=== PATIENT | female | born 1935 | race Caucasian/White ===

== ENCOUNTER 2016-02-29 08:08 | Emergency (ER) | payer OTHER ==
[~2016-02-29] VITALS: Ht 152.4 cm; Wt 77.5 kg
[~2016-02-29 08:08] MED LIST: OXYC1TAB3 PO
[2016-02-29 08:16] VITALS: TEMP 36.8; Ht 152.4 cm; Wt 77.5 kg
[2016-02-29] MEDS ORDERED: OXYCODONE/ACETAMINOPHEN 5-325 TAB PO STA (08:44)
--- NOTE | 2016-02-29 08:48 | EMERGENCY ROOM VISIT NOTE ---
History Report prepared by Nila: Sayda Nye Under the Supervision of: Dr. Manny Roe M.D. First contact with patient: 08:38 Chief Complaint: ARM PAIN Stated Complaint: FALL History of Present Illness The patient is a 80 year old female who presents to the Emergency Room with complaints of severe and persistent right wrist pain starting this morning. She fell out of bed today. She has worsening pain with movement and palpation. The patient denies any new shoulder pain, or any other complaints. Source of History: patient Onset: this morning Position: wrist (right) Symptom Intensity: severe Timing: other (persistent) Modifying Factors (Worsening): movement, other (palpation) Review of Systems See HPI for pertinent positives & negatives. A total of 6 systems reviewed and were otherwise negative. Past Medical & Surgical Medical Problems: (1) Chronic pain of right hip (2) Compression fracture (3) COPD (chronic obstructive pulmonary disease) (4) DM type 2 (diabetes mellitus, type 2) (5) Dyslipidemia (6) Esophageal dysmotility (7) Essential hypertension (8) Hyponatremia (9) Hypothyroidism (10) Knee pain (11) Mass of lung (12) Osteoarthritis (13) Renal cancer (14) Renal mass Surgical Problems: (1) History of total bilateral knee replacement (2) Status post lumbar spinal fusion (3) Status post shoulder replacement Family History Diabetes mellitus Hypertension Social History Smoking Status: Former Smoker Alcohol Use: none Housing Status: lives alone Occupation Status: retired Current/Historical Medications Scheduled Alendronate Sodium (Alendronate Sodium), 70 MG PO WK Carvedilol (Coreg), 6.25 MG PO BIDM Celecoxib (Celebrex), 100 MG PO BID Duloxetine HCl (Cymbalta), 90 MG PO DAILY Gabapentin (Neurontin), 100 MG PO BID Gabapentin (Neurontin), 300 MG PO HS Levothyroxine Sodium (Levothyroxine Sodium), 75 MCG PO QAM Omeprazole (Prilosec), 20 MG PO BIDM Oxycodone Hcl (Roxicodone), 15 MG PO HS Simvastatin (Zocor), 10 MG PO HS Solifenacin (Vesicare), 10 MG PO HS Scheduled PRN Ipratropium-Albuterol (Combivent Respimat), 1 PUFFS INH QID PRN for SOB/Wheezing Oxycodone Ir (Roxicodone Ir), 1 TAB PO Q4H PRN for Pain Oxycodone/Acetaminophen 5MG/325MG (Percocet 5MG/325MG), 1-2 TABLETS PO Q4H PRN for Pain Allergies Coded Allergies: Levofloxacin (Verified Allergy, Mild, rash, 02/29/16) Pt reported that arm became severly itchy after start of IV levaquin Atorvastatin (Verified Adverse Reaction, Intermediate, MYALGIA, 02/29/16) Codeine (Verified Adverse Reaction, Intermediate, SEVERE N/V, 02/29/16) Fentanyl (Verified Adverse Reaction, Intermediate, FREQUENT FALLS, 02/29/16 ) PT STATES SHE WILL NOT WEAR THIS ANYMORE Morphine (Verified Adverse Reaction, Intermediate, SEVERE N/V, 02/29/16) Physical Exam Vital Signs Date Time Temp Pulse Resp B/P Pulse Ox O2 Delivery O2 Flow Rate FiO2 02/29/16 09:58 105 20 119/60 93 Room Air 02/29/16 08:16 36.8 104 19 125/82 98 Room Air Physical Exam CONSTITUTIONAL: Moderate painful distress HEENT: No icterus, moist mucous membranes NECK: No meningismus, trachea is midline. CARDIOVASCULAR: Regular rate, normal perfusion RESPIRATORY: Unlabored breathing. Clear to auscultation. GASTROINTESTINAL: Non-tender GENITOURINARY: No flank tenderness MUSCULOSKELETAL: Tenderness distal forearm on the right, neurovascularly intact. NEUROLOGIC: No acute gross focal deficits. PSYCHIATRIC: Normal affect SKIN: Normal for ethnicity. Medical Decision & Procedures ER Provider Diagnostic Interpretation: X-ray results as stated below per interpretation by me and the radiologist. RIGHT WRIST MIN 3 VIEWS ROUTINE CLINICAL HISTORY: Right wrist pain following fall. COMPARISON: None FINDINGS: There is a mildly displaced impacted distal right radial fracture which extends through the metaphysis with suspected intra-articular extension. There is no acute fracture of the distal right ulna. The trapezium has likely been resected. There are degenerative changes within the right wrist. Scaphoid appears intact. IMPRESSION: Acute impacted, mildly displaced distal right radial fracture. Electronically signed by: Cliff Varghese M.D. 02/29/2016 9:18 AM Dictated Date/Time: 02/29/2016 9:16 AM Medications Administered Medications (Trade) Dose Ordered Sig/Charlee Route Start Time Stop Time Status Last Admin Dose Admin Oxycodone/ Acetaminophen (Percocet 5-325mg Tab) 1 tab NOW STAT PO 02/29/16 08:44 02/29/16 08:45 DC 02/29/16 08:52 1 TAB ED Course 0838: Past medical records reviewed. The patient was evaluated in room B06. A complete history and physical examination was performed. 0844: Oxycodone/Acetaminophen 1 tab PO 1030: Upon reexamination the patient is resting comfortably. I discussed results and treatment plan with the patient. She verbalizes agreement and understanding. The patient is ready for discharge. Medical Decision Differential diagnosis includes but is not limited to fracture. 80 y/o in her o/w normal state of health accidentally fell out of bed injuring her R wrist. No other injuries or concerned. (+) fx. splinted. Rx: percocet. States she will f/u Dr. Reis (ortho). Impression Primary Impression: Wrist fracture Scribe Attestation The scribe's documentation has been prepared under my direction and personally reviewed by me in its entirety. I confirm that the note above accurately reflects all work, treatment, procedures, and medical decision making performed by me. Departure Information Dispostion Home / Self-Care Prescriptions Oxycodone/Acetaminophen 5MG/325MG (PERCOCET 5MG/325MG) Tab 1-2 TABLETS PO Q4H Y for Pain, #20 TAB Prov: Manny Roe MD 02/29/16 Referrals Harjeet Zaman M.D. (PCP) Forms HOME CARE DOCUMENTATION FORM, IMPORTANT VISIT INFORMATION Patient Instructions Fractures - [facility], [facility] Additional Instructions FOLLOW-UP WITH ORTHOPEDIC SURGERY.
--- NOTE | 2016-02-29 09:20 | DIAGNOSTIC IMAGING REPORT ---
RIGHT WRIST MIN 3 VIEWS ROUTINE CLINICAL HISTORY: Right wrist pain following fall. COMPARISON: None FINDINGS: There is a mildly displaced impacted distal right radial fracture which extends through the metaphysis with suspected intra-articular extension. There is no acute fracture of the distal right ulna. The trapezium has likely been resected. There are degenerative changes within the right wrist. Scaphoid appears intact. IMPRESSION: Acute impacted, mildly displaced distal right radial fracture. Electronically signed by: Cliff Varghese M.D. 02/29/2016 9:18 AM Dictated Date/Time: 02/29/2016 9:16 AM
[2016-02-29] MEDS ORDERED: OXYC-57 PO (10:28)
[2016-02-29 11:40] VITALS: BP 148/97; PULSE 105; O2SAT 94
[2016-02-29] MEDS ORDERED: OXYC15TA49 PO (13:09)
[2016-02-29] MEDS ORDERED: GABA-113 PO (13:50)
[2016-02-29] MEDS ORDERED: GABA-112 PO (13:50)
[2016-02-29] MEDS ORDERED: CYM/30 PO (15:10)
[2016-02-29] MEDS ORDERED: SIMV10TA2 PO (18:27)
[2016-02-29] MEDS ORDERED: CARV6.252 PO (23:58)
[2016-05-13] MEDS ORDERED: NRV5 PO (12:00)
[2016-05-13] MEDS ORDERED: OXYC1TAB3 PO (12:00)
[2016-05-13] MEDS ORDERED: CLC100 PO (12:00)
[2016-05-13] MEDS ORDERED: RGL10 PO (12:00)
[2016-06-15] MEDS ORDERED: CLB100 PO (11:19)
[2016-06-15] MEDS ORDERED: OMEP20CA9 PO (15:40)
[2016-06-15] MEDS ORDERED: IPRA1AER2 INH (16:33)
[2016-06-15] MEDS ORDERED: DOCU-94 PO (17:39)
[2016-06-15] MEDS ORDERED: ADVIN25/60 INH (17:44)
[2016-06-15] MEDS ORDERED: CHOL400C PO (17:45)
[2016-06-15] MEDS ORDERED: MULT-513 PO (17:47)
[2016-06-15] MEDS ORDERED: CALC-354 PO (17:47)
[2016-06-15] MEDS ORDERED: SOLI10TA2 PO (18:27)
[2016-06-15] MEDS ORDERED: FSM70 PO (23:54)
[2016-09-23] MEDS ORDERED: ATV5 PO (10:31)
[2016-09-23] MEDS ORDERED: RXNS2.5 PO (10:31)
[2016-09-23] MEDS ORDERED: DXY100 PO (10:31)
[2016-09-23] MEDS ORDERED: OXGN (10:31)
[2016-09-23] MEDS ORDERED: CRDCD120 PO (10:31)
[2016-09-23] MEDS ORDERED: PRED10TA PO (10:31)
== END 2016-02-29 13:08 | disposition home or self-care (01) ==
LOC: EDBD 08:08 → C.EDB 08:10
DX: S52.591A Other fractures of lower end of right radius, initial encounter for closed fracture (principal); W06.XXXA Fall from bed, initial encounter; Y92.013 Bedroom of single-family (private) house as the place of occurrence of the external cause; J44.9 Chronic obstructive pulmonary disease, unspecified; E11.9 Type 2 diabetes mellitus without complications; E78.5 Hyperlipidemia, unspecified; I10 Essential (primary) hypertension; E03.9 Hypothyroidism, unspecified; E87.1 Hypo-osmolality and hyponatremia; M19.90 Unspecified osteoarthritis, unspecified site; Z85.528 Personal history of other malignant neoplasm of kidney; Z83.3 Family history of diabetes mellitus; Z82.49 Family history of ischemic heart disease and other diseases of the circulatory system; Z87.891 Personal history of nicotine dependence; Z79.899 Other long term (current) drug therapy

== ENCOUNTER 2016-05-09 16:15 | Inpatient (IN) | payer OTHER ==
[~2016-05-09] VITALS: Ht 152.4 cm; Wt 77.6 kg
[~2016-05-09 16:15] MED LIST changes: +CARV6.252 PO; +CYM/30 PO; +GABA-112 PO; +GABA-113 PO; +OXYC-57 PO; +OXYC15TA49 PO; +SIMV10TA2 PO
[2016-05-09] MEDS ORDERED: ONDANSETRON INJ 2 MG/ML 2 ML VIAL IV STA (16:43)
[2016-05-09] MEDS: HYDROmorphone INJ 0.5 MG/0.5 ML SYR IV PRN ×2 (16:49→18:07)
--- NOTE | 2016-05-09 16:54 | DIAGNOSTIC IMAGING REPORT ---
CHEST ONE VIEW PORTABLE CLINICAL HISTORY: Atypical chest pain COMPARISON STUDY: 11-21 FINDINGS: There are postsurgical changes of thoracoabdominal spinal fusion. There are postsurgical changes of bilateral shoulder arthroplasties. The cardiac and mediastinal contours remain stable. There is a lobular density at the left lung base obscuring the left heart border. This likely reflects scarring as it remains unchanged the prior study. There is no failure. There is no acute parenchymal consolidation.[ IMPRESSION: No stomach unchanged the preceding study. No acute findings. Electronically signed by: Kostas Coughlin M.D. 05/09/2016 4:53 PM Dictated Date/Time: 05/09/2016 4:51 PM
[2016-05-09 17:18] LABS: BASO % 0.4 %; BASO ABS # 0.04 K/uL (0-0.2); COMPLETE YES; EOS % 1.2 %; HEMATOCRIT 34.2 % (37-47); IG% 0.5 %; LYMPH % 14.2 %; LYMPH ABS # 1.31 K/uL (1.2-3.4); MEAN CELL VOLUME 74.8 fL (80-100); MEAN CORPUSCULAR HEMOGLOBIN 23.6 pg (25-34); MEAN CORPUSCULAR HGB CONC 31.6 g/dl (32-36); MEAN PLATELET VOLUME 8.7 fL (7.4-10.4); MONO % 8.5 %; NEUT % 75.2 %; PLATELET COUNT 349 K/uL (130-400); RED BLOOD COUNT 4.57 M/uL (4.2-5.4)
[2016-05-09 17:36] LABS: BUN/CREATININE RATIO 24.2 (10-20); CALCIUM 8.9 mg/dl (8.5-10.1); CREATININE 0.86 mg/dl (0.60-1.20); POTASSIUM 4.6 mmol/L (3.5-5.1)
--- NOTE | 2016-05-09 18:09 | DIAGNOSTIC IMAGING REPORT ---
CT OF THE ABDOMEN AND PELVIS WITHOUT CONTRAST CLINICAL HISTORY: Right upper quadrant abdominal pain. COMPARISON STUDY: CT of the abdomen and pelvis August 03, 2015. TECHNIQUE: Axial images of the abdomen and pelvis were obtained without IV contrast. Images were reviewed in the axial, sagittal, and coronal planes. FINDINGS: A 5 mm right lower lobe nodule is unchanged since earlier exams. This is benign given stability. There are multiple subacute to chronic bilateral rib fractures. No pneumatosis, free air or portal venous gas is present. Evaluation of the abdomen and pelvis is suboptimal on this unenhanced exam. Unenhanced images of the liver, spleen, adrenal glands and pancreas are unremarkable. There is a fat-containing ventral hernia. There are multiple water attenuation bilateral renal lesions. These are suboptimally assessed on this unenhanced exam but measure water attenuation may reflect cysts. There are postsurgical findings involving the lower pole the right kidney. There is no evidence for a bowel obstruction. The appendix is not. No enlarged abdominal or pelvic lymph nodes are present. Multiple old thoracic and lumbar spine compression fractures are similar to exam of August 03, 2015. The postsurgical findings within the spine. IMPRESSION: 1. No acute process within the abdomen or pelvis. 2. Multiple bilateral renal lesions. These are suboptimally assessed on this unenhanced exam but measure water attenuation and may reflect cysts. 3. Stable postoperative changes and multiple old compression fractures within the thoracic and lumbar spine. Healing bilateral rib fractures. Electronically signed by: Cliff Varghese M.D. 05/09/2016 6:07 PM Dictated Date/Time: 05/09/2016 5:59 PM
--- NOTE | 2016-05-09 21:13 | DIAGNOSTIC IMAGING REPORT ---
ABDOMINAL ULTRASOUND, RIGHT UPPER QUADRANT HISTORY: Right upper quadrant pain.. COMPARISON: CT of the abdomen and pelvis May 09, 2016. FINDINGS: The pancreas is obscured by overlying bowel gas. This study is compromised by suboptimal penetration. Increased hepatic echogenicity suggests fatty infiltration. There is sludge within the gallbladder. There are no gallstones. There is no gallbladder wall thickening. A few suspected right renal cysts are noted. IMPRESSION: 1. No gallstones or biliary ductal dilatation. Gallbladder sludge. No gallbladder wall thickening. 2. Largely obscured pancreas. 3. Fatty liver. Electronically signed by: Cliff Varghese M.D. 05/09/2016 9:11 PM Dictated Date/Time: 05/09/2016 9:10 PM
[2016-05-09] MEDS ORDERED: OPTIRAY 320 IV PRN (22:00)
--- NOTE | 2016-05-09 22:13 | DIAGNOSTIC IMAGING REPORT ---
CT ANGIOGRAPHY OF THE CHEST, PULMONARY EMBOLUS PROTOCOL CLINICAL HISTORY: Right anterior chest pain. COMPARISON STUDY: Chest CT September 26, 2014. TECHNIQUE: Following IV administration of 119 mL of Optiray-320, helical axial images of the chest were obtained utilizing the pulmonary embolus protocol. Maximal intensity projections and sagittal and coronal reformats were viewed on an independent 3D workstation. IV contrast was administered without complication. CT DOSE: 621.06 mGy.cm FINDINGS: No central pulmonary emboli are identified. The remainder of the pulmonary arteries are inadequately assessed due to respiratory motion. There is no evidence of thoracic aortic dissection. There are bilateral shoulder arthroplasties. The heart is mildly enlarged. There is no pericardial effusion. The lungs are suboptimally assessed due to respiratory motion. Lower lobe and lingular opacities favor atelectasis. There is no consolidation to suggest pneumonia. There are multiple subacute healing right-sided rib fractures. There are also old bilateral rib fractures. There are multiple thoracic and lumbar spine fractures. A multilevel fusion is noted. A few borderline enlarged bilateral axillary lymph nodes have increased in size since a CT of September 26, 2014. IMPRESSION: 1. No central pulmonary emboli. The remainder of the pulmonary arteries are inadequately assessed due to respiratory motion. 2. Lung suboptimally assessed due to respiratory motion. Scattered opacities favor atelectasis. 3. Multiple subacute right-sided rib fractures. 4. Prominent bilateral axillary lymph nodes which have mildly increased in size since prior CT. A follow-up chest CT in 6 months is recommended. Electronically signed by: Cliff Varghese M.D. 05/09/2016 10:12 PM Dictated Date/Time: 05/09/2016 10:04 PM
[2016-05-10] VITALS (7 sets, daily range): BP systolic 95–145; BP diastolic 57–88; PULSE 78–94; TEMP 36.5–36.7; O2SAT 93–97; Ht 152.4 cm; Wt 77.6 kg
--- NOTE | 2016-05-10 00:17 | EMERGENCY ROOM VISIT NOTE ---
History Report prepared by Nila: Leatha Goddard Under the Supervision of: Dr. Tre Tobias M.D. First contact with patient: 16:24 Chief Complaint: CHEST PAIN Stated Complaint: CHEST PAIN Nursing Triage Summary: Right sided chest/abdominal pain. Patient points to below the right breast when asked where her pain is. Patient states she has been experiencing this pain for months but today it just became unbearable. Eating and drinking make no difference as far at the pain is concerned. Patient states she does still have her gallbladder. She states she has no cardiac history that she knows of. History of Present Illness The patient is a 80 year old female who presents to the Emergency Room with complaints of intermittent right upper quadrant abdominal pain that worsened this morning. She rates her discomfort as a 9/10 in severity and the pain is worse with deep breathing. The patient states that she has been experiencing this pain for the past couple months, but it has been significantly worse today. She states that the pain started today after she ate breakfast and got progressively worse as the day went on and became constant. The patient states that she was unable to get up out of the chair to go on a walk secondary to the pain. Pt denies LOC, headache, fevers, chills, diaphoresis, visual changes, neck pain, chest pain, breathing difficulties, nausea, vomiting, back pain, melena, hematochezia, urinary symptoms, numbness, weakness, lymphadenopathy, lower extremity pain or edema, rash, or other complaints.The patient still has her gallbladder. She denies using any blood thinners as well as any history of blood clots. Source of History: patient Onset: this morning Position: abdomen (RUQ) Symptom Intensity: 9/10 Timing: intermittent, worsening Modifying Factors (Worsening): breathing (deep) Note: denies LOC, headache, fevers, chills, diaphoresis, visual changes, neck pain, chest pain, breathing difficulties, nausea, vomiting, back pain, melena, hematochezia, urinary symptoms, numbness, weakness, lymphadenopathy, lower extremity pain or edema, rash, or other complaints Review of Systems See HPI for pertinent positives and negatives. A total of ten systems were reviewed and were otherwise negative. Past Medical & Surgical Medical Problems: (1) Chronic pain of right hip (2) Compression fracture (3) COPD (chronic obstructive pulmonary disease) (4) DM type 2 (diabetes mellitus, type 2) (5) Dyslipidemia (6) Esophageal dysmotility (7) Essential hypertension (8) Hyponatremia (9) Hypothyroidism (10) Knee pain (11) Mass of lung (12) Osteoarthritis (13) Renal cancer (14) Renal mass Surgical Problems: (1) History of total bilateral knee replacement (2) Status post lumbar spinal fusion (3) Status post shoulder replacement Family History Diabetes mellitus Hypertension Social History Smoking Status: Former Smoker Alcohol Use: none Housing Status: lives alone Occupation Status: retired Current/Historical Medications Scheduled Alendronate Sodium (Alendronate Sodium), 70 MG PO WK Carvedilol (Coreg), 6.25 MG PO BIDM Celecoxib (Celebrex), 100 MG PO BID Duloxetine HCl (Cymbalta), 90 MG PO DAILY Gabapentin (Neurontin), 100 MG PO BID Gabapentin (Neurontin), 300 MG PO HS Levothyroxine Sodium (Levothyroxine Sodium), 75 MCG PO QAM Omeprazole (Prilosec), 20 MG PO BIDM Oxycodone Hcl (Roxicodone), 15 MG PO HS Simvastatin (Zocor), 10 MG PO HS Solifenacin (Vesicare), 10 MG PO HS Scheduled PRN Ipratropium-Albuterol (Combivent Respimat), 1 PUFFS INH QID PRN for SOB/Wheezing Oxycodone Ir (Roxicodone Ir), 1 TAB PO Q4H PRN for Pain Oxycodone/Acetaminophen 5MG/325MG (Percocet 5MG/325MG), 1-2 TABLETS PO Q4H PRN for Pain Allergies Coded Allergies: Levofloxacin (Verified Allergy, Mild, rash, 05/09/16) Pt reported that arm became severly itchy after start of IV levaquin Atorvastatin (Verified Adverse Reaction, Intermediate, MYALGIA, 05/09/16) Codeine (Verified Adverse Reaction, Intermediate, SEVERE N/V, 05/09/16) Fentanyl (Verified Adverse Reaction, Intermediate, FREQUENT FALLS, 05/09/16) PT STATES SHE WILL NOT WEAR THIS ANYMORE Morphine (Verified Adverse Reaction, Intermediate, SEVERE N/V, 05/09/16) Physical Exam Vital Signs Date Time Temp Pulse Resp B/P Pulse Ox O2 Delivery O2 Flow Rate FiO2 05/09/16 23:22 94 18 146/99 Nasal Cannula 2.0 05/09/16 21:29 94 16 120/90 93 Nasal Cannula 2.0 05/09/16 20:25 98 05/09/16 20:00 92 14 160/118 94 Nasal Cannula 2.0 05/09/16 18:09 108 15 169/110 94 Room Air 05/09/16 16:32 94 Room Air 05/09/16 16:32 94 Room Air 05/09/16 16:27 99 05/09/16 16:26 94 Room Air 05/09/16 16:26 36.8 101 20 163/92 94 Room Air Physical Exam GENERAL: Awake, alert, uncomfortable-appearing, in no distress HENT: Normocephalic, atraumatic. Oropharynx unremarkable. EYES: Normal conjunctiva. Sclera non-icteric. NECK: Supple. No nuchal rigidity. FROM. No JVD. RESPIRATORY: Clear to auscultation. CARDIAC: Borderline tachycardic rate, normal rhythm. Extremities warm and well perfused. Pulses equal. ABDOMEN: Soft, non-distended. Right upper quadrant tenderness to palpation. No rebound. Mild guarding. No masses. RECTAL: Deferred. MUSCULOSKELETAL: Chest examination reveals no tenderness. The back is symmetrical on inspection without obvious abnormality. There is no CVA tenderness to palpation. No joint edema. LOWER EXTREMITIES: Calves are equal size bilaterally and non-tender. No edema. No discoloration. NEURO: Normal sensorium. No sensory or motor deficits noted. SKIN: No rash or jaundice noted. Medical Decision & Procedures ER Provider Diagnostic Interpretation: X ray results as stated below per my interpretation and radiologist interpretation. Other radiology results as stated below per my review and radiologist interpretation CHEST ONE VIEW PORTABLE IMPRESSION: No stomach unchanged the preceding study. No acute findings. Electronically signed by: Kostas Coughlin M.D. 05/09/2016 4:53 PM Dictated Date/Time: 05/09/2016 4:[address] OF THE ABDOMEN AND PELVIS WITHOUT CONTRAST IMPRESSION: 1. No acute process within the abdomen or pelvis. 2. Multiple bilateral renal lesions. These are suboptimally assessed on this unenhanced exam but measure water attenuation and may reflect cysts. 3. Stable postoperative changes and multiple old compression fractures within the thoracic and lumbar spine. Healing bilateral rib fractures. Electronically signed by: Cliff Varghese M.D. 05/09/2016 6:07 PM Dictated Date/Time: 05/09/2016 5:59 PM ABDOMINAL ULTRASOUND, RIGHT UPPER QUADRANT IMPRESSION: 1. No gallstones or biliary ductal dilatation. Gallbladder sludge. No gallbladder wall thickening. 2. Largely obscured pancreas. 3. Fatty liver. Electronically signed by: Cliff Varghese M.D. 05/09/2016 9:11 PM Dictated Date/Time: 05/09/2016 9:[address] ANGIOGRAPHY OF THE CHEST, PULMONARY EMBOLUS PROTOCOL IMPRESSION: 1. No central pulmonary emboli. The remainder of the pulmonary arteries are inadequately assessed due to respiratory motion. 2. Lung suboptimally assessed due to respiratory motion. Scattered opacities favor atelectasis. 3. Multiple subacute right-sided rib fractures. 4. Prominent bilateral axillary lymph nodes which have mildly increased in size since prior CT. A follow-up chest CT in 6 months is recommended. Electronically signed by: Cliff Varghese M.D. 05/09/2016 10:12 PM Dictated Date/Time: 05/09/2016 10:04 PM Laboratory Results 05/09/16 17:04 Red Blood Count 4.57, Mean Corpuscular Volume 74.8, Mean Corpuscular Hemoglobin 23.6, Mean Corpuscular Hemoglobin Concent 31.6, Mean Platelet Volume 8.7, Neutrophils (%) (Auto) 75.2, Lymphocytes (%) (Auto) 14.2, Monocytes (%) (Auto) 8.5, Eosinophils (%) (Auto) 1.2, Basophils (%) (Auto) 0.4, Neutrophils # (Auto) 6.91, Lymphocytes # (Auto) 1.31, Monocytes # (Auto) 0.78, Eosinophils # (Auto) 0.11, Basophils # (Auto) 0.04 05/09/16 17:04 Test 05/09/16 17:04 05/09/16 17:15 White Blood Count 9.20 K/uL (4.8-10.8) Red Blood Count 4.57 M/uL (4.2-5.4) Hemoglobin 10.8 g/dL (12.0-16.0) Hematocrit 34.2 % (37-47) Mean Corpuscular Volume 74.8 fL (80-100) Mean Corpuscular Hemoglobin 23.6 pg (25-34) Mean Corpuscular Hemoglobin Concent 31.6 g/dl (32-36) Platelet Count 349 K/uL (130-400) Mean Platelet Volume 8.7 fL (7.4-10.4) Neutrophils (%) (Auto) 75.2 % Lymphocytes (%) (Auto) 14.2 % Monocytes (%) (Auto) 8.5 % Eosinophils (%) (Auto) 1.2 % Basophils (%) (Auto) 0.4 % Neutrophils # (Auto) 6.91 K/uL (1.4-6.5) Lymphocytes # (Auto) 1.31 K/uL (1.2-3.4) Monocytes # (Auto) 0.78 K/uL (0.11-0.59) Eosinophils # (Auto) 0.11 K/uL (0-0.5) Basophils # (Auto) 0.04 K/uL (0-0.2) RDW Standard Deviation 44.3 fL (36.4-46.3) RDW Coefficient of Variation 16.1 % (11.5-14.5) Immature Granulocyte % (Auto) 0.5 % Immature Granulocyte # (Auto) 0.05 K/uL (0.00-0.02) Anion Gap 10.0 mmol/L (3-11) Est Creatinine Clear Calc Drug Dose 48.1 ml/min Estimated GFR () 73.9 Estimated GFR (Non- 63.8 BUN/Creatinine Ratio 24.2 (10-20) Calcium Level 8.9 mg/dl (8.5-10.1) Magnesium Level 2.0 mg/dl (1.8-2.4) Total Bilirubin 0.4 mg/dl (0.2-1) Direct Bilirubin 0.1 mg/dl (0-0.2) Aspartate Amino Transf (AST/SGOT) 17 U/L (15-37) Alanine Aminotransferase (ALT/SGPT) 21 U/L (12-78) Alkaline Phosphatase 130 U/L (45-117) Total Protein 6.8 gm/dl (6.4-8.2) Albumin 3.6 gm/dl (3.4-5.0) Lipase 120 U/L (73-393) Bedside Troponin I 0.010 ng/ml (0-0.045) Laboratory results reviewed by me Medications Administered Medications (Trade) Dose Ordered Sig/Charlee Route Start Time Stop Time Status Last Admin Dose Admin Hydromorphone HCl (Dilaudid Inj) 0.5 mg Q15M PRN IV 05/09/16 16:45 05/10/16 00:08 DC 05/09/16 18:07 0.5 MG Ondansetron HCl (Zofran Inj) 4 mg NOW STAT IV 05/09/16 16:43 05/09/16 16:45 DC 05/09/16 16:43 4 MG ECG Indication: abdominal pain Rate (beats per minute): 99 Rhythm: normal sinus Findings: no acute ischemic change, no ectopy ED Course 1639: The patient was evaluated in room B12. A complete history and physical exam was performed. 1643: Ordered Zofran Inj 4 mg IV 1644: Ordered Dilaudid Inj 0.5 mg IV 3: I reassessed the patient. She was resting comfortably. 4: Upon reexamination, the patient was resting comfortably. I discussed the test results and treatment plan with her. The patient will be evaluated for further management. 2230: Discussed the patient's case with Dr. Jesse Sparks. The patient will be evaluated for further treatment and disposition. Medical Decision Triage Nursing notes reviewed. The patient's presentation and history were concerning for right-sided abdominal pain. Etiologies such as biliary pathology, pancreatitis, Appendicitis, diverticulitis , obstruction, inflammatory bowel disease, renal colic, PUD, mesenteric ischemia, aortic pathology, infections, genitourinary, UTI, perforated viscus, as well as others were entertained. The patient was evaluated. She was given Dilaudid and Zofran for symptom control. She tenderness that was very reproducible in the right upper quadrant. Laboratory testing was unremarkable. The patient had an unremarkable ECG and chest x-ray. CT imaging did not reveal any problems. She was sent for ultrasound imaging of the right upper quadrant. Did not reveal any abnormalities except for some sludge. The patient still had pain. Given the right-sided chest symptoms she went for CT PE study. This was unremarkable although peripheral vessels were somewhat obscured. The patient did require 2 doses of pain medicine for symptom control. Her CBC, chemistry panel, LFTs and lipase were unremarkable. Cardiac troponin was unremarkable. ECG did not reveal any obvious findings. Exact etiology of her right-sided symptoms is not known at this time. Given the level of discomfort further evaluation and management was felt to be appropriate. Consultation was made with internal medicine. The patient was evaluated for further treatment. The chart was completed utilizing [employer] Speech voice recognition software. Grammatical errors, random word insertions, pronoun errors, and incomplete sentences are an occasional consequence of this system due to software limitations, ambient noise, and hardware issues. Any formal questions or concerns about the content, text, or information contained within the body of this dictation should be directly addressed to the physician for clarification. Consults Time Called: 2218 Consulting Physician: Dr. Jesse Sparks Returned Call: 2230 Discussed the patient's case with Dr. Jesse Sparks. The patient will be evaluated for further treatment and disposition. Impression Primary Impression: Right-sided chest pain Additional Impression: Right upper quadrant abdominal pain Scribe Attestation The scribe's documentation has been prepared under my direction and personally reviewed by me in its entirety. I confirm that the note above accurately reflects all work, treatment, procedures, and medical decision making performed by me. Departure Information Dispostion Being Evaluated By Hospitalist Harjeet Whitaker M.D. (PCP) Patient Instructions [facility] Problem Qualifiers
[2016-05-10] MEDS ORDERED: LIDODERM (LIDOCAINE) PATCH 5% TD ONE (00:54)
[2016-05-10] MEDS ORDERED: GABAPENTIN 300 MG CAP PO ONE (00:58)
[2016-05-10] MEDS ORDERED: OXYCODONE HCL IR 5 MG TAB (IMMEDIATE RELEASE) PO ONE (00:58)
[2016-05-10] MEDS ORDERED: GLUCOSE 10 TABS/TUBE PO PRN (01:00)
[2016-05-10] MEDS ORDERED: GLUCOSE 40% GEL 15 GM TUBE PO PRN (01:00)
[2016-05-10] MEDS ORDERED: OXYCODONE HCL IR 5 MG TAB (IMMEDIATE RELEASE) PO PRN ×2 (01:00→15:45)
[2016-05-10] MEDS ORDERED: DEXTROSE 50% 50 ML SYR IV PRN (01:00)
[2016-05-10] MEDS ORDERED: ACETAMINOPHEN 325 MG TAB PO PRN (01:00)
[2016-05-10] MEDS ORDERED: GLUCAGON FOR INJ 1 MG VIAL SQ PRN (01:00)
[2016-05-10] MEDS ORDERED: HYDROmorphone INJ 0.5 MG/0.5 ML SYR IV PRN ×2 (01:15→16:00)
[2016-05-10] MEDS ORDERED: OXYCODONE/ACETAMINOPHEN 5-325 TAB PO PRN (01:15)
[2016-05-10] MEDS ORDERED: SODIUM CHLORIDE 0.9% 1000ML 1,000 ML IV ONE (02:00)
[2016-05-10] MEDS: LEVOTHYROXINE 75 MCG TAB PO SCH (05:42)
--- NOTE | 2016-05-10 08:58 | HISTORY & PHYSICAL EXAMINATION ---
DATE OF ADMISSION: 05/10/2016 PRIMARY CARE DOCTOR: Dr. Zaman. Hx obtained from px and records. CHIEF COMPLAINT : Worsening right chest pain. HISTORY OF PRESENT ILLNESS: Medical history significant for chronic respiratory failure secondary to COPD on home O2, hypertension, hyperlipidemia, DM2, diet controlled, past tobacco abuse, recurrent falls, lung nodule as per records. Recent confinement in October 2015 for acute on chronic hyponatremia. As per records, patient has had 3 recurrent falls in 3 days last 02/2016. Conservative mx for R wrist fracture. Since falls, px noticed pleuritic right-sided chest discomfort, intermittent sx. No unusual sob. PX presented to the Emergency Room for worsening R chest pain. MEDICAL HISTORY: As above. SURGERIES: She has had knee replacement, back surgery, shoulder replacement. HOME MEDICATIONS: Include alendronate, Coreg, Celebrex, Cymbalta, Neurontin, Combivent, levothyroxine, Prilosec, Roxicodone, Zocor, VESIcare. ALLERGIES: CODEINE, FENTANYL, MORPHINE, LEVOFLOXACIN. FAMILY HISTORY: Leukemia, emphysema, diabetes, alcohol abuse. PERSONAL AND SOCIAL HISTORY: Past tobacco abuse. No chronic intake of alcoholic beverages. 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 REVIEW OF SYSTEMS: As per HPI. all other ROS negative PHYSICAL EXAMINATION: VITAL SIGNS: Blood pressure was noted to be 146/99, pulse rate 94, RR 18, temperature 36.9, sats 98 on 2 liters. GENERAL: Noted to be slightly uncomfortable, no respiratory distress, obese. SKIN: Pallor. HEAD, EYES, EARS, NOSE, AND THROAT: Pale palpebral conjunctivae. Dry mucosa. NECK: No JVD. supple CHEST: Clear to auscultation. HEART: Anterior chest wall tenderness, right. ABDOMEN: Soft. EXTREMITIES: R wrist splint NEUROLOGIC: No gross focality. LABORATORY DATA: Hemoglobin was noted to be 10.8, hematocrit 34.2, white cell count was 9.2, platelets 349, sodium 140, creatinine 0.8, glucose 113, lipase normal. troponin normal. CT chest initial read showed no PE, multiple subacute right-sided rib fractures. EKG rate 100, normal sinus rhythm. no ischemia ASSESSMENT AND PLAN: 1. Right-sided chest pain secondary to rib fractures secondary to fall 3 months ago. pain the last few months 2. Hypertension stable. 3. chronic resp failure 2 to COPD on home O2, past tobacco abuse pulmo status at baseline 4. Anemia, hemoglobin at baseline. 5. DM2, diet controlled well controlled as of recent HgA1c 6 last February 2016. OBS GMF Lidoderm patch trial. analgesia ISS BG goal 140-180 PT/OT eval. DVT prophylaxis with Lovenox subQ. DNR. MTDD
[2016-05-10] MEDS: ONDANSETRON INJ 2 MG/ML 2 ML VIAL IV PRN ×2 (09:22→15:33)
[2016-05-10] MEDS: INSULIN ASPART 100 UNITS/ML 3 ML PEN SC SCH ×4 (09:28→21:00)
[2016-05-10] MEDS ORDERED: PROMETHAZINE HCL INJ 12.5 MG in SODIUM CHLORIDE 0.9% 50ML 50 ML IV PRN (09:45)
[2016-05-10] MEDS: GABAPENTIN 100 MG CAP PO SCH ×2 (10:39→14:53)
[2016-05-10] MEDS: CARVEDILOL 6.25 MG TAB PO SCH ×2 (10:41→17:52)
[2016-05-10] MEDS: PANTOprazole SOD 40 MG TAB PO SCH ×2 (10:41→17:52)
[2016-05-10] MEDS: DULOXETINE (CYMBALTA) 30 MG CAP PO SCH (10:42)
--- NOTE | 2016-05-10 14:22 | DIAGNOSTIC IMAGING REPORT ---
RIGHT RIBS UNILATERAL MIN 2 VIEWS CLINICAL HISTORY: R/O Rib Fracture Right. Right-sided chest pain. COMPARISON STUDY: Chest CTA 05/09/2016. FINDINGS: There is are acute nondisplaced right posterior lateral seventh and eighth rib fractures. There are few additional subacute/healing right anterior rib fractures. No pneumothorax. No pleural effusions. Low lung volumes. Bilateral total shoulder arthroplasties. Bibasilar linear densities likely represent subsegmental atelectasis. Posterior thoracolumbar spine fusion rods. IMPRESSION: 1. Acute nondisplaced right posterior lateral seventh and eighth rib fractures. No pneumothorax. 2. A few additional subacute/healing right anterior rib fractures. Electronically signed by: Rachid Cardoso M.D. 05/10/2016 2:20 PM Dictated Date/Time: 05/10/2016 2:16 PM
--- NOTE | 2016-05-10 15:42 | Progress Note ---
Internal Med Progress Note Date of Service: May 10, 2016. Provider Documentation: SUBJECTIVE: Patient is lying in her and seems to be distressed due to right sided chest pain which increases on movements as well taking a deep breath. Intermittent cough. Mild nausea. Did not have a BM for the past 2-3 days. OBJECTIVE: Vital Signs-as noted below Examination: GENERAL: Alert/Awake, Noted to be slightly uncomfortable, no respiratory distress, obese. SKIN: Pallor. HEAD, EYES, EARS, NOSE, AND THROAT: [place] palpebral conjunctivae. Dry oral mucosa. NECK:Supple, Midline trachea, No JVD. CHEST: B/L Clear to auscultation.Tender on palpating right sided chest wall. HEART: Anterior chest wall tender right. ABDOMEN: Soft.Pain on deep palpation, BS present. EXTREMITIES: No edema.Moderate pulses present. NEUROLOGIC: No gross focality. Lab data as noted below. ASSESSMENT & PLAN: RIGHT RIBS UNILATERAL MIN 2 VIEWS CLINICAL HISTORY: R/O Rib Fracture Right. Right-sided chest pain. COMPARISON STUDY: Chest CTA 05/09/2016. FINDINGS: There is are acute nondisplaced right posterior lateral seventh and eighth rib fractures. There are few additional subacute/healing right anterior rib fractures. No pneumothorax. No pleural effusions. Low lung volumes. Bilateral total shoulder arthroplasties. Bibasilar linear densities likely represent subsegmental atelectasis. Posterior thoracolumbar spine fusion rods. IMPRESSION: 1. Acute nondisplaced right posterior lateral seventh and eighth rib fractures. No pneumothorax. 2. A few additional subacute/healing right anterior rib fractures. Right-sided Chest Pain: Due to 7th & 8th rib fractures following a fall. -Pain management -Lidoderm patch locally -Advised not to take deep breath Dysphagia: With nausea/vomiting. 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 This doesn't appear to have been done as had prescribed Amlodipine to her but do not show up in her list of home medications. -Mechanical soft diet -Started Amlodipine 2.5 mg daily and will gradually titrate upwards. -Added Reglan 10 mg before meals -Changed to soft diet which patient is reluctant. Hypothyroidism: Continue Synthroid Diabetes Type II: Diet controlled -HbA1c was 6.0 in Feb 2016. -Consistent carbohydrate diet History Hypertension: BP has been stable. -Continue Coreg Anemia Of Chronic Disease: Hgb around 9.0 which is near baseline -Continue to monitor History COPD: Has Chronic Respiratory Failure and is on home oxygen.Stable -Continue home inhalers/nebs Chronic Pain: Continue Gabapentin. Added Dilaudid PRN as per need. Depression: Continue Xanax, Cymbalta H/O Lung Nodule: Serial CTs as outpatient DVT Prophylaxis: SCDs. Code Status: FULL CODE Vital Signs: Date Time Temp Pulse Resp B/P Pulse Ox O2 Delivery O2 Flow Rate FiO2 05/11/16 15:58 101 94 05/11/16 15:44 37.0 87 18 107/65 96 Room Air 05/11/16 08:00 Nasal Cannula 2.0 05/11/16 07:14 36.9 95 16 126/74 94 2.0 05/10/16 23:00 36.5 86 17 95/57 93 Nasal Cannula 2.0 05/10/16 19:30 Nasal Cannula 2.0 Lab Results: Results Past 24 Hours Test 05/10/16 21:31 05/11/16 06:16 05/11/16 07:10 05/11/16 11:57 Range/Units Bedside Glucose 106 101 102 70-90 mg/dl White Blood Count 5.42 4.8-10.8 K/uL Red Blood Count 3.92 4.2-5.4 M/uL Hemoglobin 9.3 12.0-16.0 g/dL Hematocrit 30.4 37-47 % Mean Corpuscular Volume 77.6 80-100 fL Mean Corpuscular Hemoglobin 23.7 25-34 pg Mean Corpuscular Hemoglobin Concent 30.6 32-36 g/dl Platelet Count 281 130-400 K/uL Mean Platelet Volume 9.1 7.4-10.4 fL Neutrophils (%) (Auto) 60.2 % Lymphocytes (%) (Auto) 23.8 % Monocytes (%) (Auto) 11.3 % Eosinophils (%) (Auto) 3.9 % Basophils (%) (Auto) 0.4 % Neutrophils # (Auto) 3.27 1.4-6.5 K/uL Lymphocytes # (Auto) 1.29 1.2-3.4 K/uL Monocytes # (Auto) 0.61 0.11-0.59 K/uL Eosinophils # (Auto) 0.21 0-0.5 K/uL Basophils # (Auto) 0.02 0-0.2 K/uL RDW Standard Deviation 46.5 36.4-46.3 fL RDW Coefficient of Variation 16.4 11.5-14.5 % Immature Granulocyte % (Auto) 0.4 % Immature Granulocyte # (Auto) 0.02 0.00-0.02 K/uL Sodium Level 140 136-145 mmol/L Potassium Level 4.1 3.5-5.1 mmol/L Chloride Level 106 98-107 mmol/L Carbon Dioxide Level 27 21-32 mmol/L Anion Gap 7.0 3-11 mmol/L Blood Urea Nitrogen 19 7-18 mg/dl Creatinine 0.97 0.60-1.20 mg/dl Est Creatinine Clear Calc Drug Dose 42.6 ml/min Estimated GFR () 63.9 Estimated GFR (Non- 55.2 BUN/Creatinine Ratio 19.5 10-20 Random Glucose 97 70-99 mg/dl Calcium Level 8.6 8.5-10.1 mg/dl Test 05/11/16 12:55 05/11/16 17:00 Range/Units Bedside Glucose 107 108 70-90 mg/dl
[2016-05-10] MEDS ORDERED: DOCUSATE SODIUM 100 MG CAP PO ONE (15:45)
[2016-05-10] MEDS ORDERED: OXYCODONE HCL IR 5 MG TAB (IMMEDIATE RELEASE) PO SCH (21:00)
[2016-05-10] MEDS ORDERED: GABAPENTIN 100 MG CAP PO SCH (21:00)
[2016-05-10] MEDS: GABAPENTIN 300 MG CAP PO SCH (21:40)
[2016-05-10] MEDS: DOCUSATE SODIUM 100 MG CAP PO SCH (21:40)
[2016-05-11] MEDS: GABAPENTIN 100 MG CAP PO SCH ×2 (06:36→15:13)
[2016-05-11] MEDS: LEVOTHYROXINE 75 MCG TAB PO SCH (06:36)
[2016-05-11 07:14] VITALS: BP 126/74; PULSE 95; TEMP 36.9; O2SAT 94
[2016-05-11 07:30] LABS: BUN/CREATININE RATIO 19.5 (10-20); CALCIUM 8.6 mg/dl (8.5-10.1); CREATININE 0.97 mg/dl (0.60-1.20); POTASSIUM 4.1 mmol/L (3.5-5.1)
[2016-05-11 08:19] LABS: BASO % 0.4 %; BASO ABS # 0.02 K/uL (0-0.2); COMPLETE YES; EOS % 3.9 %; HEMATOCRIT 30.4 % (37-47); IG% 0.4 %; LYMPH % 23.8 %; LYMPH ABS # 1.29 K/uL (1.2-3.4); MEAN CELL VOLUME 77.6 fL (80-100); MEAN CORPUSCULAR HEMOGLOBIN 23.7 pg (25-34); MEAN CORPUSCULAR HGB CONC 30.6 g/dl (32-36); MEAN PLATELET VOLUME 9.1 fL (7.4-10.4); MONO % 11.3 %; NEUT % 60.2 %; PLATELET COUNT 281 K/uL (130-400); RED BLOOD COUNT 3.92 M/uL (4.2-5.4); WHITE BLOOD COUNT 5.42 K/uL (4.8-10.8)
[2016-05-11] MEDS: INSULIN ASPART 100 UNITS/ML 3 ML PEN SC SCH ×4 (09:02→21:00)
[2016-05-11] MEDS: DOCUSATE SODIUM 100 MG CAP PO SCH ×2 (09:06→21:11)
[2016-05-11] MEDS: ONDANSETRON INJ 2 MG/ML 2 ML VIAL IV PRN ×2 (09:06→17:58)
[2016-05-11] MEDS: DULOXETINE (CYMBALTA) 30 MG CAP PO SCH (09:06)
[2016-05-11] MEDS: PANTOprazole SOD 40 MG TAB PO SCH ×2 (09:07→17:24)
[2016-05-11] MEDS: CARVEDILOL 6.25 MG TAB PO SCH ×2 (09:07→17:25)
[2016-05-11] MEDS: LIDODERM (LIDOCAINE) PATCH 5% TD SCH (09:08)
[2016-05-11 15:44] VITALS: BP 107/65; PULSE 87; TEMP 37; O2SAT 96
[2016-05-11 15:58] VITALS: BP 107/65; PULSE 101; O2SAT 94
[2016-05-11] MEDS: METOCLOPRAMIDE HCL 10 MG TAB PO SCH ×2 (17:25→21:11)
[2016-05-11] MEDS: GABAPENTIN 300 MG CAP PO SCH (21:10)
[2016-05-11] MEDS: OXYCODONE HCL IR 5 MG TAB (IMMEDIATE RELEASE) PO SCH (21:11)
[2016-05-11 23:20] VITALS: BP 106/72; PULSE 16; PULSE 91; TEMP 36.7; O2SAT 93
[2016-05-12] MEDS: LEVOTHYROXINE 75 MCG TAB PO SCH (06:28)
[2016-05-12] MEDS: GABAPENTIN 100 MG CAP PO SCH ×2 (06:29→14:48)
[2016-05-12 07:26] VITALS: BP 136/81; PULSE 90; TEMP 37; O2SAT 95
[2016-05-12] MEDS: DULOXETINE (CYMBALTA) 30 MG CAP PO SCH (09:28)
[2016-05-12] MEDS: CARVEDILOL 6.25 MG TAB PO SCH ×2 (09:28→17:27)
[2016-05-12] MEDS: LIDODERM (LIDOCAINE) PATCH 5% TD SCH (09:28)
[2016-05-12] MEDS: DOCUSATE SODIUM 100 MG CAP PO SCH ×2 (09:28→20:57)
[2016-05-12] MEDS: METOCLOPRAMIDE HCL 10 MG TAB PO SCH ×4 (09:29→20:57)
[2016-05-12] MEDS: PANTOprazole SOD 40 MG TAB PO SCH ×2 (09:29→17:27)
[2016-05-12] MEDS: INSULIN ASPART 100 UNITS/ML 3 ML PEN SC SCH ×4 (09:30→21:00)
[2016-05-12] MEDS: ONDANSETRON INJ 2 MG/ML 2 ML VIAL IV PRN (09:35)
[2016-05-12 09:52] VITALS: O2SAT 93
[2016-05-12] MEDS: AMLODIPINE BESYLATE 5 MG TAB PO SCH (10:59)
[2016-05-12 15:21] VITALS: BP 112/74; PULSE 87; TEMP 37; O2SAT 92
[2016-05-12 15:27] VITALS: BP 107/68; PULSE 88; O2SAT 90
--- NOTE | 2016-05-12 16:26 | Progress Note ---
Internal Med Progress Note Date of Service: May 11, 2016. Provider Documentation: SUBJECTIVE: Patient is lying in her and seems to be distressed due to right sided chest pain which increases on movements as well taking a deep breath. Intermittent cough. Mild nausea. Did not have a BM for the past 2-3 days. OBJECTIVE: Vital Signs-as noted below Examination: GENERAL: Alert/Awake, Noted to be slightly uncomfortable, no respiratory distress, obese. SKIN: Pallor. HEAD, EYES, EARS, NOSE, AND THROAT: [place] palpebral conjunctivae. Dry oral mucosa. NECK:Supple, Midline trachea, No JVD. CHEST: B/L Clear to auscultation.Tender on palpating right sided chest wall. HEART: Anterior chest wall tender right. ABDOMEN: Soft.Pain on deep palpation, BS present. EXTREMITIES: No edema.Moderate pulses present. NEUROLOGIC: No gross focality. Lab data as noted below. ASSESSMENT & PLAN: RIGHT RIBS UNILATERAL MIN 2 VIEWS CLINICAL HISTORY: R/O Rib Fracture Right. Right-sided chest pain. COMPARISON STUDY: Chest CTA 05/09/2016. FINDINGS: There is are acute nondisplaced right posterior lateral seventh and eighth rib fractures. There are few additional subacute/healing right anterior rib fractures. No pneumothorax. No pleural effusions. Low lung volumes. Bilateral total shoulder arthroplasties. Bibasilar linear densities likely represent subsegmental atelectasis. Posterior thoracolumbar spine fusion rods. IMPRESSION: 1. Acute nondisplaced right posterior lateral seventh and eighth rib fractures. No pneumothorax. 2. A few additional subacute/healing right anterior rib fractures. Right-sided Chest Pain: Due to 7th & 8th rib fractures following a fall. -Pain management -Lidoderm patch locally -Advised not to take deep breath Dysphagia: With nausea/vomiting. 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 This doesn't appear to have been done as had prescribed Amlodipine to her but do not show up in her list of home medications. -Mechanical soft diet -Started Amlodipine 2.5 mg daily and will gradually titrate upwards. -Continue Reglan 10 mg before meals -Changed to soft diet which patient is reluctant. Hypothyroidism: Continue Synthroid Diabetes Type II: Diet controlled -HbA1c was 6.0 in Feb 2016. -Consistent carbohydrate diet History Hypertension: BP has been stable. -Continue Coreg Anemia Of Chronic Disease: Hgb around 9.0 which is near baseline -Continue to monitor History COPD: Has Chronic Respiratory Failure and is on home oxygen.Stable -Continue home inhalers/nebs Chronic Pain: Continue Gabapentin. Added Dilaudid PRN as per need. Depression: Continue Xanax, Cymbalta H/O Lung Nodule: Serial CTs as outpatient DVT Prophylaxis: SCDs. Code Status: FULL CODE Vital Signs: Date Time Temp Pulse Resp B/P Pulse Ox O2 Delivery O2 Flow Rate FiO2 05/12/16 15:30 Room Air 05/12/16 15:27 88 90 05/12/16 15:21 37.0 87 18 112/74 92 Room Air 05/12/16 09:52 93 Room Air 05/12/16 09:06 Nasal Cannula 2.0 05/12/16 07:50 Room Air 05/12/16 07:26 37.0 90 16 136/81 95 2.0 05/11/16 23:20 36.7 91 16 106/72 93 Nasal Cannula 2.0 05/11/16 20:00 Room Air Lab Results: Results Past 24 Hours Test 05/11/16 17:00 05/11/16 21:00 05/12/16 08:19 05/12/16 12:00 Range/Units Bedside Glucose 108 112 112 104 70-90 mg/dl
--- NOTE | 2016-05-12 17:09 | Progress Note ---
Internal Med Progress Note Date of Service: May 12, 2016. Provider Documentation: SUBJECTIVE: Patient is lying in her and seems to be distressed due to right sided chest pain which increases on movements as well taking a deep breath. Intermittent cough. Nausea persists and not comfortable with soft diet as well. OBJECTIVE: Vital Signs-as noted below Examination: GENERAL: Alert/Awake, Noted to be slightly uncomfortable, no respiratory distress, obese. SKIN: Pallor. HEAD, EYES, EARS, NOSE, AND THROAT: [place] palpebral conjunctivae. Dry oral mucosa. NECK:Supple, Midline trachea, No JVD. CHEST: B/L Clear to auscultation.Tender on palpating right sided chest wall. HEART: Anterior chest wall tender right. ABDOMEN: Soft.Pain on deep palpation, BS present. EXTREMITIES: No edema.Moderate pulses present. NEUROLOGIC: No gross focality. Lab data as noted below. ASSESSMENT & PLAN: RIGHT RIBS UNILATERAL MIN 2 VIEWS CLINICAL HISTORY: R/O Rib Fracture Right. Right-sided chest pain. COMPARISON STUDY: Chest CTA 05/09/2016. FINDINGS: There is are acute nondisplaced right posterior lateral seventh and eighth rib fractures. There are few additional subacute/healing right anterior rib fractures. No pneumothorax. No pleural effusions. Low lung volumes. Bilateral total shoulder arthroplasties. Bibasilar linear densities likely represent subsegmental atelectasis. Posterior thoracolumbar spine fusion rods. IMPRESSION: 1. Acute nondisplaced right posterior lateral seventh and eighth rib fractures. No pneumothorax. 2. A few additional subacute/healing right anterior rib fractures. Right-sided Chest Pain: Due to 7th & 8th rib fractures following a fall. -Pain management -Lidoderm patch locally -Advised not to take deep breath Dysphagia: With nausea/vomiting. 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 This doesn't appear to have been done as had prescribed Amlodipine to her but do not show up in her list of home medications. -Mechanical soft diet -Continue Amlodipine 2.5 mg daily and will gradually titrate upwards. Explained to her about reason ing of adding this medication. -Continue Reglan 10 mg before meals -Changed to clear liquid diet Hypothyroidism: Continue Synthroid Diabetes Type II: Diet controlled -HbA1c was 6.0 in Feb 2016. -Consistent carbohydrate diet History Hypertension: BP has been stable. -Continue Coreg Anemia Of Chronic Disease: Hgb around 9.0 which is near baseline -Continue to monitor History COPD: Has Chronic Respiratory Failure and is on home oxygen.Stable -Continue home inhalers/nebs Chronic Pain: Continue Gabapentin. Added Dilaudid PRN as per need. Depression: Continue Xanax, Cymbalta H/O Lung Nodule: Serial CTs as outpatient DVT Prophylaxis: SCDs. Code Status: FULL CODE Disposition: Pending. Likely to Acute or Subacute Rehab. Vital Signs: Date Time Temp Pulse Resp B/P Pulse Ox O2 Delivery O2 Flow Rate FiO2 05/12/16 15:30 Room Air 05/12/16 15:27 88 90 05/12/16 15:21 37.0 87 18 112/74 92 Room Air 05/12/16 09:52 93 Room Air 05/12/16 09:06 Nasal Cannula 2.0 05/12/16 07:50 Room Air 05/12/16 07:26 37.0 90 16 136/81 95 2.0 05/11/16 23:20 36.7 91 16 106/72 93 Nasal Cannula 2.0 05/11/16 20:00 Room Air Lab Results: Results Past 24 Hours Test 05/11/16 21:00 05/12/16 08:19 05/12/16 12:00 Range/Units Bedside Glucose 112 112 104 70-90 mg/dl
[2016-05-12] MEDS: GABAPENTIN 300 MG CAP PO SCH (20:57)
[2016-05-12] MEDS: OXYCODONE HCL IR 5 MG TAB (IMMEDIATE RELEASE) PO SCH (20:57)
[2016-05-12 23:02] VITALS: BP 103/67; PULSE 78; TEMP 36.5; O2SAT 93
[2016-05-13] MEDS: GABAPENTIN 100 MG CAP PO SCH (05:53)
[2016-05-13] MEDS: LEVOTHYROXINE 75 MCG TAB PO SCH (05:53)
[2016-05-13 07:39] VITALS: BP 119/76; PULSE 83; TEMP 37.2; O2SAT 84
[2016-05-13 07:53] LABS: BASO % 0.3 %; BASO ABS # 0.02 K/uL (0-0.2); COMPLETE YES; EOS % 3.5 %; HEMATOCRIT 30.5 % (37-47); IG% 0.5 %; LYMPH % 16.2 %; LYMPH ABS # 1.05 K/uL (1.2-3.4); MEAN CELL VOLUME 77.2 fL (80-100); MEAN CORPUSCULAR HEMOGLOBIN 24.3 pg (25-34); MEAN CORPUSCULAR HGB CONC 31.5 g/dl (32-36); MEAN PLATELET VOLUME 8.7 fL (7.4-10.4); MONO % 9.3 %; NEUT % 70.2 %; PLATELET COUNT 254 K/uL (130-400); RED BLOOD COUNT 3.95 M/uL (4.2-5.4); WHITE BLOOD COUNT 6.48 K/uL (4.8-10.8)
[2016-05-13 08:29] LABS: BUN/CREATININE RATIO 16.7 (10-20); CALCIUM 8.6 mg/dl (8.5-10.1); CREATININE 0.73 mg/dl (0.60-1.20); POTASSIUM 3.8 mmol/L (3.5-5.1)
[2016-05-13] MEDS: DULOXETINE (CYMBALTA) 30 MG CAP PO SCH (09:19)
[2016-05-13] MEDS: DOCUSATE SODIUM 100 MG CAP PO SCH (09:19)
[2016-05-13] MEDS: PANTOprazole SOD 40 MG TAB PO SCH (09:19)
[2016-05-13] MEDS: METOCLOPRAMIDE HCL 10 MG TAB PO SCH ×2 (09:20→11:34)
[2016-05-13] MEDS: AMLODIPINE BESYLATE 5 MG TAB PO SCH (09:20)
[2016-05-13] MEDS: CARVEDILOL 6.25 MG TAB PO SCH (09:20)
[2016-05-13] MEDS: INSULIN ASPART 100 UNITS/ML 3 ML PEN SC SCH ×2 (09:21→12:00)
[2016-05-13] MEDS: LIDODERM (LIDOCAINE) PATCH 5% TD SCH (11:33)
--- NOTE | 2016-05-13 11:47 | Progress Note ---
Internal Med Progress Note Date of Service: May 13, 2016. Provider Documentation: SUBJECTIVE: Patient is sitting in the chair and seems comfortable.Pain is tolerable and pain increases on taking a deep breath. Intermittent cough. Nausea is much better with liquid diet. OBJECTIVE: Vital Signs-as noted below Examination: GENERAL: Alert/Awake, Noted to be slightly uncomfortable, no respiratory distress, obese. SKIN: Pallor. HEAD, EYES, EARS, NOSE, AND THROAT: [place] palpebral conjunctivae. Dry oral mucosa. NECK:Supple, Midline trachea, No JVD. CHEST: B/L Clear to auscultation.Tender on palpating right sided chest wall. HEART: Anterior chest wall tender right. ABDOMEN: Soft.Pain on deep palpation, BS present. EXTREMITIES: No edema.Moderate pulses present. NEUROLOGIC: No gross focality. Lab data as noted below. ASSESSMENT & PLAN: RIGHT RIBS UNILATERAL MIN 2 VIEWS CLINICAL HISTORY: R/O Rib Fracture Right. Right-sided chest pain. COMPARISON STUDY: Chest CTA 05/09/2016. FINDINGS: There is are acute nondisplaced right posterior lateral seventh and eighth rib fractures. There are few additional subacute/healing right anterior rib fractures. No pneumothorax. No pleural effusions. Low lung volumes. Bilateral total shoulder arthroplasties. Bibasilar linear densities likely represent subsegmental atelectasis. Posterior thoracolumbar spine fusion rods. IMPRESSION: 1. Acute nondisplaced right posterior lateral seventh and eighth rib fractures. No pneumothorax. 2. A few additional subacute/healing right anterior rib fractures. Right-sided Chest Pain: Due to 7th & 8th rib fractures following a fall. -Pain management -Lidoderm patch locally -Advised not to take deep breath Dysphagia: With nausea/vomiting. 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 This doesn't appear to have been done as had prescribed Amlodipine to her but do not show up in her list of home medications. -Mechanical soft diet -Continue Amlodipine 2.5 mg daily and will gradually titrate upwards. Explained to her about reason ing of adding this medication. -Continue Reglan 10 mg before meals -Changed to clear liquid diet and will try full liquid diet Hypothyroidism: Continue Synthroid Diabetes Type II: Diet controlled -HbA1c was 6.0 in Feb 2016. -Consistent carbohydrate diet History Hypertension: BP has been stable. -Continue Coreg Anemia Of Chronic Disease: Hgb around 9.0 which is near baseline -Continue to monitor History COPD: Has Chronic Respiratory Failure and is on home oxygen.Stable -Continue home inhalers/nebs Chronic Pain: Continue Gabapentin. Added Dilaudid PRN as per need. Depression: Continue Xanax, Cymbalta H/O Lung Nodule: Serial CTs as outpatient DVT Prophylaxis: SCDs. Code Status: FULL CODE Disposition: Discharge home later today. patient does not want to go to Rehab facility. Follow up with PCP on 05/18/2016 @ 11.00 AM. Vital Signs: Date Time Temp Pulse Resp B/P Pulse Ox O2 Delivery O2 Flow Rate FiO2 05/13/16 07:39 37.2 83 16 119/76 84 Room Air 05/13/16 07:30 Room Air 05/12/16 23:40 Nasal Cannula 1.0 05/12/16 23:02 36.5 78 15 103/67 93 Nasal Cannula 1.0 05/12/16 15:30 Room Air 05/12/16 15:27 88 90 05/12/16 15:21 37.0 87 18 112/74 92 Room Air Lab Results: Results Past 24 Hours Test 05/12/16 12:00 05/12/16 17:11 05/12/16 21:06 05/13/16 07:28 Range/Units Bedside Glucose 104 83 100 70-90 mg/dl White Blood Count 6.48 4.8-10.8 K/uL Red Blood Count 3.95 4.2-5.4 M/uL Hemoglobin 9.6 12.0-16.0 g/dL Hematocrit 30.5 37-47 % Mean Corpuscular Volume 77.2 80-100 fL Mean Corpuscular Hemoglobin 24.3 25-34 pg Mean Corpuscular Hemoglobin Concent 31.5 32-36 g/dl Platelet Count 254 130-400 K/uL Mean Platelet Volume 8.7 7.4-10.4 fL Neutrophils (%) (Auto) 70.2 % Lymphocytes (%) (Auto) 16.2 % Monocytes (%) (Auto) 9.3 % Eosinophils (%) (Auto) 3.5 % Basophils (%) (Auto) 0.3 % Neutrophils # (Auto) 4.55 1.4-6.5 K/uL Lymphocytes # (Auto) 1.05 1.2-3.4 K/uL Monocytes # (Auto) 0.60 0.11-0.59 K/uL Eosinophils # (Auto) 0.23 0-0.5 K/uL Basophils # (Auto) 0.02 0-0.2 K/uL RDW Standard Deviation 45.8 36.4-46.3 fL RDW Coefficient of Variation 16.2 11.5-14.5 % Immature Granulocyte % (Auto) 0.5 % Immature Granulocyte # (Auto) 0.03 0.00-0.02 K/uL Sodium Level 139 136-145 mmol/L Potassium Level 3.8 3.5-5.1 mmol/L Chloride Level 103 98-107 mmol/L Carbon Dioxide Level 28 21-32 mmol/L Anion Gap 8.0 3-11 mmol/L Blood Urea Nitrogen 12 7-18 mg/dl Creatinine 0.73 0.60-1.20 mg/dl Est Creatinine Clear Calc Drug Dose 56.6 ml/min Estimated GFR () 90.2 Estimated GFR (Non- 77.8 BUN/Creatinine Ratio 16.7 10-20 Random Glucose 101 70-99 mg/dl Calcium Level 8.6 8.5-10.1 mg/dl Test 05/13/16 07:56 Range/Units Bedside Glucose 99 70-90 mg/dl
[2016-05-13] MEDS ORDERED: OXYC1TAB3 PO (12:00)
[2016-05-13] MEDS ORDERED: RGL10 PO (12:00)
[2016-05-13] MEDS ORDERED: CLC100 PO (12:00)
[2016-05-13] MEDS ORDERED: NRV5 PO (12:00)
--- NOTE | 2016-05-13 12:02 | Discharge Instructions ---
Discharge Instructions Date of Service May 13, 2016. Admission Reason for Admission: Rib Fractures Discharge Discharge Diagnosis / Problem: Right Sided Chest Pain due to Fractured Ribs Discharge Goals Goal(s): Decrease discomfort, Improve function, Increase independence, Improve disease control, Improve nutritional status, Learn about illness, Diagnostic testing, Therapeutic intervention Activity Recommendations Activity Limitations: resume your previous activity (As Tolerated.) Lifting Limitations: gradually increase as tolerated Exercise/Sports Limitations: as tolerated Shower/Bathe: no limitations . Instructions / Follow-Up Instructions / Follow-Up Use Pain medications only as needed. Follow dietary instructions as discussed with you in detail. Follow up with PCP on 05/18/2016 @ 11.00 AM. Current Hospital Diet Patient's current hospital diet: Clear Liquid Diet Discharge Diet Recommended Diet: Full Liquid Diet Pending Studies Studies pending at discharge: no Medical Emergencies . Who to Call and When: Medical Emergencies: If at any time you feel your situation is an emergency, please call 911 immediately. . Non-Emergent Contact Non-Emergency issues call your: Primary Care Provider . . "Provider Documentation" section prepared by Junaid Brown. VTE Core Measure Inpt VTE Proph given/why not?: SCD's (Due to history of falls.)
[2016-05-13 12:03] VITALS: O2SAT 94
[2016-05-13 12:06] VITALS: BP 119/76; PULSE 83; TEMP 37.2; O2SAT 94
--- NOTE | 2016-05-13 13:07 | Discharge Summary ---
Discharge Summary Date of Service May 13, 2016. Discharge Summary Admission Date: May 10, 2016 at 00:56 Discharge Date: May 13, 2016 Discharge Disposition: Home with services Principal Diagnosis: Right Sided Chest Pain due to Fractured Ribs Secondary Diagnoses/Problems: Dysphagia Hypothyroidism Diabetes Anemia of Chronic disease Chronic Pain Depression Procedures: NONE Vaccinations: NONE Consultations: NONE Medication Reconciliation New Medications: Amlodipine Besylate (Amlodipine Besylate) 5 Mg Tab 2.5 MG PO QAM, #30 TAB Docusate Sodium (Docusate Sodium) 100 Mg Cap 100 MG PO BID PRN for Constipation, #60 CAP 2 Refills Metoclopramide HCl (Metoclopramide HCl) 10 Mg Tab 10 MG PO ACHS, #120 TAB 1 Refill Continued Medications: Alendronate Sodium (Alendronate Sodium) 70 Mg Tab 70 MG PO WK SUNDAYS Carvedilol (Coreg) 6.25 Mg Tab 6.25 MG PO BIDM TAKE WITH FOOD Celecoxib (Celebrex) 100 Mg Cap 100 MG PO BID Duloxetine HCl (Cymbalta) 30 Mg Cap 90 MG PO DAILY, CAP Gabapentin (Neurontin) 100 Mg Cap 100 MG PO BID Gabapentin (Neurontin) 300 Mg Cap 300 MG PO HS Ipratropium-Albuterol (Combivent Respimat) 1 Aer Aer 1 PUFFS INH QID PRN for SOB/Wheezing, INH Levothyroxine Sodium (Levothyroxine Sodium) 75 Mcg Tab 75 MCG PO QAM Omeprazole (Prilosec) 20 Mg Cap 20 MG PO BIDM Oxycodone Ir (Roxicodone Ir) 5 Mg Tab 1 TAB PO Q4H PRN for Pain, #14 TAB (This prescription has been renewed) For Initial Treatment Simvastatin (Zocor) 10 Mg Tab 10 MG PO HS, TAB Solifenacin (Vesicare) 10 Mg Tab 10 MG PO HS, TAB Discontinued Medications: Oxycodone Hcl (Roxicodone) 15 Mg Tab 15 MG PO HS, TAB Oxycodone/Acetaminophen 5MG/325MG (Percocet 5MG/325MG) Tab 1-2 TABLETS PO Q4H PRN for Pain, #20 TAB Admission Information HPI (per Admitting provider): Medical history significant for chronic respiratory failure secondary to COPD on home O2, hypertension, hyperlipidemia, DM2, diet controlled, past tobacco abuse, recurrent falls, lung nodule as per records. Recent confinement in October 2015 for acute on chronic hyponatremia. As per records, patient has had 3 recurrent falls in 3 days last 02/2016. Conservative mx for R wrist fracture. Since falls, px noticed pleuritic right-sided chest discomfort, intermittent sx. No unusual sob. PX presented to the Emergency Room for worsening R chest pain. Physical Exam (per Admitting): VITAL SIGNS: Blood pressure was noted to be 146/99, pulse rate 94, RR 18, temperature 36.9, sats 98 on 2 liters. GENERAL: Noted to be slightly uncomfortable, no respiratory distress, obese. SKIN: Pallor. HEAD, EYES, EARS, NOSE, AND THROAT: [place] palpebral conjunctivae. Dry mucosa. NECK: No JVD. supple CHEST: Clear to auscultation. HEART: Anterior chest wall tenderness, right. ABDOMEN: Soft. EXTREMITIES: R wrist splint NEUROLOGIC: No gross focality. Hospital Course RIGHT RIBS UNILATERAL MIN 2 VIEWS CLINICAL HISTORY: R/O Rib Fracture Right. Right-sided chest pain. COMPARISON STUDY: Chest CTA 05/09/2016. FINDINGS: There is are acute nondisplaced right posterior lateral seventh and eighth rib fractures. There are few additional subacute/healing right anterior rib fractures. No pneumothorax. No pleural effusions. Low lung volumes. Bilateral total shoulder arthroplasties. Bibasilar linear densities likely represent subsegmental atelectasis. Posterior thoracolumbar spine fusion rods. IMPRESSION: 1. Acute nondisplaced right posterior lateral seventh and eighth rib fractures. No pneumothorax. 2. A few additional subacute/healing right anterior rib fractures. Right-sided Chest Pain: Due to 7th & 8th rib fractures following a fall. -Pain management -Lidoderm patch locally -Advised not to take deep breath Dysphagia: With nausea/vomiting. 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 This doesn't appear to have been done as had prescribed Amlodipine to her but do not show up in her list of home medications. -Mechanical soft diet -Continue Amlodipine 2.5 mg daily and will gradually titrate upwards. Explained to her about reason ing of adding this medication. -Continue Reglan 10 mg before meals -Changed to clear liquid diet and will try full liquid diet Hypothyroidism: Continue Synthroid Diabetes Type II: Diet controlled -HbA1c was 6.0 in Feb 2016. -Consistent carbohydrate diet History Hypertension: BP has been stable. -Continue Coreg Anemia Of Chronic Disease: Hgb around 9.0 which is near baseline -Continue to monitor History COPD: Has Chronic Respiratory Failure and is on home oxygen.Stable -Continue home inhalers/nebs Chronic Pain: Continue Gabapentin. Added Dilaudid PRN as per need. Depression: Continue Xanax, Cymbalta H/O Lung Nodule: Serial CTs as outpatient DVT Prophylaxis: SCDs. Code Status: FULL CODE Disposition: Discharge home later today. patient does not want to go to Rehab facility. Follow up with PCP on 05/18/2016 @ 11.00 AM. Total time spent on discharge = 40 minutes. This includes examination of the patient, discharge planning, medication reconciliation, and communication with other providers. Discharge Instructions Activity Recommendations Activity Limitations: resume your previous activity (As Tolerated.) Lifting Limitations: gradually increase as tolerated Exercise/Sports Limitations: as tolerated Shower/Bathe: no limitations . Instructions / Follow-Up Instructions / Follow-Up Use Pain medications only as needed. Follow dietary instructions as discussed with you in detail. Follow up with PCP on 05/18/2016 @ 11.00 AM. Current Hospital Diet Patient's current hospital diet: Clear Liquid Diet Discharge Diet Recommended Diet: Full Liquid Diet Additional Copies To Harjeet Zaman M.D.
[2016-06-15] MEDS ORDERED: OMEP20CA9 PO (15:40)
[2016-09-23] MEDS ORDERED: DXY100 PO (10:31)
[2016-09-23] MEDS ORDERED: DILT120C50 PO (10:31)
[2016-09-23] MEDS ORDERED: OXGN (10:31)
[2016-09-23] MEDS ORDERED: RXNS2.5 PO (10:31)
[2016-09-23] MEDS ORDERED: ATV5 PO (10:31)
[2016-09-23] MEDS ORDERED: PRED10TA PO (10:31)
[2016-12-31] MEDS ORDERED: CLB100 PO (11:19)
[2016-12-31] MEDS ORDERED: IPRA1AER2 INH (16:33)
[2017-01-01] MEDS ORDERED: OXYM0.056 (17:22)
[2017-01-01] MEDS ORDERED: SALI0.6510 (17:22)
[2017-01-01] MEDS ORDERED: BCTCR/30 (17:22)
== END 2016-05-13 13:51 | disposition home health service (06) | DRG 184 ==
LOC: ENRESERVTM → ENRESERVDT → EDBD 16:15 → C.EDB 16:16 → C.MSW 05-10 00:56
PROVIDERS: ADMIT Internal Medicine; ATTEND Emergency Medicine
DX: S22.41XA Multiple fractures of ribs, right side, initial encounter for closed fracture (principal); J96.10 Chronic respiratory failure, unspecified whether with hypoxia or hypercapnia; W19.XXXA Unspecified fall, initial encounter; R29.6 Repeated falls; R11.2 Nausea with vomiting, unspecified; R13.10 Dysphagia, unspecified; K22.4 Dyskinesia of esophagus; J44.9 Chronic obstructive pulmonary disease, unspecified; I10 Essential (primary) hypertension; E03.9 Hypothyroidism, unspecified; E78.5 Hyperlipidemia, unspecified; E11.9 Type 2 diabetes mellitus without complications; D63.8 Anemia in other chronic diseases classified elsewhere; G89.29 Other chronic pain; R91.1 Solitary pulmonary nodule; F32.9 Major depressive disorder, single episode, unspecified; Z96.653 Presence of artificial knee joint, bilateral; Z96.619 Presence of unspecified artificial shoulder joint; Z98.1 Arthrodesis status; Z87.891 Personal history of nicotine dependence; Z79.83 Long term (current) use of bisphosphonates; Z79.1 Long term (current) use of non-steroidal anti-inflammatories (NSAID); Z79.891 Long term (current) use of opiate analgesic; Z79.899 Other long term (current) drug therapy

== ENCOUNTER 2016-06-15 17:02 | Emergency (ER) | payer OTHER ==
[~2016-06-15] VITALS: Ht 149.9 cm; Wt 80.0 kg
[~2016-06-15 17:02] MED LIST changes: +CLC100 PO; +NRV5 PO; +OMEP20CA9 PO; -OXYC-57 PO; -OXYC15TA49 PO; +RGL10 PO
[2016-06-15 17:15] VITALS: TEMP 36.7; Ht 149.9 cm; Wt 80.0 kg
[2016-06-15] MEDS ORDERED: METHYLPREDNISOLONE 125 MG VIAL IV STA (17:19)
[2016-06-15] MEDS ORDERED: ALBUT/IPRATROP 3MG/0.5MG NEB 3 ML VIAL INH STA (17:19)
[2016-06-15] MEDS ORDERED: SODIUM CHLORIDE 0.9% 1000ML 1,000 ML IV STA (17:19)
[2016-06-15] MEDS ORDERED: SODIUM CHLORIDE 0.9% 1000ML 250 ML IV STA (17:19)
--- NOTE | 2016-06-15 17:26 | EMERGENCY ROOM VISIT NOTE ---
History Report prepared by Nila: Jase Oakley Under the Supervision of: Dr. Joey Block M.D. First contact with patient: 17:16 Chief Complaint: CHEST PAIN Stated Complaint: CHEST PAIN History of Present Illness The patient is a 80 year old female who presents to the Emergency Room via EMS with complaints of chest pain that occurred recently. She rates her pain mild in severity. He was walking around outside earlier today when she became very short of breath. She began to feel chest pain as well. She went inside, and her nurse told her to come to the ED. She has a past medical history of COPD. She states that this feels like an exacerbation of her COPD. She does not wear oxygen at home. She is not on Prednisone currently. She is complaining of cough , knee pain, and a dry mouth. She did not fall or suffer recent trauma. She denies any fevers or pain/swelling in her legs. Source of History: patient Onset: recently Position: chest Symptom Intensity: mild Quality: pressure Timing: constant Modifying Factors (Worsening): exertion Associated Symptoms: + SOB, + cough, No fevers Note: She has dry mouth and knee pain. Review of Systems See HPI for pertinent positives & negatives. A total of 10 systems reviewed and were otherwise negative. Past Medical & Surgical Medical Problems: (1) Chronic pain of right hip (2) Compression fracture (3) COPD (chronic obstructive pulmonary disease) (4) DM type 2 (diabetes mellitus, type 2) (5) Dyslipidemia (6) Esophageal dysmotility (7) Essential hypertension (8) Hyponatremia (9) Hypothyroidism (10) Knee pain (11) Mass of lung (12) Osteoarthritis (13) Renal cancer (14) Renal mass (15) Rib fractures Surgical Problems: (1) History of total bilateral knee replacement (2) Status post lumbar spinal fusion (3) Status post shoulder replacement Old medical records were reviewed. Nurse's notes were reviewed and I agree with. Family History Diabetes mellitus Hypertension Social History Smoking Status: Former Smoker Alcohol Use: none Housing Status: lives alone Occupation Status: retired Current/Historical Medications Scheduled Alendronate Sodium (Alendronate Sodium), 70 MG PO WK Amlodipine Besylate (Norvasc), 2.5 MG PO DAILY Calcium Carbonate-Cholecalcife (Caltrate 600+D), 1 TAB PO DAILY Celecoxib (Celebrex), 100 MG PO BID Cholecalciferol (Vitamin D3 400), 400 INTER.UNIT PO DAILY Duloxetine Hcl (Cymbalta), 60 MG PO DAILY Fluticasone Prop/Salmeterol (Advair Diskus 250/50 60 Dose), 1 PUFF INH BID Ipratropium-Albuterol (Combivent Respimat), 1 PUFF INH QPM Methylprednisolone (Medrol Dosepak), 0 PO DAILY Multivitamins/Minerals (Mvi With Minerals), 1 TAB PO DAILY Solifenacin (Vesicare), 10 MG PO HS Scheduled PRN Docusate Sodium (Colace), 100 MG PO BID PRN for Constipation Allergies Coded Allergies: Levofloxacin (Verified Allergy, Mild, rash, 05/09/16) Pt reported that arm became severly itchy after start of IV levaquin Atorvastatin (Verified Adverse Reaction, Intermediate, MYALGIA, 05/09/16) Codeine (Verified Adverse Reaction, Intermediate, SEVERE N/V, 05/09/16) Fentanyl (Verified Adverse Reaction, Intermediate, FREQUENT FALLS, 05/09/16) PT STATES SHE WILL NOT WEAR THIS ANYMORE Morphine (Verified Adverse Reaction, Intermediate, SEVERE N/V, 05/09/16) Physical Exam Vital Signs Date Time Temp Pulse Resp B/P Pulse Ox O2 Delivery O2 Flow Rate FiO2 06/15/16 19:09 92 20 148/89 94 Room Air 06/15/16 17:22 92 06/15/16 17:15 92 Room Air 06/15/16 17:15 36.7 96 20 95/75 94 Room Air Physical Exam General: Non-ill appearing older female, Well developed well nourished in no acute distress, breathing comfortably on room air. Normal speech HEENT: Normal cephalic atraumatic. Pupils are equal round and reactive to light. Extraocular movements are intact. Oropharynx is pink with moist mucous membranes. No swelling of the mouth lips or tongue. Neck: Supple with a midline trachea. No meningeal signs or stiffness, no JVD or bruits. No Stridor. Chest: Clear to auscultation bilaterally. No wheezes or rhonchi. No increased work of breathing. Heart: regular rate and rhythm. Abdomen: Soft nontender, nondistended without rebound guarding or rigidity. Extremities: No cyanosis clubbing or edema. No calf tenderness or assymetry Spine/Back. Non tender to palpation. No CVA tenderness Skin: Good turgor without rashes. Neurologic exam: Cranial nerves two through 12 are intact. Motor and sensation are intact and symmetrical throughout. Medical Decision & Procedures ER Provider Diagnostic Interpretation: Radiology results as stated below per my review and radiologist interpretation: CHEST ONE VIEW PORTABLE CLINICAL HISTORY: CHEST PAIN dyspnea COMPARISON STUDY: 05/09/2016 FINDINGS: Postoperative changes to both shoulders including thoracolumbar spine. Considered clear. Subtle prominence of pulmonary vasculature. No focal infiltrate. IMPRESSION: Chronic and postoperative change. No acute process. Slight prominence of the pulmonary vasculature. Electronically signed by: Oren Pate M.D. 06/15/2016 5:49 PM Dictated Date/Time: 06/15/2016 5:48 PM Laboratory Results 06/15/16 10:54 Red Blood Count 4.68, Mean Corpuscular Volume 77.6, Mean Corpuscular Hemoglobin 23.5, Mean Corpuscular Hemoglobin Concent 30.3, Mean Platelet Volume 9.0, Neutrophils (%) (Auto) 58.1, Lymphocytes (%) (Auto) 24.6, Monocytes (%) (Auto) 12.7, Eosinophils (%) (Auto) 3.4, Basophils (%) (Auto) 0.6, Neutrophils # (Auto ) 4.11, Lymphocytes # (Auto) 1.74, Monocytes # (Auto) 0.90, Eosinophils # (Auto ) 0.24, Basophils # (Auto) 0.04 06/15/16 10:54 Test 06/15/16 10:54 06/15/16 17:45 White Blood Count 7.07 K/uL (4.8-10.8) Red Blood Count 4.68 M/uL (4.2-5.4) Hemoglobin 11.0 g/dL (12.0-16.0) Hematocrit 36.3 % (37-47) Mean Corpuscular Volume 77.6 fL (80-100) Mean Corpuscular Hemoglobin 23.5 pg (25-34) Mean Corpuscular Hemoglobin Concent 30.3 g/dl (32-36) Platelet Count 337 K/uL (130-400) Mean Platelet Volume 9.0 fL (7.4-10.4) Neutrophils (%) (Auto) 58.1 % Lymphocytes (%) (Auto) 24.6 % Monocytes (%) (Auto) 12.7 % Eosinophils (%) (Auto) 3.4 % Basophils (%) (Auto) 0.6 % Neutrophils # (Auto) 4.11 K/uL (1.4-6.5) Lymphocytes # (Auto) 1.74 K/uL (1.2-3.4) Monocytes # (Auto) 0.90 K/uL (0.11-0.59) Eosinophils # (Auto) 0.24 K/uL (0-0.5) Basophils # (Auto) 0.04 K/uL (0-0.2) RDW Standard Deviation 45.8 fL (36.4-46.3) RDW Coefficient of Variation 16.2 % (11.5-14.5) Immature Granulocyte % (Auto) 0.6 % Immature Granulocyte # (Auto) 0.04 K/uL (0.00-0.02) Prothrombin Time 10.5 SECONDS (9.0-12.0) Prothromb Time International Ratio 1.0 (0.9-1.1) Activated Partial Thromboplast Time 23.6 SECONDS (21.0-31.0) Partial Thromboplastin Ratio 0.9 Anion Gap 8.0 mmol/L (3-11) Est Creatinine Clear Calc Drug Dose 41.5 ml/min Estimated GFR () 62.4 Estimated GFR (Non- 53.8 BUN/Creatinine Ratio 22.2 (10-20) Calcium Level 9.2 mg/dl (8.5-10.1) Total Bilirubin 0.3 mg/dl (0.2-1) Direct Bilirubin 0.1 mg/dl (0-0.2) Aspartate Amino Transf (AST/SGOT) 30 U/L (15-37) Alanine Aminotransferase (ALT/SGPT) 31 U/L (12-78) Alkaline Phosphatase 119 U/L (45-117) Total Creatine Kinase 50 U/L (26-192) Creatine Kinase MB 1.0 ng/ml (0.5-3.6) Creatine Kinase MB Ratio 2.0 (0-3.0) Total Protein 7.0 gm/dl (6.4-8.2) Albumin 3.5 gm/dl (3.4-5.0) Lipase 120 U/L (73-393) Bedside Troponin I 0.010 ng/ml (0-0.045) AV-[id number]-[id number]-Type Natriuretic Peptide 138 pg/ml (0-1800) Laboratory studies as stated above per my review. Medications Administered Medications (Trade) Dose Ordered Sig/Charlee Route Start Time Stop Time Status Last Admin Dose Admin Sodium Chloride 250 ml @ 999 mls/hr Q16M STAT IV 06/15/16 17:19 06/15/16 17:34 DC 06/15/16 17:40 999 MLS/HR Sodium Chloride (Nss 1000ml) 1,000 ml @ 100 mls/hr Q10H STAT IV 06/15/16 17:19 06/16/16 03:18 06/15/16 17:41 100 MLS/HR Methylprednisolone Sodium Succinate (Solu-Medrol IV) 125 mg NOW STAT IV 06/15/16 17:19 06/15/16 17:24 DC 06/15/16 17:56 125 MG Albuterol/ Ipratropium (Duoneb) 3 ml NOW STAT INH 06/15/16 17:19 06/15/16 17:24 DC 06/15/16 17:56 3 ML ECG Indication: chest pain Rate (beats per minute): 87 Rhythm: normal sinus Findings: no acute ischemic change, no ectopy Comparison ECG Date: 09 May 2016 Change: no significant change ED Course 1716: Past medical records reviewed. The patient was evaluated in room B3B, and a complete history and physical examination were performed. 171: Ordered Duoneb 3 ml INH, Solu-Medrol IV 125 mg IV, Sodium Chloride 1000 ml @ 100 mls/hr IV, Sodium Chloride 250 ml @ 999 mls/hr IV 1910: The patient is able to walk without difficulty. 1920: Upon reevaluation, the patient is resting. I discussed the results and treatment plan with her. She verbalized agreement of the treatment plan. The patient was discharged home. Medical Decision Differentials include COPD exacerbation, acute coronary syndrome, pneumothorax, congestive heart failure, pneumonia, and electrolyte or metabolic abnormality. This patient comes in as described above. She is placed in room before. She comes in after feeling short of breath after walking. She felt like it was her COPD which she does have. She seemed to do much better at present. She is non- hypoxemic. She was given albuterol Atrovent neb as well as IV steroids. She was placed on monitoring manager. EKG was obtained and shows no acute ischemic changes or ectopy. Her troponin is not elevated. Chest x-ray does not show any congestive heart failure, pneumonia, or pneumothorax. She has no acute electrolyte or metabolic abnormalities. She is feeling significantly better and would like to go home. At think this point I think that this is reasonable. I had her get out of bed and walk. She feels better. Again , she feels like this was related to COPD . I will have her use her rescue inhaler and give her Medrol Dosepak that she can use as directed. Return if: Worsening of symptoms, increasing shortness of breath, fever or chills, chest pain, any new problems or concerns. Follow-up with her doctor in 1-2 days for recheck. She was happy with plan and discharged to home. Impression Primary Impression: SOB (shortness of breath) Additional Impression: COPD exacerbation Scribe Attestation The scribe's documentation has been prepared under my direction and personally reviewed by me in its entirety. I confirm that the note above accurately reflects all work, treatment, procedures, and medical decision making performed by me. Departure Information Dispostion Home / Self-Care Prescriptions Methylprednisolone (MEDROL DOSEPAK) 4 Mg Willem 0 PO DAILY, #1 PKT Prov: Joey Block M.D. 06/15/16 Referrals Harjeet Zaman M.D. (PCP) Forms HOME CARE DOCUMENTATION FORM, IMPORTANT VISIT INFORMATION Patient Instructions My [facility] Additional Instructions Rest Contintue to use your rescue inhaler if needed Use Medrol dose willem as directed Return if: worsening of symptoms, chest pain, shortness of breath, any new problems or concerns Follow-up with your doctor in 1-2 days for recheck Problem Qualifiers
[2016-06-15] MEDS ORDERED: DULO60CA44 PO (17:39)
[2016-06-15] MEDS ORDERED: AMLO2.5T PO (17:39)
--- NOTE | 2016-06-15 17:51 | DIAGNOSTIC IMAGING REPORT ---
CHEST ONE VIEW PORTABLE CLINICAL HISTORY: CHEST PAIN dyspnea COMPARISON STUDY: 05/09/2016 FINDINGS: Postoperative changes to both shoulders including thoracolumbar spine. Considered clear. Subtle prominence of pulmonary vasculature. No focal infiltrate. IMPRESSION: Chronic and postoperative change. No acute process. Slight prominence of the pulmonary vasculature. Electronically signed by: Oren Pate M.D. 06/15/2016 5:49 PM Dictated Date/Time: 06/15/2016 5:48 PM
[2016-06-15 18:00] LABS: BASO % 0.6 %; BASO ABS # 0.04 K/uL (0-0.2); COMPLETE YES; EOS % 3.4 %; HEMATOCRIT 36.3 % (37-47); IG% 0.6 %; LYMPH % 24.6 %; LYMPH ABS # 1.74 K/uL (1.2-3.4); MEAN CELL VOLUME 77.6 fL (80-100); MEAN CORPUSCULAR HEMOGLOBIN 23.5 pg (25-34); MEAN CORPUSCULAR HGB CONC 30.3 g/dl (32-36); MONO % 12.7 %; NEUT % 58.1 %; PLATELET COUNT 337 K/uL (130-400); RED BLOOD COUNT 4.68 M/uL (4.2-5.4); WHITE BLOOD COUNT 7.07 K/uL (4.8-10.8)
[2016-06-15 18:04] LABS: POINT OF CARE TROPONIN I 0.01 ng/ml (0-0.045)
[2016-06-15 18:07] LABS: PARTIAL THROMBOPLASTIN RATIO 0.9; PROTHROMBIN TIME (PATIENT) 10.5 SECONDS (9.0-12.0)
[2016-06-15 18:22] LABS: BUN/CREATININE RATIO 22.2 (10-20); CALCIUM 9.2 mg/dl (8.5-10.1); CREATININE 0.99 mg/dl (0.60-1.20); POTASSIUM 4.1 mmol/L (3.5-5.1)
[2016-06-15] MEDS ORDERED: METH4PAK PO (18:54)
[2016-06-15] MEDS ORDERED: LEVO75TA5 PO (18:58)
[2016-06-15 19:09] VITALS: BP 148/89; PULSE 92; O2SAT 94
[2016-09-23] MEDS ORDERED: DXY100 PO (10:31)
[2016-09-23] MEDS ORDERED: DILT120C50 PO (10:31)
[2016-09-23] MEDS ORDERED: OXGN (10:31)
[2016-09-23] MEDS ORDERED: RXNS2.5 PO (10:31)
[2016-09-23] MEDS ORDERED: PRED10TA PO (10:31)
[2016-09-23] MEDS ORDERED: ATV5 PO (10:31)
[2016-12-31] MEDS ORDERED: CLB100 PO (11:19)
[2016-12-31] MEDS ORDERED: IPRA1AER2 INH (16:33)
[2017-01-01] MEDS ORDERED: OXYM0.056 (17:22)
[2017-01-01] MEDS ORDERED: SALI0.6510 (17:22)
[2017-01-01] MEDS ORDERED: BCTCR/30 (17:22)
== END 2016-06-15 19:30 | disposition home or self-care (01) ==
LOC: EDBD 17:02 → C.EDB 17:03
DX: J44.1 Chronic obstructive pulmonary disease with (acute) exacerbation (principal); I10 Essential (primary) hypertension; E03.9 Hypothyroidism, unspecified; E11.9 Type 2 diabetes mellitus without complications; E78.5 Hyperlipidemia, unspecified; M19.90 Unspecified osteoarthritis, unspecified site; G89.29 Other chronic pain; Z87.81 Personal history of (healed) traumatic fracture; Z98.1 Arthrodesis status; Z96.651 Presence of right artificial knee joint; Z96.652 Presence of left artificial knee joint; Z87.891 Personal history of nicotine dependence; Z79.899 Other long term (current) drug therapy; Z88.5 Allergy status to narcotic agent; Z88.8 Allergy status to other drugs, medicaments and biological substances; Z83.3 Family history of diabetes mellitus; Z82.49 Family history of ischemic heart disease and other diseases of the circulatory system

== ENCOUNTER 2016-07-20 21:36 | Emergency (ER) | payer OTHER ==
[~2016-07-20] VITALS: Ht 162.6 cm; Wt 81.2 kg
[~2016-07-20 21:36] MED LIST changes: +AMLO2.5T PO; -CARV6.252 PO; -CLC100 PO; -CYM/30 PO; +DULO60CA44 PO; -GABA-112 PO; -GABA-113 PO; -NRV5 PO; -OMEP20CA9 PO; -OXYC1TAB3 PO; -RGL10 PO; -SIMV10TA2 PO
[2016-07-20 22:03] VITALS: TEMP 37; Ht 162.6 cm; Wt 81.2 kg
[2016-07-20] MEDS ORDERED: HYDROmorphone INJ 1 MG/ML SYR IV STA (22:48)
[2016-07-20 23:26] LABS: BASO % 0.3 %; BASO ABS # 0.03 K/uL (0-0.2); COMPLETE YES; EOS % 1.3 %; HEMATOCRIT 34.4 % (37-47); IG% 0.6 %; LYMPH % 16.6 %; LYMPH ABS # 1.64 K/uL (1.2-3.4); MEAN CORPUSCULAR HEMOGLOBIN 23.5 pg (25-34); MEAN CORPUSCULAR HGB CONC 30.5 g/dl (32-36); MONO % 7.5 %; NEUT % 73.7 %; PLATELET COUNT 341 K/uL (130-400); RED BLOOD COUNT 4.47 M/uL (4.2-5.4); WHITE BLOOD COUNT 9.87 K/uL (4.8-10.8)
[2016-07-20 23:54] LABS: CALCIUM 8.7 mg/dl (8.5-10.1); CREATININE 1.1 mg/dl (0.60-1.20); POTASSIUM 3.9 mmol/L (3.5-5.1)
--- NOTE | 2016-07-21 00:02 | EMERGENCY ROOM VISIT NOTE ---
ED Visit Note First contact with patient: 22:28 I have personally evaluated and examined this patient. I agree with assessment and plan of David Dietrich PA-C. Pt notes mechanical fall with face injury. Nasal fracture with significant right arm skin tear. Pleasant, comfortable without significant distress post IV pain medications.
--- NOTE | 2016-07-21 00:59 | EMERGENCY ROOM VISIT NOTE ---
History First contact with patient: 22:28 Chief Complaint: FALL Stated Complaint: FALL History of Present Illness The patient is a 80 year old female who presents to the Emergency Room via transport with complaints of "falling". She is accompanied by her daughter. She states that earlier this evening she was playing bingo at [employer] [place], when she stood up to use her walker and believes that she caught her foot on the floor causing her to fall forward striking her face off of the floor. She notes pain in the front of her head, her right arm overlying an abrasion, her left hand and her right knee. Her tetanus is up-to-date as of 2 years ago. Patient denies loss of consciousness, nausea, chest pain, shortness of breath, fevers, chills. Review of Systems A complete 10-point Review of Systems was discussed with the patient, with pertinent positives and negatives listed in the History of Present Illness. All remaining Review of Systems questions can be considered negative unless otherwise specified. Past Medical/Surgical History Medical Problems: (1) Chronic pain of right hip (2) Compression fracture (3) COPD (chronic obstructive pulmonary disease) (4) DM type 2 (diabetes mellitus, type 2) (5) Dyslipidemia (6) Esophageal dysmotility (7) Essential hypertension (8) Hyponatremia (9) Hypothyroidism (10) Knee pain (11) Mass of lung (12) Osteoarthritis (13) Renal cancer (14) Renal mass (15) Rib fractures Surgical Problems: (1) History of total bilateral knee replacement (2) Status post lumbar spinal fusion (3) Status post shoulder replacement Family History Diabetes mellitus Hypertension Social History Smoking Status: Former Smoker Alcohol Use: none Housing Status: lives alone Occupation Status: retired Current/Historical Medications Scheduled Alendronate Sodium (Alendronate Sodium), 70 MG PO WK Amlodipine Besylate (Norvasc), 2.5 MG PO DAILY Calcium Carbonate-Cholecalcife (Caltrate 600+D), 1 TAB PO DAILY Celecoxib (Celebrex), 100 MG PO BID Cholecalciferol (Vitamin D3 400), 400 INTER.UNIT PO DAILY Duloxetine Hcl (Cymbalta), 60 MG PO DAILY Fluticasone Prop/Salmeterol (Advair Diskus 250/50 60 Dose), 1 PUFF INH BID Ipratropium-Albuterol (Combivent Respimat), 1 PUFF INH QPM Multivitamins/Minerals (Mvi With Minerals), 1 TAB PO DAILY Solifenacin (Vesicare), 10 MG PO HS Scheduled PRN Docusate Sodium (Colace), 100 MG PO BID PRN for Constipation Allergies Coded Allergies: Levofloxacin (Verified Allergy, Mild, rash, 05/09/16) Pt reported that arm became severly itchy after start of IV levaquin Atorvastatin (Verified Adverse Reaction, Intermediate, MYALGIA, 05/09/16) Codeine (Verified Adverse Reaction, Intermediate, SEVERE N/V, 05/09/16) Fentanyl (Verified Adverse Reaction, Intermediate, FREQUENT FALLS, 05/09/16) PT STATES SHE WILL NOT WEAR THIS ANYMORE Morphine (Verified Adverse Reaction, Intermediate, SEVERE N/V, 05/09/16) Physical Exam Vital Signs Date Time Temp Pulse Resp B/P (MAP) Pulse Ox O2 Delivery O2 Flow Rate FiO2 07/21/16 01:15 104 18 119/90 90 07/21/16 00:15 108 18 133/96 96 Room Air 07/20/16 23:10 106 18 124/92 93 Room Air 07/20/16 22:12 106 07/20/16 22:03 37.0 105 22 128/89 94 Room Air Physical Exam VITAL SIGNS - Vital signs and nursing notes were reviewed. Patient is afebrile , normotensive, tachycardic at a rate of 105 bpm, and is saturating on room air 94%. GENERAL -80-year-old female appearing her stated age. Communicates well with provider and answers questions appropriately. SKIN - Gross examination of the entire body surface demonstrates superficial lacerations to the to the right anterior antecubital region which appears to be a skin tear. There is also edema and bruising noted to the proximal nose. HEAD - Normocephalic, Atraumatic. No Perales's Sign or Raccoon's Eyes. No depressed skull fractures palpable. EYES - PERRL with EOMI bilaterally. Without subconjunctival hemorrhage. Palpebral conjunctiva pink and moist with no injection. There is ecchymosis at the medial canthus of both eyes. EARS - No deformities of external structures noted on gross examination bilaterally. No hemotympanum present. No tympanic perforation noted. Handle of malleus, umbo, cone of light, pars tensa/flaccid all easily visualized. NOSE - Midline and without cyanosis. No epistaxis or clear watery discharge noted. Septum midline without deviation. No septal hematoma noted. No overlying ecchymosis noted. MOUTH/OROPHARYNX - Without perioral cyanosis. Tongue midline with equal elevation of palate bilaterally. No blood noted in the oropharynx. No tonsillar hypertrophy, erythema, or exudates noted. No dental fractures noted. NECK -no tenderness to palpation over the cervical spinous processes. No cervical paraspinal muscle tenderness noted. LUNGS - Chest wall symmetric without accessory muscle use, intercostals retractions, or central cyanosis. No flail chest or depressed fractures noted. No paradoxical chest wall movements noted. No tenderness to palpation across the anterior and posterior chest dumont.Normal vesicular breath sounds CTA B/L. No wheezes, rales, or rhonchi appreciated. CARDIAC - RRR with S1/S2. No murmur, rubs, or gallops appreciated. EXTREMITIES - No gross deformities noted of the extremities. There is tenderness to palpation overlying the skin of the right elbow without bony tenderness of the right arm. There is minimal tenderness of the left hand worse with range of motion. There is also tenderness to palpation overlying the right knee. There is no spinous, hip or other extremity tenderness.. She is neurovascularly intact in her 70s. +5/5 strength noted in UE/LE bilaterally. NEUROLOGIC - Cranial nerves II through XII grossly intact. Sensory intact to light touch throughout. PSYCH - A&O. Pt is very pleasant and interacts well with examiner. Medical Decision & Procedures ER Provider Diagnostic Interpretation: CT scan of the head: Acute bilateral nasal bone fractures are suggested. Anterior frontal scalp hematoma without evidence of skull fracture. Clear paranasal sinuses and mastoid air cells. No ICH, mass effect, or edema. In dilution or and chronic small vessel ischemic changes with intracranial atherosclerosis. This was as read by stat read. CT C-spine: Normal cervical lordosis. Vertebral body height maintained. Degenerative anterolisthesis of C7 on T1 measuring 5 mm all to the Noah arthropathy, slightly progressed from prior exam. Vertebral body alignment otherwise maintaining. Osteopenia without evidence of acute fracture or subluxation. Multilevel spondylosis. No prevertebral soft tissue swelling. Clear lung apices. This was as read by stat read. CT facial: Anterior frontal scalp hematoma. Acute bilateral nasal bone fractures located near the nasal frontal junctions. Acute fracture through the superior and anterior aspect of the bony nasal septum. No evidence of orbital fracture. Pterygoid plates, zygomatic arches, and mandible are intact. Clear paranasal sinuses and mastoid air cells. This was as read by stat read. Hand x-ray: No acute fracture or dislocation. Degenerative changes noted. Knee x-ray: Hardware appears to be intact. Degenerative change. No acute fracture or dislocation. Laboratory Results 07/20/16 23:10 Red Blood Count 4.47, Mean Corpuscular Volume 77.0, Mean Corpuscular Hemoglobin 23.5, Mean Corpuscular Hemoglobin Concent 30.5, Mean Platelet Volume 9.0, Neutrophils (%) (Auto) 73.7, Lymphocytes (%) (Auto) 16.6, Monocytes (%) (Auto) 7.5, Eosinophils (%) (Auto) 1.3, Basophils (%) (Auto) 0.3, Neutrophils # (Auto) 7.27, Lymphocytes # (Auto) 1.64, Monocytes # (Auto) 0.74, Eosinophils # (Auto) 0.13, Basophils # (Auto) 0.03 07/20/16 23:10 Test 07/20/16 23:10 White Blood Count 9.87 K/uL (4.8-10.8) Red Blood Count 4.47 M/uL (4.2-5.4) Hemoglobin 10.5 g/dL (12.0-16.0) Hematocrit 34.4 % (37-47) Mean Corpuscular Volume 77.0 fL (80-100) Mean Corpuscular Hemoglobin 23.5 pg (25-34) Mean Corpuscular Hemoglobin Concent 30.5 g/dl (32-36) Platelet Count 341 K/uL (130-400) Mean Platelet Volume 9.0 fL (7.4-10.4) Neutrophils (%) (Auto) 73.7 % Lymphocytes (%) (Auto) 16.6 % Monocytes (%) (Auto) 7.5 % Eosinophils (%) (Auto) 1.3 % Basophils (%) (Auto) 0.3 % Neutrophils # (Auto) 7.27 K/uL (1.4-6.5) Lymphocytes # (Auto) 1.64 K/uL (1.2-3.4) Monocytes # (Auto) 0.74 K/uL (0.11-0.59) Eosinophils # (Auto) 0.13 K/uL (0-0.5) Basophils # (Auto) 0.03 K/uL (0-0.2) RDW Standard Deviation 46.2 fL (36.4-46.3) RDW Coefficient of Variation 16.3 % (11.5-14.5) Immature Granulocyte % (Auto) 0.6 % Immature Granulocyte # (Auto) 0.06 K/uL (0.00-0.02) Anion Gap 11.0 mmol/L (3-11) Est Creatinine Clear Calc Drug Dose 42.1 ml/min Estimated GFR () 54.9 Estimated GFR (Non- 47.4 BUN/Creatinine Ratio 16.0 (10-20) Calcium Level 8.7 mg/dl (8.5-10.1) Medications Administered Medications (Trade) Dose Ordered Sig/Charlee Route Start Time Stop Time Status Last Admin Dose Admin Hydromorphone HCl (Dilaudid Inj) 1 mg NOW STAT IV 07/20/16 22:48 07/20/16 22:49 DC 07/20/16 23:16 1 MG Medical Decision Patient was seen and evaluated as above. After obtaining a thorough history and physical examination IV access was initiated and the above workup was performed. Patient has what is suspected to be a mechanical fall and is sustained injuries from such. Bedside EKG reveals sinus tachycardia with PACs. Ventricular rate of 103 bpm. When compared with EKG of June 15, PACs are now present. Patient was informed upon this finding. CBC reveals no leukocytosis. Anemia noted. Patient was aware of this. PRP revealed glucose high at 128. Creatinine 1.1. Radiograph results as read by myself reveal no acute fracture dislocation. Chest x-ray unremarkable. CT scan reveals bilateral nasal bone fractures. She was educated upon this finding. She is to follow-up with ENT regarding this. She provided consent, and the wounds were cleansed on the right arm, and the skin tear was secured with Dermabond. She tolerated this well. These are dressed with a dry dressing. She was given Dilaudid for her pain, and was noted to become hypoxic all in this administration. She was placed upon oxygen and was saturating well. Case was discussed with my attending. Patient at this time would like to go home. I do believe it is reasonable. Without the oxygen supplementation her oxygen saturations maintained around 90%. I do believe this is reasonable. She was educated upon follow-up with ear nose and throat, as well as her family doctor. She was educated upon worrisome symptoms which to return, educated upon management today 's findings, educated upon worrisome symptoms which to return, had questions prior to discharge, and was discharged home in good condition. At this time I do not believe that any immobilizer splinting would be beneficial as the patient does utilize a walker and feel that this would be more of a hindrance and fall risk. In the evaluation and treatment of this patient, the following differential diagnoses were considered: Concussion, Contrecoup Injury, Brain Tumor, Depression, Encephalitis, Hypothyroidism, Meningitis, CVA, TIA, Migraine, Cluster Headache, Intracranial Abnormality, Intracranial Hemorrhage, Subdural Hematoma, Subarachnoid Hemorrhage, Hydrocephalus, hand fracture, knee fracture, contusion of multiple sites, nasal bone fractures, skin tear, among others.. Impression Primary Impression: Fall Additional Impressions: Contusion of multiple sites Anemia Skin tear Nasal bones, closed fracture Departure Information Dispostion Home / Self-Care Condition GOOD Referrals Harjeet Zaman M.D. (PCP) Donaldo Drake M.D. Patient Instructions My [facility] Additional Instructions You have been treated in the Emergency Department for injuries sustained during a fall. You have received pain medicine in the emergency department which impairs your ability to operate a vehicle. It is illegal for you to drive after receiving these medicines. For pain control, you can use the following [id number] medicines (if >12 yo): - Regular strength (325mg/tab) Tylenol (acetaminophen) 2 tabs every 4-6 hours as needed. Do not exceed 12 tablets in a 24 hour period. Avoid taking more than 3 grams (3000 mg) of Tylenol per day. This includes any other sources of acetaminophen you may take on a regular basis. - Regular strength (200 mg/tab) Advil (ibuprofen) 1-2 tabs every 4-6 hours as needed. Do not exceed a dose of 3200 mg per day. If this is a recent injury (<24 hrs), ice can be applied to the area of pain for the first 3 days to help decrease pain and inflammation. Ice massages can be performed by freezing water in a paper cup, peeling back the cup to expose the ice and then massaging over the affected area. You have nasal bone fractures, please call the ENT doctor listed above to schedule follow-up. Please also call your family doctor to schedule follow-up regarding today's visit. For the skin tear, please leave a dry dressing on the area for the next few days to prevent your close from catching. Please watch for signs of infection to include redness, swelling, drainage, discharge from the wound. These would develop please return to the emergency Department. Return to the Emergency Department if your current symptoms worsen despite treatment course outlined above. Please return to the emergency department with any new/concerning symptoms. Problem Qualifiers
[2016-07-21 01:15] VITALS: BP 119/90; PULSE 104; O2SAT 90
--- NOTE | 2016-07-21 06:35 | DIAGNOSTIC IMAGING REPORT ---
CT HEAD WITHOUT CONTRAST (CT) CLINICAL HISTORY: Fall, head trauma HEAD PAIN COMPARISON STUDY: 01/14/2016 TECHNIQUE: Axial CT of the brain is performed from the vertex to the skull base. IV contrast was not administered for this examination. CT DOSE: FINDINGS: No intra or extra-axial mass lesions are visualized. There is no CT evidence of acute cortical infarction. There is no evidence of midline shift. There is no acute hemorrhage. No calvarial fractures are visualized. There are mild white matter hypodensities likely on a small vessel basis. There is no evidence of pathologic ventricular dilatation. There is no evidence of acute sinusitis There is a frontal scalp hematoma There are probable nasal bone fractures. IMPRESSION: 1. Nasal bone fractures 2. Frontal scalp hematoma 3. No acute intracranial findings Electronically signed by: Kostas Coughlin M.D. 07/21/2016 6:34 AM Dictated Date/Time: 07/21/2016 6:32 AM
--- NOTE | 2016-07-21 07:02 | DIAGNOSTIC IMAGING REPORT ---
CT FACIAL BONES-MXILLOFAC WITHOUT CT DOSE: CLINICAL HISTORY: Facial pain status post trauma COMPARISON STUDY: 07/18/2014 TECHNIQUE: Helical images were acquired in the transverse plane. The study was reviewed and analyzed on the independent 3-D workstation. The pterygoid plates appear intact. The zygomatic arches appear intact. The globes appear intact. There is no evidence of orbital emphysema. The orbital dumont and floor appear intact. The mandibular condyles appear intact. There are bilateral nasal fractures. There is a nasal septal fracture. There is a frontal scalp hematoma. IMPRESSION: 1. Bilateral nasal bone fractures. There is a nasal septal fracture. 2. Frontal scalp hematoma 3. No additional facial fractures identified Electronically signed by: Kostas Coughlin M.D. 07/21/2016 7:01 AM Dictated Date/Time: 07/21/2016 6:58 AM
--- NOTE | 2016-07-21 07:12 | DIAGNOSTIC IMAGING REPORT ---
CERVICAL SPINE CT CT DOSE: 1050.54 mGy.cm HISTORY: Neck pain. Fall, head trauma TECHNIQUE: Multiaxial CT images of the cervical spine were performed and reformatted in the sagittal and coronal plane without the use of contrast. COMPARISON: Cervical spine CT 07/18/2014. FINDINGS: No acute fractures within the cervical spine. Prevertebral soft tissues and the C1-C2 interval are intact. No change in the severe degenerative disc disease at C5-C6 and C6-C7. No change in the 3 mm of anterolisthesis of C7 on T1. This is likely due to long-standing degenerative change. No pneumothorax. IMPRESSION: No fractures within the cervical spine. Stable degenerative changes as described above Electronically signed by: Rachid Cardoso M.D. 07/21/2016 7:11 AM Dictated Date/Time: 07/21/2016 7:07 AM
--- NOTE | 2016-07-21 08:22 | DIAGNOSTIC IMAGING REPORT ---
RIGHT KNEE 3 VIEWS CLINICAL HISTORY: Right knee pain status post trauma COMPARISON: None. DISCUSSION: There are postsurgical changes of a total right knee arthroplasty and patellar resurfacing. The patellar facet prosthesis remains inferiorly displaced with respect to the patella. 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 Corticated densities are again visualized at the inferior patellar pole. There is a probable small joint effusion. There are no acute fractures. IMPRESSION: 1. No acute fractures. 2. Postsurgical changes of a total right knee arthroplasty 3. Stable patella apolonia 4. Stable inferior displacement of patellar facet prosthesis with respect to the patella. This suggests chronic hardware failure. Electronically signed by: Kostas Coughlin M.D. 07/21/2016 8:21 AM Dictated Date/Time: 07/21/2016 8:18 AM
--- NOTE | 2016-07-21 08:23 | DIAGNOSTIC IMAGING REPORT ---
LEFT HAND 3 VIEWS HISTORY: Fall, hand pain COMPARISON: None. FINDINGS: There is no fracture or dislocation. Soft tissues are unremarkable. No radiopaque foreign bodies. Prior resection of the trapezium bone within the wrist. The bones are osteopenic. Mild to moderate osteoarthritis within the DIP and PIP joints. IMPRESSION: No fractures. Electronically signed by: Rachid Cardoso M.D. 07/21/2016 8:22 AM Dictated Date/Time: 07/21/2016 8:20 AM
--- NOTE | 2016-07-21 08:24 | DIAGNOSTIC IMAGING REPORT ---
CHEST ONE VIEW PORTABLE CLINICAL HISTORY: Trauma. COMPARISON STUDY: 06/15/2016 FINDINGS: The cardiac and mediastinal contours remain stable. There are bilateral shoulder arthroplasties. There are postsurgical changes of a thoracolumbar spinal fusion. No pneumothorax is visualized. There is no focal pulmonary consolidation. There are no pleural effusions. There is minor left basilar atelectasis.[ IMPRESSION: No active disease in the chest. Electronically signed by: Kostas Coughlin M.D. 07/21/2016 8:23 AM Dictated Date/Time: 07/21/2016 8:22 AM
[2016-09-23] MEDS ORDERED: ATV5 PO (10:31)
[2016-09-23] MEDS ORDERED: RXNS2.5 PO (10:31)
[2016-09-23] MEDS ORDERED: OXGN (10:31)
[2016-09-23] MEDS ORDERED: PRED10TA PO (10:31)
[2016-09-23] MEDS ORDERED: DILT120C50 PO (10:31)
[2016-09-23] MEDS ORDERED: DXY100 PO (10:31)
[2016-12-31] MEDS ORDERED: CLB100 PO (11:19)
[2016-12-31] MEDS ORDERED: IPRA1AER2 INH (16:33)
[2017-01-01] MEDS ORDERED: OXYM0.056 (17:22)
[2017-01-01] MEDS ORDERED: SALI0.6510 (17:22)
[2017-01-01] MEDS ORDERED: BCTCR/30 (17:22)
== END 2016-07-21 01:15 | disposition home or self-care (01) ==
LOC: EDBD 21:36 → C.EDC 21:38
DX: S02.2XXA Fracture of nasal bones, initial encounter for closed fracture (principal); T14.8 Other injury of unspecified body region; S41.101A Unspecified open wound of right upper arm, initial encounter; W19.XXXA Unspecified fall, initial encounter; D64.9 Anemia, unspecified; E78.5 Hyperlipidemia, unspecified; I10 Essential (primary) hypertension; E03.9 Hypothyroidism, unspecified; M19.90 Unspecified osteoarthritis, unspecified site; J44.9 Chronic obstructive pulmonary disease, unspecified; G89.29 Other chronic pain; Z87.81 Personal history of (healed) traumatic fracture; Z85.048 Personal history of other malignant neoplasm of rectum, rectosigmoid junction, and anus; Z96.651 Presence of right artificial knee joint; Z96.652 Presence of left artificial knee joint; Z96.619 Presence of unspecified artificial shoulder joint; Z98.1 Arthrodesis status; Z79.899 Other long term (current) drug therapy; Z88.5 Allergy status to narcotic agent; Z88.8 Allergy status to other drugs, medicaments and biological substances; Z83.3 Family history of diabetes mellitus; Z82.49 Family history of ischemic heart disease and other diseases of the circulatory system

== ENCOUNTER 2016-09-19 16:49 | Inpatient (IN) | payer OTHER ==
[~2016-09-19] VITALS: Ht 152.4 cm; Wt 77.7 kg
[2016-09-19] VITALS (11 sets, daily range): BP systolic 106–148; BP diastolic 63–96; PULSE 106–151; TEMP 36.9; O2SAT 90–97; Ht 152.4 cm; Wt 77.7 kg
[~2016-09-19 16:49] MED LIST changes: +ADVIN25/60 INH; +CALC-354 PO; +CHOL400C PO; +CLB100 PO; +DOCU-94 PO; +ETOMIDATE 2 MG/ML 20 ML VIAL IV ONE; +FSM70 PO; +IPRA1AER2 INH; +MULT-513 PO; +SOLI10TA2 PO; +SUCCINYLCHOLINE CHLORIDE 20 MG/ML 10 ML VIAL IV ONE
[2016-09-19] MEDS ORDERED: ALBUT/IPRATROP 3MG/0.5MG NEB 3 ML VIAL ONE (17:01)
[2016-09-19] MEDS ORDERED: SODIUM CHLORIDE 0.9% 1000ML 500 ML IV STA (17:12)
[2016-09-19] MEDS ORDERED: METHYLPREDNISOLONE 125 MG VIAL IV STA (17:12)
--- NOTE | 2016-09-19 17:29 | EMERGENCY ROOM VISIT NOTE ---
History Report prepared by Nila: Yumiko Robles Under the Supervision of: Dr. Adams Mccord M.D. First contact with patient: 17:07 Chief Complaint: SHORTNESS OF BREATH Stated Complaint: BREATHING DIFFICULTY Nursing Triage Summary: brought in by EMS. seen by pcp at [facility] yesterday for cold symptoms x1 day. started on zpack, prednisone and tesslon pearls. cxr done - no pneumonia per patient. Having increased difficulty breathing, nonproductive cough this since this am. reports emesis as well. 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 No nausea or abdominal pain. Room air spo2 96%, HR 110s, RR 20s. No intervention by EMS. hx copd. denies cardiac issues. History of Present Illness The patient is an 80 year old female who presents to the Emergency Room with complaints of persistent SOB starting 3 days ago. The patient presents to the ED by EMS. She called EMS because she felt unable to breathe. She saw her PCP yesterday and was started on a Z Willem, prednisone, and Tessalon Perles. She was not feeling improved today and her sore throat had worsened. She has been using Advair and inhalers to no significant relief. She reports nonproductive cough and sore throat. She has pain in her throat with breathing. She was vomiting yesterday. She does experience vomiting with coughing. She is unsure of fever. She has a history of COPD. She has not had pneumonia before. She has not been hospitalized for problems breathing before. She is not on oxygen at home. She denies any history of blood clots or ME. She is not on blood thinners. Source of History: patient Onset: 3 days ago Position: other (global) Quality: other (SOB) Timing: other (persistent) Associated Symptoms: + sorethroat, + cough, + vomiting Review of Systems See HPI for pertinent positives & negatives. A total of 10 systems reviewed and were otherwise negative. Past Medical & Surgical Medical Problems: (1) Chronic pain of right hip (2) Compression fracture (3) COPD (chronic obstructive pulmonary disease) (4) DM type 2 (diabetes mellitus, type 2) (5) Dyslipidemia (6) Esophageal dysmotility (7) Essential hypertension (8) Hyponatremia (9) Hypothyroidism (10) Knee pain (11) Mass of lung (12) Osteoarthritis (13) Renal cancer (14) Renal mass (15) Rib fractures Surgical Problems: (1) History of total bilateral knee replacement (2) Status post lumbar spinal fusion (3) Status post shoulder replacement Family History Diabetes mellitus Hypertension Social History Smoking Status: Former Smoker Alcohol Use: none Housing Status: lives alone Occupation Status: retired Current/Historical Medications Scheduled Alendronate Sodium (Alendronate Sodium), 70 MG PO WK Amlodipine Besylate (Norvasc), 2.5 MG PO DAILY Calcium Carbonate-Cholecalcife (Caltrate 600+D), 1 TAB PO DAILY Celecoxib (Celebrex), 100 MG PO BID Cholecalciferol (Vitamin D3 400), 400 INTER.UNIT PO DAILY Fluticasone Prop/Salmeterol (Advair Diskus 250/50 60 Dose), 1 PUFF INH BID Ipratropium-Albuterol (Combivent Respimat), 1 PUFF INH QPM Multivitamins/Minerals (Mvi With Minerals), 1 TAB PO DAILY Solifenacin (Vesicare), 10 MG PO HS Scheduled PRN Docusate Sodium (Colace), 100 MG PO BID PRN for Constipation Allergies Coded Allergies: Levofloxacin (Verified Allergy, Mild, rash, 09/19/16) Pt reported that arm became severly itchy after start of IV levaquin Atorvastatin (Verified Adverse Reaction, Intermediate, MYALGIA, 09/19/16) Codeine (Verified Adverse Reaction, Intermediate, SEVERE N/V, 09/19/16) Fentanyl (Verified Adverse Reaction, Intermediate, FREQU[place]ALL[place], 09/19/16 ) PT STATES SHE WILL NOT WEAR THIS ANYMORE Morphine (Verified Adverse Reaction, Intermediate, SEVERE N/V, 09/19/16) Physical Exam Vital Signs Date Time Temp Pulse Resp B/P (MAP) Pulse Ox O2 Delivery O2 Flow Rate FiO2 09/19/16 18:10 108 22 136/106 94 Room Air 09/19/16 17:21 108 09/19/16 17:08 96 Room Air 09/19/16 16:58 36.9 105 22 172/107 95 Room Air 09/19/16 16:58 96 Room Air Physical Exam GENERAL: Patient is in no acute distress. HEENT: No acute trauma, normocephalic atraumatic, mucous membranes moist, no nasal congestion, no scleral icterus, throat is without erythema or exudate. NECK: No stridor, no adenopathy, no meningismus, trachea is midline. LUNGS: Occasional scattered wheezing, breath sounds equal, no rhonchi, increased respiratory rate. HEART: Tachycardic with a regular rhythm, no murmurs. ABDOMEN: Soft, nontender, bowel sounds positive, no hernias, no peritonitis. EXTREMITIES: No cyanosis or edema, full range of motion of all the joints without pain or difficulty, no signs for acute trauma. NEUROLOGIC: Oriented x 3, no acute motor or sensory deficits, no focal weakness. SKIN: No rash, no jaundice, no diaphoresis. Medical Decision & Procedures ER Provider Diagnostic Interpretation: X-ray results as stated below per interpretation by me and the radiologist. Radiology results as stated below per my review and radiologist interpretation: CHEST ONE VIEW PORTABLE CLINICAL HISTORY: Respiratory distress COMPARISON STUDY: 07/20/2016 FINDINGS: The cardiac and mediastinal contours remain stable. There are postsurgical changes of a thoracolumbar spinal fusion. There are postsurgical changes of bilateral shoulder arthroplasties. Old rib deformities are visualized. There is chronic pleural-parenchymal scarring at the left lung base. There is no overt failure. There is no lobar consolidation.[ IMPRESSION: Chronic changes. No acute findings. Electronically signed by: Kostas Coughlin M.D. 09/19/2016 5:46 PM Dictated Date/Time: 09/19/2016 5:[address] ANGIOGRAM OF THE CHEST CLINICAL HISTORY: Atypical chest pain COMPARISON STUDY: 05/09/2016 TECHNIQUE: Following the IV administration of 79 mL of Optiray-320, CT angiogram of the thorax was performed from the thoracic inlet to the lung bases utilizing the pulmonary embolus protocol. Images are reviewed in the axial, sagittal, and coronal planes. IV contrast was administered without complication. MIP imaging was performed. A dose lowering technique was utilized adhering to the principles of ALARA. CT DOSE: 499.42 mGy.cm FINDINGS: There is a borderline enlarged left axillary lymph node measuring 2 cm in long axis. There is no pathologic mediastinal or hilar adenopathy. There was no evidence of thoracic aortic dilatation. There were no pulmonary artery filling defects to indicate acute pulmonary embolism. No pleural effusions are visualized. There are bibasal atelectatic changes. There is no acute parenchymal consolidation. There are postsurgical changes of bilateral shoulder arthroplasties and thoracolumbar spinal fusion. There are multiple thoracic vertebral body fractures including an subacute horizontal cleavage fracture involving the T6 vertebra. This appears more spiculated than on the prior May 09, 2016 study. There are multiple bilateral rib fractures which appears subacute and chronic. There is mild elevation/eventration of the left hemidiaphragm. IMPRESSION: 1. No central pulmonary emboli identified 2. There are no airspace opacities to indicate pneumonia 3. Persistent borderline enlarged left axillary lymph node 4. Osteopenia and multiple thoracic vertebral body fractures including a subacute horizontal cleavage fracture involving the T6 vertebra Electronically signed by: Kostas Coughlin M.D. 09/19/2016 6:41 PM Dictated Date/Time: 09/19/2016 6:34 PM Laboratory Results 09/19/16 17:28 Red Blood Count 4.33, Mean Corpuscular Volume 76.2, Mean Corpuscular Hemoglobin 22.6, Mean Corpuscular Hemoglobin Concent 29.7, Mean Platelet Volume 8.6, Neutrophils (%) (Auto) 87.2, Lymphocytes (%) (Auto) 10.5, Monocytes (%) (Auto) 1.5, Eosinophils (%) (Auto) 0.2, Basophils (%) (Auto) 0.3, Neutrophils # (Auto) 5.79, Lymphocytes # (Auto) 0.70, Monocytes # (Auto) 0.10, Eosinophils # (Auto) 0.01, Basophils # (Auto) 0.02 09/19/16 17:28 Test 09/19/16 17:28 White Blood Count 6.64 K/uL (4.8-10.8) Red Blood Count 4.33 M/uL (4.2-5.4) Hemoglobin 9.8 g/dL (12.0-16.0) Hematocrit 33.0 % (37-47) Mean Corpuscular Volume 76.2 fL (80-100) Mean Corpuscular Hemoglobin 22.6 pg (25-34) Mean Corpuscular Hemoglobin Concent 29.7 g/dl (32-36) Platelet Count 368 K/uL (130-400) Mean Platelet Volume 8.6 fL (7.4-10.4) Neutrophils (%) (Auto) 87.2 % Lymphocytes (%) (Auto) 10.5 % Monocytes (%) (Auto) 1.5 % Eosinophils (%) (Auto) 0.2 % Basophils (%) (Auto) 0.3 % Neutrophils # (Auto) 5.79 K/uL (1.4-6.5) Lymphocytes # (Auto) 0.70 K/uL (1.2-3.4) Monocytes # (Auto) 0.10 K/uL (0.11-0.59) Eosinophils # (Auto) 0.01 K/uL (0-0.5) Basophils # (Auto) 0.02 K/uL (0-0.2) RDW Standard Deviation 43.3 fL (36.4-46.3) RDW Coefficient of Variation 15.4 % (11.5-14.5) Immature Granulocyte % (Auto) 0.3 % Immature Granulocyte # (Auto) 0.02 K/uL (0.00-0.02) Prothrombin Time 10.7 SECONDS (9.0-12.0) Prothromb Time International Ratio 1.0 (0.9-1.1) Activated Partial Thromboplast Time 28.0 SECONDS (21.0-31.0) Partial Thromboplastin Ratio 1.1 Anion Gap 7.0 mmol/L (3-11) Est Creatinine Clear Calc Drug Dose 44.7 ml/min Estimated GFR () 67.3 Estimated GFR (Non- 58.0 BUN/Creatinine Ratio 17.6 (10-20) Calcium Level 8.7 mg/dl (8.5-10.1) Total Bilirubin 0.2 mg/dl (0.2-1) Aspartate Amino Transf (AST/SGOT) 16 U/L (15-37) Alanine Aminotransferase (ALT/SGPT) 19 U/L (12-78) Alkaline Phosphatase 115 U/L (45-117) Troponin I < 0.015 ng/ml (0-0.045) Total Protein 6.6 gm/dl (6.4-8.2) Albumin 3.2 gm/dl (3.4-5.0) Globulin 3.4 gm/dl (2.5-4.0) Albumin/Globulin Ratio 0.9 (0.9-2) Laboratory results reviewed by me. Medications Administered Medications (Trade) Dose Ordered Sig/Charlee Route Start Time Stop Time Status Last Admin Dose Admin Albuterol/ Ipratropium (Duoneb) 3 ml STK-MED ONCE .ROUTE 09/19/16 17:01 09/19/16 17:02 DC 09/19/16 17:09 3 ML Sodium Chloride 500 ml @ 999 mls/hr Q31M STAT IV 09/19/16 17:12 09/19/16 17:42 DC 09/19/16 18:07 999 MLS/HR Methylprednisolone Sodium Succinate (Solu-Medrol IV) 80 mg NOW STAT IV 09/19/16 17:12 09/19/16 17:15 DC 09/19/16 18:06 80 MG ECG Indication: SOB/dyspnea Rate (beats per minute): 107 Rhythm: sinus tachycardia Findings: no acute ischemic change, no ectopy ED Course 1708: The patient was evaluated in room A3. A complete history and physical exam was performed. 1701: Duoneb 3 ml INH. 1712: Solu-Medrol IV 80 mg IV, NSS 500 ml @ 999 mls/hr IV. 1807: I reevaluated the patient. She is doing well. She will go for CT. 1847: Upon reexamination the patient is doing well. I discussed results and treatment plan with the patient. She verbalizes agreement and understanding. The patient will be evaluated for further management. 1848: I [facility] the patient's [facility] The patient will be evaluated for further management. 1850: Dilaudid Inj 0.5 mg IV. Medical Decision Differential diagnoses considered include bronchitis, pneumonia, pneumothorax, heart failure, anemia, exacerbation of COPD, failed outpatient treatment. There is no leukocytosis. The patient does have a mild anemia but this is relatively baseline for her. There is no significant electrolyte abnormality, kidney failure or hepatitis. EKG shows a sinus tachycardia, no acute ischemia. Cardiac enzyme testing times one is not consistent with acute cardiac injury. Chest film does not show pneumonia or CHF. There is no pneumothorax or mediastinal widening. Chest CT does not show PE or pneumonia. Some compression fractures were noted, a subacute T6 fracture was seen. The patient received IV Solu-Medrol, IV saline and a DuoNeb. She eventually received a small dose of IV Dilaudid for pain. She is improved but still feeling short of breath. The patient has failed outpatient treatment for what appears to be an acute bronchitis with an exacerbation of COPD. Admission/observation is warranted. I spoke to the senior case manager, the on-call hospitalist was consulted. Medication Reconcilliation Current Medication List: was personally reviewed by me Blood Pressure Screening Patient's blood pressure: Elevated blood pressure Blood pressure disposition: Referred to PCP Consults Time Called: 1844 Consulting Physician: CORNELIO Mills hospitalist service Returned Call: [phone] Discussed the patient's case. The patient will be evaluated for further management. Impression Primary Impression: SOB (shortness of breath) Additional Impressions: Acute bronchitis COPD exacerbation Failure of outpatient treatment Scribe Attestation The scribe's documentation has been prepared under my direction and personally reviewed by me in its entirety. I confirm that the note above accurately reflects all work, treatment, procedures, and medical decision making performed by me. Departure Information Dispostion Being Evaluated By Hospitalist Referrals Harjeet Zaman M.D. (PCP) Patient Instructions My [facility] Problem Qualifiers
[2016-09-19 17:45] LABS: BASO % 0.3 %; BASO ABS # 0.02 K/uL (0-0.2); COMPLETE YES; EOS % 0.2 %; IG% 0.3 %; LYMPH % 10.5 %; MEAN CELL VOLUME 76.2 fL (80-100); MEAN CORPUSCULAR HEMOGLOBIN 22.6 pg (25-34); MEAN CORPUSCULAR HGB CONC 29.7 g/dl (32-36); MEAN PLATELET VOLUME 8.6 fL (7.4-10.4); MONO % 1.5 %; NEUT % 87.2 %; PLATELET COUNT 368 K/uL (130-400); RED BLOOD COUNT 4.33 M/uL (4.2-5.4); WHITE BLOOD COUNT 6.64 K/uL (4.8-10.8)
--- NOTE | 2016-09-19 17:47 | DIAGNOSTIC IMAGING REPORT ---
CHEST ONE VIEW PORTABLE CLINICAL HISTORY: Respiratory distress COMPARISON STUDY: 07/20/2016 FINDINGS: The cardiac and mediastinal contours remain stable. There are postsurgical changes of a thoracolumbar spinal fusion. There are postsurgical changes of bilateral shoulder arthroplasties. Old rib deformities are visualized. There is chronic pleural-parenchymal scarring at the left lung base. There is no overt failure. There is no lobar consolidation.[ IMPRESSION: Chronic changes. No acute findings. Electronically signed by: Kostas Coughlin M.D. 09/19/2016 5:46 PM Dictated Date/Time: 09/19/2016 5:45 PM
[2016-09-19 17:58] LABS: ALT/SGPT 19 U/L (12-78); BLOOD UREA NITROGEN 16 mg/dl (7-18); BUN/CREATININE RATIO 17.6 (10-20); CALCIUM 8.7 mg/dl (8.5-10.1); CARBON DIOXIDE 25 mmol/L (21-32); CHLORIDE 102 mmol/L (98-107); CREATININE 0.93 mg/dl (0.60-1.20); GLUCOSE 215 mg/dl (70-99); POTASSIUM 4.2 mmol/L (3.5-5.1); SODIUM 134 mmol/L (136-145)
[2016-09-19 17:59] LABS: PARTIAL THROMBOPLASTIN RATIO 1.1; PROTHROMBIN TIME (PATIENT) 10.7 SECONDS (9.0-12.0)
[2016-09-19 18:02] LABS: ALB/GLOB RATIO 0.9 (0.9-2); ALKALINE PHOSPHATASE 115 U/L (45-117); AST/SGOT 16 U/L (15-37)
[2016-09-19] MEDS ORDERED: OPTIRAY 320 IV PRN (18:15)
--- NOTE | 2016-09-19 18:43 | DIAGNOSTIC IMAGING REPORT ---
CT ANGIOGRAM OF THE CHEST CLINICAL HISTORY: Atypical chest pain COMPARISON STUDY: 05/09/2016 TECHNIQUE: Following the IV administration of 79 mL of Optiray-320, CT angiogram of the thorax was performed from the thoracic inlet to the lung bases utilizing the pulmonary embolus protocol. Images are reviewed in the axial, sagittal, and coronal planes. IV contrast was administered without complication. MIP imaging was performed. A dose lowering technique was utilized adhering to the principles of ALARA. CT DOSE: 499.42 mGy.cm FINDINGS: There is a borderline enlarged left axillary lymph node measuring 2 cm in long axis. There is no pathologic mediastinal or hilar adenopathy. There was no evidence of thoracic aortic dilatation. There were no pulmonary artery filling defects to indicate acute pulmonary embolism. No pleural effusions are visualized. There are bibasal atelectatic changes. There is no acute parenchymal consolidation. There are postsurgical changes of bilateral shoulder arthroplasties and thoracolumbar spinal fusion. There are multiple thoracic vertebral body fractures including an subacute horizontal cleavage fracture involving the T6 vertebra. This appears more spiculated than on the prior May 09, 2016 study. There are multiple bilateral rib fractures which appears subacute and chronic. There is mild elevation/eventration of the left hemidiaphragm. IMPRESSION: 1. No central pulmonary emboli identified 2. There are no airspace opacities to indicate pneumonia 3. Persistent borderline enlarged left axillary lymph node 4. Osteopenia and multiple thoracic vertebral body fractures including a subacute horizontal cleavage fracture involving the T6 vertebra Electronically signed by: Kostas Coughlin M.D. 09/19/2016 6:41 PM Dictated Date/Time: 09/19/2016 6:34 PM
[2016-09-19] MEDS ORDERED: HYDROmorphone INJ 2 MG/ML SYR/VIAL IV STA (18:50)
[2016-09-19] MEDS ORDERED: IPRASOL4 INH (19:50)
[2016-09-19] MEDS ORDERED: LEVO75TA5 PO (19:50)
[2016-09-19] MEDS ORDERED: OMEP20TA PO (19:50)
[2016-09-19] MEDS ORDERED: BENZ100C18 PO (19:50)
[2016-09-19] MEDS ORDERED: AZITTAB PO (19:50)
[2016-09-19] MEDS ORDERED: DULO60CA44 PO (19:50)
[2016-09-19] MEDS ORDERED: FERRO SEQUELS PO (19:50)
[2016-09-19] MEDS ORDERED: DOCUSATE SODIUM 100 MG CAP PO PRN (20:00)
[2016-09-19] MEDS ORDERED: IV FLUIDS COMPLETED PRN (20:00)
--- NOTE | 2016-09-19 20:19 | History and Physical ---
History & Physical Date & Time of Service: Sep 19, 2016 ~ 19:00 Chief Complaint: Shortness of Breath Primary Care Physician: Harjeet Zaman M.D. History of Present Illness 80 year old female who presents to the ER with shortness of breath. Patient reports she started getting sick a few days ago. She reports cough, sore throat , and shortness of breath. Cough has been non productive. She reports she has heard herself wheezing. She has shortness of breath with minimal exertion. She was seen by her PCP yesterday who prescribed her Tessalon Perles and Azithromycin. She reports no improvement in her symptoms. She denies fever and chills. No chest pain or palpitations. She denies lightheadedness, dizziness, diaphoresis, or syncopal events. She reports a poor appetite and some mild nausea with one episode of vomiting. No hematemesis or coffee ground emesis. She denies abdominal pain or diarrhea. She denies any urinary symptoms. In the ER, patient is saturating well on room air. CT chest is negative for PE and pneumonia. She was given IVF, IV solumedrol, neb, and IV Dilaudid. 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 Beal Status: Chronic Surgical Problems: (1) History of total bilateral knee replacement Status: Chronic (2) Status post lumbar spinal fusion Status: Chronic (3) Status post shoulder replacement Status: Chronic Family History non contributory due to patient's advanced age Social History Smoking Status: Former Smoker Alcohol Use: none Housing status: lives alone Immunizations History of Influenza Vaccine: Yes Influenza Vaccine Date: Nov 17, 2015 History of Tetanus Vaccine?: Yes Tetanus Immunization Date: Sep 10, 2012 History of Pneumococcal: Yes Pneumococcal Date: May 20, 2015 Multi-Drug Resistant Organisms History of MDRO: Yes Type of MDRO: MRSA Allergies Coded Allergies: Levofloxacin (Verified Allergy, Mild, rash, 09/19/16) Pt reported that arm became severly itchy after start of IV levaquin Atorvastatin (Verified Adverse Reaction, Intermediate, MYALGIA, 09/19/16) Codeine (Verified Adverse Reaction, Intermediate, SEVERE N/V, 09/19/16) Fentanyl (Verified Adverse Reaction, Intermediate, FREQU[place] FALLS, 09/19/16 ) PT STATES SHE WILL NOT WEAR THIS ANYMORE Morphine (Verified Adverse Reaction, Intermediate, SEVERE N/V, 09/19/16) Home Medications Scheduled Alendronate Sodium (Alendronate Sodium), 70 MG PO WK Amlodipine Besylate (Norvasc), 2.5 MG PO DAILY Azithromycin (Zithromax Z-Willem), 1 PKT PO UD Calcium Carbonate-Cholecalcife (Caltrate 600+D), 1 TAB PO DAILY Celecoxib (Celebrex), 100 MG PO BID Cholecalciferol (Vitamin D3 400), 400 INTER.UNIT PO BID Duloxetine Hcl (Cymbalta), 1 CAP PO DAILY Fluticasone Prop/Salmeterol (Advair Diskus 250/50 60 Dose), 1 PUFF INH BID Levothyroxine Sodium (Levothyroxine Sodium), 1 TAB PO DAILY Multivitamins/Minerals (Mvi With Minerals), 1 TAB PO DAILY Omeprazole (Omeprazole), 1 TAB PO BID Solifenacin (Vesicare), 10 MG PO HS [Oni-Sequels], 1 TAB PO BID Scheduled PRN Benzonatate (Tessalon Perles), 1 CAP PO TID PRN for Cough Docusate Sodium (Colace), 100 MG PO BID PRN for Constipation Ipratropium-Albuterol (Combivent Respimat), 1 PUFF INH QID PRN for SOB/Wheezing Ipratropium-Albuterol (Duoneb), 1 TREATMENT INH Q4H PRN for SOB/Wheezing Review of Systems ROS per HPI, all other systems reviewed and negative Physical Exam Vital Signs Date Time Temp Pulse Resp B/P (MAP) Pulse Ox O2 Delivery O2 Flow Rate FiO2 09/19/16 19:28 66 18 103/63 97 Room Air 09/19/16 18:10 108 22 136/106 94 Room Air 09/19/16 17:21 108 09/19/16 17:08 96 Room Air 09/19/16 16:58 36.9 105 22 172/107 95 Room Air 09/19/16 16:58 96 Room Air General Appearance: no apparent distress Head: normocephalic Eyes: normal inspection ENT: hearing grossly normal Neck: supple, no JVD Respiratory/Chest: no respiratory distress, + pertinent finding (coarse breath sounds BL; shortness of breath with minimal exertion) Cardiovascular: regular rate, rhythm, no edema, normal peripheral pulses Abdomen/GI: normal bowel sounds, non tender, soft Extremities/Musculoskelatal: normal inspection, no calf tenderness Neurologic/Psych: no motor/sensory deficits, alert, normal mood/affect, oriented x 3 Skin: normal color, warm/dry Diagnostics Laboratory Results Results Past 24 Hours Test 09/19/16 17:28 Range/Units White Blood Count 6.64 4.8-10.8 K/uL Red Blood Count 4.33 4.2-5.4 M/uL Hemoglobin 9.8 12.0-16.0 g/dL Hematocrit 33.0 37-47 % Mean Corpuscular Volume 76.2 80-100 fL Mean Corpuscular Hemoglobin 22.6 25-34 pg Mean Corpuscular Hemoglobin Concent 29.7 32-36 g/dl Platelet Count 368 130-400 K/uL Mean Platelet Volume 8.6 7.4-10.4 fL Neutrophils (%) (Auto) 87.2 % Lymphocytes (%) (Auto) 10.5 % Monocytes (%) (Auto) 1.5 % Eosinophils (%) (Auto) 0.2 % Basophils (%) (Auto) 0.3 % Neutrophils # (Auto) 5.79 1.4-6.5 K/uL Lymphocytes # (Auto) 0.70 1.2-3.4 K/uL Monocytes # (Auto) 0.10 0.11-0.59 K/uL Eosinophils # (Auto) 0.01 0-0.5 K/uL Basophils # (Auto) 0.02 0-0.2 K/uL RDW Standard Deviation 43.3 36.4-46.3 fL RDW Coefficient of Variation 15.4 11.5-14.5 % Immature Granulocyte % (Auto) 0.3 % Immature Granulocyte # (Auto) 0.02 0.00-0.02 K/uL Prothrombin Time 10.7 9.0-12.0 SECONDS Prothromb Time International Ratio 1.0 0.9-1.1 Activated Partial Thromboplast Time 28.0 21.0-31.0 SECONDS Partial Thromboplastin Ratio 1.1 Sodium Level 134 136-145 mmol/L Potassium Level 4.2 3.5-5.1 mmol/L Chloride Level 102 98-107 mmol/L Carbon Dioxide Level 25 21-32 mmol/L Anion Gap 7.0 3-11 mmol/L Blood Urea Nitrogen 16 7-18 mg/dl Creatinine 0.93 0.60-1.20 mg/dl Est Creatinine Clear Calc Drug Dose 44.7 ml/min Estimated GFR () 67.3 Estimated GFR (Non- 58.0 BUN/Creatinine Ratio 17.6 10-20 Random Glucose 215 70-99 mg/dl Calcium Level 8.7 8.5-10.1 mg/dl Total Bilirubin 0.2 0.2-1 mg/dl Aspartate Amino Transf (AST/SGOT) 16 15-37 U/L Alanine Aminotransferase (ALT/SGPT) 19 12-78 U/L Alkaline Phosphatase 115 45-117 U/L Troponin I < 0.015 0-0.045 ng/ml Total Protein 6.6 6.4-8.2 gm/dl Albumin 3.2 3.4-5.0 gm/dl Globulin 3.4 2.5-4.0 gm/dl Albumin/Globulin Ratio 0.9 0.9-2 Microbiology Results 09/19/16 Blood Culture, Received Pending 09/19/16 Blood Culture, Received Pending Diagnostic Radiology CXR IMPRESSION: Chronic changes. No acute findings. CTA CHEST IMPRESSION: 1. No central pulmonary emboli identified 2. There are no airspace opacities to indicate pneumonia 3. Persistent borderline enlarged left axillary lymph node 4. Osteopenia and multiple thoracic vertebral body fractures including a subacute horizontal cleavage fracture involving the T6 vertebra Impression Assessment and Plan COPD EXACERBATION - admit to med/surg - patient presenting with increasing shortness of breath and cough x 3 days - saturating well on room air - CTA chest negative for PE and pneumonia - around the clock nebs, continue inhaled corticosteroid - s/p solu-medrol 125mg IV in ED; will continue with prednisone 40mg PO tomorrow - empiric doxycycline T6 COMPRESSION FRACTURE - subacute, noted on CT chest - no reports of fall, ? from persistent coughing - pain control - PT/OT HTN - BP controlled, continue amlodipine HYPOTHYROIDISM - continue levothyroxine DVT PROPHYLAXIS - SQ Lovenox CODE STATUS - Patient is a full code as per my discussion with her. DISPO - The patient will be placed as observation status for now until further work up is complete. Attending Addendum: Admitted with failure of OP treatment for COPD exacerbation Presented with increasing SOB and ongoing back pain CTA-negative for any PE and or Pneumonia O/X Moderate SOB at rest in ER Hemodynamically stable Chest-decreased breath sound bilaterally,minimal wheezing Heart-regular Abdomen-distended ,soft,bowel sound present Extremities-negative for any Edema Labs and Imaging studies were reviewed Agree with the Assessment and plan and the patient was sent to medical floor Immediately after having a few bite of sandwich on floor she became very SOB and anxious Hear heart rate went up to 150s and saturation went down to 80s Code purple called .: she received BIPAP and 20 mg IV diltiazem fro SVT and was transferred to ICU Body Joiner consulted Was feeling a lot better in ICU and likely to avoid Intubation. Dr Cholo Hsu VTE Prophylaxis VTE Risk Assessment Done? Y/N: Yes Risk Level: Moderate
[2016-09-19] MEDS ORDERED: LORAZEPAM INJ 0.5 MG in SYRINGE 0.25 ML IV STA (21:12)
[2016-09-19] MEDS ORDERED: DILTIAZEM HCL 5 MG/ML 5 ML VIAL ONE (21:16)
[2016-09-19] MEDS ORDERED: FENTANYL CITRATE INJ 50 MCG/1 ML 2 ML VIAL ONE (21:34)
[2016-09-19] MEDS ORDERED: DexMEDEtomidine HCL INJ 200 MCG in SODIUM CHLORIDE 0.9% 50ML 48 ML IV STA (21:36)
[2016-09-19 21:38] LABS: IPAP 16; ISTAT ARTERIAL BLOOD GAS HCO3 18 meq/L (19-24); ISTAT ARTERIAL BLOOD GAS PCO2 72 mmHg (35-46); ISTAT ARTERIAL BLOOD GAS PO2 102 mmHg (80-95); ISTAT ARTERIAL BLOOD GAS pH 7.02 (7.35-7.45); ISTAT CARBON DIOXIDE 21 mEq/l (24-31); ISTAT DELIVERY SYSTEM BIPAP; ISTAT FIO2 100 %; ISTAT RATE 24; ISTAT SITE R Radial
[2016-09-19 21:39] LABS: HEMATOCRIT 35.5 % (37-47); MEAN CELL VOLUME 76.3 fL (80-100); MEAN CORPUSCULAR HEMOGLOBIN 23.4 pg (25-34); MEAN CORPUSCULAR HGB CONC 30.7 g/dl (32-36); MEAN PLATELET VOLUME 8.9 fL (7.4-10.4); PLATELET COUNT 493 K/uL (130-400); RED BLOOD COUNT 4.65 M/uL (4.2-5.4); WHITE BLOOD COUNT 9.69 K/uL (4.8-10.8)
[2016-09-19] MEDS: IPRATROPIUM BROMIDE NEB SOLN 0.02% 2.5 ML VIAL INH SCH (22:00)
[2016-09-19] MEDS: LEVALBUTEROL 1.25MG/0.5ML NEB INH SCH (22:00)
[2016-09-19 22:04] LABS: ALKALINE PHOSPHATASE 126 U/L (45-117); ALT/SGPT 21 U/L (12-78); AST/SGOT 17 U/L (15-37); BLOOD UREA NITROGEN 15 mg/dl (7-18); BUN/CREATININE RATIO 15.4 (10-20); CALCIUM 8.3 mg/dl (8.5-10.1); CARBON DIOXIDE 20 mmol/L (21-32); CHLORIDE 102 mmol/L (98-107); GLUCOSE 318 mg/dl (70-99); MAGNESIUM 2.1 mg/dl (1.8-2.4); PHOSPHORUS 5.1 mg/dl (2.5-4.9); POTASSIUM 4.1 mmol/L (3.5-5.1); SODIUM 135 mmol/L (136-145)
--- NOTE | 2016-09-19 22:16 | DIAGNOSTIC IMAGING REPORT ---
CHEST ONE VIEW PORTABLE CLINICAL HISTORY: Respiratory distress COMPARISON STUDY: 09/19/2016 FINDINGS: The cardiac and mediastinal contours remain stable. There are postsurgical changes of a thoracolumbar spinal fusion. There are postsurgical changes of bilateral shoulder arthroplasties. Old rib deformities are evident. There are increasing right lung interstitial markings, possibly representing asymmetric edema. There is no lobar consolidation.[ IMPRESSION: Increasing right lung interstitial markings, possibly secondary to asymmetric edema. Clinical and radiographic follow-up is recommended. Electronically signed by: Kostas Coughlin M.D. 09/19/2016 10:14 PM Dictated Date/Time: 09/19/2016 10:12 PM
[2016-09-19 22:21] LABS: BETA-HYDROXYBUTYRATE 1.58 mg/dL (0.2-2.81)
[2016-09-19] MEDS ORDERED: NURSING VERBAL MED ORDER ONE (22:30)
[2016-09-19] MEDS: DILTIAZEM HCL 30 MG TAB PO SCH (22:43)
[2016-09-19] MEDS: PANTOprazole SOD 40 MG TAB PO SCH ×2 (22:43→23:04)
[2016-09-19] MEDS: CHOLECALCIFEROL 400 INTER.UNIT TAB PO SCH ×2 (22:43→23:05)
[2016-09-19] MEDS: CeleBREX 100 MG CAP PO SCH ×2 (22:43→23:04)
[2016-09-19] MEDS: DOXYCYCLINE HYCLATE 100 MG CAP PO SCH ×2 (22:43→23:04)
[2016-09-19] MEDS: FLUTICASONE/SALMETEROL 250/50 (ADVAIR) 14 PUFF/1 INHALER INH SCH (22:43)
[2016-09-19] MEDS: ENOXAPARIN 40 MG/0.4 ML SYR SQ SCH (22:44)
[2016-09-19] MEDS ORDERED: DOXYCYCLINE IV 100 MG in DEXTROSE 5% 100ML 100 ML IV ONE (22:50)
[2016-09-19] MEDS: ONDANSETRON INJ 2 MG/ML 2 ML VIAL IV PRN (22:58)
[2016-09-20] VITALS (33 sets, daily range): BP systolic 97–137; BP diastolic 60–104; PULSE 87–122; TEMP 36.5–37; O2SAT 80–98
--- NOTE | 2016-09-20 00:29 | Critical Care Consultation ---
Critical Care Consultation Date of Consultation: Sep 20, 2016. Attending Physician: Tre Mendoza M.D. Reason for Consultation: Respiratory distress, SVT with heart rate of > 150bpm History of Present Illness Cady Zhong is an 80 year old female who presented to the ED on 09/19 for increasing work of breathing one day after being treated by PCP for 1 day of cold symptoms with Tesslon Perles, Azithromycin, and Prednisone. Her cold symptoms for the past few days have included: sore throat, wheezing, and dyspnea on minimal exertion. She denies nausea or fever. Pt does complain of a dry non-productive cough and of emesis earlier today. Pt states she vomits frequently 2/2 a hx of twisted esophagus. CXR in the ED demonstrated no acute disease process; CT was without pulmonary emboli. In the ED, Pt underwent Duoneb treatment, IV Solu-medrol, and 500mL of NSS. Pt did receive 0.5mg IV Dilaudid with a small improvement in her shortness of breath. She remained hemodynamically stable throughout her time in the ED. 94% on room air, Hypertensive at times, and heart rate in the low 100s. Pt was admitted to the medical floor for continued observation of what is presumed to be COPD exacerbation. Approximately 15 minutes after arriving to the medical floor, while eating her dinner, the patient was noted to be in respiratory distress. She was bagged and ultimately placed on Bi-PAP 01/13 & 60% during code purple. Pts ABG at the time was 7.017/71.7/102/18.4 and she received 2amps of Bicarb and quickly began to improve per medical providers there during the code. Pt was noted to be in SVT with heart rate in the 150s. She received 25mg Cardizem as well. Pt was transferred to the ICU with plans to intubate. However, shortly after arrival the pt was noted to be vastly improved. She was A&O with daughter at bedside. She informed us she was never, under any circumstance to be intubated. Daughter stated this was also her understanding and that mom had legal documentation somewhere that stated the same. Later in the evening, pt was noted to be hypoxic on telemetry monitors. As I went to evaluate the pt, her Bi-PAP mask was off and she was vomiting. Nursing had tried to administer evening medications and pt began having trouble swallowing. When she would stop vomiting her O2 sats quickly aron to normal values. Pt was stable and PO meds were converted to IV. Pt denies fever, chills, malaise, chest pain, palpitations, or awareness of tachyarrhythmia. Past Medical/Surgical History Medical Problems: Chronic pain of right hip Compression fracture COPD (chronic obstructive pulmonary disease) DM type 2 (diabetes mellitus, type 2) Dyslipidemia Esophageal dysmotility Essential hypertension Hyponatremia Hypothyroidism Knee pain Mass of lung Osteoarthritis Renal cancer Renal mass Surgical Problems: History of total bilateral knee replacement Status post lumbar spinal fusion Status post shoulder replacement Family History Diabetes mellitus Hypertension Social History Smoking Status: Former Smoker Alcohol Use: none Housing Status: lives alone Allergies Coded Allergies: Levofloxacin (Verified Allergy, Mild, rash, 09/19/16) Pt reported that arm became severly itchy after start of IV levaquin Atorvastatin (Verified Adverse Reaction, Intermediate, MYALGIA, 09/19/16) Codeine (Verified Adverse Reaction, Intermediate, SEVERE N/V, 09/19/16) Fentanyl (Verified Adverse Reaction, Intermediate, FREQUENT FALLS, 09/19/16 ) PT STATES SHE WILL NOT WEAR THIS ANYMORE Morphine (Verified Adverse Reaction, Intermediate, SEVERE N/V, 09/19/16) Home Medications Scheduled Alendronate Sodium (Alendronate Sodium), 70 MG PO WK Amlodipine Besylate (Norvasc), 2.5 MG PO DAILY Azithromycin (Zithromax Z-Willem), 1 PKT PO UD Calcium Carbonate-Cholecalcife (Caltrate 600+D), 1 TAB PO DAILY Celecoxib (Celebrex), 100 MG PO BID Cholecalciferol (Vitamin D3 400), 400 INTER.UNIT PO BID Duloxetine Hcl (Cymbalta), 1 CAP PO DAILY Fluticasone Prop/Salmeterol (Advair Diskus 250/50 60 Dose), 1 PUFF INH BID Levothyroxine Sodium (Levothyroxine Sodium), 1 TAB PO DAILY Multivitamins/Minerals (Mvi With Minerals), 1 TAB PO DAILY Omeprazole (Omeprazole), 1 TAB PO BID Solifenacin (Vesicare), 10 MG PO HS [Oni-Sequels], 1 TAB PO BID Scheduled PRN Benzonatate (Tessalon Perles), 1 CAP PO TID PRN for Cough Docusate Sodium (Colace), 100 MG PO BID PRN for Constipation Ipratropium-Albuterol (Combivent Respimat), 1 PUFF INH QID PRN for SOB/Wheezing Ipratropium-Albuterol (Duoneb), 1 TREATMENT INH Q4H PRN for SOB/Wheezing Current Inpatient Medications Current Inpatient Medications Medications (Trade) Dose Ordered Sig/Charlee Route Start Time Stop Time Status Last Admin Dose Admin Ioversol (Optiray 320) 111 ml UD PRN IV 09/19/16 18:15 09/23/16 18:14 Enoxaparin Sodium (Lovenox Inj) 40 mg HS SQ 09/19/16 21:00 10/19/16 20:59 09/19/16 22:44 40 MG Acetaminophen (Tylenol Tab) 650 mg Q4H PRN PO 09/19/16 19:30 10/19/16 19:29 Ondansetron HCl (Zofran Inj) 4 mg Q6H PRN IV 09/19/16 19:30 10/19/16 19:29 09/19/16 22:58 4 MG Levalbuterol (Xopenex 1.25MG/ 0.5ML Neb) 1.25 mg Q6R INH 09/19/16 21:00 10/19/16 20:59 09/19/16 22:00 1.25 MG Ipratropium [place] (Atrovent 0.02% 0.5MG/2.5ML Neb) 0.5 mg Q6R INH 09/19/16 21:00 10/19/16 20:59 09/19/16 22:00 0.5 MG Miscellaneous (Iv Fluids Completed) 1 ea PRN PRN N/A 09/19/16 20:00 09/19/17 19:59 Amlodipine Besylate (Norvasc Tab) 2.5 mg DAILY PO 09/20/16 09:00 10/20/16 08:59 Benzonatate (Tessalon Perles Cap) 100 mg TID PRN PO 09/19/16 20:00 10/19/16 19:59 Celecoxib (CeleBREX CAP) 100 mg BID PO 09/19/16 21:00 10/19/16 20:59 Docusate Sodium (coLACE CAP) 100 mg BID PRN PO 09/19/16 20:00 10/19/16 19:59 Duloxetine HCl (Cymbalta Cap) 60 mg DAILY PO 09/20/16 09:00 10/20/16 08:59 Salmeterol Xinafoate/ Fluticasone (Advair Diskus 250/50 Inh) 1 puff BID INH 09/19/16 21:00 10/19/16 20:59 09/19/16 22:43 1 PUFF Multivitamins/ Minerals (Multivitamin W/ Minerals Tab) 1 tab DAILY PO 09/20/16 09:00 10/20/16 08:59 Calcium/Vitamin D (Caltrate Plus Tab) 1 tab DAILY PO 09/20/16 09:00 10/20/16 08:59 Cholecalciferol (Vitamin D Tab) 400 inter.unit BID PO 09/19/16 21:00 10/19/16 20:59 Miscellaneous Information (Order Awaiting Action) 1 ea QS N/A 09/20/16 00:00 10/20/16 00:00 Diltiazem HCl (Cardizem Tab) 30 mg Q6H PO 09/19/16 22:00 10/19/16 21:59 09/19/16 22:43 30 MG Doxycycline Hyclate 100 mg/ Dextrose 110 ml @ 50 mls/hr Q12H IV 09/20/16 00:00 09/27/16 00:00 Ranitidine HCl 50 mg/Dextrose 102 ml @ 200 mls/hr Q8H IV 09/19/16 23:00 10/19/16 22:59 UNV Methylprednisolone Sodium Succinate 20 mg/Syringe 0.32 ml @ 1.5 mls/min BID IV 09/20/16 09:00 10/20/16 08:59 UNV Levothyroxine Sodium 40 mcg/ Syringe 2 ml @ 2 mls/min DAILY@09 IV 09/20/16 09:00 10/20/16 08:59 UNV Review of Systems 12 systems reviewed and negative other than previously mentioned in the HPI. Physical Exam Date Time Temp Pulse Resp B/P (MAP) Pulse Ox O2 Delivery O2 Flow Rate FiO2 09/19/16 22:58 110 94 60 09/19/16 22:00 112 18 94 BiPAP/CPAP 60 09/19/16 21:00 151 97 8/14/17 20:35 36.9 112 24 148/96 (113) 93 Room Air 09/19/16 19:28 66 18 103/63 97 Room Air 09/19/16 18:10 108 22 136/106 94 Room Air 09/19/16 17:21 108 09/19/16 17:08 96 Room Air 09/19/16 16:58 36.9 105 22 172/107 95 Room Air 09/19/16 16:58 96 Room Air Vital Signs - as noted Laboratory Data - as noted Physical Exam: General - NAD, resting in bed with CPAP mask in place Eyes - PERRL, EOMI No icterus, gaze conjugate ENT - Mucosa dry, no lesions or candidiasis Neck - Supple, trachea midline, no masses or lymphadenopathy, no JVD or bruits Lungs - No paradoxical chest wall movement, coarse and diminished to auscultation bilaterally, no wheezes, rales, or rhonchi Heart - Sinus Tachycardia, No murmur, rubs, clicks, or gallops appreciated Abdomen - BS present, no bruits noted, tympanic to percussion, soft, nontender, nondistended, no organomegaly Extremities - No edema, pedal pulses intact Neuro - A&O X 3 Strength extremities equal and appropriate bilaterally Reflexes: Normal and equal CN:PERRL, EOMI, no facial asymmetry, uvula/tongue midline Laboratory Results Last 24 Hours Test 09/19/16 17:28 09/19/16 21:24 09/19/16 21:26 09/19/16 23:29 White Blood Count 6.64 K/uL 9.69 K/uL Red Blood Count 4.33 M/uL 4.65 M/uL Hemoglobin 9.8 g/dL 10.9 g/dL Hematocrit 33.0 % 35.5 % Mean Corpuscular Volume 76.2 fL 76.3 fL Mean Corpuscular Hemoglobin 22.6 pg 23.4 pg Mean Corpuscular Hemoglobin Concent 29.7 g/dl 30.7 g/dl Platelet Count 368 K/uL 493 K/uL Mean Platelet Volume 8.6 fL 8.9 fL Neutrophils (%) (Auto) 87.2 % Lymphocytes (%) (Auto) 10.5 % Monocytes (%) (Auto) 1.5 % Eosinophils (%) (Auto) 0.2 % Basophils (%) (Auto) 0.3 % Neutrophils # (Auto) 5.79 K/uL Lymphocytes # (Auto) 0.70 K/uL Monocytes # (Auto) 0.10 K/uL Eosinophils # (Auto) 0.01 K/uL Basophils # (Auto) 0.02 K/uL RDW Standard Deviation 43.3 fL 43.4 fL RDW Coefficient of Variation 15.4 % 15.6 % Immature Granulocyte % (Auto) 0.3 % Immature Granulocyte # (Auto) 0.02 K/uL Prothrombin Time 10.7 SECONDS Prothromb Time International Ratio 1.0 Activated Partial Thromboplast Time 28.0 SECONDS Partial Thromboplastin Ratio 1.1 Sodium Level 134 mmol/L 135 mmol/L Potassium Level 4.2 mmol/L 4.1 mmol/L Chloride Level 102 mmol/L 102 mmol/L Carbon Dioxide Level 25 mmol/L 20 mmol/L Anion Gap 7.0 mmol/L 13.0 mmol/L Blood Urea Nitrogen 16 mg/dl 15 mg/dl Creatinine 0.93 mg/dl 1.00 mg/dl Est Creatinine Clear Calc Drug Dose 44.7 ml/min 41.6 ml/min Estimated GFR () 67.3 61.6 Estimated GFR (Non- 58.0 53.2 BUN/Creatinine Ratio 17.6 15.4 Random Glucose 215 mg/dl 318 mg/dl Calcium Level 8.7 mg/dl 8.3 mg/dl Total Bilirubin 0.2 mg/dl 0.3 mg/dl Aspartate Amino Transf (AST/SGOT) 16 U/L 17 U/L Alanine Aminotransferase (ALT/SGPT) 19 U/L 21 U/L Alkaline Phosphatase 115 U/L 126 U/L Troponin I < 0.015 ng/ml < 0.015 ng/ml Total Protein 6.6 gm/dl 7.3 gm/dl Albumin 3.2 gm/dl 3.3 gm/dl Globulin 3.4 gm/dl Albumin/Globulin Ratio 0.9 Blood Gas Sample Site R Radial Bedside Blood Gas pH (LAB) 7.02 Bedside Blood Gas pCO2 (LAB) 72 mmHg Bedside Blood Gas pO2 (LAB) 102 mmHg Bedside Blood Gas HCO3 (LAB) 18 meq/L Bedside Blood Gas Total CO2 21 mEq/l Bedside Blood Gas Base Excess (LAB) -13.0 meq/L Bedside Blood Gas O2 Saturation 93.0 % Ayaz Test NA Oxygen Delivery Device BIPAP Bedside Oxygen Rate (breaths/min) 24 Bedside FiO2 100 % Blood Gas IPAP 16 Phosphorus Level 5.1 mg/dl Magnesium Level 2.1 mg/dl Direct Bilirubin < 0.1 mg/dl Beta-Hydroxybutyric Acid 1.58 mg/dL Bedside Glucose 233 mg/dl Diagnostic Results CHEST ONE VIEW PORTABLE CLINICAL HISTORY: Respiratory distress COMPARISON STUDY: 09/19/2016 FINDINGS: The cardiac and mediastinal contours remain stable. There are postsurgical changes of a thoracolumbar spinal fusion. There are postsurgical changes of bilateral shoulder arthroplasties. Old rib deformities are evident. There are increasing right lung interstitial markings, possibly representing asymmetric edema. There is no lobar consolidation.[ IMPRESSION: Increasing right lung interstitial markings, possibly secondary to asymmetric edema. Clinical and radiographic follow-up is recommended. Electronically signed by: Kostas Coughlin M.D. 09/19/2016 10:14 PM Dictated Date/Time: 09/19/2016 10:[address] ANGIOGRAM OF THE CHEST CLINICAL HISTORY: Atypical chest pain COMPARISON STUDY: 05/09/2016 TECHNIQUE: Following the IV administration of 79 mL of Optiray-320, CT angiogram of the thorax was performed from the thoracic inlet to the lung bases utilizing the pulmonary embolus protocol. Images are reviewed in the axial, sagittal, and coronal planes. IV contrast was administered without complication. MIP imaging was performed. A dose lowering technique was utilized adhering to the principles of ALARA. CT DOSE: 499.42 mGy.cm FINDINGS: There is a borderline enlarged left axillary lymph node measuring 2 cm in long axis. There is no pathologic mediastinal or hilar adenopathy. There was no evidence of thoracic aortic dilatation. There were no pulmonary artery filling defects to indicate acute pulmonary embolism. No pleural effusions are visualized. There are bibasal atelectatic changes. There is no acute parenchymal consolidation. There are postsurgical changes of bilateral shoulder arthroplasties and thoracolumbar spinal fusion. There are multiple thoracic vertebral body fractures including an subacute horizontal cleavage fracture involving the T6 vertebra. This appears more spiculated than on the prior May 09, 2016 study. There are multiple bilateral rib fractures which appears subacute and chronic. There is mild elevation/eventration of the left hemidiaphragm. IMPRESSION: 1. No central pulmonary emboli identified 2. There are no airspace opacities to indicate pneumonia 3. Persistent borderline enlarged left axillary lymph node 4. Osteopenia and multiple thoracic vertebral body fractures including a subacute horizontal cleavage fracture involving the T6 vertebra Electronically signed by: Kostas Coughlin M.D. 09/19/2016 6:41 PM Dictated Date/Time: 09/19/2016 6:34 PM CHEST ONE VIEW PORTABLE CLINICAL HISTORY: Respiratory distress COMPARISON STUDY: 07/20/2016 FINDINGS: The cardiac and mediastinal contours remain stable. There are postsurgical changes of a thoracolumbar spinal fusion. There are postsurgical changes of bilateral shoulder arthroplasties. Old rib deformities are visualized. There is chronic pleural-parenchymal scarring at the left lung base. There is no overt failure. There is no lobar consolidation.[ IMPRESSION: Chronic changes. No acute findings. Electronically signed by: Kostas Coughlin M.D. 09/19/2016 5:46 PM Dictated Date/Time: 09/19/2016 5:45 PM Assessment & Plan (1) Respiratory distress (2) SVT (supraventricular tachycardia) (3) Hypothyroidism (4) COPD (chronic obstructive pulmonary disease) (5) DM type 2 (diabetes mellitus, type 2) (6) Esophageal dysmotility Resp: * Suspicion of COPD exacerbation, CXR/CT without acute changes * Continue Bi-PAP overnight. May be off intermittently as tolerated * Repeat ABG if pt decompensates again * Minimize PO administration now; convert meds to IV * GOAL O2 > 94% * CODE status updated to reflect pts wishes DNI/DNR * Continue * Breathing regimen: Xopenex & Atrovent * Doxycycline, converted 1:1 from PO:IV * Steroids: Converted from PO Prednisone to IV Solu-medrol 20mg BID Cardiac: * Continue Cardizem scheduled: 30mg PO q6h * Heart rate great improved * Monitor on telemetry * EKG with changes : * CKD: Limit nephrotoxic agents * Strict I&O's * 500mL Bolus in ED * Placed Christine to gravity * Monitor daily PRP Endo: * Known Hypothyroidism * Levothyroxine converted from 75mcg PO to 40 mcg IV * Diabetes diagnosis without home medication use * A1C 10/2015: 6.7: Repeat with AM labs * Hyperglycemic: SSI Novolog and Lantus Ordered * Pt on steroids I.D: * Afebrile, without leukocytosis * Procalcitonin Pending * Continue Doxycycline Neuro: * Continue home medications including Cymbalta * Pt denies current pain GI: * Bowel regimen in place with Colace * Minimizing PO intake at this time: secondary to difficulty swallowing * Recommend Speech Eval * GI Prophylaxis: Converted home Omeprazole to IV Ranitidine Heme: * Mild Anemia (chronic) * monitor daily CBC * DVT Prophylaxis: Lovenox 40mg SQ qDaily Access: Maintain 2 PIVs, no current indication for central access. CCT: 45 minutes; Not including any billable procedures. Thank you for including us in the care of this patient. Please review Dr. Joey Mirza's addendum for further recommendations. I have personally evaluated and examined this patient. I agree with assessment and plan of Claudia Tillman PA-C. Patient in significant respiratory distress upon initial evaluation, by the time the patient was transferred to the ICU our interventions had led to decrease and hypercarbia and patient became alert and responsive. She does have difficulty with swallowing pills, she was previously recommended to go on a all liquid diet. She does not want comply with this and understands and accepts the risks of possible aspiration. She has remained hemodynamically stable and is ready for downgraded to telemetry.
[2016-09-20] MEDS: DOXYCYCLINE IV 100 MG in DEXTROSE 5% 100ML 100 ML IV SCH ×2 (01:14→11:49)
[2016-09-20] MEDS ORDERED: INSULIN GLARGINE SOLOSTAR 100 UNITS/ML 3 ML PEN SC ONE (01:15)
[2016-09-20] MEDS ORDERED: PHARMACY GLYCEMIC MGMT CONSULT PRN (01:15)
[2016-09-20] MEDS: INSULIN ASPART 100 UNITS/ML 3 ML PEN SC SCH ×5 (01:20→21:00)
[2016-09-20] MEDS: LEVALBUTEROL 1.25MG/0.5ML NEB INH SCH ×3 (02:10→20:25)
[2016-09-20] MEDS: IPRATROPIUM BROMIDE NEB SOLN 0.02% 2.5 ML VIAL INH SCH ×3 (02:10→20:25)
[2016-09-20] MEDS: DILTIAZEM HCL 30 MG TAB PO SCH ×4 (03:15→21:26)
[2016-09-20] MEDS ORDERED: COUGH DROP (SUGAR FREE) LOZ 24 LOZ/1 BOX ONE (03:34)
[2016-09-20] MEDS: ACETAMINOPHEN 325 MG TAB PO PRN ×2 (03:37→14:21)
[2016-09-20] MEDS ORDERED: NURSING VERBAL MED ORDER PRN (03:45)
[2016-09-20] MEDS ORDERED: COUGH DROP (SUGAR FREE) LOZ 24 LOZ/1 BOX PO PRN (03:45)
[2016-09-20 05:21] LABS: HEMATOCRIT 30.6 % (37-47); MEAN CELL VOLUME 76.5 fL (80-100); MEAN CORPUSCULAR HGB CONC 30.1 g/dl (32-36); MEAN PLATELET VOLUME 8.9 fL (7.4-10.4); PLATELET COUNT 353 K/uL (130-400); WHITE BLOOD COUNT 11.32 K/uL (4.8-10.8)
[2016-09-20] MEDS: RANITIDINE IV 50 MG in DEXTROSE 5% 100ML 100 ML IV SCH ×2 (05:47→06:07)
[2016-09-20] MEDS: METHYLPREDNISOLONE IV 20 MG in SYRINGE 0 ML IV SCH ×3 (05:47→17:40)
[2016-09-20 05:48] LABS: BUN/CREATININE RATIO 20.7 (10-20); CALCIUM 8.4 mg/dl (8.5-10.1); CREATININE 0.91 mg/dl (0.60-1.20); MAGNESIUM 2.2 mg/dl (1.8-2.4); POTASSIUM 3.9 mmol/L (3.5-5.1)
[2016-09-20 05:50] LABS: PHOSPHORUS 3.3 mg/dl (2.5-4.9)
[2016-09-20] MEDS ORDERED: LEVOTHYROXINE 75 MCG TAB PO SCH (06:00)
[2016-09-20 06:18] LABS: ESTIMATED AVERAGE GLUCOSE 151 mg/dl; HA1C FLAG Normal (Normal)
[2016-09-20] MEDS: VESICARE~ORDER AWAITING ACTION SCH ×3 (08:00→14:21)
[2016-09-20] MEDS: LEVOTHYROXINE SODIUM IV SCH (08:44)
[2016-09-20] MEDS: FLUTICASONE/SALMETEROL 250/50 (ADVAIR) 14 PUFF/1 INHALER INH SCH ×2 (08:45→21:26)
[2016-09-20] MEDS: CHOLECALCIFEROL 400 INTER.UNIT TAB PO SCH ×2 (08:45→21:27)
[2016-09-20] MEDS: CeleBREX 100 MG CAP PO SCH ×2 (08:46→21:27)
[2016-09-20] MEDS: CALCIUM 600MG + VIT D 400 IU TAB PO SCH (08:48)
[2016-09-20] MEDS: CEROVITE ADV FORMULA TAB PO SCH (08:51)
[2016-09-20] MEDS: DULOXETINE HCL 60 MG CAP PO SCH (08:51)
--- NOTE | 2016-09-20 08:51 | Progress Note ---
Internal Med Progress Note Date of Service: Sep 20, 2016. Provider Documentation: SUBJECTIVE: Seen and examined at bedside. States feeling much better today SOB and cough improving Denies chest pain, palpitations Eager to get discharged OBJECTIVE: Vital Signs-as noted below Physical Exam: General Appearance:Moderately built and nourished, no apparent distress Head: normocephalic, Atraumatic Eyes: normal inspection, EOMI, PERRL Neck: supple, Trachea midline Respiratory/Chest: Decreased breath sounds, CTA Cardiovascular: S1, S2, +Tachycardia, No murmur Abdomen/GI:Soft, Non tender, Bowel sounds present Extremities/Musculoskelatal:normal inspection, no edema Neurologic/Psych:grossly no focal neurological deficits Skin: normal color, warm Lab data as noted below. ASSESSMENT & PLAN: Acute COPD Exacerbation Acute Hypercapnic respiratory failure Failed outpatient therapy patient presenting with increasing shortness of breath and cough CTA chest negative for PE and pneumonia ABG consistent with acute respiratory and metabolic acidosis Continue solumedrol, Bronchodilators, Empiric Doxy Oxygen Support Appreciate Administrative Underwriter help On chronic oxygen at bedtime per patient (Admits to being non compliant) SVT : In setting of acute respiratory failure Continue Cardizem DC amlodipine Heart rate improved T6 COMPRESSION FRACTURE subacute, noted on CT chest no h/o fall pain control PT/OT HTN continue Cardizem DC amlodipine HYPOTHYROIDISM continue levothyroxine DM II: A1C:6.9 ISS, lantus Monitor blood sugar levels DVT PROPHYLAXIS SQ Lovenox CODE STATUS DNR Vital Signs: Date Time Temp Pulse Resp B/P (MAP) Pulse Ox O2 Delivery O2 Flow Rate FiO2 09/20/16 09:00 102 09/20/16 08:41 36.9 101 22 102/63 (76) 93 Nasal Cannula 6.0 09/20/16 08:00 104 93 09/20/16 08:00 93 Nasal Cannula 6.0 09/20/16 07:12 103 20 96 Mask 6.0 09/20/16 07:01 98 99/75 (83) 93 09/20/16 07:00 103 96 09/20/16 06:01 105 20 114/69 (71) 91 09/20/16 05:01 104 19 107/60 (82) 93 09/20/16 04:01 116 20 118/79 (85) 92 09/20/16 04:00 94 Oxymask 11.0 8/15/17 04:00 36.5 09/20/16 03:01 112 19 124/61 (96) 93 09/20/16 02:12 107 20 94 BiPAP/CPAP 40 09/20/16 02:01 103 22 131/83 (105) 94 09/20/16 01:15 109 96 40 09/20/16 01:01 109 19 118/72 (82) 95 09/20/16 00:01 36.5 09/20/16 00:01 102 20 99/67 (79) 96 09/19/16 23:59 94 BiPAP 60 09/19/16 23:46 109 22 107/73 (83) 90 09/19/16 23:31 115 24 120/65 (74) 90 09/19/16 23:16 114 26 108/71 (92) 90 09/19/16 23:01 109 26 109/63 (82) 92 09/19/16 22:58 110 94 60 09/19/16 22:46 106 25 106/71 (84) 93 09/19/16 22:31 106 26 116/74 (87) 93 09/19/16 22:00 112 18 94 BiPAP/CPAP 60 09/19/16 21:00 151 97 09/19/16 20:35 36.9 112 24 148/96 (113) 93 Room Air 09/19/16 19:28 66 18 103/63 97 Room Air 09/19/16 18:10 108 22 136/106 94 Room Air 09/19/16 17:21 108 09/19/16 17:08 96 Room Air 09/19/16 16:58 36.9 105 22 172/107 95 Room Air 09/19/16 16:58 96 Room Air Lab Results: Results Past 24 Hours Test 09/19/16 17:28 09/19/16 21:24 09/19/16 21:26 09/19/16 23:29 Range/Units White Blood Count 6.64 9.69 4.8-10.8 K/uL Red Blood Count 4.33 4.65 4.2-5.4 M/uL Hemoglobin 9.8 10.9 12.0-16.0 g/dL Hematocrit 33.0 35.5 37-47 % Mean Corpuscular Volume 76.2 76.3 80-100 fL Mean Corpuscular Hemoglobin 22.6 23.4 25-34 pg Mean Corpuscular Hemoglobin Concent 29.7 30.7 32-36 g/dl Platelet Count 368 493 130-400 K/uL Mean Platelet Volume 8.6 8.9 7.4-10.4 fL Neutrophils (%) (Auto) 87.2 % Lymphocytes (%) (Auto) 10.5 % Monocytes (%) (Auto) 1.5 % Eosinophils (%) (Auto) 0.2 % Basophils (%) (Auto) 0.3 % Neutrophils # (Auto) 5.79 1.4-6.5 K/uL Lymphocytes # (Auto) 0.70 1.2-3.4 K/uL Monocytes # (Auto) 0.10 0.11-0.59 K/uL Eosinophils # (Auto) 0.01 0-0.5 K/uL Basophils # (Auto) 0.02 0-0.2 K/uL RDW Standard Deviation 43.3 43.4 36.4-46.3 fL RDW Coefficient of Variation 15.4 15.6 11.5-14.5 % Immature Granulocyte % (Auto) 0.3 % Immature Granulocyte # (Auto) 0.02 0.00-0.02 K/uL Prothrombin Time 10.7 9.0-12.0 SECONDS Prothromb Time International Ratio 1.0 0.9-1.1 Activated Partial Thromboplast Time 28.0 21.0-31.0 SECONDS Partial Thromboplastin Ratio 1.1 Sodium Level 134 135 136-145 mmol/L Potassium Level 4.2 4.1 3.5-5.1 mmol/L Chloride Level 102 102 98-107 mmol/L Carbon Dioxide Level 25 20 21-32 mmol/L Anion Gap 7.0 13.0 3-11 mmol/L Blood Urea Nitrogen 16 15 7-18 mg/dl Creatinine 0.93 1.00 0.60-1.20 mg/dl Est Creatinine Clear Calc Drug Dose 44.7 41.6 ml/min Estimated GFR () 67.3 61.6 Estimated GFR (Non- 58.0 53.2 BUN/Creatinine Ratio 17.6 15.4 10-20 Random Glucose 215 318 70-99 mg/dl Calcium Level 8.7 8.3 8.5-10.1 mg/dl Total Bilirubin 0.2 0.3 0.2-1 mg/dl Aspartate Amino Transf (AST/SGOT) 16 17 15-37 U/L Alanine Aminotransferase (ALT/SGPT) 19 21 12-78 U/L Alkaline Phosphatase 115 126 45-117 U/L Troponin I < 0.015 < 0.015 0-0.045 ng/ml Total Protein 6.6 7.3 6.4-8.2 gm/dl Albumin 3.2 3.3 3.4-5.0 gm/dl Globulin 3.4 2.5-4.0 gm/dl Albumin/Globulin Ratio 0.9 0.9-2 Blood Gas Sample Site R Radial Bedside Blood Gas pH (LAB) 7.02 7.35-7.45 Bedside Blood Gas pCO2 (LAB) 72 35-46 mmHg Bedside Blood Gas pO2 (LAB) 102 80-95 mmHg Bedside Blood Gas HCO3 (LAB) 18 19-24 meq/L Bedside Blood Gas Total CO2 21 24-31 mEq/l Bedside Blood Gas Base Excess (LAB) -13.0 -9-1.8 meq/L Bedside Blood Gas O2 Saturation 93.0 90-95 % Ayaz Test NA Oxygen Delivery Device BIPAP Bedside Oxygen Rate (breaths/min) 24 Bedside FiO2 100 % Blood Gas IPAP 16 Phosphorus Level 5.1 2.5-4.9 mg/dl Magnesium Level 2.1 1.8-2.4 mg/dl Direct Bilirubin < 0.1 0-0.2 mg/dl Beta-Hydroxybutyric Acid 1.58 0.2-2.81 mg/dL Bedside Glucose 233 70-90 mg/dl Procalcitonin < 0.05 0-0.5 ng/ml Test 09/20/16 04:32 09/20/16 06:05 Range/Units White Blood Count 11.32 4.8-10.8 K/uL Red Blood Count 4.00 4.2-5.4 M/uL Hemoglobin 9.2 12.0-16.0 g/dL Hematocrit 30.6 37-47 % Mean Corpuscular Volume 76.5 80-100 fL Mean Corpuscular Hemoglobin 23.0 25-34 pg Mean Corpuscular Hemoglobin Concent 30.1 32-36 g/dl RDW Standard Deviation 43.7 36.4-46.3 fL RDW Coefficient of Variation 15.5 11.5-14.5 % Platelet Count 353 130-400 K/uL Mean Platelet Volume 8.9 7.4-10.4 fL Sodium Level 140 136-145 mmol/L Potassium Level 3.9 3.5-5.1 mmol/L Chloride Level 104 98-107 mmol/L Carbon Dioxide Level 28 21-32 mmol/L Anion Gap 8.0 3-11 mmol/L Blood Urea Nitrogen 19 7-18 mg/dl Creatinine 0.91 0.60-1.20 mg/dl Est Creatinine Clear Calc Drug Dose 45.7 ml/min Estimated GFR () 69.1 Estimated GFR (Non- 59.6 BUN/Creatinine Ratio 20.7 10-20 Random Glucose 156 70-99 mg/dl Estimated Average Glucose 151 mg/dl Hemoglobin A1c 6.9 4.5-5.6 % Calcium Level 8.4 8.5-10.1 mg/dl Phosphorus Level 3.3 2.5-4.9 mg/dl Magnesium Level 2.2 1.8-2.4 mg/dl Bedside Glucose 152 70-90 mg/dl Microbiology Results 09/19/16 Blood Culture, Received Pending 09/19/16 Blood Culture, Received Pending 09/19/16 MRSA DNA Surveillance Screen - Final, Complete Specimen Negative for MRSA by DNA Probe
[2016-09-20] MEDS: INSULIN GLARGINE SOLOSTAR 100 UNITS/ML 3 ML PEN SC SCH ×2 (08:59→21:49)
[2016-09-20] MEDS ORDERED: AMLODIPINE BESYLATE 5 MG TAB PO SCH (09:00)
--- NOTE | 2016-09-20 12:02 | Pharmacy Progress Note ---
Glycemic Control Intl Consult Date of Service Sep 20, 2016. Scope Glycemic Pharmacist consulted on 09/20/16 for glycemic control and to write orders per formerly [facility] inpatient glycemic control protocol Objective Weight (Kilograms): 78.400 Accuchecks BSG (last 24hrs): Test 09/19/16 17:28 09/19/16 21:26 09/19/16 23:29 09/20/16 04:32 Random Glucose 215 mg/dl (70-99) 318 mg/dl (70-99) 156 mg/dl (70-99) Bedside Glucose 233 mg/dl (70-90) Test 09/20/16 06:05 09/20/16 11:25 Bedside Glucose 152 mg/dl (70-90) 223 mg/dl (70-90) Laboratory Data (last 24hrs) Test 09/19/16 17:28 09/19/16 21:26 09/20/16 04:32 Anion Gap 7.0 mmol/L 13.0 mmol/L 8.0 mmol/L BUN/Creatinine Ratio 17.6 15.4 20.7 Blood Urea Nitrogen 16 mg/dl 15 mg/dl 19 mg/dl Creatinine 0.93 mg/dl 1.00 mg/dl 0.91 mg/dl Potassium Level 4.2 mmol/L 4.1 mmol/L 3.9 mmol/L Sodium Level 134 mmol/L 135 mmol/L 140 mmol/L White Blood Count 6.64 K/uL 9.69 K/uL 11.32 K/uL Red Blood Count 4.33 M/uL Hemoglobin 9.8 g/dL Hematocrit 33.0 % Mean Corpuscular Volume 76.2 fL Mean Corpuscular Hemoglobin 22.6 pg Mean Corpuscular Hemoglobin Concent 29.7 g/dl Platelet Count 368 K/uL Mean Platelet Volume 8.6 fL Neutrophils (%) (Auto) 87.2 % Lymphocytes (%) (Auto) 10.5 % Monocytes (%) (Auto) 1.5 % Eosinophils (%) (Auto) 0.2 % Basophils (%) (Auto) 0.3 % Neutrophils # (Auto) 5.79 K/uL Lymphocytes # (Auto) 0.70 K/uL Monocytes # (Auto) 0.10 K/uL Eosinophils # (Auto) 0.01 K/uL Basophils # (Auto) 0.02 K/uL Hemoglobin A1c 6.9 % HbA1c Test 09/20/16 04:32 Hemoglobin A1c 6.9 % (4.5-5.6) H Recent Pertinent Medications Outpatient Anti-diabetic Regimen: * N/A The patient is currently receiving: * Basal insulin: Lantus 10 units every 12 hours * Correctional Insulin: Novolog Correction per scale ACHS Goal Range: Low 140 mg/dL - High 180 mg/dL Correction Factor: 30 mg/dL/unit * Prandial insulin: Per carb ratio of 1 unit per 15 grams CHO consumed Risk Factors for Insulin Resistance: * Steroids: Solumedrol 20 mg IV BID * Infection: Doxy IV * Diet: AHA/Carb counting Assessment & Plan ASSESSMENT: * 80 yo F admitted overnight to ICU with COPD exacerbation * She was given Solumedrol 80 mg IV X 1 in the ER and continued on 20 mg IV every 12 hours * A1c from this AM indicative of "diet controlled" diabetes as an outpatient * Given steroids, overnight pharmacist appropriately initiated weight-based/ stress1.5 basal/bolus regimen * BSGs responded nicely to insulin, trending from 318 -->233-->152 this AM * Continue with current plan and reassess tomorrow * ADA & AACE recommend a goal blood sugar range 140-180 mg/dl for the majority of critically ill & non-critically ill patients. However, more stringent targets may be selected in individual cases. PLAN FOR INPATIENT GLYCEMIC CONTROL: * Basal insulin with LANTUS 10 units SQ BID * HOLD IF BSG <120 * Correctional Insulin with NOVOLOG per scale ACHS * Goal Range: Low 140 mg/dL - High 180 mg/dL * Correction Factor: 30 mg/dL/unit * Nutritional / Prandial insulin per carb ratio of 1 unit per 15 grams CHO consumed * Please note that the plan above was derived based on current level of insulin resistance and hospital stress. These recommendations are appropriate for inpatient admission only. Plan of care upon discharge will need to be reassessed to avoid potential outpatient hypo/hyperglycemia. Thank you.
[2016-09-20] MEDS ORDERED: MoRPHine SULFATE 4 MG/ML 1 ML CARP\\VIAL ONE (17:11)
[2016-09-20] MEDS ORDERED: RAPID SEQUENCE INDUCTION BAG ONE (17:11)
[2016-09-20] MEDS ORDERED: RACEPINEPHRINE 2.25% NEBU SOLN 0.5 ML VIAL INH STA (17:13)
[2016-09-20] MEDS ORDERED: RACEPINEPHRINE 2.25% NEBU SOLN 0.5 ML VIAL INH ONE (17:14)
[2016-09-20] MEDS: ONDANSETRON INJ 2 MG/ML 2 ML VIAL IV PRN (17:30)
[2016-09-20] MEDS: DexMEDEtomidine HCL INJ 200 MCG in SODIUM CHLORIDE 0.9% 50ML 48 ML IV PRN (17:35)
[2016-09-20] MEDS ORDERED: METOCLOPRAMIDE HCL INJ 5 MG/ML 2 ML VIAL ONE (17:35)
[2016-09-20] MEDS ORDERED: NURSING VERBAL MED ORDER ONE (17:45)
[2016-09-20] MEDS ORDERED: DexMEDEtomidine 4 mcg/ml Loading Dose IV ONE (17:45)
--- NOTE | 2016-09-20 19:14 | Progress Note ---
Progress Note Date of Service Sep 20, 2016. Progress Note Patient developed at shortness of breath and had drop in Sats, cyanotic which eating. Patient denies chocking. Found to have stridor per ICU staff. Received racemic epinephrine and also found to have significant nausea. Patient is lucid and refused to be intubated. Principal Data Architect at bedside. Not tolerating BiPAP and has high risk for aspiration. Received morphine, Reglan, precedex and currently on Oxygen mask with minimal improvement in sats. Updated DPOA (sister) and Principal Data Architect discussed with her in detail about patient's poor prognosis. May need to be on BiPAP when nausea resolves
[2016-09-20] MEDS: ENOXAPARIN 40 MG/0.4 ML SYR SQ SCH (21:27)
[2016-09-21] VITALS (17 sets, daily range): BP systolic 98–148; BP diastolic 61–78; PULSE 83–108; TEMP 36.6–37.1; O2SAT 88–96
[2016-09-21] MEDS: DOXYCYCLINE IV 100 MG in DEXTROSE 5% 100ML 100 ML IV SCH ×2 (00:10→12:36)
[2016-09-21] MEDS: DexMEDEtomidine HCL INJ 200 MCG in SODIUM CHLORIDE 0.9% 50ML 48 ML IV PRN (00:10)
[2016-09-21] MEDS: IPRATROPIUM BROMIDE NEB SOLN 0.02% 2.5 ML VIAL INH SCH ×4 (02:10→19:24)
[2016-09-21] MEDS: LEVALBUTEROL 1.25MG/0.5ML NEB INH SCH ×4 (02:10→19:24)
[2016-09-21] MEDS: DILTIAZEM HCL 30 MG TAB PO SCH (03:40)
[2016-09-21 05:30] LABS: HEMATOCRIT 28.7 % (37-47); MEAN CELL VOLUME 75.9 fL (80-100); MEAN CORPUSCULAR HEMOGLOBIN 23.3 pg (25-34); MEAN CORPUSCULAR HGB CONC 30.7 g/dl (32-36); PLATELET COUNT 349 K/uL (130-400); RED BLOOD COUNT 3.78 M/uL (4.2-5.4); WHITE BLOOD COUNT 14.24 K/uL (4.8-10.8)
[2016-09-21] MEDS: RANITIDINE IV 50 MG in DEXTROSE 5% 100ML 100 ML IV SCH (05:44)
[2016-09-21] MEDS: METHYLPREDNISOLONE IV 20 MG in SYRINGE 0 ML IV SCH (05:44)
[2016-09-21 06:00] LABS: BUN/CREATININE RATIO 28.7 (10-20); CALCIUM 8.7 mg/dl (8.5-10.1); CREATININE 1.1 mg/dl (0.60-1.20); MAGNESIUM 2.2 mg/dl (1.8-2.4); PHOSPHORUS 3.1 mg/dl (2.5-4.9); POTASSIUM 4.5 mmol/L (3.5-5.1)
[2016-09-21] MEDS: INSULIN ASPART 100 UNITS/ML 3 ML PEN SC SCH ×4 (07:49→20:32)
[2016-09-21] MEDS: INSULIN GLARGINE SOLOSTAR 100 UNITS/ML 3 ML PEN SC SCH ×2 (07:50→20:35)
[2016-09-21] MEDS: VESICARE~ORDER AWAITING ACTION SCH ×3 (07:50→13:05)
[2016-09-21] MEDS: LEVOTHYROXINE SODIUM IV SCH (07:51)
[2016-09-21] MEDS: FLUTICASONE/SALMETEROL 250/50 (ADVAIR) 14 PUFF/1 INHALER INH SCH ×2 (07:51→19:41)
[2016-09-21] MEDS: DULOXETINE HCL 60 MG CAP PO SCH (07:51)
[2016-09-21] MEDS: CEROVITE ADV FORMULA TAB PO SCH (07:51)
[2016-09-21] MEDS: CHOLECALCIFEROL 400 INTER.UNIT TAB PO SCH ×2 (07:51→19:40)
[2016-09-21] MEDS: CALCIUM 600MG + VIT D 400 IU TAB PO SCH (07:52)
[2016-09-21] MEDS: DILTIAZEM HCL 120 MG CAPCR PO SCH (07:53)
[2016-09-21] MEDS: CeleBREX 100 MG CAP PO SCH ×2 (07:53→19:41)
--- NOTE | 2016-09-21 10:04 | Progress Note ---
Internal Med Progress Note Date of Service: Sep 21, 2016. Provider Documentation: SUBJECTIVE: Seen and examined at bedside. States feeling well today and eager to get discharged Less SOB Requiring 4L of oxygen to maintain sats Minimal intermittent cough Denies chest pain, palpitations Discussed with patient and family in detail. Patient prefers to get palliative care involved and no further aggressive measures. OBJECTIVE: Vital Signs-as noted below Physical Exam: General Appearance:Moderately built and nourished, no apparent distress Head: normocephalic, Atraumatic Eyes: normal inspection, EOMI, PERRL Neck: supple, Trachea midline Respiratory/Chest: Decreased breath sounds, CTA Cardiovascular: S1, S2, No murmur Abdomen/GI:Soft, Non tender, Bowel sounds present Extremities/Musculoskelatal:normal inspection, no edema Neurologic/Psych:grossly no focal neurological deficits Skin: normal color, warm Lab data as noted below. ASSESSMENT & PLAN: Acute COPD Exacerbation Acute Hypercapnic respiratory failure Failed outpatient therapy patient presenting with increasing shortness of breath and cough CTA chest negative for PE and pneumonia ABG consistent with acute respiratory and metabolic acidosis Continue solumedrol, Bronchodilators, Empiric Doxy Oxygen Support Appreciate Outside Plant Technician help On chronic oxygen at bedtime per patient (Admits to being non compliant) Prefers to have comfort measures only Involved palliative care May benefit form ENT eval electively SVT : In setting of acute respiratory failure Continue Cardizem DC amlodipine Monitor T6 COMPRESSION FRACTURE subacute, noted on CT chest no h/o fall pain control PT/OT HTN continue Cardizem DC amlodipine HYPOTHYROIDISM continue levothyroxine DM II: A1C:6.9 ISS, lantus Monitor blood sugar levels DVT PROPHYLAXIS SQ Lovenox CODE STATUS DNR/DNI Disposition: Patient prefers to be discharged home Transfer to medical floor behavioral services tech involved for discharge planning Vital Signs: Date Time Temp Pulse Resp B/P (MAP) Pulse Ox O2 Delivery O2 Flow Rate FiO2 09/21/16 09:00 Nasal Cannula 09/21/16 08:00 Nasal Cannula 09/21/16 08:00 90 20 126/64 (84) 94 09/21/16 07:41 92 20 92 Nasal Cannula 5.0 09/21/16 06:00 83 18 98/61 (73) 95 Nasal Cannula 6.0 09/21/16 04:00 36.9 98 20 117/74 (88) 95 High Flow Oxygen 45.0 60 09/21/16 04:00 95 High Flow Oxygen 45.0 60 09/21/16 02:10 96 20 92 Nasal Cannula 45.0 40 09/21/16 02:00 88 16 109/67 (81) 92 High Flow Oxygen 45.0 60 09/21/16 00:01 36.7 84 18 117/63 (81) 92 High Flow Oxygen 45.0 60 09/20/16 23:59 92 High Flow Oxygen 45.0 60 09/20/16 22:00 90 18 127/99 (108) 96 High Flow Oxygen 45.0 60 09/20/16 20:31 102 20 97 Nasal Cannula 45.0 70 09/20/16 20:00 High Flow Oxygen 45.0 60 09/20/16 20:00 37.0 87 20 126/80 (95) 98 High Flow Oxygen 45.0 60 09/20/16 17:20 122 26 91 Mask 6.0 09/20/16 16:00 36.7 105 121/80 (94) 94 Nasal Cannula 4.0 09/20/16 15:58 104 134/77 (96) 94 09/20/16 15:30 95 Nasal Cannula 6.0 09/20/16 15:00 103 95 09/20/16 14:18 93 09/20/16 13:00 101 104/68 (80) 89 09/20/16 12:09 36.7 102 97/71 (80) 96 Nasal Cannula 6.0 09/20/16 12:01 107 97/71 (80) 89 09/20/16 12:00 101 94 09/20/16 12:00 93 Nasal Cannula 6.0 09/20/16 11:01 111 135/70 (91) 80 Lab Results: Results Past 24 Hours Test 09/20/16 11:25 09/20/16 18:16 09/20/16 21:46 09/21/16 04:48 Range/Units Bedside Glucose 223 191 169 70-90 mg/dl White Blood Count 14.24 4.8-10.8 K/uL Red Blood Count 3.78 4.2-5.4 M/uL Hemoglobin 8.8 12.0-16.0 g/dL Hematocrit 28.7 37-47 % Mean Corpuscular Volume 75.9 80-100 fL Mean Corpuscular Hemoglobin 23.3 25-34 pg Mean Corpuscular Hemoglobin Concent 30.7 32-36 g/dl RDW Standard Deviation 43.9 36.4-46.3 fL RDW Coefficient of Variation 15.6 11.5-14.5 % Platelet Count 349 130-400 K/uL Mean Platelet Volume 9.0 7.4-10.4 fL Sodium Level 138 136-145 mmol/L Potassium Level 4.5 3.5-5.1 mmol/L Chloride Level 103 98-107 mmol/L Carbon Dioxide Level 29 21-32 mmol/L Anion Gap 6.0 3-11 mmol/L Blood Urea Nitrogen 32 7-18 mg/dl Creatinine 1.10 0.60-1.20 mg/dl Est Creatinine Clear Calc Drug Dose 37.8 ml/min Estimated GFR () 54.9 Estimated GFR (Non- 47.4 BUN/Creatinine Ratio 28.7 10-20 Random Glucose 132 70-99 mg/dl Calcium Level 8.7 8.5-10.1 mg/dl Phosphorus Level 3.1 2.5-4.9 mg/dl Magnesium Level 2.2 1.8-2.4 mg/dl
--- NOTE | 2016-09-21 12:18 | Pharmacy Progress Note ---
Glycemic Control Progress Note Date of Service Sep 21, 2016. Scope Glycemic Pharmacist consulted for glycemic control to write orders per [facility] inpatient glycemic control protocol. Objective Accuchecks BSG (last 24hrs): Test 09/20/16 18:16 09/20/16 21:46 09/21/16 04:48 09/21/16 11:46 Bedside Glucose 191 mg/dl (70-90) 169 mg/dl (70-90) 149 mg/dl (70-90) Random Glucose 132 mg/dl (70-99) HbA1c: Test 09/20/16 04:32 Hemoglobin A1c 6.9 % (4.5-5.6) H Recent Pertinent Medications Outpatient Anti-diabetic Regimen: * N/A The patient is currently receiving: * Basal insulin: Lantus 10 units every 12 hours * Correctional Insulin: Novolog Correction per scale ACHS Goal Range: Low 140 mg/dL - High 180 mg/dL Correction Factor: 30 mg/dL/unit * Prandial insulin: Per carb ratio of 1 unit per 15 grams CHO consumed Risk Factors for Insulin Resistance: * Steroids: Solumedrol 20 mg IV BID--> CHANGED to Solumedrol 20 mg IV daily X 3 additional days * Infection: Doxy IV * Diet: AHA/Carb counting Assessment & Plan ASSESSMENT: * 80 yo F admitted 09/20/16 to ICU with COPD exacerbation * She was given Solumedrol 80 mg IV X 1 in the ER and continued on 20 mg IV every 12 hours * Steroids have been tapered to Solumedrol 20 mg IV daily X 3 days starting today * A1c from this AM indicative of "diet controlled" diabetes as an outpatient * BSGs have responded well to wt based basal/bolus regimen * Patient received a total of 27 units of insulin in the last 24 hours * Now that steroids have been tapered, insulin needs will continue to decrease * Taper Lantus as BSGs trend down and loosen Novolog tomorrow if necessary * ADA & AACE recommend a goal blood sugar range 140-180 mg/dl for the majority of critically ill & non-critically ill patients. However, more stringent targets may be selected in individual cases. PLAN FOR INPATIENT GLYCEMIC CONTROL: * Basal insulin with Lantus * If BSG < 120: hold * If BSG 120-180: 5 units * If BSG >180: 10 units * Correctional Insulin with NOVOLOG per scale ACHS * Goal Range: Low 140 mg/dL - High 180 mg/dL * Correction Factor: 30 mg/dL/unit * Nutritional / Prandial insulin per carb ratio of 1 unit per 15 grams CHO consumed * Please note that the plan above was derived based on current level of insulin resistance and hospital stress. These recommendations are appropriate for inpatient admission only. Plan of care upon discharge will need to be reassessed to avoid potential outpatient hypo/hyperglycemia. Thank you.
--- NOTE | 2016-09-21 13:16 | Critical Care Progress Note ---
Critical Care Progress Note Date of Service Sep 21, 2016. ICU Day ICU Day Number: [address] Hermes Adams This is a 80 yo female that was brought to the ICU yesterday for acute respiratory distress. Etiology for the acute distress was thought to be aspiration vs vocal chord dyskinesia/akinesia. The patient has a past smoking history from age 18 until 1998. Today, she is doing well and has had no respiratory distress. She is currently oxygenating well via nasal cannula. She is seen at bedside in a chair and has no acute complaints. She denies further aspiration. She has no significant cough and denies sputum production or hemoptysis. She has no nausea or vomiting. She denies fever or chills. Objective GENERAL : No acute distress. Sitting in bedside chair. Pleasant. EYES: No icterus, gaze conjugate NOSE: No evidence of epistaxis. Nasal cannula in place and secure MOUTH: No lesions or candidiasis. Upper and lower dentures in place NECK: Supple. No evidence of stridor LUNGS: No wheezes or rhonchi. Fine crackles at the bases bilaterally. HEART: Regular, rate controlled ABDOMEN: Soft, NT, ND, BS Present EXTREMITIES: No LE edema, pedal pulses intact NEURO: A&OX3 Current SOFA Score SOFA Score Response (Comments) Value Platelets (x10) > 150 0 Bilirubin (mg/dL) < 1.2 0 Chan Coma Score 15 0 Level of Hypotension No Hypotension 0 Creatinine (mg/dL) < 1.2 0 Total 0 Assessment & Plan ACUTE RESPIRATORY DISTRESS Aspiration pneumonia versus laryngeal dyskinesia Doxycycline day #3 - converted from IV to by mouth - will give a course of seven days Oxygenating well with supplemental O2 Respiratory distress is completely resolved - patient able to speak in full sentences CT chest with no evidence of emboli Chest x-ray showed increasing right lung interstitial markings No sputum production or hemoptysis Patient is a DNR/DNI and requests transfer home for palliative care as soon as possible Will transfer to fourth floor at this time for eating trials and further education on esophageal dysmotility and aspiration risk SVT This appear to be in the setting of acute respiratory distress Patient was on diltiazem drip Currently rate and rhythm controlled on telemetry Resolved COPD Unclear if patient had PFTs in the past Due to acute respiratory distress will treat as COPD exacerbation Doxycycline as above for seven days Titrate methylprednisolone No use of steroids at home on a chronic basis - will give five days of prednisone and then stop On discharge home would continue Advair Diskus and Combivent Respimat inhalers Titrate O2 as tolerated to maintain SaO2 between 88 and 92% - titrate off as tolerated HISTORY OF TOBACCO ABUSE Patient quit smoking in 1998 No indication for smoking cessation consult HYPERTENSION Hemodynamically stable Continue amlodipine on discharge Currently receiving Cardizem secondary to tachycardia No further tachycardia on telemetry ENDOCRINE Continue levothyroxine for hypothyroidism - converted back to home by mouth dose of 75 g Diabetes mellitus type 2 - continue Lantus as well as NovoLog sliding scale insulin Hemoglobin A1c 6.9 GI Omeprazole twice a day at home Continue pantoprazole while inpatient OSTEOPENIA Alendronate weekly - continue when discharged VENOUS ACCESS Peripheral IVs in place No indication for central line DVT PROPHYLAXIS Enoxaparin daily secondary to malignancy history Ambulate as tolerated CCT: 0 minutes. Level II inpatient follow-up Thank you for including us in the care of this patient. Please refer to Dr. Mirza's addendum for further recommendations I have personally evaluated and examined this patient. I agree with assessment and plan of Alaina Prado PA-C. I had an extensive discussion with the patient and her sister who is the legal healthcare power of insurance defense attorney regarding goals of care. Patient is very adamant about returning home, we explained our concerns regarding probable aspiration, focal cord dysfunction. Discussed elective ENT consult, the patient declined. In consultation with palliative care we will work to achieve home nursing coverage in the event the patient aspirates and suffers respiratory distress again. Her goal is to remain comfortable during a natural dying process and does not want intubation, cardiopulmonary resuscitation, nor significant respiratory treatments during an aspiration event, i.e. fullface mask noninvasive ventilation. Patient does not have recollection of her prior aspiration, respiratory distress events. Consults & Procedures Consultants: Critical care medicine - Dr. Mirza Procedures: None Data Medications: Current Inpatient Medications Medications (Trade) Dose Ordered Sig/Charlee Route Start Time Stop Time Status Last Admin Dose Admin Ioversol (Optiray 320) 111 ml UD PRN IV 09/19/16 18:15 09/23/16 18:14 Enoxaparin Sodium (Lovenox Inj) 40 mg HS SQ 09/19/16 21:00 10/19/16 20:59 09/20/16 21:27 40 MG Acetaminophen (Tylenol Tab) 650 mg Q4H PRN PO 09/19/16 19:30 10/19/16 19:29 09/20/16 14:21 650 MG Ondansetron HCl (Zofran Inj) 4 mg Q6H PRN IV 09/19/16 19:30 10/19/16 19:29 09/20/16 17:30 4 MG Levalbuterol (Xopenex 1.25MG/ 0.5ML Neb) 1.25 mg Q6R INH 09/19/16 21:00 10/19/16 20:59 09/21/16 07:40 1.25 MG Ipratropium [place] (Atrovent 0.02% 0.5MG/2.5ML Neb) 0.5 mg Q6R INH 09/19/16 21:00 10/19/16 20:59 09/21/16 07:40 0.5 MG Miscellaneous (Iv Fluids Completed) 1 ea PRN PRN N/A 09/19/16 20:00 09/19/17 19:59 Benzonatate (Tessalon Perles Cap) 100 mg TID PRN PO 09/19/16 20:00 10/19/16 19:59 Celecoxib (CeleBREX CAP) 100 mg BID PO 09/19/16 21:00 10/19/16 20:59 09/21/16 07:53 100 MG Docusate Sodium (coLACE CAP) 100 mg BID PRN PO 09/19/16 20:00 10/19/16 19:59 Duloxetine HCl (Cymbalta Cap) 60 mg DAILY PO 09/20/16 09:00 10/20/16 08:59 09/21/16 07:51 60 MG Salmeterol Xinafoate/ Fluticasone (Advair Diskus 250/50 Inh) 1 puff BID INH 09/19/16 21:00 10/19/16 20:59 09/21/16 07:51 1 PUFF Multivitamins/ Minerals (Multivitamin W/ Minerals Tab) 1 tab DAILY PO 09/20/16 09:00 10/20/16 08:59 09/21/16 07:51 1 TAB Calcium/Vitamin D (Caltrate Plus Tab) 1 tab DAILY PO 09/20/16 09:00 10/20/16 08:59 09/21/16 07:52 1 TAB Cholecalciferol (Vitamin D Tab) 400 inter.unit BID PO 09/19/16 21:00 10/19/16 20:59 09/21/16 07:51 400 INTER.UNIT Miscellaneous Information (Order Awaiting Action) 1 ea QS N/A 09/20/16 00:00 10/20/16 00:00 Doxycycline Hyclate 100 mg/ Dextrose 110 ml @ 50 mls/hr Q12H IV 09/20/16 00:00 09/27/16 00:00 09/21/16 12:36 50 MLS/HR Ranitidine HCl 50 mg/Dextrose 102 ml @ 200 mls/hr Q24H IV 09/20/16 06:00 10/20/16 05:59 09/21/16 05:44 200 MLS/HR Levothyroxine Sodium 40 mcg/ Syringe 2 ml @ 1 mls/min DAILY@09 IV 09/20/16 09:00 10/20/16 08:59 09/21/16 07:51 1 MLS/MIN Insulin Aspart (novoLOG ASPART) SLIDING SCALE G... ACHS SC 09/20/16 01:15 10/20/16 01:14 09/21/16 12:35 2 UNITS Miscellaneous Information (Consult Glycemic Management Pharmacy) 1 ea UD PRN N/A 09/20/16 01:15 10/20/16 01:14 Menthol ([place]) 1 odell PRN PRN PO 09/20/16 03:45 10/20/16 03:44 Diltiazem HCl (Cardizem Cd Cap) 120 mg QAM PO 09/21/16 09:00 10/21/16 08:59 09/21/16 07:53 120 MG Methylprednisolone Sodium Succinate 20 mg/Syringe 0.32 ml @ 1.5 mls/min Q24H IV 09/22/16 09:00 09/24/16 09:01 Insulin Glargine (Lantus Solostar Pen) SEE PROTOCOL BID SC 09/21/16 20:00 10/21/16 20:59 Vital Signs: Date Time Temp Pulse Resp B/P (MAP) Pulse Ox O2 Delivery O2 Flow Rate FiO2 09/21/16 12:45 36.9 90 20 94 5.0 09/21/16 12:00 Nasal Cannula 09/21/16 09:00 Nasal Cannula 09/21/16 08:00 Nasal Cannula 09/21/16 08:00 90 20 126/64 (84) 94 09/21/16 07:41 92 20 92 Nasal Cannula 5.0 09/21/16 06:00 83 18 98/61 (73) 95 Nasal Cannula 6.0 09/21/16 04:00 36.9 98 20 117/74 (88) 95 High Flow Oxygen 45.0 60 09/21/16 04:00 95 High Flow Oxygen 45.0 60 09/21/16 02:10 96 20 92 Nasal Cannula 45.0 40 09/21/16 02:00 88 16 109/67 (81) 92 High Flow Oxygen 45.0 60 09/21/16 00:01 36.7 84 18 117/63 (81) 92 High Flow Oxygen 45.0 60 09/20/16 23:59 92 High Flow Oxygen 45.0 60 09/20/16 22:00 90 18 127/99 (108) 96 High Flow Oxygen 45.0 60 09/20/16 20:31 102 20 97 Nasal Cannula 45.0 70 09/20/16 20:00 High Flow Oxygen 45.0 60 09/20/16 20:00 37.0 87 20 126/80 (95) 98 High Flow Oxygen 45.0 60 09/20/16 17:20 122 26 91 Mask 6.0 09/20/16 16:00 36.7 105 121/80 (94) 94 Nasal Cannula 4.0 09/20/16 15:58 104 134/77 (96) 94 09/20/16 15:30 95 Nasal Cannula 6.0 09/20/16 15:00 103 95 09/20/16 14:18 93 Laboratory Results: Last 24 Hours Test 09/20/16 18:16 09/20/16 21:46 09/21/16 04:48 09/21/16 11:46 Bedside Glucose 191 mg/dl 169 mg/dl 149 mg/dl White Blood Count 14.24 K/uL Red Blood Count 3.78 M/uL Hemoglobin 8.8 g/dL Hematocrit 28.7 % Mean Corpuscular Volume 75.9 fL Mean Corpuscular Hemoglobin 23.3 pg Mean Corpuscular Hemoglobin Concent 30.7 g/dl RDW Standard Deviation 43.9 fL RDW Coefficient of Variation 15.6 % Platelet Count 349 K/uL Mean Platelet Volume 9.0 fL Sodium Level 138 mmol/L Potassium Level 4.5 mmol/L Chloride Level 103 mmol/L Carbon Dioxide Level 29 mmol/L Anion Gap 6.0 mmol/L Blood Urea Nitrogen 32 mg/dl Creatinine 1.10 mg/dl Est Creatinine Clear Calc Drug Dose 37.8 ml/min Estimated GFR () 54.9 Estimated GFR (Non- 47.4 BUN/Creatinine Ratio 28.7 Random Glucose 132 mg/dl Calcium Level 8.7 mg/dl Phosphorus Level 3.1 mg/dl Magnesium Level 2.2 mg/dl
[2016-09-21] MEDS ORDERED: MoRPHine SULFATE 2 MG/ML CARP IV SCH (13:20)
[2016-09-21] MEDS ORDERED: MoRPHine SULFATE 2 MG/ML CARP ONE (13:25)
[2016-09-21] MEDS: ONDANSETRON INJ 2 MG/ML 2 ML VIAL IV PRN (13:29)
--- NOTE | 2016-09-21 16:19 | Palliative Care Consultation ---
Consultation Date of Consultation: Sep 21, 2016. Requesting Physician: Dr. Mirza Attending Physician: Dr. Richards Reason for Consultation: Goals of care History of Present Illness This 80 year old female patient presented to the ED two days ago with c/o SOB, sore throat, and cough. 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 Apparently she started having symptoms a few days before arrival. Saw her PCP and was placed on Z-anne-marie with Tessalon Perles. She had no improvement, came to ED and admitted with COPD exacerbation. CTA chest without PEs or pneumonia. With known severe aspiration history, speech was consulted who said patient should be on slippery diet. In the past, it was recommended that she be on full liquid diet, but patient refused. Last evening, she was on medical floor, was eating and suddenly became hypoxic and less responsive, candido sheppard was called. Patient was transferred to the ICU on Bipap , had precedex over night to relax her. Patient was very adamant that she absolutely did not want to be intubated. This morning, patient much improved and was able to be weaned to nasal cannula. Completely awake, alert and oriented. Given her history, risk of recurrent aspiration, and her wishes to have no aggressive medical interventions, palliative care consulted. I met with the patient, her sister/POA Marv Danielel, Dr. Mirza, and Alaina Prado PA-C, in room 105. Patient is awake, alert and oriented x4. She denies complaints at this time and has no recollection of events from last night. Patient again was very adamant about her wishes to not be intubated or be in ICU. She wants comfort measures only and said, "I want to go home and living the way I've been living." She wants to continue to eat despite aspiration risk , would never want feeding tube. Patients want to go home with her cat, her caregivers, and hospice. Will do POLST form with patient. 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 Beal Surgical Problems: History of total bilateral knee replacement Status post lumbar spinal fusion Status post shoulder replacement Social History Smoking Status: Former Smoker History of Alcohol Use: No Housing Status: lives alone Review of Systems Constitutional: + problem reported (eager to leave) ENT: + see HPI, + trouble swallowing Respiratory: + cough, + dyspnea on exertion, No wheezing, No shortness of breath Cardiac: No chest pain, No edema, No palpitations Abdomen: No pain, No nausea, No vomiting Female : No problem reported Psychiatric: + anxiety, No depression symptoms Skin: + problem reported (scattered ecchymosis) Allergies Coded Allergies: Levofloxacin (Verified Allergy, Mild, rash, 09/19/16) Pt reported that arm became severly itchy after start of IV levaquin Atorvastatin (Verified Adverse Reaction, Intermediate, MYALGIA, 09/19/16) Codeine (Verified Adverse Reaction, Intermediate, N/V, 09/21/16) Fentanyl (Verified Adverse Reaction, Intermediate, FREQUENT FALLS, 09/19/16 ) PT STATES SHE WILL NOT WEAR THIS ANYMORE Morphine (Verified Adverse Reaction, Intermediate, N/V, 09/21/16) Medications Current Inpatient Medications Medications (Trade) Dose Ordered Sig/Charlee Route Start Time Stop Time Status Last Admin Dose Admin Ioversol (Optiray 320) 111 ml UD PRN IV 09/19/16 18:15 09/23/16 18:14 Enoxaparin Sodium (Lovenox Inj) 40 mg HS SQ 09/19/16 21:00 10/19/16 20:59 09/20/16 21:27 40 MG Acetaminophen (Tylenol Tab) 650 mg Q4H PRN PO 09/19/16 19:30 10/19/16 19:29 09/20/16 14:21 650 MG Ondansetron HCl (Zofran Inj) 4 mg Q6H PRN IV 09/19/16 19:30 10/19/16 19:29 09/21/16 13:29 4 MG Levalbuterol (Xopenex 1.25MG/ 0.5ML Neb) 1.25 mg Q6R INH 09/19/16 21:00 10/19/16 20:59 09/21/16 13:42 1.25 MG Ipratropium Grandin (Atrovent 0.02% 0.5MG/2.5ML Neb) 0.5 mg Q6R INH 09/19/16 21:00 10/19/16 20:59 09/21/16 13:42 0.5 MG Miscellaneous (Iv Fluids Completed) 1 ea PRN PRN N/A 09/19/16 20:00 09/19/17 19:59 Benzonatate (Tessalon Perles Cap) 100 mg TID PRN PO 09/19/16 20:00 10/19/16 19:59 Celecoxib (CeleBREX CAP) 100 mg BID PO 09/19/16 21:00 10/19/16 20:59 09/21/16 07:53 100 MG Docusate Sodium (coLACE CAP) 100 mg BID PRN PO 09/19/16 20:00 10/19/16 19:59 Duloxetine HCl (Cymbalta Cap) 60 mg DAILY PO 09/20/16 09:00 10/20/16 08:59 09/21/16 07:51 60 MG Salmeterol Xinafoate/ Fluticasone (Advair Diskus 250/50 Inh) 1 puff BID INH 09/19/16 21:00 10/19/16 20:59 09/21/16 07:51 1 PUFF Multivitamins/ Minerals (Multivitamin W/ Minerals Tab) 1 tab DAILY PO 09/20/16 09:00 10/20/16 08:59 09/21/16 07:51 1 TAB Calcium/Vitamin D (Caltrate Plus Tab) 1 tab DAILY PO 09/20/16 09:00 10/20/16 08:59 09/21/16 07:52 1 TAB Cholecalciferol (Vitamin D Tab) 400 inter.unit BID PO 09/19/16 21:00 10/19/16 20:59 09/21/16 07:51 400 INTER.UNIT Miscellaneous Information (Order Awaiting Action) 1 ea QS N/A 09/20/16 00:00 10/20/16 00:00 Doxycycline Hyclate 100 mg/ Dextrose 110 ml @ 50 mls/hr Q12H IV 09/20/16 00:00 09/27/16 00:00 09/21/16 12:36 50 MLS/HR Ranitidine HCl 50 mg/Dextrose 102 ml @ 200 mls/hr Q24H IV 09/20/16 06:00 10/20/16 05:59 09/21/16 05:44 200 MLS/HR Levothyroxine Sodium 40 mcg/ Syringe 2 ml @ 1 mls/min DAILY@09 IV 09/20/16 09:00 10/20/16 08:59 09/21/16 07:51 1 MLS/MIN Insulin Aspart (novoLOG ASPART) SLIDING SCALE G... ACHS SC 09/20/16 01:15 10/20/16 01:14 09/21/16 12:35 2 UNITS Miscellaneous Information (Consult Glycemic Management Pharmacy) 1 ea UD PRN N/A 09/20/16 01:15 10/20/16 01:14 Menthol (Nice Odell) 1 odell PRN PRN PO 09/20/16 03:45 10/20/16 03:44 Diltiazem HCl (Cardizem Cd Cap) 120 mg QAM PO 09/21/16 09:00 10/21/16 08:59 09/21/16 07:53 120 MG Methylprednisolone Sodium Succinate 20 mg/Syringe 0.32 ml @ 1.5 mls/min Q24H IV 09/22/16 09:00 09/24/16 09:01 Insulin Glargine (Lantus Solostar Pen) SEE PROTOCOL BID SC 09/21/16 20:00 10/21/16 20:59 Morphine Sulfate (Roxanol Oral Soln) 2.5 mg Q4H PRN PO 09/21/16 14:00 10/05/16 13:59 Lorazepam (Ativan Tab) 0.5 mg Q6H PRN PO 09/21/16 14:00 10/21/16 13:59 Physical Exam Date Time Temp Pulse Resp B/P (MAP) Pulse Ox O2 Delivery O2 Flow Rate FiO2 09/21/16 16:06 36.6 97 22 143/76 (98) 93 Nasal Cannula 6.0 09/21/16 13:42 99 22 96 Nasal Cannula 5.0 09/21/16 13:04 36.9 94 22 148/78 (101) 92 4.0 09/21/16 12:45 36.9 90 20 94 5.0 09/21/16 12:00 Nasal Cannula 09/21/16 09:00 Nasal Cannula 09/21/16 08:00 Nasal Cannula 09/21/16 08:00 90 20 126/64 (84) 94 09/21/16 07:41 92 20 92 Nasal Cannula 5.0 09/21/16 06:00 83 18 98/61 (73) 95 Nasal Cannula 6.0 09/21/16 04:00 36.9 98 20 117/74 (88) 95 High Flow Oxygen 45.0 60 09/21/16 04:00 95 High Flow Oxygen 45.0 60 09/21/16 02:10 96 20 92 Nasal Cannula 45.0 40 09/21/16 02:00 88 16 109/67 (81) 92 High Flow Oxygen 45.0 60 09/21/16 00:01 36.7 84 18 117/63 (81) 92 High Flow Oxygen 45.0 60 09/20/16 23:59 92 High Flow Oxygen 45.0 60 09/20/16 22:00 90 18 127/99 (108) 96 High Flow Oxygen 45.0 60 09/20/16 20:31 102 20 97 Nasal Cannula 45.0 70 09/20/16 20:00 High Flow Oxygen 45.0 60 09/20/16 20:00 37.0 87 20 126/80 (95) 98 High Flow Oxygen 45.0 60 09/20/16 17:20 122 26 91 Mask 6.0 General Appearance: no apparent distress, + obese ENT: hearing grossly normal Neck: supple, no JVD Respiratory: no respiratory distress, no accessory muscle use, + decreased breath sounds (bilatral bases), + crackles (RLL), + pertinent finding (nasal cannula) Cardiovascular: regular rate, rhythm, no edema, + normal peripheral pulses Abdomen: normal bowel sounds, non tender, soft Neurologic/Psychiatric: alert, normal mood/affect, oriented x 3 Skin: normal color Laboratory Results Last 24 Hours Test 09/20/16 18:16 09/20/16 21:46 09/21/16 04:48 09/21/16 11:46 Bedside Glucose 191 mg/dl 169 mg/dl 149 mg/dl White Blood Count 14.24 K/uL Red Blood Count 3.78 M/uL Hemoglobin 8.8 g/dL Hematocrit 28.7 % Mean Corpuscular Volume 75.9 fL Mean Corpuscular Hemoglobin 23.3 pg Mean Corpuscular Hemoglobin Concent 30.7 g/dl RDW Standard Deviation 43.9 fL RDW Coefficient of Variation 15.6 % Platelet Count 349 K/uL Mean Platelet Volume 9.0 fL Sodium Level 138 mmol/L Potassium Level 4.5 mmol/L Chloride Level 103 mmol/L Carbon Dioxide Level 29 mmol/L Anion Gap 6.0 mmol/L Blood Urea Nitrogen 32 mg/dl Creatinine 1.10 mg/dl Est Creatinine Clear Calc Drug Dose 37.8 ml/min Estimated GFR () 54.9 Estimated GFR (Non- 47.4 BUN/Creatinine Ratio 28.7 Random Glucose 132 mg/dl Calcium Level 8.7 mg/dl Phosphorus Level 3.1 mg/dl Magnesium Level 2.2 mg/dl Assessment & Plan Problem list: SOB/COLINDRES Aspiration 2/2 tortuous corkscrew esophagus COPD exacerbation Respiratory failure SVT- resolved T6 compression fracture Goals of care Comfort measures only Palliative care recs: discussed with patient, her sister/POA Marv Danielle, and Dr. Richards. Dr. Mirza and Adams Prado PA-C were present for initial goals of care conversation. -Patient is level 5 DNR. -Comfort measures only. Wants to go home to her apartment with hospice. [facility] with [facility], can easily transition to hospice. -Has private duty caregivers. Patient's sister is calling to have the caregivers increased so patient will only be alone at night while sleeping. -Had a long discussion and stressed the importance of patient following dietary recommendations: slippery/moist diet, careful and mindful chewing/swallowing of small bites of food, frequent drinks between bites, staying completely upright during eating and for at least an hour after eating, chin tuck during swallowing. Patient verbalized understanding and agrees. -If patient aspirates again at home, her wish is to be made comfortable with anxiety and pain medication, oxygen to be placed on her and allow nature to take its course. She does not want to come to the hospital unless she absolutely has to if her comfort needs cannot be met at home. -POLST form completed as follows: DNR, comfort measures only, abx with comfort as the goal, trial IVF if indicated with comfort as the goal, ABSOLUTELY NO FEEDING TUBE. -Recommend: Roxanol 5mg PO Q3h PRN pain or SOB, Ativan 1mg SL Q4h PRN anxiety/ agitation (repeat dose in 30min if no relief). -Patient has albuterol inhaler and has neb treatments at home if needed for respiratory distress/wheezing. -She is currently refusing to wear oxygen 24/7 at home but is okay with hospice having it in the home in case it is needed. Thank you kindly for this consult. I will follow as needed.
[2016-09-21] MEDS: MoRPHine SULFATE 2.5 MG/0.125 ML UDP PO PRN (16:26)
[2016-09-21] MEDS: LORAZEPAM 0.5 MG TAB PO PRN ×2 (17:50→22:34)
[2016-09-21] MEDS ORDERED: ALBUT/IPRATROP 3MG/0.5MG NEB 3 ML VIAL INH STA (21:14)
[2016-09-21 21:46] LABS: ARTERIAL BLD GAS O2 SATURATION 95.2 % (90-95); ARTERIAL BLOOD GAS BASE EXCESS -5.8 mEq/L (-9-1.8); ARTERIAL BLOOD GAS HCO3 23 mmol/L (19-24); ARTERIAL BLOOD GAS PO2 105 mm/Hg (80-95)
[2016-09-21 21:51] LABS: ARTERIAL BLOOD GAS pH 7.17 (7.35-7.45)
[2016-09-21 21:53] LABS: ALLEN TEST POS (POS); O2 ADMINISTRATION 15L
[2016-09-21] MEDS: ENOXAPARIN 40 MG/0.4 ML SYR SQ SCH (22:13)
--- NOTE | 2016-09-21 22:30 | DIAGNOSTIC IMAGING REPORT ---
CHEST ONE VIEW PORTABLE HISTORY: Respiratory distress. COMPARISON: Chest 09/19/2016. FINDINGS: No pneumothorax. There are low lung volumes. Bibasilar patchy densities persist. The heart remains mildly enlarged. Interstitial and vascular thickening and a right perihilar hazy airspace opacity has slightly progressed. This suggests asymmetric pulmonary edema. Thoracolumbar spinal fusion rods are again noted. Bilateral shoulder prostheses. Mildly distended gas-filled stomach. IMPRESSION: 1. Slight progression of the suspected mild asymmetric pulmonary edema. 2. Bibasilar densities favor subsegmental atelectasis. Electronically signed by: Rachid Cardoso M.D. 09/21/2016 10:28 PM Dictated Date/Time: 09/21/2016 10:26 PM
[2016-09-21] MEDS ORDERED: FUROSEMIDE INJ 40 MG in SYRINGE 0 ML IV ONE (23:00)
[2016-09-22] VITALS (14 sets, daily range): BP systolic 108–135; BP diastolic 57–80; PULSE 89–105; TEMP 36.6–37.1; O2SAT 90–100
[2016-09-22] MEDS: DOXYCYCLINE IV 100 MG in DEXTROSE 5% 100ML 100 ML IV SCH (00:15)
[2016-09-22] MEDS: IPRATROPIUM BROMIDE NEB SOLN 0.02% 2.5 ML VIAL INH SCH ×4 (02:27→19:24)
[2016-09-22] MEDS: LEVALBUTEROL 1.25MG/0.5ML NEB INH SCH ×4 (02:27→19:24)
[2016-09-22] MEDS: RANITIDINE IV 50 MG in DEXTROSE 5% 100ML 100 ML IV SCH (05:37)
[2016-09-22] MEDS: VESICARE~ORDER AWAITING ACTION SCH ×3 (08:00→16:00)
[2016-09-22] MEDS: INSULIN GLARGINE SOLOSTAR 100 UNITS/ML 3 ML PEN SC SCH ×2 (08:00→20:33)
[2016-09-22] MEDS: MoRPHine SULFATE 2.5 MG/0.125 ML UDP PO PRN ×5 (08:04→20:41)
[2016-09-22] MEDS: DILTIAZEM HCL 120 MG CAPCR PO SCH (08:05)
[2016-09-22] MEDS: BENZONATATE 100MG CAP PO PRN (08:05)
[2016-09-22] MEDS: CHOLECALCIFEROL 400 INTER.UNIT TAB PO SCH ×2 (08:05→20:27)
[2016-09-22] MEDS: CEROVITE ADV FORMULA TAB PO SCH (08:05)
[2016-09-22] MEDS: CeleBREX 100 MG CAP PO SCH ×2 (08:05→20:27)
[2016-09-22] MEDS: DULOXETINE HCL 60 MG CAP PO SCH (08:05)
[2016-09-22] MEDS: CALCIUM 600MG + VIT D 400 IU TAB PO SCH (08:06)
[2016-09-22] MEDS: FLUTICASONE/SALMETEROL 250/50 (ADVAIR) 14 PUFF/1 INHALER INH SCH ×2 (08:06→20:26)
[2016-09-22 08:28] LABS: BUN/CREATININE RATIO 31.2 (10-20); CALCIUM 8.6 mg/dl (8.5-10.1); CREATININE 0.83 mg/dl (0.60-1.20); MAGNESIUM 2.1 mg/dl (1.8-2.4); POTASSIUM 3.9 mmol/L (3.5-5.1)
[2016-09-22] MEDS ORDERED: NURSING VERBAL MED ORDER ONE ×2 (08:45→10:15)
[2016-09-22] MEDS ORDERED: METHYLPREDNISOLONE 20 MG in SYRINGE 0 ML IV SCH (09:00)
[2016-09-22] MEDS ORDERED: LORAZEPAM INJ 0.5 MG in SYRINGE 0.75 ML IV PRN (09:15)
[2016-09-22] MEDS ORDERED: LORAZEPAM 2 MG/ML 1 ML VIAL IV PRN (09:15)
[2016-09-22] MEDS: INSULIN ASPART 100 UNITS/ML 3 ML PEN SC SCH ×4 (10:02→20:32)
[2016-09-22] MEDS ORDERED: LORAZEPAM 0.5 MG TAB ONE (10:03)
[2016-09-22] MEDS: DOXYCYCLINE HYCLATE 100 MG CAP PO SCH ×2 (10:07→20:29)
[2016-09-22] MEDS: LEVOTHYROXINE 75 MCG TAB PO SCH (10:07)
--- NOTE | 2016-09-22 10:12 | Palliative Care Progress Note ---
Palliative Care Progress Note Date of Service Sep 22, 2016. Subjective Pt evaluation today including: conversation w/ patient, physical exam, chart review, conversation w/ internet sales consultant, review of inpatient medication list Pain: 0/10 PO Intake: tolerating diet -Was a code purple last night for respiratory distress. Comfort measures order was not in computer. Situation was resolved and patient is now awake, alert, and oriented. Sitting at side of bed when I entered room, has no recollection of the code purple yesterday. -Patient feels well and is ready to go home with hospice. I again reiterate to the patient about the plan of care. Review of Systems Constitutional: No fever, No chills ENT: + trouble swallowing Respiratory: + cough, + dyspnea on exertion, No wheezing, No shortness of breath Cardiac: No chest pain, No edema Abdomen: + problem reported (no BM for three days. normally moves bowels Q2-3 days), No pain, No nausea, No vomiting Female : No problem reported Psychiatric: + anxiety, No depression symptoms Skin: + problem reported (scattered ecchymosis) Objective Vital Signs Date Time Temp Pulse Resp B/P (MAP) Pulse Ox O2 Delivery O2 Flow Rate FiO2 09/22/16 09:04 98 Nasal Cannula 4.0 09/22/16 07:53 37.1 98 18 119/65 (83) 100 High Flow Oxygen 09/22/16 07:29 96 18 95 Nasal Cannula 50.0 65 09/22/16 06:18 98 09/22/16 04:02 36.7 101 18 125/80 (95) 98 High Flow Oxygen 09/22/16 04:00 99 09/22/16 02:28 100 18 93 Nasal Cannula 50.0 100 09/22/16 00:36 36.6 105 18 120/79 (93) 90 09/22/16 00:00 93 High Flow Oxygen 09/21/16 22:52 105/68 (80) 88 High Flow Oxygen 09/21/16 22:19 108 20 92 Nasal Cannula 50.0 100 09/21/16 20:00 95 Nasal Cannula 3.0 09/21/16 19:27 100 18 96 Nasal Cannula 4.0 09/21/16 19:26 37.1 99 20 119/78 (92) 94 Nasal Cannula 4.0 09/21/16 16:06 36.6 97 22 143/76 (98) 93 Nasal Cannula 6.0 09/21/16 16:00 95 Nasal Cannula 3.0 09/21/16 13:42 99 22 96 Nasal Cannula 5.0 09/21/16 13:04 36.9 94 22 148/78 (101) 92 4.0 09/21/16 12:45 36.9 90 20 94 5.0 09/21/16 12:00 Nasal Cannula Physical Exam General Appearance: no apparent distress, + obese ENT: hearing grossly normal Neck: supple, no JVD Respiratory/Chest: no respiratory distress, no accessory muscle use, + decreased breath sounds (bilateral bases), + crackles (RLL), + pertinent finding (4LNC) Cardiovascular: regular rate, rhythm, no edema Abdomen: normal bowel sounds, non tender, soft Neurologic/Psychiatric: alert, normal mood/affect, oriented x 3 Laboratory Results Last 24 Hours Test 09/21/16 11:46 09/21/16 16:26 09/21/16 19:44 09/21/16 21:30 Bedside Glucose 149 mg/dl 139 mg/dl 174 mg/dl Arterial Blood pH 7.17 Arterial Blood Partial Pressure CO2 63 mmHg Arterial Blood Partial Pressure O2 105 mm/Hg Arterial Blood HCO3 23 mmol/L Arterial Blood Oxygen Saturation 95.2 % Arterial Blood Base Excess -5.8 mEq/L Arterial Blood Gas Delivery 15L Ayaz Test POS Test 09/22/16 07:31 09/22/16 07:41 Bedside Glucose 95 mg/dl Sodium Level 136 mmol/L Potassium Level 3.9 mmol/L Chloride Level 98 mmol/L Carbon Dioxide Level 31 mmol/L Anion Gap 7.0 mmol/L Blood Urea Nitrogen 26 mg/dl Creatinine 0.83 mg/dl Est Creatinine Clear Calc Drug Dose 49.8 ml/min Estimated GFR () 77.2 Estimated GFR (Non- 66.6 BUN/Creatinine Ratio 31.2 Random Glucose 93 mg/dl Calcium Level 8.6 mg/dl Magnesium Level 2.1 mg/dl Assessment and Plan Problem list: SOB/COLINDRES Aspiration 2/2 tortuous corkscrew esophagus COPD exacerbation Respiratory failure SVT- resolved T6 compression fracture Goals of care Comfort measures only Palliative care recs: -DNR/DNI -Comfort measures only -Plan is for home with hospice. -Has private duty caregivers. Patient's sister is calling to have the caregivers increased so patient will only be alone at night while sleeping. -Had a long discussion yesterday and today- stressed the importance of patient following dietary recommendations: slippery/moist diet, careful and mindful chewing/swallowing of small bites of food, frequent drinks between bites, staying completely upright during eating and for at least an hour after eating, chin tuck during swallowing. Patient verbalized understanding and agrees. -If patient aspirates again at home, her wish is to be made comfortable with anxiety and pain medication, oxygen (by nasal cannula or mask) to be placed on her and allow nature to take its course. She does not want to come to the hospital unless she absolutely has to if her comfort needs cannot be met at home. -POLST form completed as follows: DNR, comfort measures only, abx with comfort as the goal, trial IVF if indicated with comfort as the goal, ABSOLUTELY NO FEEDING TUBE. -Recommend: Roxanol 5mg PO Q3h PRN pain or SOB, Ativan 1mg SL Q4h PRN anxiety/ agitation (repeat dose in 30min if no relief). -Patient has albuterol inhaler and has neb treatments at home if needed for respiratory distress/wheezing. -She is currently refusing to wear oxygen 24/7 at home but is okay with hospice having it in the home in case it is needed. Thank you again for this consult. Please contact me with any further palliative care needs. Palliative Performance Scale: 50 % Discharge planning: home with Hospice
--- NOTE | 2016-09-22 14:18 | Pharmacy Progress Note ---
Glycemic: Assessment & Plan Date of Service Sep 22, 2016. Assessment & Plan The patient is currently receiving 22 units of insulin per day. BSGs ranging 95 -188 mg/dl over the past 24hrs. * Basal insulin: Lantus per dosing range (0,5 or 10) units every 12 hours * Correctional Insulin: Novolog Correction per scale ACHS Goal Range: Low 140 mg/dL - High 180 mg/dL Correction Factor: 30 mg/dL/unit * Prandial insulin: Per carb ratio of 1 unit per 15 grams CHO consumed ASSESSMENT/PLAN: * Steroids have changed to prednisone 40 mg daily (slightly higher steroid equivalent) * Patient has been changed to comfort measures and will likely be discharged in the near future * Will continue same "sliding scale" of Lantus depending on BSGs Pharmacy will continue to monitor patient daily and write orders per [facility] inpatient glycemic control protocol. Thanks. DISCHARGE RECOMMENDATIONS: * Patient has been made comfort measures. No need for initiation of insulin regimen on discharge
[2016-09-22] MEDS: LORAZEPAM 0.5 MG TAB PO PRN ×2 (16:16→20:35)
--- NOTE | 2016-09-22 17:29 | Progress Note ---
Internal Med Progress Note Date of Service: Sep 22, 2016. Provider Documentation: SUBJECTIVE: Seen and examined at bedside. States having had an a brief episode of SOB this after noon Has intermittent cough Denies chest pain, palpitations No new complaints OBJECTIVE: Vital Signs-as noted below Physical Exam: General Appearance:Moderately built and nourished, no apparent distress Head: normocephalic, Atraumatic Eyes: normal inspection, EOMI, PERRL Neck: supple, Trachea midline Respiratory/Chest: Decreased breath sounds, CTA Cardiovascular: S1, S2, No murmur Abdomen/GI:Soft, Non tender, Bowel sounds present Extremities/Musculoskelatal:normal inspection, no edema Neurologic/Psych:grossly no focal neurological deficits Skin: normal color, warm Lab data as noted below. ASSESSMENT & PLAN: Acute COPD Exacerbation Acute Hypercapnic respiratory failure Failed outpatient therapy patient presenting with increasing shortness of breath and cough CTA chest negative for PE and pneumonia ABG consistent with acute respiratory and metabolic acidosis Continue prednisone, inhalers, Doxy Oxygen Support Appreciate Masonry Instructor help On chronic oxygen at bedtime per patient (Admits to being non compliant) Prefers to have comfort measures only Appreciate palliative care help May benefit form ENT eval electively Plan to discharge home with home hospice in place SVT : In setting of acute respiratory failure Continue Cardizem DC amlodipine Monitor T6 COMPRESSION FRACTURE subacute, noted on CT chest no h/o fall pain control PT/OT HTN continue Cardizem DC amlodipine HYPOTHYROIDISM continue levothyroxine DM II: A1C:6.9 ISS, lantus Monitor blood sugar levels DVT PROPHYLAXIS SQ Lovenox CODE STATUS DNR/DNI Disposition: Plan to discharge home with hospice services tomorrow director of perioperative services/Palliative care involved for discharge planning Vital Signs: Date Time Temp Pulse Resp B/P (MAP) Pulse Ox O2 Delivery O2 Flow Rate FiO2 09/22/16 15:17 36.7 97 22 135/74 (94) 95 3.0 09/22/16 14:14 96 18 95 Nasal Cannula 4.0 09/22/16 11:23 36.7 101 20 108/57 (74) 91 Nasal Cannula 4.0 09/22/16 10:13 95 Nasal Cannula 4.0 09/22/16 09:04 98 Nasal Cannula 4.0 09/22/16 07:53 37.1 98 18 119/65 (83) 100 High Flow Oxygen 09/22/16 07:29 96 18 95 Nasal Cannula 50.0 65 09/22/16 06:18 98 09/22/16 04:02 36.7 101 18 125/80 (95) 98 High Flow Oxygen 09/22/16 04:00 99 09/22/16 02:28 100 18 93 Nasal Cannula 50.0 100 09/22/16 00:36 36.6 105 18 120/79 (93) 90 09/22/16 00:00 93 High Flow Oxygen 09/21/16 22:52 105/68 (80) 88 High Flow Oxygen 09/21/16 22:19 108 20 92 Nasal Cannula 50.0 100 09/21/16 20:00 95 Nasal Cannula 3.0 09/21/16 19:27 100 18 96 Nasal Cannula 4.0 09/21/16 19:26 37.1 99 20 119/78 (92) 94 Nasal Cannula 4.0 Lab Results: Results Past 24 Hours Test 09/21/16 19:44 09/21/16 21:30 09/22/16 07:31 09/22/16 07:41 Range/Units Bedside Glucose 174 95 70-90 mg/dl Arterial Blood pH 7.17 7.35-7.45 Arterial Blood Partial Pressure CO2 63 35-46 mmHg Arterial Blood Partial Pressure O2 105 80-95 mm/Hg Arterial Blood HCO3 23 19-24 mmol/L Arterial Blood Oxygen Saturation 95.2 90-95 % Arterial Blood Base Excess -5.8 -9-1.8 mEq/L Arterial Blood Gas Delivery 15L Ayaz Test POS POS Sodium Level 136 136-145 mmol/L Potassium Level 3.9 3.5-5.1 mmol/L Chloride Level 98 98-107 mmol/L Carbon Dioxide Level 31 21-32 mmol/L Anion Gap 7.0 3-11 mmol/L Blood Urea Nitrogen 26 7-18 mg/dl Creatinine 0.83 0.60-1.20 mg/dl Est Creatinine Clear Calc Drug Dose 49.8 ml/min Estimated GFR () 77.2 Estimated GFR (Non- 66.6 BUN/Creatinine Ratio 31.2 10-20 Random Glucose 93 70-99 mg/dl Calcium Level 8.6 8.5-10.1 mg/dl Magnesium Level 2.1 1.8-2.4 mg/dl Test 09/22/16 11:17 09/22/16 16:50 Range/Units Bedside Glucose 188 107 70-90 mg/dl
[2016-09-22] MEDS ORDERED: DOXYCYCLINE HYCLATE 100 MG CAP PO SCH ×2 (20:00→22:00)
[2016-09-22] MEDS: ENOXAPARIN 40 MG/0.4 ML SYR SQ SCH (20:28)
[2016-09-23] VITALS: O2SAT 91
[2016-09-23 00:14] VITALS: BP 103/72; PULSE 93; TEMP 36.9; O2SAT 92
[2016-09-23] MEDS: IPRATROPIUM BROMIDE NEB SOLN 0.02% 2.5 ML VIAL INH SCH ×2 (01:58→07:01)
[2016-09-23] MEDS: LEVALBUTEROL 1.25MG/0.5ML NEB INH SCH ×2 (01:58→07:01)
[2016-09-23] MEDS: LEVOTHYROXINE 75 MCG TAB PO SCH (06:05)
[2016-09-23] MEDS: RANITIDINE IV 50 MG in DEXTROSE 5% 100ML 100 ML IV SCH ×2 (06:06→06:50)
[2016-09-23] MEDS: VESICARE~ORDER AWAITING ACTION SCH ×2 (06:52)
[2016-09-23 07:01] VITALS: PULSE 94; O2SAT 96
[2016-09-23] MEDS: CEROVITE ADV FORMULA TAB PO SCH (08:07)
[2016-09-23] MEDS: MoRPHine SULFATE 2.5 MG/0.125 ML UDP PO PRN (08:07)
[2016-09-23] MEDS: DULOXETINE HCL 60 MG CAP PO SCH (08:07)
[2016-09-23] MEDS: DILTIAZEM HCL 120 MG CAPCR PO SCH (08:07)
[2016-09-23] MEDS: BENZONATATE 100MG CAP PO PRN (08:07)
[2016-09-23] MEDS: DOXYCYCLINE HYCLATE 100 MG CAP PO SCH (08:07)
[2016-09-23] MEDS: LORAZEPAM 0.5 MG TAB PO PRN (08:07)
[2016-09-23] MEDS: CALCIUM 600MG + VIT D 400 IU TAB PO SCH (08:08)
[2016-09-23] MEDS: FLUTICASONE/SALMETEROL 250/50 (ADVAIR) 14 PUFF/1 INHALER INH SCH (08:08)
[2016-09-23] MEDS: CHOLECALCIFEROL 400 INTER.UNIT TAB PO SCH (08:08)
[2016-09-23] MEDS: CeleBREX 100 MG CAP PO SCH (08:08)
[2016-09-23] MEDS: INSULIN GLARGINE SOLOSTAR 100 UNITS/ML 3 ML PEN SC SCH (08:10)
[2016-09-23] MEDS: INSULIN ASPART 100 UNITS/ML 3 ML PEN SC SCH (08:11)
--- NOTE | 2016-09-23 08:32 | Pharmacy Progress Note ---
Glycemic Control Progress Note Date of Service Sep 23, 2016. Scope Glycemic Pharmacist consulted for glycemic control to write orders per [facility] inpatient glycemic control protocol. Objective Accuchecks BSG (last 24hrs): Test 09/22/16 11:17 09/22/16 16:50 09/22/16 20:15 09/23/16 07:27 Bedside Glucose 188 mg/dl (70-90) 107 mg/dl (70-90) 195 mg/dl (70-90) 123 mg/dl (70-90) HbA1c: Test 09/20/16 04:32 Hemoglobin A1c 6.9 % (4.5-5.6) H Recent Pertinent Medications The patient is currently receiving: * Basal insulin: Lantus 0-10 units every 12 hours (Lantus 0 units for blood sugar less than 120 mg/dL, Lantus 5 units for blood sugar 121-180 mg/ dL, and Lantus 10 units for blood sugar greater than 180 mg/dL) * Correctional Insulin: Novolog Correction per scale ACHS Goal Range: Low 140 mg/dL - High 180 mg/dL Correction Factor: 30 mg/dL/unit * Prandial insulin: Per carb ratio of 1 unit per 15 grams CHO consumed Outpatient Anti-Diabetic Meds No outpatient oral medications Assessment & Plan ASSESSMENT: * See progress note from 09/21/16 for more background info, in short: Ms Zhong is an 80 y/o F admitted with a COPD exacerbation. Recently, palliative care has seen the patient and comfort care measures have been implemented. * Pt receiving SQ basal bolus insulin regimen for hyperglycemia secondary to COPD exacerbation on doxycycline and prednisone 40 mg daily (previously received Solu-Medrol 20 mg IV daily) * Patient is currently receiving an average of 20 units of insulin per day * 10 units of basal insulin * 8 units of prandial/correctional insulin * BSGs ranging 95 - 195 mg/dl over the past 24hrs * Changes needed to insulin regimen: * AM Fasting BSG = 123 mg/dl. This is below goal range for patient based on inpatient targets and co-morbidities. I believe it is reasonable to reduce Lantus to once daily with 10 units. Lantus 15 units daily produced a fasting of 95 mg/dL which is further below the goal range for the patient on comfort care. * Post-prandial BSGs are in range therefore no changes needed to CF/CR. Tightened the carbohydrate ratio slightly. * Total daily dose = 20 units. This dosing is yielding adequate glycemic control. PLAN FOR INPATIENT GLYCEMIC CONTROL: * DECREASING Lantus to 10 units SQ HS * Continuing correction factor of 30 mg/dl/unit * TIGHTENING carb ratio to 1 unit per 10 grams CHO consumed * Continuing goal range of Low 140 mg/dL - High 180 mg/dL RECOMMENDATIONS FOR DISCHARGE: * HbA1C represents reasonable control for patient as an outpatient. May continue diet controlled regimen at home. Thank you.
--- NOTE | 2016-09-23 10:22 | Progress Note ---
Internal Med Progress Note Date of Service: Sep 23, 2016. Provider Documentation: SUBJECTIVE: Seen and examined at bedside. States feeling well Has intermittent cough Denies chest pain, palpitations Less SOB No new complaints No family at bedside OBJECTIVE: Vital Signs-as noted below Physical Exam: General Appearance:Moderately built and nourished, no apparent distress Head: normocephalic, Atraumatic Eyes: normal inspection, EOMI, PERRL Neck: supple, Trachea midline Respiratory/Chest: Decreased breath sounds, CTA Cardiovascular: S1, S2, No murmur Abdomen/GI:Soft, Non tender, Bowel sounds present Extremities/Musculoskelatal:normal inspection, no edema Neurologic/Psych:grossly no focal neurological deficits Skin: normal color, warm Lab data as noted below. ASSESSMENT & PLAN: Acute COPD Exacerbation Acute Hypercapnic respiratory failure Failed outpatient therapy patient presenting with increasing shortness of breath and cough CTA chest negative for PE and pneumonia ABG consistent with acute respiratory and metabolic acidosis Continue prednisone, inhalers, Doxy Oxygen Support Appreciate Real Estate Management Specialist help On chronic oxygen at bedtime per patient (Admits to being non compliant) Prefers to have comfort measures only Appreciate palliative care help Needs ENT eval electively as outpatient Plan to discharge home with home hospice in place today SVT : In setting of acute respiratory failure Continue Cardizem DC amlodipine Monitor T6 COMPRESSION FRACTURE subacute, noted on CT chest no h/o fall pain control PT/OT HTN continue Cardizem DC amlodipine HYPOTHYROIDISM continue levothyroxine DM II: A1C:6.9 ISS, lantus Monitor blood sugar levels DVT PROPHYLAXIS SQ Lovenox CODE STATUS DNR/DNI Disposition: Plan to discharge home with hospice services today Follow up with on 09/26/16 at 2:45pm Follow up with your ENT physician as advised Complete the prednisone and antibiotic course as prescribed Vital Signs: Date Time Temp Pulse Resp B/P (MAP) Pulse Ox O2 Delivery O2 Flow Rate FiO2 09/23/16 07:01 94 18 96 Nasal Cannula 4.0 09/23/16 00:14 36.9 93 16 103/72 (82) 92 4.0 09/23/16 00:00 91 Nasal Cannula 4.0 65 09/22/16 19:26 89 18 90 Nasal Cannula 4.0 09/22/16 16:00 Nasal Cannula 4.0 09/22/16 15:17 36.7 97 22 135/74 (94) 95 3.0 09/22/16 14:14 96 18 95 Nasal Cannula 4.0 09/22/16 11:23 36.7 101 20 108/57 (74) 91 Nasal Cannula 4.0 Lab Results: Results Past 24 Hours Test 09/22/16 11:17 09/22/16 16:50 09/22/16 20:15 09/23/16 07:27 Range/Units Bedside Glucose 188 107 195 123 70-90 mg/dl
[2016-09-23] MEDS ORDERED: CRDCD120 PO (10:31)
[2016-09-23] MEDS ORDERED: PRED10TA PO (10:31)
[2016-09-23] MEDS ORDERED: ATV5 PO (10:31)
[2016-09-23] MEDS ORDERED: OXGN (10:31)
[2016-09-23] MEDS ORDERED: RXNS2.5 PO (10:31)
[2016-09-23] MEDS ORDERED: DXY100 PO (10:31)
--- NOTE | 2016-09-23 10:35 | Discharge Summary ---
Discharge Summary Date of Service Sep 23, 2016. 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 No central pulmonary emboli identified 2. There are no airspace opacities to indicate pneumonia 3. Persistent borderline enlarged left axillary lymph node 4. Osteopenia and multiple thoracic vertebral body fractures including a subacute horizontal cleavage fracture involving the T6 vertebra Consultations: Database Consultant, Palliative Care Pending Studies/Follow-Up: Follow up with on 09/26/16 at 2:45pm Follow up with your ENT physician as advised Complete the prednisone and antibiotic course as prescribed Medication Reconciliation New Medications: Home O2 Therapy (Oxygen) Gas 4 LITERS NA CONTINOUS, #1 Prednisone Tab (Prednisone) 10 Mg Tab 10 MG PO UD for 9 Days, #18 TAB Start taking 30mg for 3 days, then 20mg for 3 days then 10mg for 3 days and stop Diltiazem HCl (Diltiazem Cd) 120 Mg Capcr 120 MG PO QAM for 30 Days, #30 Doxycycline Hyclate (Doxycycline Hyclate) 100 Mg Cap 100 MG PO BID@1000,2200 for 5 Days, #10 CAP Lorazepam (Lorazepam) 0.5 Mg Tab 0.5 MG PO Q4H PRN for ANXIETY for 4 Days, #16 TAB Morphine Sulfate (Morphine Sulfate) 2.5 Mg/0.125 Ml Soln 2.5 MG PO Q2H PRN for Pain for 4 Days, #1 BTL Continued Medications: Alendronate Sodium (Alendronate Sodium) 70 Mg Tab 70 MG PO WK TAKE THIS MEDICATION EVERY MONDAY WITH 8 OUNCES OF WATER Azithromycin (Zithromax Z-Willem) 250 Mg Tab 1 PKT PO UD for 5 Days, #1 PKT Benzonatate (Tessalon Perles) 100 Mg Cap 1 CAP PO TID PRN for Cough for 7 Days, #21 CAP Calcium Carbonate-Cholecalcife (Caltrate 600+D) 1 Tab Tab 1 TAB PO DAILY Celecoxib (Celebrex) 100 Mg Cap 100 MG PO BID Cholecalciferol (Vitamin D3 400) 400 Unit Cap 400 INTER.UNIT PO BID Docusate Sodium (Colace) 100 Mg Cap 100 MG PO BID PRN for Constipation, CAP Duloxetine Hcl (Cymbalta) 60 Mg Cap 1 CAP PO DAILY for 90 Days, #90 CAP 3 Refills Fluticasone Prop/Salmeterol (Advair Diskus 250/50 60 Dose) 1 Ea Aerp 1 PUFF INH BID, INHALER Ipratropium-Albuterol (Combivent Respimat) 1 Aer Aer 1 PUFF INH QID PRN for SOB/Wheezing, INH Ipratropium-Albuterol (Duoneb) 3 Ml Nebu 1 TREATMENT INH Q4H PRN for SOB/Wheezing, INHA Levothyroxine Sodium (Levothyroxine Sodium) 75 Mcg Tab 1 TAB PO DAILY for 30 Days, #30 TAB 5 Refills Multivitamins/Minerals (Mvi With Minerals) Tab 1 TAB PO DAILY, TAB Omeprazole (Omeprazole) 20 Mg Tab 1 TAB PO BID for 90 Days, #180 TAB 1 Refill Solifenacin (Vesicare) 10 Mg Tab 10 MG PO HS, TAB [Oni-Sequels] () 1 TAB PO BID Discontinued Medications: Amlodipine Besylate (Norvasc) 2.5 Mg Tab 2.5 MG PO DAILY, TAB Admission Information HPI (per Admitting provider): 80 year old female who presents to the ER with shortness of breath. Patient reports she started getting sick a few days ago. She reports cough, sore throat , and shortness of breath. Cough has been non productive. She reports she has heard herself wheezing. She has shortness of breath with minimal exertion. She was seen by her PCP yesterday who prescribed her Tessalon Perles and Azithromycin. She reports no improvement in her symptoms. She denies fever and chills. No chest pain or palpitations. She denies lightheadedness, dizziness, diaphoresis, or syncopal events. She reports a poor appetite and some mild nausea with one episode of vomiting. No hematemesis or coffee ground emesis. She denies abdominal pain or diarrhea. She denies any urinary symptoms. In the ER, patient is saturating well on room air. CT chest is negative for PE and pneumonia. She was given IVF, IV solumedrol, neb, and IV Dilaudid. Physical Exam (per Admitting): General Appearance: no apparent distress Head: normocephalic Eyes: normal inspection ENT: hearing grossly normal Neck: supple, no JVD Respiratory/Chest: no respiratory distress, + pertinent finding (coarse breath sounds BL; shortness of breath with minimal exertion) Cardiovascular: regular rate, rhythm, no edema, normal peripheral pulses Abdomen/GI: normal bowel sounds, non tender, soft Extremities/Musculoskelatal: normal inspection, no calf tenderness Neurologic/Psych: no motor/sensory deficits, alert, normal mood/affect, oriented x 3 Skin: normal color, warm/dry Hospital Course Acute COPD Exacerbation Acute Hypercapnic respiratory failure Failed outpatient therapy patient presenting with increasing shortness of breath and cough CTA chest negative for PE and pneumonia ABG consistent with acute respiratory and metabolic acidosis Continue prednisone, inhalers, Doxy Oxygen Support Appreciate Database Consultant help On chronic oxygen at bedtime per patient (Admits to being non compliant) Prefers to have comfort measures only Appreciate palliative care help Needs ENT eval electively as outpatient Plan to discharge home with home hospice in place today SVT : In setting of acute respiratory failure Continue Cardizem DC amlodipine Monitor T6 COMPRESSION FRACTURE subacute, noted on CT chest no h/o fall pain control PT/OT HTN continue Cardizem DC amlodipine HYPOTHYROIDISM continue levothyroxine DM II: A1C:6.9 ISS, lantus Monitor blood sugar levels DVT PROPHYLAXIS SQ Lovenox CODE STATUS DNR/DNI Disposition: Plan to discharge home with hospice services today Follow up with on 09/26/16 at 2:45pm Follow up with your ENT physician as advised Complete the prednisone and antibiotic course as prescribed Total time spent on discharge = 34 minutes This includes examination of the patient, discharge planning, medication reconciliation, and communication with other providers. Discharge Instructions Discharge Instructions Date of Service Sep 23, 2016. Admission Reason for Admission: Copd Exacerbation Discharge Discharge Diagnosis / Problem: Acute COPD Exacerbation Discharge Goals Goal(s): Decrease discomfort, Improve function Activity Recommendations Activity Limitations: resume your previous activity Exercise/Sports Limitations: as tolerated . Instructions / Follow-Up Instructions / Follow-Up Follow up with on 09/26/16 at 2:45pm Follow up with your ENT physician as advised Complete the prednisone and antibiotic course as prescribed Current Hospital Diet Patient's current hospital diet: AHA Diet (Heart Healthy) Discharge Diet Recommended Diet: Regular Diet Pending Studies Studies pending at discharge: no Laboratory Results Hemoglobin A1c Test 09/20/16 04:32 Range/Units Estimated Average Glucose 151 mg/dl Hemoglobin A1c 6.9 H 4.5-5.6 % Medical Emergencies . Who to Call and When: Medical Emergencies: If at any time you feel your situation is an emergency, please call 911 immediately. . Non-Emergent Contact Non-Emergency issues call your: Primary Care Provider Call Non-Emergent contact if: you have a fever, your pain is not controlled, your pain is worsening, your pain is unusual for you, you have any medication questions . . "Provider Documentation" section prepared by Colin Richards. . VTE Core Measure Inpt VTE Proph given/why not?: Enoxaparin (Lovenox)SQ
[2016-09-23 11:11] VITALS: BP 103/72; PULSE 94; TEMP 36.9; O2SAT 96
[2016-09-23] MEDS ORDERED: INSULIN GLARGINE SOLOSTAR 100 UNITS/ML 3 ML PEN SC SCH (21:00)
== END 2016-09-23 12:47 | disposition hospice, home (50) | DRG 190 ==
LOC: C.EDA 16:49 → EDBD 16:49 → C.MED 19:23 → ENRESERV 19:37 → C.MSICU 21:39 → OBSVTOIN 09-20 02:28 → ENRESERV 09-21 09:09 → C.4E 09-21 12:46
PROVIDERS: ADMIT Internal Medicine; ATTEND Internal Medicine
DX: J44.1 Chronic obstructive pulmonary disease with (acute) exacerbation (principal); J96.02 Acute respiratory failure with hypercapnia; E87.2 Acidosis; M48.54XA Collapsed vertebra, not elsewhere classified, thoracic region, initial encounter for fracture; I47.1 Supraventricular tachycardia; K22.4 Dyskinesia of esophagus; E11.9 Type 2 diabetes mellitus without complications; E03.9 Hypothyroidism, unspecified; I10 Essential (primary) hypertension; Z51.5 Encounter for palliative care; Z66 Do not resuscitate; Z79.899 Other long term (current) drug therapy; Z87.891 Personal history of nicotine dependence

== ENCOUNTER 2016-12-31 16:45 | Inpatient (IN) | payer OTHER ==
[~2016-12-31] VITALS: Ht 152.4 cm; Wt 83.1 kg
[~2016-12-31 16:45] MED LIST changes: -ADVIN25/60 INH; -AMLO2.5T PO; +ATV5 PO; +AZITTAB PO; +BENZ100C18 PO; -CALC-354 PO; -CHOL400C PO; +DILT120C50 PO; -DOCU-94 PO; -DULO60CA44 PO; +DXY100 PO; -ETOMIDATE 2 MG/ML 20 ML VIAL IV ONE; -FSM70 PO; -MULT-513 PO; +OXGN; +RXNS2.5 PO; -SOLI10TA2 PO; -SUCCINYLCHOLINE CHLORIDE 20 MG/ML 10 ML VIAL IV ONE
[2016-12-31] MEDS ORDERED: LACTATED RINGER'S 1000ML 500 ML IV STA (16:53)
[2016-12-31] MEDS ORDERED: OXYMETAZOLINE HCL 0.05% NA SPR 15 ML BTL STA (17:01)
[2016-12-31] MEDS ORDERED: DILT120C68 PO (17:19)
[2016-12-31] MEDS ORDERED: MENTOIN TOP (17:20)
[2016-12-31] MEDS ORDERED: ALBUT/IPRATROP 3MG/0.5MG NEB 3 ML VIAL INH STA (17:28)
[2016-12-31] MEDS ORDERED: DOCU-94 PO (17:39)
[2016-12-31] MEDS ORDERED: ADVIN25/60 INH (17:44)
[2016-12-31] MEDS ORDERED: CHOL400C PO (17:45)
[2016-12-31] MEDS ORDERED: CALC-354 PO (17:47)
[2016-12-31] MEDS ORDERED: MULT-513 PO (17:47)
--- NOTE | 2016-12-31 17:55 | EMERGENCY ROOM VISIT NOTE ---
History Report prepared by Nila: Jameson Munoz Under the Supervision of: Dr. Jr Obrien M.D. First contact with patient: 16:46 Stated Complaint: NOSE BLEED History of Present Illness The patient is a 81 year old female who presents to the Emergency Room with complaints of intermittent nose bleeding that started last night. The patient states that she was fine the last couple of days and has not been experiencing nasal congestion. She reports that last night she noticed that she started to bleed out of both of her nostrils. The patient states that the bleeding was heavy and she tried to roll up Kleenex to put up her nose to stop the bleeding. She reports that she has been bleeding intermittently since and called EMS this morning. EMS states that upon arrival the patient's nose was "spotting" but they report that the bleeding stopped. The patient states that she did not want to come to the hospital and denied their services. She states that later that day, her nose began to bleed heavily again, which caused her to call EMS again. The patient states that she has been short of breath because she has not been able to get air through her nose. The patient denies experiencing this before, but admits that her doctor told her that she easily bleeds. She states that whenever she gets a cut, it bleeds heavily and is hard to stop. The patient admits that she has a history of anemia and emphysema. She denies using any blood thinners. Source of History: patient Onset: last night Position: nose Quality: other (bleeding) Timing: intermittent Modifying Factors (Relieving): other (Kleenex) Associated Symptoms: + SOB Review of Systems See HPI for pertinent positives and negatives. A total of ten systems were reviewed and were otherwise negative. Past Medical & Surgical Medical Problems: (1) Chronic pain of right hip (2) Compression fracture (3) COPD (chronic obstructive pulmonary disease) (4) DM type 2 (diabetes mellitus, type 2) (5) Dyslipidemia (6) Esophageal dysmotility (7) Essential hypertension (8) Hyponatremia (9) Hypothyroidism (10) Knee pain (11) Mass of lung (12) Osteoarthritis (13) Renal cancer (14) Renal mass (15) Respiratory distress (16) Respiratory failure (17) SVT (supraventricular tachycardia) Surgical Problems: (1) History of total bilateral knee replacement (2) Status post lumbar spinal fusion (3) Status post shoulder replacement Family History Diabetes mellitus Hypertension Social History Smoking Status: Former Smoker Alcohol Use: none Housing Status: lives alone Current/Historical Medications Scheduled Alendronate Sodium (Alendronate Sodium), 70 MG PO WK Calcium Carbonate-Cholecalcife (Caltrate 600+D), 1 TAB PO DAILY Celecoxib (Celebrex), 100 MG PO BID Cholecalciferol (Vitamin D3 400), 400 INTER.UNIT PO BID Diltiazem Hcl Ext Rel (Tiazac), 120 MG PO DAILY Duloxetine Hcl (Cymbalta), 1 CAP PO DAILY Fluticasone Prop/Salmeterol (Advair Diskus 250/50 60 Dose), 1 PUFF INH BID Levothyroxine Sodium (Levothyroxine Sodium), 1 TAB PO DAILY Menthol-Zinc Oxide (Calmoseptine), 1 APPLN TOP PRN Multivitamins/Minerals (Mvi With Minerals), 1 TAB PO DAILY Omeprazole (Omeprazole), 1 TAB PO BID Solifenacin (Vesicare), 10 MG PO HS [Oni-Sequels], 1 TAB PO BID Scheduled PRN Docusate Sodium (Colace), 100 MG PO BID PRN for Constipation Ipratropium-Albuterol (Combivent Respimat), 1 PUFF INH QID PRN for SOB/Wheezing Ipratropium-Albuterol (Duoneb), 1 TREATMENT INH Q4H PRN for SOB/Wheezing Allergies Coded Allergies: Levofloxacin (Verified Allergy, Mild, rash, 09/19/16) Pt reported that arm became severly itchy after start of IV levaquin Atorvastatin (Verified Adverse Reaction, Intermediate, MYALGIA, 09/19/16) Codeine (Verified Adverse Reaction, Intermediate, N/V, 09/21/16) Fentanyl (Verified Adverse Reaction, Intermediate, F[place], 09/19/16 ) PT STATES SHE WILL NOT WEAR THIS ANYMORE Morphine (Verified Adverse Reaction, Intermediate, N/V, 09/21/16) Physical Exam Vital Signs Date Time Temp Pulse Resp B/P (MAP) Pulse Ox O2 Delivery O2 Flow Rate FiO2 12/31/16 22:31 102 23 150/99 95 12/31/16 21:02 101 12/31/16 20:35 27 119/64 95 Room Air 11/25/17 19:03 94 22 131/73 94 Room Air 12/31/16 18:03 96 22 145/95 97 Room Air 12/31/16 17:00 108 12/31/16 16:57 36.5 96 24 128/75 97 Room Air Physical Exam GENERAL: Uncomfortable appearing in no acute distress. HENT: Normocephalic, atraumatic. Dry blood in bilateral nares with vascular masses in both nares. Dry mucous membranes with dry blood in the oropharynx. EYES: Normal conjunctiva. Sclera non-icteric. NECK: Supple. No nuchal rigidity. FROM. No JVD. RESPIRATORY: Scant scattered wheezes. CARDIAC: Tachycardic, normal rhythm. Extremities warm and well perfused. Pulses equal. ABDOMEN: Soft, non-distended. No tenderness to palpation. No rebound or guarding. No masses. RECTAL: Deferred. MUSCULOSKELETAL: Chest examination reveals no tenderness. The back is symmetrical on inspection without obvious abnormality. There is no CVA tenderness to palpation. No joint edema. LOWER EXTREMITIES: Calves are equal size bilaterally and non-tender. No edema. No discoloration. NEURO: Normal sensorium. No sensory or motor deficits noted. SKIN: No rash or jaundice noted. Medical Decision & Procedures ER Provider Diagnostic Interpretation: Radiology results as stated below per my review and radiologist interpretation: CHEST ONE VIEW PORTABLE CLINICAL HISTORY: Shortness of breath. COMPARISON STUDY: Chest CT September 19, 2016 and chest radiograph September 21, 2016. FINDINGS: Bilateral shoulder arthroplasties and thoracolumbar spine fusion are noted. Old right-sided rib fractures are present. There is no evidence of pulmonary edema. Cardiac size is normal. Lung volumes are diminished. There is no consolidation to suggest pneumonia. IMPRESSION: No acute cardiopulmonary findings. Electronically signed by: Cliff Varghese M.D. 12/31/2016 6:39 PM Dictated Date/Time: 12/31/2016 6:[address] WITH CONTRAST CLINICAL HISTORY: Epistaxis. COMPARISON STUDY: Maxillofacial CT July 20, 2016. TECHNIQUE: A maxillofacial CT was performed following intravenous injection of 93 cc of Optiray 320 IV. Sagittal and coronal reconstructions were viewed. FINDINGS: Visualized portions of the intracranial contents are unremarkable. There are extensive secretions within the nasopharynx, greater on the left. Small air-fluid levels within the left maxillary and sphenoid sinuses are noted. There are old bilateral nasal bone fractures are noted. No acute facial fracture is identified. No bony destruction is identified. No mass is identified within the sinuses or the nasal cavity. Orbits are unremarkable. The bilateral common carotid arteries are retropharyngeal in location. IMPRESSION: 1. Extensive secretions within the nasopharynx with small left maxillary and sphenoid sinus air-fluid levels which could reflect blood or acute sinusitis. No bony destruction or mass identified by CT. 2. Old bilateral nasal bone fractures. No acute facial fracture. No bony destruction identified. Electronically signed by: Cliff Varghese M.D. 12/31/2016 8:10 PM Dictated Date/Time: 12/31/2016 7:58 PM Laboratory Results 12/31/16 17:48 Red Blood Count 4.16, Mean Corpuscular Volume 74.0, Mean Corpuscular Hemoglobin 22.6, Mean Corpuscular Hemoglobin Concent 30.5, Mean Platelet Volume 9.3, Neutrophils (%) (Auto) 66.1, Lymphocytes (%) (Auto) 21.9, Monocytes (%) (Auto) 9.0, Eosinophils (%) (Auto) 1.9, Basophils (%) (Auto) 0.5, Neutrophils # (Auto) 6.27, Lymphocytes # (Auto) 2.08, Monocytes # (Auto) 0.85, Eosinophils # (Auto) 0.18, Basophils # (Auto) 0.05 12/31/16 17:48 Test 12/31/16 17:48 White Blood Count 9.49 K/uL (4.8-10.8) Red Blood Count 4.16 M/uL (4.2-5.4) Hemoglobin 9.4 g/dL (12.0-16.0) Hematocrit 30.8 % (37-47) Mean Corpuscular Volume 74.0 fL (80-100) Mean Corpuscular Hemoglobin 22.6 pg (25-34) Mean Corpuscular Hemoglobin Concent 30.5 g/dl (32-36) Platelet Count 441 K/uL (130-400) Mean Platelet Volume 9.3 fL (7.4-10.4) Neutrophils (%) (Auto) 66.1 % Lymphocytes (%) (Auto) 21.9 % Monocytes (%) (Auto) 9.0 % Eosinophils (%) (Auto) 1.9 % Basophils (%) (Auto) 0.5 % Neutrophils # (Auto) 6.27 K/uL (1.4-6.5) Lymphocytes # (Auto) 2.08 K/uL (1.2-3.4) Monocytes # (Auto) 0.85 K/uL (0.11-0.59) Eosinophils # (Auto) 0.18 K/uL (0-0.5) Basophils # (Auto) 0.05 K/uL (0-0.2) RDW Standard Deviation 44.7 fL (36.4-46.3) RDW Coefficient of Variation 16.5 % (11.5-14.5) Immature Granulocyte % (Auto) 0.6 % Immature Granulocyte # (Auto) 0.06 K/uL (0.00-0.02) Red Blood Cell Morphology Unremarkable Prothrombin Time 10.8 SECONDS (9.0-12.0) Prothromb Time International Ratio 1.0 (0.9-1.1) Activated Partial Thromboplast Time 23.6 SECONDS (21.0-31.0) Partial Thromboplastin Ratio 0.9 Anion Gap 6.0 mmol/L (3-11) Est Creatinine Clear Calc Drug Dose 40.3 ml/min Estimated GFR () 50.6 Estimated GFR (Non- 43.7 BUN/Creatinine Ratio 17.0 (10-20) Calcium Level 8.7 mg/dl (8.5-10.1) Troponin I < 0.015 ng/ml (0-0.045) Laboratory results reviewed by me Medications Administered Medications (Trade) Dose Ordered Sig/Charlee Route Start Time Stop Time Status Last Admin Dose Admin Lactated Ringer's 500 ml @ 999 mls/hr Q31M STAT IV 12/31/16 16:53 12/31/16 17:23 DC 12/31/16 18:00 999 MLS/HR Oxymetazoline HCl (Afrin 0.05% Nasal [place]) 2 sprays NOW STAT NA 12/31/16 17:01 12/31/16 17:03 DC 12/31/16 18:01 2 SPRAYS Albuterol/ Ipratropium (Duoneb) 3 ml NOW STAT INH 12/31/16 17:28 12/31/16 17:33 DC 12/31/16 18:16 3 ML ECG Indication: SOB/dyspnea Rate (beats per minute): 103 Rhythm: sinus tachycardia Findings: no acute ischemic change, other (normal axis) ED Course 1648: The patient was evaluated in room B02. A complete history and physical exam was performed. 2029: I reevaluated the patient and she is more short of breath than normal. Her bleeding is controlled with the clamp. When the patient walked to bathroom, she started to bleed again. I will talk to ENT for further evaluation. 2040: I discussed the patients case with Dr. Adler, [facility]. He reports that it seems to be epistaxis and not sinusitis. He has no concerns for mass. He believes that there is no need for admission. 2045: I reevaluated the patient and updated her on the results. 2105: I discussed the patient's case with Dr. Dunn, [facility] Hospitalist. He understands the patient's condition and agrees to accept the patient. The patient will be further evaluated. Medical Decision I reviewed the patient's past medical history, medications, and the nursing notes as described above. 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 The patient is a 81-year-old woman with a past medical history of COPD, hypertension and some urgency department with intermittent epistaxis since yesterday that his been worsening throughout today and then developed shortness of breath per history of present illness. Arrival the patient is uncomfortable but in no acute distress. Afebrile with heart rate in the low 100s but otherwise stable vital signs. On exam the patient has no active epistaxis however appears to have bilateral masses in each nare that appeared to be the source for bleeding with could be c/w engorged/hypervascular nasal turbinates vs mass. Labs otherwise unremarkable with HCT at baseline. CXR negative. CT of the face with contrast negative for nasal mass and more consistent with the patient's epistaxis. On reevaluation the patient's epistaxis is controlled with Afrin and nasal clamp. However, she did experience mild oozing after emulating to the bathroom was once again controlled. Of note, on in relation to the bathroom the patient did become significantly dyspneic that is worse than her baseline per the family and nursing staff. However, once returned to her bed and resting breathing did improve but patient and family do endorse overall her breathing is much more difficult given her inability to breathe through her nose. While admission not necessarily required for the patient's epistaxis given that it is controlled, the patient's clinical status is complicated by her poor respiratory reserve in the setting of her severe COPD and thus admission is appropriate for monitoring of her respiratory status in the setting of this epistaxis. I did discuss the case with Dr. Adler, ENT, who reviewed the patient's CT and agrees that findings are not consistent with mass and moreover not consistent with sinusitis, rather c/w the patient's epistaxis. He agrees that regarding the patient's epistaxis, given that the bleeding is controlled with Afrin and nasal clamp there is no indication for admission for this alone. However, if the patient is to be admitted he will be available for consultation if needed by the admitting team. Case was discussed with Clare Jeffries, who will admit the patient for further management. Medication Reconcilliation Current Medication List: was personally reviewed by me Blood Pressure Screening Patient's blood pressure: Normal blood pressure Consults Time Called: 2040 Consulting Physician: Dr. Adler, [facility] Returned Call: 2040 I discussed the patients case with Dr. Adler, [facility]. He reports that it seems to be epistaxis and not sinusitis. He has no concerns for mass. He believes that there is no need for admission. Additional Consults: Time Called: 2105 Consulted Physician: Clare Jeffries Returned Call: 2105 Additional Comments: I discussed the patient's case with Clare Jeffries. He understands the patient's condition and agrees to accept the patient. The patient will be further evaluated. Impression Primary Impression: Epistaxis Additional Impression: COPD (chronic obstructive pulmonary disease) Scribe Attestation The scribe's documentation has been prepared under my direction and personally reviewed by me in its entirety. I confirm that the note above accurately reflects all work, treatment, procedures, and medical decision making performed by me. Departure Information Dispostion Being Evaluated By Hospitalist Harjeet Whitaker M.D. (PCP) Problem Qualifiers
[2016-12-31] MEDS ORDERED: OPTIRAY 320 IV PRN (18:15)
[2016-12-31] MEDS ORDERED: SOLI10TA2 PO (18:27)
[2016-12-31 18:29] LABS: BASO % 0.5 %; BASO ABS # 0.05 K/uL (0-0.2); EOS % 1.9 %; HEMATOCRIT 30.8 % (37-47); IG% 0.6 %; LYMPH % 21.9 %; LYMPH ABS # 2.08 K/uL (1.2-3.4); MEAN CORPUSCULAR HEMOGLOBIN 22.6 pg (25-34); MEAN CORPUSCULAR HGB CONC 30.5 g/dl (32-36); MEAN PLATELET VOLUME 9.3 fL (7.4-10.4); NEUT % 66.1 %; PLATELET COUNT 441 K/uL (130-400); RED BLOOD COUNT 4.16 M/uL (4.2-5.4); WHITE BLOOD COUNT 9.49 K/uL (4.8-10.8)
[2016-12-31 18:38] LABS: PARTIAL THROMBOPLASTIN RATIO 0.9; PROTHROMBIN TIME (PATIENT) 10.8 SECONDS (9.0-12.0)
--- NOTE | 2016-12-31 18:40 | DIAGNOSTIC IMAGING REPORT ---
CHEST ONE VIEW PORTABLE CLINICAL HISTORY: Shortness of breath. COMPARISON STUDY: Chest CT September 19, 2016 and chest radiograph September 21, 2016. FINDINGS: Bilateral shoulder arthroplasties and thoracolumbar spine fusion are noted. Old right-sided rib fractures are present. There is no evidence of pulmonary edema. Cardiac size is normal. Lung volumes are diminished. There is no consolidation to suggest pneumonia. IMPRESSION: No acute cardiopulmonary findings. Electronically signed by: Cliff Varghese M.D. 12/31/2016 6:39 PM Dictated Date/Time: 12/31/2016 6:37 PM
[2016-12-31 18:49] LABS: COMPLETE YES
[2016-12-31 18:50] LABS: BLOOD UREA NITROGEN 20 mg/dl (7-18); CALCIUM 8.7 mg/dl (8.5-10.1); CARBON DIOXIDE 28 mmol/L (21-32); CHLORIDE 99 mmol/L (98-107); CREATININE 1.17 mg/dl (0.60-1.20); GLUCOSE 116 mg/dl (70-99); SODIUM 133 mmol/L (136-145)
[2016-12-31] MEDS ORDERED: FERRO SEQUELS PO (19:50)
[2016-12-31] MEDS ORDERED: LEVO75TA5 PO (19:50)
[2016-12-31] MEDS ORDERED: OMEP20TA PO (19:50)
[2016-12-31] MEDS ORDERED: IPRASOL4 INH (19:50)
[2016-12-31] MEDS ORDERED: DULO60CA44 PO (19:50)
--- NOTE | 2016-12-31 20:11 | DIAGNOSTIC IMAGING REPORT ---
MAXILLOFACIAL CT WITH CONTRAST CLINICAL HISTORY: Epistaxis. COMPARISON STUDY: Maxillofacial CT July 20, 2016. TECHNIQUE: A maxillofacial CT was performed following intravenous injection of 93 cc of Optiray 320 IV. Sagittal and coronal reconstructions were viewed. FINDINGS: Visualized portions of the intracranial contents are unremarkable. There are extensive secretions within the nasopharynx, greater on the left. Small air-fluid levels within the left maxillary and sphenoid sinuses are noted. There are old bilateral nasal bone fractures are noted. No acute facial fracture is identified. No bony destruction is identified. No mass is identified within the sinuses or the nasal cavity. Orbits are unremarkable. The bilateral common carotid arteries are retropharyngeal in location. IMPRESSION: 1. Extensive secretions within the nasopharynx with small left maxillary and sphenoid sinus air-fluid levels which could reflect blood or acute sinusitis. No bony destruction or mass identified by CT. 2. Old bilateral nasal bone fractures. No acute facial fracture. No bony destruction identified. Electronically signed by: Cliff Varghese M.D. 12/31/2016 8:10 PM Dictated Date/Time: 12/31/2016 7:58 PM
[2016-12-31] MEDS ORDERED: DOCUSATE SODIUM 100 MG CAP PO PRN (22:30)
[2016-12-31] MEDS ORDERED: ACETAMINOPHEN 325 MG TAB PO PRN (22:30)
[2016-12-31] MEDS ORDERED: IPRATROPIUM BROMIDE/ALBUTEROL respimat INH INH PRN (22:30)
[2016-12-31] MEDS ORDERED: FSM70 PO (23:54)
[2016-12-31 23:59] VITALS: BP 143/82; PULSE 111; TEMP 37.1; O2SAT 95
[2017-01-01] VITALS (12 sets, daily range): BP systolic 139–172; BP diastolic 82–95; PULSE 93–111; TEMP 36.6–37.1; O2SAT 92–96; Ht 152.4 cm; Wt 83.1 kg
[2017-01-01] MEDS ORDERED: SODIUM CHLORIDE 0.65% NA SOLN 45 ML (OCEAN) PRN (01:15)
--- NOTE | 2017-01-01 01:33 | History and Physical ---
History & Physical Date & Time of Service: Jan 01, 2017 at 01:03 Chief Complaint: Copd, Epistaxis Primary Care Physician: Harjeet Zaman M.D. History of Present Illness Source: patient, clinic records, hospital records This is an 81 year old female with a PMH of COPD, HTN, diet controlled DM2, GERD , hypothyroidism, neuropathy - presents with epistaxis. States that on the evening of 12/30 she developed what she thought was a runny nose, but found it to be blood. This was her first epistaxis episode. The bleeding stopped and she went to sleep. She woke up and the bleeding recurred. She initially called EMS, but the bleeding stopped and she did not want to come to the ER. Unfortunately, the bleeding started up again and she was brought to the ER. The bleeding stopped with clamping and Afrin. CT of the face performed, showing some air- fluid levels. ENT was consulted, they stated that if bleeding stopped, patient could be discharged. Unfortunately, due to the bleeding, patient has been having difficulty with breathing. With exertion, her O2 levels drop. Due to her breathing issues, it was decided she would be admitted. 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 Beal Status: Chronic Surgical Problems: (1) History of total bilateral knee replacement Status: Chronic (2) Status post lumbar spinal fusion Status: Chronic (3) Status post shoulder replacement Status: Chronic Family History Diabetes mellitus Hypertension Social History Smoking Status: Former Smoker Housing status: lives alone Immunizations History of Influenza Vaccine: Yes Influenza Vaccine Date: Nov 17, 2015 History of Tetanus Vaccine?: Yes Tetanus Immunization Date: Sep 10, 2012 History of Pneumococcal: Yes Pneumococcal Date: May 20, 2015 Multi-Drug Resistant Organisms History of MDRO: Yes Type of MDRO: MRSA Allergies Coded Allergies: Levofloxacin (Verified Allergy, Mild, rash, 09/19/16) Pt reported that arm became severly itchy after start of IV levaquin Atorvastatin (Verified Adverse Reaction, Intermediate, MYALGIA, 09/19/16) Codeine (Verified Adverse Reaction, Intermediate, N/V, 09/21/16) Fentanyl (Verified Adverse Reaction, Intermediate, FREQU[place], 09/19/16 ) PT STATES SHE WILL NOT WEAR THIS ANYMORE Morphine (Verified Adverse Reaction, Intermediate, N/V, 09/21/16) Home Medications Scheduled Alendronate Sodium (Alendronate Sodium), 70 MG PO WK Calcium Carbonate-Cholecalcife (Caltrate 600+D), 1 TAB PO DAILY Celecoxib (Celebrex), 100 MG PO BID Cholecalciferol (Vitamin D3 400), 400 INTER.UNIT PO BID Diltiazem Hcl Ext Rel (Tiazac), 120 MG PO DAILY Duloxetine Hcl (Cymbalta), 1 CAP PO DAILY Fluticasone Prop/Salmeterol (Advair Diskus 250/50 60 Dose), 1 PUFF INH BID Levothyroxine Sodium (Levothyroxine Sodium), 1 TAB PO DAILY Menthol-Zinc Oxide (Calmoseptine), 1 APPLN TOP PRN Multivitamins/Minerals (Mvi With Minerals), 1 TAB PO DAILY Omeprazole (Omeprazole), 1 TAB PO BID Solifenacin (Vesicare), 10 MG PO HS [Oni-Sequels], 1 TAB PO BID Scheduled PRN Docusate Sodium (Colace), 100 MG PO BID PRN for Constipation Ipratropium-Albuterol (Combivent Respimat), 1 PUFF INH QID PRN for SOB/Wheezing Ipratropium-Albuterol (Duoneb), 1 TREATMENT INH Q4H PRN for SOB/Wheezing Review of Systems Constitutional: No fever, No chills, No sweats, No weight loss, No weakness, No fatigue Eyes: No worsening of vision ENT: + unusual epistaxis, + nasal symptoms, No hearing loss, No sore throat, No tinnitus, No dental problems, No trouble swallowing Respiratory: + shortness of breath, + dyspnea on exertion, + dyspnea at rest, No cough, No sputum, No wheezing, No hemoptysis Cardiovascular: No chest pain, No orthopnea, No edema, No palpitations Abdomen: No pain, No nausea, No vomiting, No diarrhea, No constipation, No GI bleeding Musculoskeletal: No joint pain, No muscle pain Genitourinary - Female: No dysuria, No urinary frequency, No urinary urgency, No urinary incontinence, No urinary retention, No hematuria Neurologic: + numbness/tingling, No memory loss, No vertigo, No balance problems Psychiatric: No depression symptoms Endocrine: No fatigue, No excessive thirst Hematologic / Lymphatic: + abnormal bleeding/bruising Integumentary: No rash Allergic / Immunologic: No environmental allergies, No seasonal allergies Physical Exam Vital Signs Date Time Temp Pulse Resp B/P (MAP) Pulse Ox O2 Delivery O2 Flow Rate FiO2 12/31/16 23:59 37.1 111 20 143/82 (102) 95 Room Air 12/31/16 22:31 102 23 150/99 95 12/31/16 21:02 101 12/31/16 20:35 27 119/64 95 Room Air 12/31/16 19:03 94 22 131/73 94 Room Air 12/31/16 18:03 96 22 145/95 97 Room Air 12/31/16 17:00 108 12/31/16 16:57 36.5 96 24 128/75 97 Room Air General Appearance: no apparent distress Head: normocephalic, atraumatic Eyes: normal inspection ENT: hearing grossly normal, + pertinent finding (+clamp in place, bleeding stopped) Neck: supple Respiratory/Chest: chest non-tender, lungs clear, normal breath sounds, no respiratory distress, no accessory muscle use Cardiovascular: no edema, no gallop, no JVD, no murmur, normal peripheral pulses, + tachycardia Abdomen/GI: normal bowel sounds, non tender, soft Extremities/Musculoskelatal: normal inspection, no calf tenderness, normal capillary refill, normal range of motion, + pertinent finding (R ankle swelling) 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, no motor/sensory deficits, alert, normal mood/affect, oriented x 3 Skin: normal color Lymphatic: no adenopathy Diagnostics Laboratory Results Results Past 24 Hours Test 12/31/16 17:48 Range/Units White Blood Count 9.49 4.8-10.8 K/uL Red Blood Count 4.16 4.2-5.4 M/uL Hemoglobin 9.4 12.0-16.0 g/dL Hematocrit 30.8 37-47 % Mean Corpuscular Volume 74.0 80-100 fL Mean Corpuscular Hemoglobin 22.6 25-34 pg Mean Corpuscular Hemoglobin Concent 30.5 32-36 g/dl Platelet Count 441 130-400 K/uL Mean Platelet Volume 9.3 7.4-10.4 fL Neutrophils (%) (Auto) 66.1 % Lymphocytes (%) (Auto) 21.9 % Monocytes (%) (Auto) 9.0 % Eosinophils (%) (Auto) 1.9 % Basophils (%) (Auto) 0.5 % Neutrophils # (Auto) 6.27 1.4-6.5 K/uL Lymphocytes # (Auto) 2.08 1.2-3.4 K/uL Monocytes # (Auto) 0.85 0.11-0.59 K/uL Eosinophils # (Auto) 0.18 0-0.5 K/uL Basophils # (Auto) 0.05 0-0.2 K/uL RDW Standard Deviation 44.7 36.4-46.3 fL RDW Coefficient of Variation 16.5 11.5-14.5 % Immature Granulocyte % (Auto) 0.6 % Immature Granulocyte # (Auto) 0.06 0.00-0.02 K/uL Red Blood Cell Morphology Unremarkable Prothrombin Time 10.8 9.0-12.0 SECONDS Prothromb Time International Ratio 1.0 0.9-1.1 Activated Partial Thromboplast Time 23.6 21.0-31.0 SECONDS Partial Thromboplastin Ratio 0.9 Sodium Level 133 136-145 mmol/L Potassium Level 4.0 3.5-5.1 mmol/L Chloride Level 99 98-107 mmol/L Carbon Dioxide Level 28 21-32 mmol/L Anion Gap 6.0 3-11 mmol/L Blood Urea Nitrogen 20 7-18 mg/dl Creatinine 1.17 0.60-1.20 mg/dl Est Creatinine Clear Calc Drug Dose 40.3 ml/min Estimated GFR () 50.6 Estimated GFR (Non- 43.7 BUN/Creatinine Ratio 17.0 10-20 Random Glucose 116 70-99 mg/dl Calcium Level 8.7 8.5-10.1 mg/dl Troponin I < 0.015 0-0.045 ng/ml Diagnostic Radiology MAXILLOFACIAL CT WITH CONTRAST CLINICAL HISTORY: Epistaxis. COMPARISON STUDY: Maxillofacial CT July 20, 2016. TECHNIQUE: A maxillofacial CT was performed following intravenous injection of 93 cc of Optiray 320 IV. Sagittal and coronal reconstructions were viewed. FINDINGS: Visualized portions of the intracranial contents are unremarkable. There are extensive secretions within the nasopharynx, greater on the left. Small air-fluid levels within the left maxillary and sphenoid sinuses are noted. There are old bilateral nasal bone fractures are noted. No acute facial fracture is identified. No bony destruction is identified. No mass is identified within the sinuses or the nasal cavity. Orbits are unremarkable. The bilateral common carotid arteries are retropharyngeal in location. IMPRESSION: 1. Extensive secretions within the nasopharynx with small left maxillary and sphenoid sinus air-fluid levels which could reflect blood or acute sinusitis. No bony destruction or mass identified by CT. 2. Old bilateral nasal bone fractures. No acute facial fracture. No bony destruction identified. CHEST ONE VIEW PORTABLE CLINICAL HISTORY: Shortness of breath. COMPARISON STUDY: Chest CT September 19, 2016 and chest radiograph September 21, 2016. FINDINGS: Bilateral shoulder arthroplasties and thoracolumbar spine fusion are noted. Old right-sided rib fractures are present. There is no evidence of pulmonary edema. Cardiac size is normal. Lung volumes are diminished. There is no consolidation to suggest pneumonia. IMPRESSION: No acute cardiopulmonary findings. Impression Assessment and Plan This is an 81 year old female with a PMH of COPD, HTN, diet controlled DM2, GERD , hypothyroidism, neuropathy - presents with epistaxis and shortness of breath Epistaxis stopped with clamping and Afrin Hgb stable, chronic anemia noted recheck CBC in AM Facial CT performed, showing air-fluid levels - unlikely sinusitis, more likely blood saline nasal spray as needed ENT consulted for further input Hypoxia/Shortness of Breath in the setting of COPD patient presented with shortness of breath secondary to epistaxis patient having difficulty breathing due to nose being plugged with dried blood saline spray as needed Combivent as needed continue Advair duonebs as needed O2 as needed will likely improve after the epistaxis is taken care of HTN blood pressure stable continue Diltiazem DM2 blood sugars stable; diet controlled monitor GERD PPI BID Hypothyroidism continue Synthroid Neuropathy continue Cymbalta DVT ppx SCDs DNR VTE Prophylaxis VTE Risk Assessment Done? Y/N: Yes Risk Level: Moderate
[2017-01-01] MEDS ORDERED: LEVOTHYROXINE 75 MCG TAB PO SCH (06:00)
[2017-01-01] MEDS ORDERED: CLONAZEPAM 0.5 MG TAB PO STA (06:14)
[2017-01-01 06:52] LABS: BUN/CREATININE RATIO 17.7 (10-20); CALCIUM 8.6 mg/dl (8.5-10.1); CREATININE 0.96 mg/dl (0.60-1.20); POTASSIUM 3.9 mmol/L (3.5-5.1)
[2017-01-01 06:59] LABS: HEMATOCRIT 26.7 % (37-47); MEAN CELL VOLUME 73.6 fL (80-100); MEAN CORPUSCULAR HEMOGLOBIN 21.8 pg (25-34); MEAN CORPUSCULAR HGB CONC 29.6 g/dl (32-36); MEAN PLATELET VOLUME 8.9 fL (7.4-10.4); PLATELET COUNT 345 K/uL (130-400); RED BLOOD COUNT 3.63 M/uL (4.2-5.4); WHITE BLOOD COUNT 8.28 K/uL (4.8-10.8)
[2017-01-01] MEDS ORDERED: AMLODIPINE BESYLATE 5 MG TAB PO ONE (07:00)
[2017-01-01] MEDS: ALBUT/IPRATROP 3MG/0.5MG NEB 3 ML VIAL INH SCH ×3 (07:22→14:35)
--- NOTE | 2017-01-01 08:18 | ENT CONSULTATION ---
DATE OF CONSULTATION: 01/01/2017 I have been asked by Dr. Dunn to evaluate this patient with epistaxis. HISTORY OF PRESENT ILLNESS: The patient is an 81-year-old female with a significant history of severe COPD, hypertension, diabetes mellitus, reflux, hypothyroidism, and obesity, who presented to the [facility] Emergency Room last evening with epistaxis. She states that on the evening of December 30, she woke up with what she thought was a runny nose, but it was epistaxis and that it was "everywhere." She got the bleeding to stop, but then it restarted the next day, prompting her to come to the Emergency Room late last evening. The bleeding stopped with Afrin nasal spray and a nasal clamp. I am not sure why, but the Emergency Room doctor, Dr. Jr Obrien ordered a CT scan of the sinuses, which showed what I think is blood within the bilateral nasal cavities, nasopharynx, left maxillary sinus, left ethmoid sinus, and left sphenoid sinus. He was concerned about possible "vascular masses" within her inferior turbinates. The patient was admitted to the hospitalist service and I have been consulted to evaluate this patient's epistaxis. The patient states that since she was admitted last night, she has had no further epistaxis. She has no prior history of epistaxis. She states that she fractured her nose several months ago after falling and had bleeding during that time, but no bleeding since. ALLERGIES: LEVAQUIN, ATORVASTATIN, CODEINE, FENTANYL, AND MORPHINE. CURRENT MEDICATIONS: Diltiazem, Cymbalta, Advair, multivitamin, Protonix, DuoNeb, Synthroid, Simpson nasal spray, Tylenol, Colace, Combivent, and Afrin. PAST MEDICAL HISTORY: Severe COPD, diabetes mellitus, dyslipidemia, hypertension, hypothyroidism, osteoarthritis, and a history of clear cell renal cell carcinoma in 2006. PAST SURGICAL HISTORY: 1. Status post partial nephrectomy. 2. Status post total bilateral knee replacement. 3. Status post back surgery. 4. Status post shoulder replacement surgery. FAMILY HISTORY: Noncontributory. SOCIAL HISTORY: The patient lives alone. She is a former smoker with a [id number] smoking history. She denies any illicit drug use. REVIEW OF SYSTEMS: The patient currently denies any epistaxis or bloody postnasal drip. She denies any nasal airway obstruction. She states that she is feeling better and wants to go home. She has her baseline shortness of breath from her COPD. She denies any lightheadedness, dizziness, or chest pain. PHYSICAL EXAMINATION: GENERAL: This is an elderly white female in no acute distress, who is tachypneic, likely due to her COPD. She is obese. HEENT: External auditory canals are clear. Tympanic membranes are dull with sclerotic tympanic membranes. Nasal examination reveals dried blood within a septal perforation with most of the dried blood within the posterior aspect of the perforation. There are no "vascular masses" as Dr. Obrien in the Emergency Room thought. Her inferior turbinates are normal. There is no active bleeding. Oral cavity and oropharyngeal examination reveals dry mucous membranes with dried blood staining the posterior pharyngeal wall with no active bleeding. NECK: Reveals no lymphadenopathy, thyroid nodularity, or masses. LABORATORY DATA: The patient's laboratory examinations showed a hematocrit of 30.8. She has chronic anemia and her hematocrit in September was as low as 28.7 and as high as 35.5. Her blood coagulation studies are normal. Her blood glucose is elevated consistent with her diabetes mellitus. Her imaging was reviewed, which shows what is likely blood within the bilateral nasal cavities, worse on the left hand side with some fluid within the left maxillary, sphenoid, and ethmoid sinuses, which I believe is blood. There is no evidence of any mass or lesion. IMPRESSION AND RECOMMENDATIONS: An 81-year-old female admitted with epistaxis, which has stopped with Afrin and direct pressure. On my examination, I see a septal perforation. The patient denies any prior history of sinonasal surgery, cocaine use, or digital manipulation. 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 There is some dried blood within the posterior aspect of the septum. I would recommend moisturization with nasal saline 2 sprays in each nostril twice daily followed by mupirocin ointment. I have also instructed the patient on how to stop the nosebleed with direct pressure and with Afrin. She should probably get some Afrin over the counter and have it on hand in case she develops recurrent epistaxis. I would like to see the patient back in my office in 2 weeks for repeat examination of her septal perforation. Please make sure that she has a followup appointment with me at that time. Since there is no active bleeding, I will sign off on this consultation, but if you need any further assistance, please do not hesitate to contact me. From an ENT standpoint, I believe that she is stable to go home as there is no active bleeding.
[2017-01-01] MEDS ORDERED: DULOXETINE HCL 60 MG CAP PO SCH (09:00)
[2017-01-01] MEDS ORDERED: FLUTICASONE/SALMETEROL 250/50 (ADVAIR) 14 PUFF/1 INHALER INH SCH (09:00)
[2017-01-01] MEDS ORDERED: CEROVITE ADV FORMULA TAB PO SCH (09:00)
[2017-01-01] MEDS ORDERED: DILTIAZEM HCL 120 MG EXT REL CAP PO SCH (09:00)
[2017-01-01] MEDS ORDERED: PANTOprazole SOD 40 MG TAB PO SCH (09:00)
[2017-01-01] MEDS: SODIUM CHLORIDE 0.9% 1000ML 1,000 ML IV SCH ×3 (12:29→12:34)
--- NOTE | 2017-01-01 13:20 | Progress Note ---
Medicine Progress Note Date & Time of Visit: Jan 01, 2017 at 12:50. Subjective Pt was seen and examined Pt said that she feels fine She is very anxious to go home Pt said that her nose bleeding stop She said the ENT taught her how to stop the bleeding She said that she will not get any blood transfusion even if her Hgb drops further She wants to go home He denies any chest pain, palpitation dizziness and SOB Objective Last 8 Hrs Date Time Temp Pulse Resp B/P (MAP) Pulse Ox O2 Delivery O2 Flow Rate FiO2 01/01/17 12:04 36.6 103 22 163/90 (114) 93 Room Air 01/01/17 12:00 96 Room Air 01/01/17 11:07 104 16 96 Room Air 01/01/17 08:10 37.1 108 28 159/95 (116) 93 Room Air 01/01/17 08:00 95 Room Air 01/01/17 07:22 102 16 95 Room Air Physical Exam: General- No acute distress Head- atraumatic Eyes- PERRL, EOMI ENT- oropharynx clear, normal turbinate Neck- supple, no JVD Lungs- clear to auscultation Heart- regular rhythm; no murmur Abdomen- normal bowel sounds, soft Extremities- no calf tenderness Neuro- alert, oriented x 3; PERRL, EOMI; no facial palsy Skin- warm & dry Laboratory Results: Last 24 Hours Test 12/31/16 17:48 01/01/17 06:10 White Blood Count 9.49 K/uL 8.28 K/uL Red Blood Count 4.16 M/uL 3.63 M/uL Hemoglobin 9.4 g/dL 7.9 g/dL Hematocrit 30.8 % 26.7 % Mean Corpuscular Volume 74.0 fL 73.6 fL Mean Corpuscular Hemoglobin 22.6 pg 21.8 pg Mean Corpuscular Hemoglobin Concent 30.5 g/dl 29.6 g/dl Platelet Count 441 K/uL 345 K/uL Mean Platelet Volume 9.3 fL 8.9 fL Neutrophils (%) (Auto) 66.1 % Lymphocytes (%) (Auto) 21.9 % Monocytes (%) (Auto) 9.0 % Eosinophils (%) (Auto) 1.9 % Basophils (%) (Auto) 0.5 % Neutrophils # (Auto) 6.27 K/uL Lymphocytes # (Auto) 2.08 K/uL Monocytes # (Auto) 0.85 K/uL Eosinophils # (Auto) 0.18 K/uL Basophils # (Auto) 0.05 K/uL RDW Standard Deviation 44.7 fL 45.6 fL RDW Coefficient of Variation 16.5 % 16.7 % Immature Granulocyte % (Auto) 0.6 % Immature Granulocyte # (Auto) 0.06 K/uL Red Blood Cell Morphology Unremarkable Prothrombin Time 10.8 SECONDS Prothromb Time International Ratio 1.0 Activated Partial Thromboplast Time 23.6 SECONDS Partial Thromboplastin Ratio 0.9 Sodium Level 133 mmol/L 138 mmol/L Potassium Level 4.0 mmol/L 3.9 mmol/L Chloride Level 99 mmol/L 103 mmol/L Carbon Dioxide Level 28 mmol/L 26 mmol/L Anion Gap 6.0 mmol/L 9.0 mmol/L Blood Urea Nitrogen 20 mg/dl 17 mg/dl Creatinine 1.17 mg/dl 0.96 mg/dl Est Creatinine Clear Calc Drug Dose 40.3 ml/min 43.9 ml/min Estimated GFR () 50.6 64.3 Estimated GFR (Non- 43.7 55.5 BUN/Creatinine Ratio 17.0 17.7 Random Glucose 116 mg/dl 133 mg/dl Calcium Level 8.7 mg/dl 8.6 mg/dl Troponin I < 0.015 ng/ml Assessment & Plan Epistaxis 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 No active nose bleeding ENT on board, recommend moisturization with nasal saline 2 sprays in each nostril twice daily followed by mupirocin ointment. Pt was instructed by ENT on how to stop the nosebleed with direct pressure and with Afrin. Advised pt not to avoid blowing her nose Seek medical attention if bleeding reoccurs and nonstop No vascular mass seen OK from ENT standpoint to discharge home Follow up in 2 weeks with ENT Anemia Hbg on admission 9.4 Due to epistaxis Hgb today 7.9, repeat hgb 7.7 Pt said that she would not get any blood transfusion She refused to stay for one more night Will give her a lab order to check CBC on Monday Hypoxia/Shortness of Breath in the setting of COPD Having difficulty breathing due to nose being plugged with dried blood Continue saline spray continue Advair Saturated at 93% on RA HTN blood pressure stable continue Diltiazem DM2 blood sugars stable; diet controlled monitor GERD PPI BID Hypothyroidism continue Synthroid Neuropathy continue Cymbalta DVT ppx SCDs CODE STATUS DNR DISPOSITION Follow up with your primary care provider Dr. Colon on 01/06 @ 12:25 PM Follow up with Ear, Nose and throat doctor Dr. Christine in 2 weeks ( please call for the appointment) Consultants: ENT Current Inpatient Medications: Current Inpatient Medications Medications (Trade) Dose Ordered Sig/Charlee Route Start Time Stop Time Status Last Admin Dose Admin Ioversol (Optiray 320) 100 ml UD PRN IV 12/31/16 18:15 01/04/17 18:14 Sodium Chloride 1,000 ml @ 80 mls/hr [id number] IV 12/31/16 23:59 01/30/17 23:58 01/01/17 00:00 80 MLS/HR Acetaminophen (Tylenol Tab) 650 mg Q4H PRN PO 12/31/16 22:30 01/30/17 22:29 01/01/17 04:39 650 MG Diltiazem HCl (TIAzac CAP) 120 mg DAILY PO 01/01/17 09:00 01/31/17 08:59 01/01/17 07:41 120 MG Docusate Sodium (coLACE CAP) 100 mg BID PRN PO 12/31/16 22:30 01/30/17 22:29 Duloxetine HCl (Cymbalta Cap) 60 mg DAILY PO 01/01/17 09:00 01/31/17 08:59 01/01/17 07:42 60 MG Salmeterol Xinafoate/ Fluticasone (Advair Diskus 250/50 Inh) 1 puff BID INH 01/01/17 09:00 01/31/17 08:59 01/01/17 07:42 1 PUFF Albuterol/ Ipratropium (Combivent Respimat Inh) 1 puffs QID PRN INH 12/31/16 22:30 01/30/17 22:29 Levothyroxine Sodium (Synthroid Tab) 75 mcg DAILYBB PO 01/01/17 06:00 01/31/17 06:59 01/01/17 06:29 75 MCG Multivitamins/ Minerals (Multivitamin W/ Minerals Tab) 1 tab DAILY PO 01/01/17 09:00 01/31/17 08:59 01/01/17 07:41 1 TAB Pantoprazole Sodium (Protonix Tab) 40 mg BID PO 01/01/17 09:00 01/31/17 08:59 01/01/17 07:41 40 MG Albuterol/ Ipratropium (Duoneb) 3 ml QIDR INH 01/01/17 08:00 01/31/17 07:59 01/01/17 11:07 3 ML Sodium Chloride ([place] Nasal [place]) 2 sprays QID PRN NA 01/01/17 01:15 01/31/17 01:14 01/01/17 04:31 2 SPRAYS
[2017-01-01 16:02] LABS: HEMATOCRIT 26.4 % (37-47)
[2017-01-01] MEDS ORDERED: SALI0.6510 (17:22)
[2017-01-01] MEDS ORDERED: OXYM0.056 (17:22)
[2017-01-01] MEDS ORDERED: BCTCR/30 (17:22)
--- NOTE | 2017-01-01 17:36 | Discharge Instructions ---
Discharge Instructions Date of Service Jan 01, 2017. Admission Reason for Admission: Copd, Epistaxis Discharge Discharge Diagnosis / Problem: Epistaxis, Anemia, Hypoxia Discharge Goals Goal(s): Decrease discomfort, Improve function, Improve disease control Activity Recommendations Activity Limitations: resume your previous activity (as tolerated) . Instructions / Follow-Up Instructions / Follow-Up Follow up with your primary care provider Dr. Colon on 01/06 @ 12:25 PM Follow up with Ear/Nose/Throat doctor Dr. Christine in 2 weeks ( please call to schedule for the appointment) Telephone number: [phone] Address: [address] [place] [address] Check CBC on Monday ( lab order given to patient) No NASIDs such as naproxen, Aleve, Motrin, ibuprofen, Celebrex, meloxicam due to risk of bleeding Seek medical attention if bleeding reoccurs and nonstop Use direct pressure and Afrin if you develop nosebleed Do not blow your nose Keep the nostril moist by using nasal saline 2 sprays in each nostril twice daily followed by mupirocin ointment. Current Hospital Diet Patient's current hospital diet: AHA Diet (Heart Healthy) Discharge Diet Recommended Diet: AHA Diet (Heart Healthy) Pending Studies Studies pending at discharge: no Medical Emergencies . Who to Call and When: Medical Emergencies: If at any time you feel your situation is an emergency, please call 911 immediately. . Non-Emergent Contact Non-Emergency issues call your: Primary Care Provider Call Non-Emergent contact if: you have any medication questions . . "Provider Documentation" section prepared by Nadira Bender. . VTE Core Measure Inpt VTE Proph given/why not?: SCD's
--- NOTE | 2017-01-06 00:10 | Discharge Summary ---
Discharge Summary Date of Service Jan 06, 2017. Discharge Summary Admission Date: Dec 31, 2016 at 22:40 Discharge Date: Jan 01, 2017 Discharge Disposition: Home Principal Diagnosis: Epistaxis Secondary Diagnoses/Problems: ANEMIA Hypoxia/Shortness of Breath in the setting of COPD DM II HTN HYPOTHYROIDISM GERD NEUROPATHY Procedures: MAXILLOFACIAL CT WITH CONTRAST CLINICAL HISTORY: Epistaxis. COMPARISON STUDY: Maxillofacial CT July 20, 2016. TECHNIQUE: A maxillofacial CT was performed following intravenous injection of 93 cc of Optiray 320 IV. Sagittal and coronal reconstructions were viewed. FINDINGS: Visualized portions of the intracranial contents are unremarkable. There are extensive secretions within the nasopharynx, greater on the left. Small air-fluid levels within the left maxillary and sphenoid sinuses are noted. There are old bilateral nasal bone fractures are noted. No acute facial fracture is identified. No bony destruction is identified. No mass is identified within the sinuses or the nasal cavity. Orbits are unremarkable. The bilateral common carotid arteries are retropharyngeal in location. IMPRESSION: 1. Extensive secretions within the nasopharynx with small left maxillary and sphenoid sinus air-fluid levels which could reflect blood or acute sinusitis. No bony destruction or mass identified by CT. 2. Old bilateral nasal bone fractures. No acute facial fracture. No bony destruction identified. Electronically signed by: Cliff Varghese M.D. 12/31/2016 8:10 PM Dictated Date/Time: 12/31/2016 7:58 PM CHEST ONE VIEW PORTABLE CLINICAL HISTORY: Shortness of breath. COMPARISON STUDY: Chest CT September 19, 2016 and chest radiograph September 21, 2016. FINDINGS: Bilateral shoulder arthroplasties and thoracolumbar spine fusion are noted. Old right-sided rib fractures are present. There is no evidence of pulmonary edema. Cardiac size is normal. Lung volumes are diminished. There is no consolidation to suggest pneumonia. IMPRESSION: No acute cardiopulmonary findings. Electronically signed by: Cliff Varghese M.D. 12/31/2016 6:39 PM Dictated Date/Time: 12/31/2016 6:37 PM Consultations: ENT Medication Reconciliation New Medications: Mupirocin 2% (Bactroban 2%) 30 Gm Cr 1 APPLN NA BID, #1 TUBE Oxymetazoline Hcl (Afrin) 0.05 % Spr 2 SPRAY NA UD PRN for nose bleeding, #1 Use only if you develop nose bleeding Saline ([place] Nasal Arpin) 0.65 % Spr 2 SPRAYS NA BID, #1 Continued Medications: Alendronate Sodium (Alendronate Sodium) 70 Mg Tab 70 MG PO WK TAKE THIS MEDICATION EVERY MONDAY WITH 8 OUNCES OF WATER Calcium Carbonate-Cholecalcife (Caltrate 600+D) 1 Tab Tab 1 TAB PO DAILY Cholecalciferol (Vitamin D3 400) 400 Unit Cap 400 INTER.UNIT PO BID Diltiazem Hcl Ext Rel (Tiazac) 120 Mg Capcr 120 MG PO DAILY, CAP Docusate Sodium (Colace) 100 Mg Cap 100 MG PO BID PRN for Constipation, CAP Duloxetine Hcl (Cymbalta) 60 Mg Cap 1 CAP PO DAILY for 90 Days, #90 CAP 3 Refills Fluticasone Prop/Salmeterol (Advair Diskus 250/50 60 Dose) 1 Ea Aerp 1 PUFF INH BID, INHALER Ipratropium-Albuterol (Combivent Respimat) 1 Aer Aer 1 PUFF INH QID PRN for SOB/Wheezing, INH Ipratropium-Albuterol (Duoneb) 3 Ml Nebu 1 TREATMENT INH Q4H PRN for SOB/Wheezing, INHA Levothyroxine Sodium (Levothyroxine Sodium) 75 Mcg Tab 1 TAB PO DAILY for 30 Days, #30 TAB 5 Refills Menthol-Zinc Oxide (Calmoseptine) 1 Oin Oin 1 APPLN TOP PRN for DIAPER RASH Multivitamins/Minerals (Mvi With Minerals) Tab 1 TAB PO DAILY, TAB Omeprazole (Omeprazole) 20 Mg Tab 1 TAB PO BID for 90 Days, #180 TAB 1 Refill Solifenacin (Vesicare) 10 Mg Tab 10 MG PO HS, TAB [Oni-Sequels] () 1 TAB PO BID Discontinued Medications: Celecoxib (Celebrex) 100 Mg Cap 100 MG PO BID Admission Information HPI (per Admitting provider): This is an 81 year old female with a PMH of COPD, HTN, diet controlled DM2, GERD , hypothyroidism, neuropathy - presents with epistaxis. States that on the evening of 12/30 she developed what she thought was a runny nose, but found it to be blood. This was her first epistaxis episode. The bleeding stopped and she went to sleep. She woke up and the bleeding recurred. She initially called EMS, but the bleeding stopped and she did not want to come to the ER. Unfortunately, the bleeding started up again and she was brought to the ER. The bleeding stopped with clamping and Afrin. CT of the face performed, showing some air- fluid levels. ENT was consulted, they stated that if bleeding stopped, patient could be discharged. Unfortunately, due to the bleeding, patient has been having difficulty with breathing. With exertion, her O2 levels drop. Due to her breathing issues, it was decided she would be admitted. Physical Exam (per Admitting): General Appearance: no apparent distress Head: normocephalic, atraumatic Eyes: normal inspection ENT: hearing grossly normal, + pertinent finding (+clamp in place, bleeding stopped) Neck: supple Respiratory/Chest: chest non-tender, lungs clear, normal breath sounds, no respiratory distress, no accessory muscle use Cardiovascular: no edema, no gallop, no JVD, no murmur, normal peripheral pulses, + tachycardia Abdomen/GI: normal bowel sounds, non tender, soft Extremities/Musculoskelatal: normal inspection, no calf tenderness, normal capillary refill, normal range of motion, + pertinent finding (R ankle swelling) 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 No active nose bleeding ENT on board, recommend moisturization with nasal saline 2 sprays in each nostril twice daily followed by mupirocin ointment. Pt was instructed by ENT on how to stop the nosebleed with direct pressure and with Afrin. Advised pt not to avoid blowing her nose Seek medical attention if bleeding reoccurs and nonstop No vascular mass seen OK from ENT standpoint to discharge home Follow up in 2 weeks with ENT Anemia Hbg on admission 9.4 Due to epistaxis Hgb today 7.9, repeat hgb 7.7 Pt said that she would not get any blood transfusion She refused to stay for one more night Will give her a lab order to check CBC on Monday Hypoxia/Shortness of Breath in the setting of COPD Having difficulty breathing due to nose being plugged with dried blood Continue saline spray continue Advair Saturated at 93% on RA HTN blood pressure stable continue Diltiazem DM2 blood sugars stable; diet controlled monitor GERD PPI BID Hypothyroidism continue Synthroid Neuropathy continue Cymbalta DVT ppx SCDs CODE STATUS DNR DISPOSITION Follow up with your primary care provider Dr. Colon on 01/06 @ 12:25 PM Follow up with Ear, Nose and throat doctor Dr. Christine in 2 weeks ( please call for the appointment) Total time spent on discharge = 35 MINUTES This includes examination of the patient, discharge planning, medication reconciliation, and communication with other providers. Discharge Instructions Discharge Instructions Date of Service Jan 01, 2017. Admission Reason for Admission: Copd, Epistaxis Discharge Discharge Diagnosis / Problem: Epistaxis, Anemia, Hypoxia Discharge Goals Goal(s): Decrease discomfort, Improve function, Improve disease control Activity Recommendations Activity Limitations: resume your previous activity (as tolerated) . Instructions / Follow-Up Instructions / Follow-Up Follow up with your primary care provider Dr. Colon on 01/06 @ 12:25 PM Follow up with Ear/Nose/Throat doctor Dr. Christine in 2 weeks ( please call to schedule for the appointment) Telephone number: [phone] Address: [address] [place] [address] Check CBC on Monday ( lab order given to patient) No NASIDs such as naproxen, Aleve, Motrin, ibuprofen, Celebrex, meloxicam due to risk of bleeding Seek medical attention if bleeding reoccurs and nonstop Use direct pressure and Afrin if you develop nosebleed Do not blow your nose Keep the nostril moist by using nasal saline 2 sprays in each nostril twice daily followed by mupirocin ointment. Current Hospital Diet Patient's current hospital diet: AHA Diet (Heart Healthy) Discharge Diet Recommended Diet: AHA Diet (Heart Healthy) Pending Studies Studies pending at discharge: no Medical Emergencies . Who to Call and When: Medical Emergencies: If at any time you feel your situation is an emergency, please call 911 immediately. . Non-Emergent Contact Non-Emergency issues call your: Primary Care Provider Call Non-Emergent contact if: you have any medication questions . . "Provider Documentation" section prepared by Nadira Bender. . VTE Core Measure Inpt VTE Proph given/why not?: SCD's Additional Copies To Harjeet Zaman M.D.
== END 2017-01-01 18:23 | disposition home or self-care (01) | DRG 151 ==
LOC: C.EDB 16:45 → EDBD 16:45 → C.2T 22:40 → ENRESERV 23:01
PROVIDERS: ADMIT Family Medicine; ATTEND Internal Medicine
DX: R04.0 Epistaxis (principal); J44.1 Chronic obstructive pulmonary disease with (acute) exacerbation; M25.551 Pain in right hip; S02.2XXS Fracture of nasal bones, sequela; E78.5 Hyperlipidemia, unspecified; I10 Essential (primary) hypertension; E03.9 Hypothyroidism, unspecified; Z85.528 Personal history of other malignant neoplasm of kidney; Z96.653 Presence of artificial knee joint, bilateral; Z96.619 Presence of unspecified artificial shoulder joint; K21.9 Gastro-esophageal reflux disease without esophagitis; Z83.3 Family history of diabetes mellitus; Z98.1 Arthrodesis status; J98.4 Other disorders of lung; Z87.891 Personal history of nicotine dependence; E11.40 Type 2 diabetes mellitus with diabetic neuropathy, unspecified; W19.XXXS Unspecified fall, sequela

== ENCOUNTER 2017-03-18 20:21 | Emergency (ER) | payer OTHER ==
[~2017-03-18] VITALS: Ht 152.4 cm; Wt 86.8 kg
[~2017-03-18 20:21] MED LIST changes: +ADVIN25/60 INH; -ATV5 PO; -AZITTAB PO; +BCTCR/30; -BENZ100C18 PO; +CALC-354 PO; +CHOL400C PO; -CLB100 PO; -DILT120C50 PO; +DILT120C68 PO; +DOCU-94 PO; +DULO60CA44 PO; -DXY100 PO; +FERRO SEQUELS PO; +FSM70 PO; +IPRASOL4 INH; +LEVO75TA5 PO; +MENTOIN TOP; +MULT-513 PO; +OMEP20TA PO; -OXGN; +OXYM0.056; -RXNS2.5 PO; +SALI0.6510; +SOLI10TA2 PO
[2017-03-18 20:25] VITALS: Ht 152.4 cm; Wt 86.8 kg
[2017-03-18] MEDS ORDERED: ACETAMINOPHEN IV 1,000 MG in EMPTY BAG 0 ML IV STA (20:36)
[2017-03-18] MEDS ORDERED: ACETAMINOPHEN 1000 MG/100 ML IV IV ONE (20:54)
[2017-03-18] MEDS ORDERED: CLB/200 PO (21:27)
--- NOTE | 2017-03-18 22:31 | DIAGNOSTIC IMAGING REPORT ---
PELVIS 1 OR 2 VIEW ROUTINE CLINICAL HISTORY: 81 years-old Female presenting with trauma. TECHNIQUE: Single frontal view the pelvis was obtained. COMPARISON: CT of abdomen pelvis from 05/09/2016. FINDINGS: Sacroiliac joints and pubic symphysis congruent. Bilateral hip joints congruent. Partially visualized posterior lumbar fusion hardware with interbody spacer. No acute fracture of the pelvis or femoral necks. Pelvic phlebolith noted. IMPRESSION: No acute osseous injury of the pelvis. Electronically signed by: Harjeet Hernandez M.D. 03/18/2017 10:30 PM Dictated Date/Time: 03/18/2017 10:29 PM
--- NOTE | 2017-03-18 22:32 | DIAGNOSTIC IMAGING REPORT ---
L HIP UNILATERAL 2 VIEWS CLINICAL HISTORY: 81 years-old Female presenting with trauma. TECHNIQUE: Frontal and frog-leg lateral views of the left hip were obtained. COMPARISON: None. FINDINGS: Left hip joint congruent. No acute fracture or malalignment. No advanced degenerative change. No radiographic soft tissue abnormality. IMPRESSION: No acute osseous injury. Electronically signed by: Harjeet Hernandez M.D. 03/18/2017 10:31 PM Dictated Date/Time: 03/18/2017 10:30 PM
--- NOTE | 2017-03-18 22:34 | DIAGNOSTIC IMAGING REPORT ---
L KNEE 1 OR 2 VIEWS ROUTINE CLINICAL HISTORY: 81 years-old Female presenting with trauma. TECHNIQUE: Frontal and lateral views of the left knee were obtained. COMPARISON: None. FINDINGS: Total left knee arthroplasty with patellar resurfacing. No periprosthetic fracture. No hardware complication. No malalignment. Moderate knee joint effusion may be present. Subcutaneous edema suggested in the infrapatellar region. IMPRESSION: 1. Total left knee arthroplasty with patellar resurfacing. No hardware complication or acute osseous injury. 2. Possible knee joint effusion. Electronically signed by: Harjeet Hernandez M.D. 03/18/2017 10:32 PM Dictated Date/Time: 03/18/2017 10:31 PM
--- NOTE | 2017-03-18 22:36 | DIAGNOSTIC IMAGING REPORT ---
L RIBS UNILATERAL WITH PA CHEST CLINICAL HISTORY: 81 years-old Female presenting with trauma. TECHNIQUE: Frontal and oblique views of the left ribs as well as PA view of the chest were obtained. COMPARISON: Chest x-ray from 12/31/2016. FINDINGS: Bilateral total shoulder arthroplasties and posterior thoracolumbar fusion hardware noted. No displaced left rib fracture. Multiple old left rib fractures noted. Atherosclerosis of aortic arch. Mildly low lung volumes with hypoventilatory changes. Resulting prominence of the cardiac silhouette. Small left pleural effusion may be present. No pneumothorax. Osteopenia suspected. Old right rib fractures also noted. IMPRESSION: 1. No acute displaced left rib fracture. 2. Multiple old left rib fractures noted. 3. Mildly low lung volumes with hypoventilatory changes. 4. Possible small left pleural effusion new from prior. Electronically signed by: Harjeet Hernandez M.D. 03/18/2017 10:35 PM Dictated Date/Time: 03/18/2017 10:33 PM
--- NOTE | 2017-03-18 22:45 | DIAGNOSTIC IMAGING REPORT ---
L WRIST MIN 3 VIEWS ROUTINE CLINICAL HISTORY: 81 years-old Female presenting with trauma . TECHNIQUE: Frontal, bilateral oblique, and lateral views of the left wrist were obtained. COMPARISON: None. FINDINGS: Osteopenia. This limits evaluation for nondisplaced fracture. Allowing for this, no displaced fracture or malalignment. Cystic change suggested in the lunate likely degenerative in etiology. Degenerative changes also suggested at the trapezium-first metacarpal articulation. No radiographic soft tissue abnormality. IMPRESSION: No acute osseous injury of the left wrist allowing for osteopenia. Electronically signed by: Harjeet Hernandez M.D. 03/18/2017 10:44 PM Dictated Date/Time: 03/18/2017 10:43 PM
--- NOTE | 2017-03-18 23:35 | EMERGENCY ROOM VISIT NOTE ---
History Report prepared by Nila: Yumiko Robles Under the Supervision of: Dr. Maura Santana D.O. 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 The patient was in her bedroom walking to her closet when she fell. Her walker was nearby, but she was not using it. She is unsure if she tripped on her walker. She does think that she hit her walker on the way down. She denies feeling wobbly, dizzy, or lightheaded prior to falling. She reports left rib pain, left hip pain, and left knee pain. She denies any pain with breathing, abdominal pain, shoulder pain, or arm pain. She has some left hand pain also. She has a history of knee replacements, shoulder replacements, and back surgery. She is not on any blood thinners. 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 Pt denies dizziness, lightheadedness, pain with breathing, shoulder pain, or arm pain. Review of Systems See HPI for pertinent positives & negatives. A total of 10 systems reviewed and were otherwise negative. Past Medical & Surgical Medical Problems: (1) Chronic pain of right hip (2) Compression fracture (3) COPD (chronic obstructive pulmonary disease) (4) DM type 2 (diabetes mellitus, type 2) (5) Dyslipidemia (6) Esophageal dysmotility (7) Essential hypertension (8) Hyponatremia (9) Hypothyroidism (10) Knee pain (11) Mass of lung (12) Osteoarthritis (13) Renal cancer (14) Renal mass (15) Respiratory distress (16) Respiratory failure (17) SVT (supraventricular tachycardia) Surgical Problems: (1) History of total bilateral knee replacement (2) Status post lumbar spinal fusion (3) Status post shoulder replacement Family History Diabetes mellitus Hypertension Social History Smoking Status: Former Smoker Alcohol Use: none Housing Status: lives alone Current/Historical Medications Scheduled Alendronate Sodium (Alendronate Sodium), 70 MG PO WK Calcium Carbonate-Cholecalcife (Caltrate 600+D), 1 TAB PO DAILY Celecoxib (CeleBREX), 200 MG PO BID Cholecalciferol (Vitamin D3 400), 400 INTER.UNIT PO BID Diltiazem Hcl Ext Rel (Tiazac), 120 MG PO DAILY Duloxetine Hcl (Cymbalta), 60 MG PO QAM Fluticasone Prop/Salmeterol (Advair Diskus 250/50 60 Dose), 1 PUFF INH BID Levothyroxine Sodium (Levothyroxine Sodium), 75 MCG PO QAM Multivitamins/Minerals (Mvi With Minerals), 1 TAB PO DAILY Omeprazole (Omeprazole), 20 MG PO BID Solifenacin (Vesicare), 10 MG PO HS Scheduled PRN Docusate Sodium (Colace), 100 MG PO BID PRN for Constipation Ipratropium-Albuterol (Combivent Respimat), 1 PUFF INH QID PRN for SOB/Wheezing Allergies Coded Allergies: Levofloxacin (Verified Allergy, Mild, rash, 09/19/16) Pt reported that arm became severly itchy after start of IV levaquin Atorvastatin (Verified Adverse Reaction, Intermediate, MYALGIA, 09/19/16) Codeine (Verified Adverse Reaction, Intermediate, N/V, 09/21/16) Fentanyl (Verified Adverse Reaction, Intermediate, FREQUENT FALLS, 09/19/16 ) PT STATES SHE WILL NOT WEAR THIS ANYMORE Morphine (Verified Adverse Reaction, Intermediate, N/V, 09/21/16) Physical Exam Vital Signs Date Time Temp Pulse Resp B/P (MAP) Pulse Ox O2 Delivery O2 Flow Rate FiO2 03/18/17 23:41 36.7 93 20 157/98 96 03/18/17 23:34 93 20 157/98 96 Room Air 03/18/17 22:13 88 18 117/85 95 Room Air 03/18/17 20:35 90 03/18/17 20:25 36.7 91 20 153/83 96 Room Air Physical Exam GENERAL: alert, well appearing, well nourished, no distress, non-toxic EYE EXAM: normal conjunctiva, PERRL and EOM's grossly intact OROPHARYNX: no exudate, no erythema, lips, buccal mucosa, and tongue normal and mucous membranes are moist NECK: supple, no nuchal rigidity, no adenopathy, non-tender CHEST: Pain to the left anterior chest wall with palpation. No crepitus with palpation of chest wall and ribs. LUNGS: Equal breath sounds bilaterally. No wheezes, rhonchi, rales. Clear to auscultation. Normal chest wall mechanics HEART: no murmurs, S1 normal and S2 normal ABDOMEN: abdomen soft, non-tender, normo-active bowel sounds, no masses, no rebound or guarding. No evidence of trauma. BACK: Back is symmetrical on inspection and there is no deformity, no midline tenderness, no CVA tenderness. PELVIS: Stable. SKIN: no rashes and no bruising UPPER EXTREMITIES: upper extremities are grossly normal. Full range of motion, normal pulses. LOWER EXTREMITIES: Pain with palpation of left knee, superficial abrasion noted. Slightly decreased ROM secondary to pain. Well healed vertical midline incision consistent with prior knee replacement. Normal distal pulses. No obvious deformity. No other evidence of trauma. NEURO EXAM: Normal sensorium, cranial nerves II-XII grossly intact, normal speech, no gross weakness of arms, no gross weakness of legs. Medical Decision & Procedures ER Provider Diagnostic Interpretation: Xray results have been interpreted by the radiologist and by me. L WRIST MIN 3 VIEWS ROUTINE CLINICAL HISTORY: 81 years-old Female presenting with trauma . TECHNIQUE: Frontal, bilateral oblique, and lateral views of the left wrist were obtained. COMPARISON: None. FINDINGS: Osteopenia. This limits evaluation for nondisplaced fracture. Allowing for this, no displaced fracture or malalignment. Cystic change suggested in the lunate likely degenerative in etiology. Degenerative changes also suggested at the trapezium-first metacarpal articulation. No radiographic soft tissue abnormality. IMPRESSION: No acute osseous injury of the left wrist allowing for osteopenia. Electronically signed by: Harjeet Hernandez M.D. 03/18/2017 10:44 PM Dictated Date/Time: 03/18/2017 10:43 PM L RIBS UNILATERAL WITH PA CHEST CLINICAL HISTORY: 81 years-old Female presenting with trauma. TECHNIQUE: Frontal and oblique views of the left ribs as well as PA view of the chest were obtained. COMPARISON: Chest x-ray from 12/31/2016. FINDINGS: Bilateral total shoulder arthroplasties and posterior thoracolumbar fusion hardware noted. No displaced left rib fracture. Multiple old left rib fractures noted. Atherosclerosis of aortic arch. Mildly low lung volumes with hypoventilatory changes. Resulting prominence of the cardiac silhouette. Small left pleural effusion may be present. No pneumothorax. Osteopenia suspected. Old right rib fractures also noted. IMPRESSION: 1. No acute displaced left rib fracture. 2. Multiple old left rib fractures noted. 3. Mildly low lung volumes with hypoventilatory changes. 4. Possible small left pleural effusion new from prior. Electronically signed by: Harjeet Hernandez M.D. 03/18/2017 10:35 PM Dictated Date/Time: 03/18/2017 10:33 PM PELVIS 1 OR 2 VIEW ROUTINE CLINICAL HISTORY: 81 years-old Female presenting with trauma. TECHNIQUE: Single frontal view the pelvis was obtained. COMPARISON: CT of abdomen pelvis from 05/09/2016. FINDINGS: Sacroiliac joints and pubic symphysis congruent. Bilateral hip joints congruent. Partially visualized posterior lumbar fusion hardware with interbody spacer. No acute fracture of the pelvis or femoral necks. Pelvic phlebolith noted. IMPRESSION: No acute osseous injury of the pelvis. Electronically signed by: Harjeet Hernandez M.D. 03/18/2017 10:30 PM Dictated Date/Time: 03/18/2017 10:29 PM L HIP UNILATERAL 2 VIEWS CLINICAL HISTORY: 81 years-old Female presenting with trauma. TECHNIQUE: Frontal and frog-leg lateral views of the left hip were obtained. COMPARISON: None. FINDINGS: Left hip joint congruent. No acute fracture or malalignment. No advanced degenerative change. No radiographic soft tissue abnormality. IMPRESSION: No acute osseous injury. Electronically signed by: Harjeet Hernandez M.D. 03/18/2017 10:31 PM Dictated Date/Time: 03/18/2017 10:30 PM L KNEE 1 OR 2 VIEWS ROUTINE CLINICAL HISTORY: 81 years-old Female presenting with trauma. TECHNIQUE: Frontal and lateral views of the left knee were obtained. COMPARISON: None. FINDINGS: Total left knee arthroplasty with patellar resurfacing. No periprosthetic fracture. No hardware complication. No malalignment. Moderate knee joint effusion may be present. Subcutaneous edema suggested in the infrapatellar region. IMPRESSION: 1. Total left knee arthroplasty with patellar resurfacing. No hardware complication or acute osseous injury. 2. Possible knee joint effusion. Electronically signed by: Harjeet Hernandez M.D. 03/18/2017 10:32 PM Dictated Date/Time: 03/18/2017 10:31 PM Medications Administered Medications (Trade) Dose Ordered Sig/Charlee Route Start Time Stop Time Status Last Admin Dose Admin Acetaminophen (Ofirmev Iv) 1,000 mg STK-MED ONCE IV 03/18/17 20:54 03/18/17 20:55 DC 03/18/17 20:54 1,000 MG ECG Indication: other (fall) Rate (beats per minute): 86 Rhythm: sinus rhythm Findings: 1st degree AV block, no acute ischemic change, no ectopy, other ( normal axis, normal intervals) Comparison ECG Date: 01-Jan-2017 Change: no significant change Change: EKG: Patient's electrocardiogram per my interpretation. ED Course 2030: The patient was evaluated in room B2. A complete history and physical exam was performed. 2053: Acetaminophen 1000 mg IV. 2308: I reevaluated the patient. I updated her on the results. She will have an ambulatory trial. 2324: The patient was able to ambulate. I discussed the findings and the treatment plan with the patient. She verbalizes agreement and understanding. She was discharged home. Medical Decision Differential diagnosis: Etiologies such as fracture, dislocation, intra-abdominal, pneumothorax, intrathoracic , intracranial, neurologic, as well as other traumatic pathologies were entertained. I do not suspect syncope is patient was feeling in her normal state of health and had no other prodromal symptoms. Patient remembers the entire event, was brought in by family due to concern for possible injury. Patient not anticoagulated, imaging here reassuring, vital signs otherwise stable. Patient anxious to go home and asking how quickly she can be discharged. Discussed with patient follow-up with family doctor as a precaution, continued use of her walker at home for all ambulation, symptoms to watch and return for, treatment of her pain, she verbalized understanding was agreeable with plan. I have a low suspicion for any additional occult traumatic injury. Medication Reconcilliation Current Medication List: was personally reviewed by me Blood Pressure Screening Patient's blood pressure: Elevated blood pressure Blood pressure disposition: Elevated BP felt to be situational Impression Primary Impression: Fall Additional Impressions: Abrasion Chest wall pain Scribe Attestation The scribe's documentation has been prepared under my direction and personally reviewed by me in its entirety. I confirm that the note above accurately reflects all work, treatment, procedures, and medical decision making performed by me. Departure Information Dispostion Home / Self-Care Referrals Harjeet Zaman M.D. (PCP) Patient Instructions My [facility] Additional Instructions You may continue regular medications as prescribed. If you develop worsening pain, feel unsteady when you walk, develop fevers, vomiting, dizziness, weakness , trouble breathing, you have any other new concerns, please return the emergency room. Problem Qualifiers Primary Impression: Fall Encounter type: initial encounter Qualified Codes: W19.XXXA - Unspecified fall, initial encounter
[2017-03-18 23:41] VITALS: BP 157/98; PULSE 93; TEMP 36.7; O2SAT 96
== END 2017-03-18 23:42 | disposition home or self-care (01) ==
LOC: EDBD 20:21 → C.EDB 20:25
DX: T14.8XXA Other injury of unspecified body region, initial encounter (principal); W19.XXXA Unspecified fall, initial encounter; R07.89 Other chest pain; R07.81 Pleurodynia; J44.9 Chronic obstructive pulmonary disease, unspecified; E11.9 Type 2 diabetes mellitus without complications; E78.5 Hyperlipidemia, unspecified; I10 Essential (primary) hypertension; E87.1 Hypo-osmolality and hyponatremia; E03.9 Hypothyroidism, unspecified; M19.90 Unspecified osteoarthritis, unspecified site; I47.1 Supraventricular tachycardia; Z83.3 Family history of diabetes mellitus; Z82.49 Family history of ischemic heart disease and other diseases of the circulatory system; Z87.891 Personal history of nicotine dependence

== ENCOUNTER 2017-05-18 23:20 | Emergency (ER) | payer OTHER ==
[~2017-05-18] VITALS: Ht 152.4 cm; Wt 83.2 kg
[~2017-05-18 23:20] MED LIST changes: -BCTCR/30; +CLB/200 PO; -FERRO SEQUELS PO; -IPRASOL4 INH; -MENTOIN TOP; -OXYM0.056; -SALI0.6510
[2017-05-18 23:25] VITALS: TEMP 36.8; Ht 152.4 cm; Wt 83.2 kg
[2017-05-19] MEDS ORDERED: HYDROmorphone INJ 1 MG/ML SYR IV STA
[2017-05-19] MEDS ORDERED: ONDANSETRON INJ 2 MG/ML 2 ML VIAL IV STA
[2017-05-19] MEDS ORDERED: MENTOIN TD (00:07)
[2017-05-19] MEDS ORDERED: AFRINWC NAE (00:07)
[2017-05-19] MEDS ORDERED: ALBU1.257 NEB (00:07)
[2017-05-19] MEDS ORDERED: MUPIOIN4 NAE (00:07)
[2017-05-19] MEDS ORDERED: DILT120C99 PO (00:07)
[2017-05-19] MEDS ORDERED: FERR1TAB13 PO (00:07)
[2017-05-19] MEDS ORDERED: SALI0.6510 NAE (00:07)
[2017-05-19] MEDS ORDERED: SOLI10TA2 PO (00:11)
--- NOTE | 2017-05-19 00:14 | EMERGENCY ROOM VISIT NOTE ---
History Report prepared by Nila: Georges Kirby Under the Supervision of: Jena FryO. First contact with patient: 23:39 Chief Complaint: FALL Stated Complaint: SHOULDER/KNEE PAIN History of Present Illness The patient is an 81 year old female who presents to the Emergency Room brought in by EMS with complaints of persistent right shoulder pain secondary to a fall that occurred 1.5 hours ago. She states that her medication alarm went off tonight and she got up to turn it off, when she tripped and fell. She reports inability to lift her right shoulder. She notes that she did fall onto her knees and reports pain to the right knee. She has a history of bilateral total knee replacements. She was able to get up and crawl to her phone to call for help. She has a history of bilateral shoulder surgeries. She denies any head injuries, chest pain, back pain, or abdominal pain. She denies any elbow pain. Source of History: patient Onset: 1.5 hours ago Position: shoulder (right) Quality: other (inability to move right shoulder) Timing: other (persistent) Associated Symptoms: No chest pain, No abdominal pain, No back pain Note: She notes fall and right knee pain. She denies any elbow pain or head injuries. Review of Systems See HPI for pertinent positives & negatives. A total of 10 systems reviewed and were otherwise negative. Past Medical & Surgical Medical Problems: (1) Chronic pain of right hip (2) Compression fracture (3) COPD (chronic obstructive pulmonary disease) (4) DM type 2 (diabetes mellitus, type 2) (5) Dyslipidemia (6) Esophageal dysmotility (7) Essential hypertension (8) Hyponatremia (9) Hypothyroidism (10) Knee pain (11) Mass of lung (12) Osteoarthritis (13) Renal cancer (14) Renal mass (15) Respiratory distress (16) Respiratory failure (17) SVT (supraventricular tachycardia) Surgical Problems: (1) History of total bilateral knee replacement (2) Status post lumbar spinal fusion (3) Status post shoulder replacement Family History Diabetes mellitus Hypertension Social History Smoking Status: Former Smoker Alcohol Use: none Housing Status: lives alone Occupation Status: unemployed Current/Historical Medications Scheduled Alendronate Sodium (Alendronate Sodium), 70 MG PO WK Calcium Carbonate-Cholecalcife (Caltrate 600+D), 1 TAB PO DAILY Celecoxib (CeleBREX), 200 MG PO BID Cholecalciferol (Vitamin D3 400), 400 INTER.UNIT PO BID Diltiazem Hcl Coated Beads (Diltiazem Cd), 120 MG PO QAM Duloxetine Hcl (Cymbalta), 60 MG PO QAM Ferrous Sulfate (Kp Ferrous Sulfate), 325 MG PO BID Fluticasone Prop/Salmeterol (Advair Diskus 250/50 60 Dose), 1 PUFF INH BID Ipratropium-Albuterol (Combivent Respimat), 1 PUFF INH HS Levothyroxine Sodium (Levothyroxine Sodium), 75 MCG PO QAM Multivitamins/Minerals (Mvi With Minerals), 1 TAB PO DAILY Mupirocin Calcium (Bactroban Nasal), 1 APPLN JACINTO BID Omeprazole (Omeprazole), 20 MG PO BID PRIOR TO MEALS Saline ([place] Nasal [place]), 2 SPRAYS JACINTO BID Solifenacin (Vesicare), 10 MG PO HS Scheduled PRN Albuterol Sulfate (Albuterol Sulfate), 1 VIAL NEB Q4 PRN for Wheezing Docusate Sodium (Colace), 100 MG PO BID PRN for Constipation Menthol-Zinc Oxide (Calmoseptine), 1 APPLN TD DIRECTED PRN for DIAPER RASH AREA Oxymetazoline Hcl (Afrin 0.05% Nasal [place]), 2 SPRAYS JACINTO BID PRN for CONGESTION Allergies Coded Allergies: Cyclobenzaprine (Verified Allergy, Severe, CONFUSION, 05/18/17) Atorvastatin (Verified Adverse Reaction, Intermediate, MYALGIA, 05/18/17) Codeine (Verified Adverse Reaction, Intermediate, N/V, 05/18/17) Fentanyl (Verified Adverse Reaction, Intermediate, SEE COMMENT, 05/18/17) "TOO SEDATED, UNABLE TO REMEMBER, LOC, FALLS EVEN WITH LOW DOSES". PER [facility] Morphine (Verified Adverse Reaction, Intermediate, N/V, 05/18/17) Physical Exam Vital Signs Date Time Temp Pulse Resp B/P (MAP) Pulse Ox O2 Delivery O2 Flow Rate FiO2 05/19/17 02:21 99 20 146/94 91 05/19/17 01:43 99 20 146/94 91 Room Air 05/19/17 00:13 94 Nasal Cannula 3.0 05/19/17 00:11 85 Room Air 05/19/17 00:07 107 22 165/100 92 Room Air 05/18/17 23:25 36.8 99 22 167/138 93 Room Air Physical Exam HEENT: Head - normocephalic and atraumatic. Pupils are equal, round, and reactive to light. Extraocular eye muscles are intact and sclera are anicteric. Nose - moist nasal mucosa without evidence of trauma or discharge. Mouth - moist buccal mucosa with no trauma to the teeth or signs of malocclusion. Neck: The neck is supple and there is no pain to palpation over the posterior cervical spine and no obvious step-offs or deformities. There is no JVD or tracheal deviation. Chest: There are no signs of deformities, contusions or abrasions to the chest wall. There is no obvious crepitus or paradoxical chest rise. Heart: Regular, rate, and rhythm. There is a normal S1 and S2 with no murmurs, clicks, or gallops appreciated. Lungs: Clear to auscultation bilaterally with no wheezes, rales, or rhonchi. Abdomen: Soft, completely nontender, nondistended, with good bowel sounds. There is no sign of trauma such as contusions, abrasions or penetrations. There are no palpable pulsatile masses or hepatosplenomegaly. There is no guarding, rigidity, or rebound noted. Pelvis: Stable to rock and compression. Extremities: Large contusion and abrasion to right knee and small abrasion to the left knee. There are easily palpable peripheral pulses. Right shoulder has pain with palpation over anterior aspect and proximal humerus, limited ROM secondary to pain. Neuro: The patient is awake and alert and easily able to follow commands. Muscle strength is 5 out of 5 in all 4 extremities. Otherwise, neuro exam is unremarkable. Back: The entire thoracic, lumbar, and sacral spine were palpated. There are no obvious step-offs or deformities noted. There are no obvious signs of trauma such as contusions abrasions penetrations noted to the back. Medical Decision & Procedures ER Provider Diagnostic Interpretation: Radiology results as stated below per my review and interpretation: Right Knee XR: No hardware displacement. No obvious fracture. Right Shoulder XR: Hardware does not appear displaced. No obvious dislocation. No shoulder separation. Medications Administered Medications (Trade) Dose Ordered Sig/Charlee Route Start Time Stop Time Status Last Admin Dose Admin Hydromorphone HCl (Dilaudid Inj) 1 mg NOW STAT IV 4/13/18 00:00 05/19/17 00:01 DC 05/19/17 00:05 1 MG Ondansetron HCl (Zofran Inj) 4 mg NOW STAT IV 05/19/17 00:00 05/19/17 00:01 DC 05/19/17 00:06 4 MG Procedure 0000: Ordered Zofran 4 mg IV and Dilaudid 1 mg IV ED Course 2356: Past medical records reviewed. The patient was evaluated in room C5. A complete history and physical exam was performed. IV lock was established. 0000: Ordered Zofran 4 mg IV and Dilaudid 1 mg IV. The patient had plain films of the right shoulder and right knee. 0124: I reassessed the patient at this time. She is comfortable. She has FROM though it was painful in both the right shoulder and right knee. She will have a sling in place. I discussed the results and treatment plan with the patient. She was encouraged to follow-up with Dr. Reis who is her orthopedic surgeon. I answered all pertaining questions that she had. She expressed understanding and verbalized agreement. The patient will be discharged home. Medical Decision The patient is an 81 year old female who presents to the ED with left shoulder pain secondary to fall. Differential diagnosis includes mechanical fall, shoulder dislocation, humeral head fracture, contusion, patellar dislocation, and lower extremity fracture. X-rays show that the hardware appears to be in place and no obvious fractures. She can use Tylenol for pain. The patient most likely has suffered a rotator cuff injury to the right shoulder. She will go into an arm sling with close follow-up with orthopedics. As for the contusion to the right knee, she should apply ice and elevate as much as possible. Medication Reconcilliation Current Medication List: was personally reviewed by me Blood Pressure Screening Patient's blood pressure: Elevated blood pressure Blood pressure disposition: Elevated BP felt to be situational Impression Primary Impression: Fall Additional Impressions: Injury of right rotator cuff Contusion of right knee Scribe Attestation The scribe's documentation has been prepared under my direction and personally reviewed by me in its entirety. I confirm that the note above accurately reflects all work, treatment, procedures, and medical decision making performed by me. Departure Information Dispostion Home / Self-Care Referrals Harjeet Zaman M.D. (PCP) Forms HOME CARE DOCUMENTATION FORM, IMPORTANT VISIT INFORMATION Patient Instructions Contusion Bone Tx, My [facility], Rotator Cuff Injury Additional Instructions Rest. Wear sling on right arm for comfort. Follow up with Dr. Reis Apply ice to right knee. Use tylenol for pain Problem Qualifiers Primary Impression: Fall Encounter type: initial encounter Qualified Codes: W19.XXXA - Unspecified fall, initial encounter Additional Impressions: Injury of right rotator cuff Encounter type: initial encounter Qualified Codes: S46.001A - Unspecified injury of muscle(s) and tendon(s) of the rotator cuff of right shoulder, initial encounter Contusion of right knee Encounter type: initial encounter Qualified Codes: S80.01XA - Contusion of right knee, initial encounter
[2017-05-19 02:21] VITALS: BP 146/94; PULSE 99; O2SAT 91
--- NOTE | 2017-05-19 07:11 | DIAGNOSTIC IMAGING REPORT ---
RIGHT KNEE 2 VIEWS CLINICAL HISTORY: Fall with right knee pain. FINDINGS: AP and crosstable lateral views of the right knee are compared to study dated 10/13/2015. The skeletal structures are osteopenic. No fracture is identified. A hinged right knee arthroplasty is in near anatomic alignment. No periprosthetic lucency is identified. There has been undersurface remodeling of the patella. There is a small joint effusion. Prepatellar soft tissue edema is noted. IMPRESSION: 1. Soft tissue swelling and joint effusion. No right knee fracture is seen. 2. A hinged right knee arthroplasty is in near anatomic alignment. Electronically signed by: Adams Schreiber M.D. 05/19/2017 7:09 AM Dictated Date/Time: 05/19/2017 7:08 AM
--- NOTE | 2017-05-19 07:17 | DIAGNOSTIC IMAGING REPORT ---
R SHOULDER MIN 2 VIEWS ROUTINE HISTORY: 81 years-old Female fall on Right shoulder acute right shoulder pain status post fall COMPARISON: None available TECHNIQUE: 3 views of the right shoulder FINDINGS: Right shoulder arthroplasty. No acute fracture or dislocation identified. The bones appear mildly demineralized. This limits evaluation for acute nondisplaced fracture. Moderate degenerative changes of the right AC joint. Cardiac silhouette is partially imaged however appears enlarged. Atherosclerosis of the aorta. Fusion hardware of the thoracolumbar spine partially imaged. IMPRESSION: No acute fracture or dislocation. The above report was generated using voice recognition software. It may contain grammatical, syntax or spelling errors. Electronically signed by: Timoteo Siddiqui M.D. 05/19/2017 7:16 AM Dictated Date/Time: 05/19/2017 7:14 AM
== END 2017-05-19 02:22 | disposition home or self-care (01) ==
LOC: EDBD 23:20 → C.EDC 23:21
DX: S46.001A Unspecified injury of muscle(s) and tendon(s) of the rotator cuff of right shoulder, initial encounter (principal); S80.01XA Contusion of right knee, initial encounter; W01.0XXA Fall on same level from slipping, tripping and stumbling without subsequent striking against object, initial encounter; Y92.013 Bedroom of single-family (private) house as the place of occurrence of the external cause; Z96.653 Presence of artificial knee joint, bilateral; Z96.698 Presence of other orthopedic joint implants; J44.9 Chronic obstructive pulmonary disease, unspecified; E11.9 Type 2 diabetes mellitus without complications; E78.5 Hyperlipidemia, unspecified; I10 Essential (primary) hypertension; E03.9 Hypothyroidism, unspecified; M19.90 Unspecified osteoarthritis, unspecified site; Z85.528 Personal history of other malignant neoplasm of kidney; Z87.891 Personal history of nicotine dependence; Z79.899 Other long term (current) drug therapy; Z88.5 Allergy status to narcotic agent; Z88.8 Allergy status to other drugs, medicaments and biological substances

== ENCOUNTER 2018-09-27 09:53 | Inpatient (IN) ==
[2018-09-27] MEDS ORDERED: SODIUM CHLORIDE 0.9% 1000ML 1,000 ML IV SCH (10:30)
[2018-09-27 11:11] LABS: Basophils # (auto) 0.02 K/uL (0-0.2); Basophils % (auto) 0.1 %; Eosinophils # (auto) 0.01 K/uL (0-0.5); Eosinophils % (auto) 0.1 %; Hematocrit (blood only) 38.9 % (37-47); Immature Granulocytes # (auto) 0.11 K/uL (0.00-0.02); Immature Granulocytes % (auto) 0.7 %; Lymphocytes # (auto) 0.82 K/uL (1.2-3.4); Mean Corpuscular Hemoglobin 27.1 pg (25-34); Mean Corpuscular Hgb Conc 33.4 g/dL (32-36); Mean Corpuscular Volume 81.2 fL (80-100); Mean Platelet Volume 8.6 fL (7.4-10.4); Monocytes # (auto) 0.56 K/uL (0.11-0.59); Monocytes % (auto) 3.4 %; Neutrophils # (auto) 14.81 K/uL (1.4-6.5); Neutrophils % (auto) 90.7 %; Platelet Count 404 K/uL (130-400); RDW Coefficient of Variation 14.4 % (11.5-14.5); RDW Standard Deviation 42.8 fL (36.4-46.3); Red Blood Count 4.79 M/uL (4.2-5.4); White Blood Count 16.33 K/uL (4.8-10.8)
--- NOTE | 2018-09-27 11:17 | CT Scan Report ---
CT SCAN OF THE CERVICAL SPINE CLINICAL HISTORY: Trauma. Fall. COMPARISON STUDY: CT of the cervical spine dated 07/20/2016. TECHNIQUE: CT scan of the cervical spine is performed from the skull base to the upper thoracic spine . Images are reviewed in the axial, sagittal, and coronal planes. IV contrast was not administered fo r this examination. A dose lowering technique was utilized adhering to the principles of ALARA. FINDINGS: Skeletal structures: The skeletal structures are osteopenic. There is no evidence of fracture or subl uxation involving the cervical spine. Vertebral body height is maintained. There is mild anterolisthe sis at C4-C5 and C7-T1. Minimal retrolisthesis is noted at C5-C6 and C6-C7. There is straightening of the cervical lordosis. Anterior osteophytes are seen throughout. The odontoid process and lateral ma sses are intact. The atlantoaxial articulation is preserved noting advanced productive degenerative c hange. Cystic changes seen at the base of the odontoid process. The spinous processes appear intact. There is moderate multilevel cervical spondylosis. Uncovertebral and facet arthropathy contribute to neural foraminal stenosis at several levels. Intervertebral discs: There is advanced disc space narrowing seen at C4-C5, C5-C6, C6-C7, and C7-T1. Mild disc space narrowing seen at C3-C4. Central canal: Large posterior disc osteophyte complexes at C4-C5, C5-C6, and C6-C7 likely contribute to multilevel acquired compromise of the central canal. Soft tissues: The prevertebral and paraspinous soft tissues are within normal limits. There is athero sclerotic calcification of the carotid bulbs. The thyroid gland is atrophic. Calvarium: The visualized calvarium at the skull base appears intact. Brain parenchyma: Partially visualized brain parenchyma the skull base is within normal limits noting age-related involutional change. Sinuses and mastoids: The visualized paranasal sinuses are clear. The mastoid air cells are well pneu matized. Lung apices: Clear as visualized. IMPRESSION: 1. There is no evidence of fracture or subluxation involving the cervical spine. 2. Osteopenia and spondylotic change as above. Electronically signed by: Adams Schreiber M.D. 09/27/2018 11:16 AM
--- NOTE | 2018-09-27 11:19 | CT Scan Report ---
CT facial bones wo con CT DOSE: CLINICAL HISTORY: Facial pain status post trauma COMPARISON STUDY: 08/30/2016 TECHNIQUE: Helical images were acquired in the transverse plane. The study was reviewed and analyzed on the independent 3-D workstation. A dose lowering technique was utilized adhering to the principle s of ALARA. The pterygoid plates appear intact. The zygomatic arches appear intact. The globes appear intact. There is no evidence of orbital emphysema. The orbital dumont and floor appear intact. The mandibular condyles appear intact. There are acute nasal bone fractures. IMPRESSION: 1. Acute nasal bone fractures. No additional facial fractures identified. Electronically signed by: Kostas Coughlin M.D. 09/27/2018 11:18 AM
--- NOTE | 2018-09-27 11:21 | CT Scan Report ---
CT SCAN OF THE BRAIN WITHOUT IV CONTRAST CLINICAL HISTORY: Trauma. Fall. COMPARISON STUDY: CT of the brain dated 07/20/2016. TECHNIQUE: Unenhanced axial CT scan of the brain is performed from the vertex to the skull base. A do se lowering technique was utilized adhering to the principles of ALARA. The patient was scanned twice due to motion artifact. FINDINGS: Brain parenchyma: There are age-related involutional changes noting moderate subcortical and periven tricular microangiopathic change. There is no hemorrhage, mass effect, or evidence of acute territori al ischemia by CT criteria. Looney-white matter differentiation is preserved. No extra-axial fluid cindy ection is seen. Ventricles, sulci, cisterns: Prominent secondary to involutional change. Intracranial vasculature: There is atherosclerotic calcification of the cavernous carotid arteries. Calvarium: The skeletal structures are osteopenic. No depressed calvarial fracture is seen. Soft tissues: There is right supraorbital and paravertebral soft tissue contusion. Sinuses and mastoids: The visualized paranasal sinuses are clear. The mastoid air cells are well pneu matized. Orbits: The bony orbits are grossly intact. There are bilateral ocular lens implants. IMPRESSION: There is no hemorrhage, mass effect, or evidence of acute territorial ischemia by CT arabella alfaro. Electronically signed by: Adams Schreiber M.D. 09/27/2018 11:20 AM
[2018-09-27 11:35] LABS: Alanine Aminotransferase 41 U/L (12-78); Albumin Level 3.1 gm/dl (3.4-5.0); BUN Creatinine Ratio 22.4 (10-20); Blood Urea Nitrogen 18 mg/dl (7-18); Calcium 8.6 mg/dl (8.5-10.1); Carbon Dioxide 27 mmol/L (21-32); Chloride 97 mmol/L (98-107); Creatinine Clr Calc Pharmacy 48.6 ml/min; Est GFR (African American) 78.4; Est GFR (Non-African American) 67.6; Glucose 182 mg/dl (70-99); Sodium 131 mmol/L (136-145)
[2018-09-27 11:44] LABS: Albumin Globulin Ratio 0.8 (0.9-2); Alkaline Phosphatase 133 U/L (45-117); Bilirubin,Total 0.6 mg/dl (0.2-1); Globulin 3.9 gm/dl (2.5-4.0); Troponin I < 0.015 ng/ml (0-0.045)
[2018-09-27] MEDS ORDERED: HYDROmorphone INJ 0.5 MG/0.5 ML SYR IV PRN (12:37)
[2018-09-27] MEDS ORDERED: ONDANSETRON INJ 2 MG/ML 2 ML VIAL IV STA (12:37)
[2018-09-27 13:23] LABS: Potassium 4.5 mmol/L (3.5-5.1)
[2018-09-27 13:32] LABS: Magnesium 2.2 mg/dl (1.8-2.4)
--- NOTE | 2018-09-27 14:09 | XRay Report ---
XR knee RT 2V routine CLINICAL HISTORY: fall, knee pain COMPARISON: 01/12/2018 DISCUSSION: There are postsurgical changes of a total right knee arthroplasty and patellar resurfacin g. No acute fractures are visualized. 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 There is stable inferior displacement of the patellar facet prosthesis with respect to the patella. 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 IMPRESSION: 1. No acute fractures 2. Patella apolonia 3. 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 09/27/2018 2:08 PM
--- NOTE | 2018-09-27 14:10 | XRay Report ---
XR elbow LT min 3V routine CLINICAL HISTORY: fall, pain COMPARISON: None. DISCUSSION: There is mild prominence of the anterior fat pad. A small effusion is suspected. No fract ures or dislocations are visualized. An antecubital venous catheter is visualized. IMPRESSION: 1. No fractures identified 2. Possible small joint effusion. If symptoms persist, repeat radiography in 7-10 days should be cons idered Electronically signed by: Kostas Coughlin M.D. 09/27/2018 2:09 PM
--- NOTE | 2018-09-27 14:12 | XRay Report ---
XR wrist LT min 3V routine CLINICAL HISTORY: fall, pain COMPARISON: 03/18/2017 DISCUSSION: Generalized degenerative change. Prior resection of the trapezium. No evidence for acute fracture or dislocation. Moderate generalized soft tissue edema. IMPRESSION: 1. Generalized generative and postoperative change. 2. No acute bony abnormality. 3. Generalized soft tissue edema. The above report was generated using voice recognition software. It may contain grammatical, syntax or spelling errors. Electronically signed by: Oren Pate M.D. 09/27/2018 2:11 PM
--- NOTE | 2018-09-27 14:29 | History & Physical Report ---
Date of Service September 27, 2018 Assessment & Plan (1) Fall: Pt presented with unwitnessed fall. Was found lying face down on floor this morning around 9am by landcare officer. Pt does not remember fall, unsure how long pt was down. Unsure if syncope or LOC In ER pt afebrile, Vitals stable, WBC: 18, BUN:18, Cr: 0.8, CK: 272, glucose: 182 CT HEAD: no acute findings: There is no hemorrhage, mass effect, or evidence of acute territorial ischemia by CT criteria. CT C-SPINE There is no evidence of fracture or subluxation involving the cervical spine. LUMBAR XRAY:postsurgical changes, Degenerative change, Old L1 and T11 compression fractures. 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 No joint effusion. PELVIS XRAY:No acute fracture within the pelvis or hips. ?Syncope, Seizure -Fall precautions, aspiration precautions -EEG -IVF -repeat CK tomorrow -PT/OT eval (2) Humeral fracture: Pt with hx fall while walking outside yesterday. Seen in ER on 09/26/18 and found to have R Humerus fracture. Splint was applied in ER. Pt was to have f/u appointment today with Dr Reis however had Recurrent fall today -R Humerus Xray today with No change in alignment of the acute comminuted displaced angulated periprosthetic diaphyseal right humeral fracture since radi ographs of September 26, 2018. -Pain control -Ortho consult (3) Closed fracture nasal bone: CT FACE: Acute nasal bone fractures. No additional facial fractures identified. No septal hematoma noted. +septal perforation which is chronic -Pt will need outpatient ENT follow up in 7-10 days (4) Left elbow pain: L ELBOW XRAY: No fractures identified. Possible small joint effusion. If symptoms persist, repeat radiography in 7-10 days should be considered -Monitor, if continued symptoms consider repeat xray in one week (5) Leukocytosis: WBC: 16. No fever, no N/V/D CXR: no infiltrate -pending UA -monitor (6) DM type 2 (diabetes mellitus, type 2): A1c: 7.0 on 06/12/18. Diet controlled Random glucose: 182 -DM diet, monitor BSGs -Novolog sliding scale per protocol (7) Essential hypertension: -Continue diltiazem (8) Hypothyroidism: TSH: 2.8 -Continue levothyroxine (9) COPD (chronic obstructive pulmonary disease): No wheezing, SOB -Continue Breo, albuterol prn DVT Prophylaxis -SCDs for now DNR/DNI as per discussion with pt Follows with Dr Zaman for routine care Pt was seen and care coordinated with Dr Richards. See addendum History of Present Illness Chief Complaint: Fall Primary Care Provider: Harjeet Zaman MD Pt is 82 y/o F with PMH COPD, DM II, HTN, dyslipidemia, hypothyroidism, h/o kidney cancer, obesity, memory loss presented to ER with c/o fall. [facility] and reports has landcare officer from 9a-9p. Today around 9am pt was found by aide lying face down on bathroom floor with blood on face and floor. Pt was unable to get up on own. Pt reports she does not remember fall and is unaware when or how she fell. No reported urine or stool loss. No anticoagulant use. No current epistaxis in ER, pt c/o nasal pain. Pt was seen in ER yesterday 09/26/18 for reported fall when walking and was found to have Acute comminuted, displaced and angulated fracture of the proximal to mid diaphyseal humerus. Today pt C/O RUE pain and feels it is worse than yesterday. Denies paresthesias. Also c/o left wrist and left elbow pain with edema to left wrist and pain with movement. Pt c/o bilateral knee pain, h/o knee replacement in past. Pt states has walker to use as needed. Prior to yesterday pt denies any falls for past year. Prior she reports that she was falling frequently, especially when she was on fentanyl. Pt with history memory problems and per daughter pt is at her baseline. Pt denies any GALVEZ, dizziness, vision changes, photophobia, neck pain, orbital pain, facial pain, jaw pain, left shoulder pain, hip pain, back pain, abdominal pain, N/V/D/C, CP, SOB, fever/chills, diaphoresis, orthopnea, palpitations, cough, sore throat, choking, otalgia, rhinorrhea, paresthesias, other extremity edema, rashes, urinary symptoms. Allergies Allergy/AdvReac Type Severity Reaction Status Date / Time cyclobenzaprine Allergy Severe CONFUSION Verified 09/27/18 10:44 atorvastatin AdvReac Intermediate MYALGIA Verified 09/27/18 10:44 codeine AdvReac Intermediate N/V Verified 09/27/18 10:44 fentanyl AdvReac Intermediate SEE COMMENT Verified 09/27/18 10:44 morphine AdvReac Intermediate N/V Verified 09/27/18 10:44 Home Medications Home Medications Medication Instructions Recorded Confirmed Type alendronate [Fosamax] 70 mg PO WK 01/12/18 09/27/18 History celecoxib [Celebrex] 200 mg PO BID 01/12/18 09/27/18 History cholecalciferol (vitamin D3) 400 unit PO BID 01/12/18 09/27/18 History [Vitamin D3] docusate sodium [Colace] 100 mg PO BID PRN 01/12/18 09/27/18 History duloxetine [Cymbalta] 60 mg PO QAM 01/12/18 09/27/18 History levothyroxine 75 mcg PO QAM 01/12/18 09/27/18 History multivitamin with minerals 1 tab PO QAM 01/12/18 09/27/18 History omeprazole 20 mg PO BID 01/12/18 09/27/18 History solifenacin [Vesicare] 10 mg PO HS 01/12/18 09/27/18 History diltiazem HCl [Cardizem CD] 180 mg PO BID 09/26/18 09/27/18 History fluticasone furoate-vilanterol 1 inh INHALATION HS 09/26/18 09/27/18 History [Breo Ellipta] oxycodone 5 mg PO Q6H PRN #12 tab 09/26/18 09/27/18 Rx albuterol sulfate 2 puff INHALATION Q6H PRN 09/27/18 09/27/18 History diclofenac sodium 2 g TOPICAL QID PRN 09/27/18 09/27/18 History Past Med/Surg History Medical History COPD (chronic obstructive pulmonary disease) (Chronic) 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 Beal" Mass of lung (Chronic) "noted 11/18" Osteoarthritis (Chronic) DM type 2 (diabetes mellitus, type 2) (Chronic) Esophageal dysmotility (Chronic) Dyslipidemia (Chronic) Chronic pain of right hip (Chronic) Surgical History Status post lumbar spinal fusion (Chronic) Status post shoulder replacement (Chronic) Family History Other Cancer Diabetes Social History Preferred Language: Arabic Communication Ability: Effective Wedding Cake Designer Required: No Beliefs That Will Affect Care: None Current Living Situation: Halfway Current Living Situation Comment: Alone with daily caregiver visits Other Information That Helps Us Care for You: No Feels Safe at Home: Yes Safety Concerns: Feels Safe At This Time Smoking Status: Never smoker Do You Dip or Chew Tobacco: No ; Second Hand Exposure: No ; Tobacco Cessation Education Requested by Patient: No Hx Alcohol Use: No Hx Substance Use: No Review of Systems Review of Systems: All systems reviewed & are unremarkable except as noted in HPI & below Physical Exam Physical Exam: General: no acute distress, obese Head: normocephalic Eyes: PERRL, EOM's intact, bilateral periorbital region with ecchymosis ad edema, Eye conjunctiva non-injected and no subconjunctival hemorrhage, anicteric Face: no orbital tenderness to palpation, no maxillary or mandibular tenderness to palpation, able to open and close jaw without difficulty, Nose: mild edema bridge of nose, +septal perforation (chronic), +dried blood right naris, no epistaxis currently, ENT: normal inspection external ears, nose as above, mucous membranes moist Neck: supple, trachea midline, non-tender Lungs: clear, no respiratory distress, no wheezing/rhonchi/rales CV: RRR, no murmur, no pretibial edema Abd: normal BS, soft, non-tender Ext: RUE: Splint in place from right upper arm to right hand, +ecchymosis anterior shoulder, pt able to move fingers and sensation to light touch of fingers intact, LUE: shoulder with surgical scar without edema or erythema or ecchymosis and non-tender to palpation, Left elbow without ecchymosis/significant edema/erythema, +tenderness to palpation posterior elbow, able to extend and flex and supinate and pronate. Left wrist +edema, +tenderness to palpation greatest over distal radius, limited flexion and extension of wrist, hand non- tender, fingers non-tender and ROM intact, distal pulses intact, brisk capillary refill, sensation to light touch intact +straight leg raise on right side LLE: Left knee with tenderness to palpation anterior knee with limited flexion, no ankle or foot tenderness, pedal pushes and pulls intact, distal pulses intact, sensation to light touch intact RLE: Right knee with ecchymosis and tenderness to palpation of anterior knee with limited flexion,no ankle or foot tenderness, pedal pushes and pulls intact, distal pulses intact, sensation to light touch intact No pelvic tenderness to palpation, pt reports pain with attempted flexion of bilateral legs no calf tenderness Neuro: Alert, oriented to self, does not know , knows hospital and reports call "[place]", unsure of date, year or season, no focal deficits noted, pt irritable Skin: warm, dry Results & Data Vital Signs (Past 12 Hours) Vital Signs Temp Pulse Pulse Resp BP BP Pulse Ox 09/27/18 13:00 94 H 18 145/95 H 98 09/27/18 10:06 36.8 C 87 18 166/92 H 92 Laboratory Results Short CBC 09/27/18 Range/Units 10:52 WBC 16.33 H (4.8-10.8) K/uL Hgb 13.0 (12.0-16.0) g/dL Hct 38.9 (37-47) % Plt Count 404 H (130-400) K/uL BMP 09/27/18 09/27/18 10:52 12:56 Sodium 131 L Potassium 4.5 Chloride 97 L Carbon Dioxide 27 BUN 18 Creatinine 0.81 Glucose 182 H Calcium 8.6 Cardiac Enzymes 09/27/18 09/27/18 Range/Units 10:52 12:56 Total Creatine Kinase TNP 272 H Troponin I < 0.015 (0-0.045) ng/ml Liver Function 09/27/18 09/27/18 Range/Units 10:52 12:56 Total Bilirubin 0.6 (0.2-1) mg/dl AST 49 H (15-37) U/L ALT 41 (12-78) U/L Alkaline Phosphatase 133 H (45-117) U/L Albumin 3.1 L (3.4-5.0) gm/dl Diagnostic Findings CT HEAD: IMPRESSION: There is no hemorrhage, mass effect, or evidence of acute territorial ischemia by CT criteria. CT FACE: IMPRESSION: 1. Acute nasal bone fractures. No additional facial fractures identified. CT C-SPINE IMPRESSION: 1. There is no evidence of fracture or subluxation involving the cervical spine. 2. Osteopenia and spondylotic change as above. CXR: IMPRESSION: Mild cardiomegaly. Chronic and postoperative change. No acute process. LUMBAR XRAY: IMPRESSION: 1. Extensive postsurgical changes 2. Degenerative change 3. Old L1 and T11 compression fractures 4. Osteopenia 5. No acute fractures identified R HUMERUS XRAY: IMPRESSION: No change in alignment of the acute comminuted displaced angulated periprosthetic diaphyseal right humeral fracture since radiographs of September 26, 2018. LEFT WRIST XRAY: IMPRESSION: 1. Generalized generative and postoperative change. 2. No acute bony abnormality. 3. Generalized soft tissue edema. LEFT ELBOW XRAY: IMPRESSION: 1. No fractures identified 2. Possible small joint effusion. If symptoms persist, repeat radiography in 7- 10 days should be considered RIGHT KNEE XRAY: IMPRESSION: 1. No acute fractures 2. Patella apolonia 3. 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 No periprosthetic fracture. No joint effusion. PELVIS XRAY: IMPRESSION: No acute fracture within the pelvis or hips. Code Status & VTE Plan VTE Prophylaxis Plan VTE Prophylaxis will be ordered: Yes Supervising Physician Co-Signing Physician Notes Patient is an 82-year-old female with multiple comorbidities presents with history of fall. She presented to ER yesterday secondary to fall and was found to have right humeral fracture which was splinted and was discharged from the ED yesterday. Patient was found in her apartment lying facedown on bathroom floor with blood on face and floor. She was unable to get up from the floor by herself and she is unaware of the events of the fall. Patient uses a walker as needed for ambulation. She complains of right shoulder pain especially with movement. On exam patient is moderately built and nourished, normocephalic, multiple ecchymosis and bruises noted bilaterally periorbital region, extremities, posterior septal perforation, dried clotted blood in right nares, lungs are clear to auscultation, S1-S2, no murmur, abdomen soft nontender, right upper extremity in splint, ecchymosis noted on shoulder, multiple areas on extremities, bilateral lower extremity edema, + straight leg raise. Patient is admitted for management of unwitnessed fall, possible syncope, right humerus fracture, nasal bone fracture. Check orthostatics, gentle fluids secondary to elevated CK levels, check EEG. Aspiration fall precautions, PT OT evaluation. Leukocytosis noted on blood work-up. No obvious source of infection. No antibiotics for now. Urinalysis is currently pending. Orthopedics consulted for input. Consider ENT evaluation as outpatient. I personally reviewed the record. Patient is interviewed and examined at bedside. Patient's care is coordinated with Selena Sewell PA-C. Please refer to the documentation above for details of patient's presentation and for discussion of other issues. (1) Closed fracture nasal bone Encounter type: initial encounter Qualified Code(s): S02.2XXA - Fracture of nasal bones, initial encounter for closed fracture (2) Humeral fracture Encounter type: initial encounter Fracture alignment: displaced Fracture morphology: comminuted Fracture type: closed Humerus Location: shaft Laterality: right Qualified Code(s): S42.351A - Displaced comminuted fracture of shaft of humerus, right arm, initial encounter for closed fracture (3) Fall Encounter type: initial encounter Qualified Code(s): W19.XXXA - Unspecified fall, initial encounter
--- NOTE | 2018-09-27 14:34 | XRay Report ---
XR knee LT 2V routine CLINICAL HISTORY: fall, knee pain COMPARISON: Left knee radiographs March 18, 2017. FINDINGS: Alignment of the total left knee arthroplasty is anatomic. The hardware is intact. No periprosthetic fracture or joint effusion. IMPRESSION: Status post total left arthroplasty. No periprosthetic fracture. No joint effusion. Electronically signed by: Cliff Varghese M.D. 09/27/2018 2:33 PM
--- NOTE | 2018-09-27 14:37 | XRay Report ---
XR pelvis 1-2V routine CLINICAL HISTORY: fall COMPARISON: Pelvis and right hip radiographs January 12, 2018. FINDINGS: Sacroiliac joints and symphysis pubis are intact. Postoperative findings within the lumbar spine are partially imaged. There is no acute fracture within the pelvis or hips. Mild to moderate b ilateral hip osteoarthritis is present. IMPRESSION: No acute fracture within the pelvis or hips. Electronically signed by: Cliff Varghese M.D. 09/27/2018 2:36 PM
--- NOTE | 2018-09-27 14:41 | XRay Report ---
XR chest 2V routine CLINICAL HISTORY: r/o infiltrate dyspnea COMPARISON STUDY: 03/12/2018 FINDINGS: Mild cardiomegaly. Platelike atelectasis left base. Lungs otherwise appear clear. Several o ld rib fractures bilaterally. Bilateral total shoulder arthroplasties and a thoracolumbar fusion type procedure IMPRESSION: Mild cardiomegaly. Chronic and postoperative change. No acute process. The above report was generated using voice recognition software. It may contain grammatical, syntax or spelling errors. Electronically signed by: Oren Pate M.D. 09/27/2018 2:40 PM
--- NOTE | 2018-09-27 14:42 | XRay Report ---
XR lumbar spine 2-3V CLINICAL HISTORY: Back pain status post trauma COMPARISON STUDY: 10/13/2015 FINDINGS: The bones are osteopenic. There are postsurgical changes of a thoracolumbar spinal fusion. There is evidence for prior discectomies and interbody fusions at the L2-3, L4-5, and L5-S1 levels. T here is an old L1 compression deformity an old T11 compression deformity. There is slight lucency carli rounding the L4 and L5 pedicle screws raising the possibility of loosening. No acute fractures are id entified. Incidental note is made of mild fecal retention. IMPRESSION: 1. Extensive postsurgical changes 2. Degenerative change 3. Old L1 and T11 compression fractures 4. Osteopenia 5. No acute fractures identified Electronically signed by: Kostas Coughlin M.D. 09/27/2018 2:41 PM
--- NOTE | 2018-09-27 14:48 | XRay Report ---
XR humerus RT 2V CLINICAL HISTORY: recurrent fall, h/o fracture, r/o displacement COMPARISON: Right humerus radiographs September 26, 2018. FINDINGS: Right shoulder arthroplasty is noted. Alignment of the displaced periprosthetic fracture o f the right humeral shaft at the level of the distal humeral component is similar to exam of September 072018. Angulation at the level the fracture is unchanged. A few fracture fragments are present. Ali gnment of the right elbow is anatomic. No additional fractures are identified. IMPRESSION: No change in alignment of the acute comminuted displaced angulated periprosthetic diaphys eal right humeral fracture since radiographs of September 26, 2018. Electronically signed by: Cliff Varghese M.D. 09/27/2018 2:47 PM
--- NOTE | 2018-09-27 15:06 | Emergency Department Note ---
Entered by Jyotsna Duong acting as a scribe for ED Provider Note CHIEF COMPLAINT: Fall/minor trauma HISTORY OF PRESENT ILLNESS: The patient is a 82 year old female who presents to the Emergency Room with complaints of an episode of a fall that occurred sometime over night. The patient reports that she woke up this morning on the floor, and she believes she fell out of bed while she was asleep. She states that she does not remember the fall. The patient's caregiver states that she found her on the floor this morning with dried blood around and on her head. Her caregiver notes that the blood was pooled on the floor. The patient denies any pain in her neck, head, or bilateral legs. The patient reports that she was in ED yesterday after a fall and was treated for a right humeral fracture. She states that she was scheduled to see Dr. Reis, Orthopedic Surgery, today at 1020 for her fracture. The patient notes that she has frequent nosebleeds. The patient arrived to the ED via EMS. EMS reports that the patient's O2 saturat ion level was 93% when she was found but notes that the patient refused O2 at that time. EMS states that the patient's neck was too short for a c-collar so a towel was wrapped around the patient's neck to limit movement. EMS denies that the patient received any significant treatment prior to arrival. Pt denies headache, fevers, chills, diaphoresis, visual changes, neck pain, chest pain, breathing difficulties, nausea, vomiting, abdominal pain, back pain, melena, hematochezia, urinary symptoms, numbness, weakness, lymphadenopathy, rash, or other complaints. REVIEW OF SYSTEMS: See HPI for pertinent positives and negatives. A total of ten systems were reviewed and were otherwise negative. PMHx/PSHx: Right Humeral fracture, HTN, rib fractures, COPD, Renal cancer, Osteoarthritis, DMII, chronic pain the right hip, Falls, SVT S/P right shoulder replacement and lumbar spinal fusion SOCIAL HISTORY: Patient lives at home. She is and retired. She has a caregiver that visits her at home. PHYSICAL EXAM: GENERAL: Awake, alert, uncomfortable-appearing, in no distress. Dried blood diffusely in the patient's hair and on her face. HENT: Normocephalic, atraumatic. Oropharynx unremarkable. Bilateral periorbital ecchymosis that is worse on the right side. Dried blood at both nares without any active bleeding. No septal hematoma. EYES: PERRL. Normal conjunctiva. Sclera non-icteric. NECK: Inspection normal. Non-tender. Supple. No nuchal rigidity. FROM. No masses. RESPIRATORY: Clear to auscultation. No wheezes. No rales. Normal respiratory effort. CARDIAC: Normal rate. Normal rhythm. No murmurs. No rubs. Extremities warm and well perfused. Pulses equal. No JVD. GI: Soft, non-distended. No tenderness to palpation. No rebound or guarding. No masses. RECTAL: Deferred. MUSCULOSKELETAL: Chest examination reveals no tenderness. The back is symmetric al on inspection without obvious abnormality. There is no CVA tenderness to palpation. No joint edema. Right arm in splint. Moderate ecchymosis around the right shoulder. LOWER EXTREMITIES: Calves are equal size bilaterally and non-tender. No discoloration. Trace lower extremity edema. NEURO: Normal sensorium. No sensory or motor deficits noted. SKIN: No rash or jaundice noted. EMERGENCY DEPARTMENT COURSE: 0957: Past medical records reviewed. The patient was evaluated in room A11B, and a complete history and physical examination were performed. 1235: I updated the patient and her family on the patient's current results. Clare will be paged for further evaluation of the patient. 1240: I discussed the patient's case with LILIANA Lewis, who will evaluate the patient for further management and care with Dr. Richards, as the attending physician. 1250: Upon reevaluation, the patient is resting comfortably. I discussed laboratory and radiographic results with the patient and his family. They verbalized agreement of the treatment plan. The patient will be evaluated for further management and care. MEDICAL DECISION MAKING: A11 Prior records/ancillary studies reviewed. Triage Nursing notes reviewed and agree them. Additional history obtained from patient's caregiver. The patient's history was concerning for traumatic head injury and generalized weakness. Differential diagnosis: Etiologies such as contusion, fracture, subdural hematoma, concussion, epidural hematoma, intraparenchymal hemorrhage, dehydration, electrolyte abnormality, cardiac sources, as well as other traumatic pathologies were entertained. Physical examination findings: As above. ER treatment provided: IV Dilaudid IV Zofran Rest On reassessment the patient felt better. Diagnostics interpreted by me: ECG: No acute findings The labs revealed mild leukocytosis of 16,000. Chemistry panel revealed some mild dehydration. Troponin, TSH, and LFTs were unremarkable. Urinalysis was pending at the time of admission peer imaging studies: CT scan of the head, facial bones and cervical spine revealed a nasal bone fracture. No intracranial bleeding. No cervical spine injury. Degenerative changes noted. It appears the patient has a concussion and nasal bone fractures. She has a leukocytosis as well. Urinalysis is. The patient will need further management in the hospital. Consultation: A consultation was placed with the hospitalist. The case was discussed and diagnostics were reviewed. The patient was evaluated in the ER for further treatment. IMPRESSION: Closed head injury, nasal bone fracture, elevated white count, right arm fracture PLAN: Being evaluated by a hospitalist. The scribe's documentation has been prepared under my direction and personally reviewed by me in its entirety. I confirm that the note above accurately reflects all work, treatment, procedures, and medical decision making performed by me. Impression & Plan Closed fracture of head, Closed fracture nasal bone, Elevated WBC count, Arm fracture, right Past Med/Surg History Medical History COPD (chronic obstructive pulmonary disease) (Chronic) 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 Beal" Mass of lung (Chronic) "noted 11/18" Osteoarthritis (Chronic) DM type 2 (diabetes mellitus, type 2) (Chronic) Esophageal dysmotility (Chronic) Dyslipidemia (Chronic) Chronic pain of right hip (Chronic) Surgical History Status post lumbar spinal fusion (Chronic) Status post shoulder replacement (Chronic) Family History Other Cancer Diabetes Social History Preferred Language: [place] Communication Ability: Effective Procurement Internship Required: No Beliefs That Will Affect Care: None Current Living Situation Comment: Alone with daily caregiver visits Feels Safe at Home: Yes Smoking Status: Former smoker Hx Alcohol Use: Yes (1-2 drinks twice a month) Hx Substance Use: No Results & Data Vital Signs Vital Signs - 24 hr 09/27/18 10:06 09/27/18 13:00 Temperature 36.8 C Temperature Source Oral Sepsis Recent Fever Within 48 Hours No Sepsis Action Taken by Nursing No Action Required Pulse Rate 87 Pulse Rate [Left] 94 H Pulse Rhythm Regular Pulse Rhythm [Left] Regular Pulse Strength Normal Pulse Strength [Left] Normal Respiratory Rate 18 18 Respiratory Effort / Characteristics Non-Labored Spontaneous Non-Labored Spontaneous Respiratory Depth Normal Normal Respiratory Pattern Regular Regular Blood Pressure 166/92 H Blood Pressure [Left Arm] 145/95 H Blood Pressure Mean 116 Blood Pressure Mean [Left Arm] 111 Blood Pressure Position Lying Blood Pressure Position [Left Arm] Lying Pulse Oximetry 92 98 Oxygen Delivery Method Room Air Room Air Home Medications Current Medication List: was personally reviewed by me Laboratory Data Attestation: I reviewed the patient's lab results. Result diagrams: 09/27/18 10:52 09/27/18 12:56 Lab Results 09/27/18 09/27/18 09/27/18 Range/Units 10:52 10:52 12:56 WBC 16.33 H (4.8-10.8) K/uL RBC 4.79 (4.2-5.4) M/uL Hgb 13.0 (12.0-16.0) g/dL Hct 38.9 (37-47) % MCV 81.2 (80-100) fL MCH 27.1 (25-34) pg MCHC 33.4 (32-36) g/dL RDW Std Deviation 42.8 (36.4-46.3) fL RDW Coeff of Titi 14.4 (11.5-14.5) % Plt Count 404 H (130-400) K/uL MPV 8.6 (7.4-10.4) fL Immature Gran % (Auto) 0.7 % Neut % (Auto) 90.7 % Lymph % (Auto) 5.0 % [place] % (Auto) 3.4 % Eos % (Auto) 0.1 % Baso % (Auto) 0.1 % Immature Gran # (Auto) 0.11 H (0.00-0.02) K/uL Neut # (Auto) 14.81 H (1.4-6.5) K/uL Lymph # (Auto) 0.82 L (1.2-3.4) K/uL [place] # (Auto) 0.56 (0.11-0.59) K/uL Eos # (Auto) 0.01 (0-0.5) K/uL Baso # (Auto) 0.02 (0-0.2) K/uL Sodium 131 L (136-145) mmol/L Potassium 4.5 (3.5-5.1) mmol/L Chloride 97 L (98-107) mmol/L Carbon Dioxide 27 (21-32) mmol/L Anion Gap 7.0 (3-11) BUN 18 (7-18) mg/dl Creatinine 0.81 (0.6-1.2) mg/dl Est Cr Clr Drug Dosing 48.6 ml/min Est GFR ( Amer) 78.4 Est GFR (Non-Af Amer) 67.6 BUN/Creatinine Ratio 22.4 H (10-20) Glucose 182 H (70-99) mg/dl Calcium 8.6 (8.5-10.1) mg/dl Magnesium 2.2 (1.8-2.4) mg/dl Total Bilirubin 0.6 (0.2-1) mg/dl AST 49 H (15-37) U/L ALT 41 (12-78) U/L Alkaline Phosphatase 133 H (45-117) U/L Total Creatine Kinase TNP 272 H Troponin I < 0.015 (0-0.045) ng/ml Total Protein 7.0 (6.4-8.2) gm/dl Albumin 3.1 L (3.4-5.0) gm/dl Globulin 3.9 (2.5-4.0) gm/dl Albumin/Globulin Ratio 0.8 L (0.9-2) TSH 2.480 (0.300-4.500) uIu/ml Administered Medications Hydromorphone HCl (Dilaudid) 0.25 mg IV Q15M PRN PRN Reason: Pain Stop: 10/11/18 12:36 Last Admin: 09/27/18 13:19 Dose: 0.25 mg Documented by: [id number] Sodium Chloride (Nss 1000ml) 1,000 mls @ 125 mls/hr IV .Q8H PEYTON Stop: 09/27/18 18:29 Last Admin: 09/27/18 13:19 Dose: 125 mls/hr Documented by: [id number] Discontinued Medications Ondansetron HCl (Zofran) 4 mg IV NOW STA Stop: 09/27/18 12:38 Last Admin: 09/27/18 13:19 Dose: 4 mg Documented by: [id number] Imaging Data Radiologist's Impression: Radiology results as stated below per my review and the radiologist's interpretation: CT SCAN OF THE CERVICAL SPINE CLINICAL HISTORY: Trauma. Fall. COMPARISON STUDY: CT of the cervical spine dated 07/20/2016. TECHNIQUE: CT scan of the cervical spine is performed from the skull base to the upper thoracic spine. Images are reviewed in the axial, sagittal, and coronal planes. IV contrast was not administered for this examination. A dose lowering technique was utilized adhering to the principles of ALARA. FINDINGS: Skeletal structures: The skeletal structures are osteopenic. There is no evidence of fracture or subluxation involving the cervical spine. Vertebral body height is maintained. There is mild anterolisthesis at C4-C5 and C7-T1. Minimal retrolisthesis is noted at C5-C6 and C6-C7. There is straightening of the cervical lordosis. Anterior osteophytes are seen throughout. The odontoid process and lateral masses are intact. The atlantoaxial articulation is preserved noting advanced productive degenerative change. Cystic changes seen at the base of the odontoid process. The spinous processes appear intact. There is moderate multilevel cervical spondylosis. Uncovertebral and facet arthropathy contribute to neural foraminal stenosis at several levels. Intervertebral discs: There is advanced disc space narrowing seen at C4-C5, C5- C6, C6-C7, and C7-T1. Mild disc space narrowing seen at C3-C4. Central canal: Large posterior disc osteophyte complexes at C4-C5, C5-C6, and C6-C7 likely contribute to multilevel acquired compromise of the central canal. Soft tissues: The prevertebral and paraspinous soft tissues are within normal limits. There is atherosclerotic calcification of the carotid bulbs. The thyroid gland is atrophic. Calvarium: The visualized calvarium at the skull base appears intact. Brain parenchyma: Partially visualized brain parenchyma the skull base is within normal limits noting age-related involutional change. Sinuses and mastoids: The visualized paranasal sinuses are clear. The mastoid air cells are well pneumatized. Lung apices: Clear as visualized. IMPRESSION: 1. There is no evidence of fracture or subluxation involving the cervical spine. 2. Osteopenia and spondylotic change as above. Electronically signed by: Adams Schreiber M.D. 09/27/2018 11:[address] facial bones wo con CT DOSE: CLINICAL HISTORY: Facial pain status post trauma COMPARISON STUDY: 08/30/2016 TECHNIQUE: Helical images were acquired in the transverse plane. The study was reviewed and analyzed on the independent 3-D workstation. A dose lowering technique was utilized adhering to the principles of ALARA. The pterygoid plates appear intact. The zygomatic arches appear intact. The globes appear intact. There is no evidence of orbital emphysema. The orbital dumont and floor appear intact. The mandibular condyles appear intact. There are acute nasal bone fractures. IMPRESSION: 1. Acute nasal bone fractures. No additional facial fractures identified. Electronically signed by: Kostas Coughlin M.D. 09/27/2018 11:[address] SCAN OF THE BRAIN WITHOUT IV CONTRAST CLINICAL HISTORY: Trauma. Fall. COMPARISON STUDY: CT of the brain dated 07/20/2016. TECHNIQUE: Unenhanced axial CT scan of the brain is performed from the vertex to the skull base. A dose lowering technique was utilized adhering to the principles of ALARA. The patient was scanned twice due to motion artifact. FINDINGS: Brain parenchyma: There are age-related involutional changes noting moderate subcortical and periventricular microangiopathic change. There is no hemorrhage, mass effect, or evidence of acute territorial ischemia by CT criteria. Looney- white matter differentiation is preserved. No extra-axial fluid collection is seen. Ventricles, sulci, cisterns: Prominent secondary to involutional change. Intracranial vasculature: There is atherosclerotic calcification of the cavernous carotid arteries. Calvarium: The skeletal structures are osteopenic. No depressed calvarial fracture is seen. Soft tissues: There is right supraorbital and paravertebral soft tissue contusion. Sinuses and mastoids: The visualized paranasal sinuses are clear. The mastoid air cells are well pneumatized. Orbits: The bony orbits are grossly intact. There are bilateral ocular lens implants. IMPRESSION: There is no hemorrhage, mass effect, or evidence of acute territorial ischemia by CT criteria. Electronically signed by: Adams Schreiber M.D. 09/27/2018 11:20 AM ECG Data Attestation: I personally reviewed and interpreted this ECG as follows: Indication: syncope Rate (beats per minute): 86 Rhythm: sinus rhythm Findings: + other (poor r-wave progression) and + 1st degree AV block; no PAC, no PVC, no ST depression, no ST elevation, no acute ischemic change and no ectop y Blood Pressure Blood Pressure Findings: Elevated blood pressure Blood Pressure Disposition: Referred to patients primary care provider Head Trauma GCS Score: 14 Discharge Plan Visit Data Chief Complaint: Fall Stated Complaint: fall/ head lac ED Provider: Tre Tobias Discharge Problem: Closed fracture of head, Closed fracture nasal bone, Elevated WBC count, Arm fracture, right Patient Disposition: Being Evaluated by Hospitalist Forms Stand Alone Forms: My [facility] Prescriptions Prescriptions: No Action celecoxib [Celebrex] 200 mg Capsule 200 mg PO BID RF: 0 alendronate [Fosamax] 70 mg Tablet 70 mg PO WK RF: 0 docusate sodium [Colace] 100 mg Capsule 100 mg PO BID PRN (Reason: Constipation) RF: 0 cholecalciferol (vitamin D3) [Vitamin D3] 400 unit Tablet 400 unit PO BID RF: 0 duloxetine [Cymbalta] 60 mg Capsule,Delayed Release(Dr/Ec) 60 mg PO QAM RF: 0 levothyroxine 75 mcg Tablet 75 mcg PO QAM RF: 0 multivitamin with minerals Tablet 1 tab PO QAM RF: 0 solifenacin [Vesicare] 10 mg Tablet 10 mg PO HS RF: 0 omeprazole 20 mg Tablet,Disintegrat, Delay Rel 20 mg PO BID RF: 0 Breo Ellipta 100-25 mcg/dose Blister With Device 1 inh INHALATION HS RF: 0 diltiazem HCl [Cardizem CD] 180 mg Capsule,Extended Release 24hr 180 mg PO BID RF: 0 oxycodone 5 mg tablet 5 mg PO Q6H PRN (Reason: pain) Qty: 12 RF: 0 albuterol sulfate 90 mcg/actuation Hfa Aerosol Inhaler 2 puff INHALATION Q6H PRN (Reason: Shortness Of Breath Or Wheezing) RF: 0 diclofenac sodium 1 % Gel 2 g TOPICAL QID PRN (Reason: Pain) RF: 0 Referrals Referrals: Harjeet Zaman MD [Primary Care Provider] - Discharge Problem: Closed fracture nasal bone Qualifiers: Encounter type: initial encounter Qualified Code(s): S02.2XXA - Fracture of nasal bones, initial encounter for closed fracture Elevated WBC count Qualifiers: Leukocytosis type: unspecified Qualified Code(s): D72.829 - Elevated white blood cell count, unspecified Arm fracture, right Qualifiers: Encounter type: initial encounter Fracture type: closed Qualified Code(s): S42.301A - Unspecified fracture of shaft of humerus, right arm, initial encounter for closed fracture The jennie's documentation has been prepared under my direction and personally r eviewed by me in its entirety. I confirm that the note above accurately reflects all work, treatment, procedures, and medical decision making performed by me.
[2018-09-27] MEDS ORDERED: ONDANSETRON INJ 2 MG/ML 2 ML VIAL IV PRN (16:05)
[2018-09-27] MEDS ORDERED: MoRPHine SULFATE 2 MG/ML CARP IV PRN (16:05)
[2018-09-27] MEDS ORDERED: DOCUSATE SODIUM 100 MG CAP PO PRN (16:05)
[2018-09-27] MEDS ORDERED: ALBUTEROL HFA 8 GM INHALER INH PRN (16:05)
[2018-09-27] MEDS ORDERED: DICLOFENAC SOD 1% GEL 100 GM TUBE EXT PRN (16:05)
[2018-09-27] MEDS ORDERED: GLUCOSE 10 TABS/TUBE PO PRN (16:05)
[2018-09-27] MEDS ORDERED: GLUCOSE 40% GEL 15 GM TUBE PO PRN (16:05)
[2018-09-27] MEDS ORDERED: CARBOHYDRATES FOR HYPOGLYCEMIA PO PRN (16:05)
[2018-09-27] MEDS ORDERED: DEXTROSE 50% 50 ML SYRINGE IV PRN (16:05)
[2018-09-27] MEDS ORDERED: GLUCAGON FOR INJ 1 MG VIAL SQ PRN (16:05)
[2018-09-27] MEDS: SODIUM CHLORIDE 0.9% 1000ML 1,000 ML IV SCH (17:12)
[2018-09-27] MEDS: INSULIN ASPART 100 UNITS/ML 3 ML PEN SC SCH ×2 (18:15→20:46)
--- NOTE | 2018-09-27 19:13 | Progress Note ---
DATE: 09/27/2018 We were consulted to see Cady. She was admitted to the hospital today after falling a second time. She had fallen yesterday and sustained a periprosthetic fracture of her right humerus. She is status post a right shoulder replacement with Dr. Reis a number of years ago. She was discharged from the ER, placed in a splint and instructed to follow up with Monday in the Orthopedics as an outpatient. She unfortunately fell last night and spent the entire night on the floor. She was found by her nurse's aide in the morning. She is in independent living. She was brought to the hospital where she was worked up and admitted for workup further. Orthopedics was consulted to see her. She has ecchymosis about her right eye. Radial pulses 1+. Sensation is intact throughout the hand. The hand, wrist, and elbow are nontender. She has tenderness, swelling and bruising of the arm and shoulder area. She is in a low posterior splint. She can adduct her fingers and slightly abduct her fingers. She has some ulnar nerve function, but I would not say that it is normal. Her median nerve motor function is intact. She has a complete radial nerve palsy and cannot extend her wrist, thumb or fingers. She can flex her flexor digitorum profundus to the ring and little finger. Humeral radiographs demonstrated a shoulder arthroplasty with a fracture at the tip of the stem which is displaced and angulated. There are not dedicated shoulder films available. Elbow films do not show a fracture. She is placed into a coaptation splint with an Durga wrap from the hand of the shoulder. She will be placed into a sling, given ice. We will obtain x-rays, 2 views of the shoulder and 2 views of the humerus now that she has been splinted. A mold was applied to resist varus malalignment. I will contact Dr. Reis and let him know that the patient has been admitted to the hospital. We will also apply a wrist splint due to her radial nerve palsy. IMPRESSION: She has a periprosthetic fracture of her right humerus and a complete radial nerve palsy. Possible partial ulnar nerve injury.
--- NOTE | 2018-09-27 19:19 | XRay Report ---
XR shoulder RT min 2V routine, XR humerus RT 2V HISTORY: 82 years-old Female AP and transcapular shoulder; s/p fall acute right shoulder and upper a rm pain status post fall COMPARISON: Right humerus radiographs of same day at 2:08 PM TECHNIQUE: 2 views of the right shoulder and 2 views of the right humerus FINDINGS: SHOULDER: Demineralized appearance of the bones. Right shoulder arthroplasty. Acute comminuted periprosthetic f racture of the humeral diaphysis is redemonstrated, lateral displacement measuring up to 1.4 cm. Diff erence in measurement is likely secondary to positioning. Degenerative changes of the right AC joint. Soft tissue swelling. Overlying casting material noted. The imaged scapula appears intact. No additi onal acute fracture identified on these images. HUMERUS: Right shoulder arthroplasty with satisfactory alignment. Acute periprosthetic fracture of the right h umerus as above redemonstrated. Degenerative changes of the elbow. Persistent soft tissue swelling of the upper arm. IMPRESSION: Unchanged alignment of the acute comminuted and displaced periprosthetic fracture of the right humerus. The above report was generated using voice recognition software. It may contain grammatical, syntax o r spelling errors. Electronically signed by: Timoteo Siddiqui M.D. 09/27/2018 7:17 PM
[2018-09-27] MEDS: OXYCODONE HCL IR 5 MG TAB (IMMEDIATE RELEASE) PO PRN (21:32)
[2018-09-27] MEDS: PANTOprazole 40 MG TAB PO SCH (22:02)
[2018-09-27] MEDS: dilTIAZem HCL 180 MG CAPCR PO SCH (22:02)
[2018-09-27] MEDS: CeleBREX 200 MG CAP PO SCH (22:02)
[2018-09-27] MEDS: CHOLECALCIFEROL (VITAMIN D) 400 UNITS TABLET PO SCH (22:02)
[2018-09-28] MEDS: SODIUM CHLORIDE 0.9% 1000ML 1,000 ML IV SCH (05:47)
[2018-09-28] MEDS: LEVOTHYROXINE SODIUM 75 MCG TABLET PO SCH (05:48)
[2018-09-28 06:40] LABS: Basophils # (auto) 0.02 K/uL (0-0.2); Basophils % (auto) 0.2 %; Eosinophils # (auto) 0.09 K/uL (0-0.5); Eosinophils % (auto) 1.1 %; Hematocrit (blood only) 35.5 % (37-47); Hemoglobin 11.2 g/dL (12.0-16.0); Immature Granulocytes # (auto) 0.09 K/uL (0.00-0.02); Immature Granulocytes % (auto) 1.1 %; Lymphocytes # (auto) 1.49 K/uL (1.2-3.4); Lymphocytes % (auto) 17.8 %; Mean Corpuscular Hemoglobin 26.2 pg (25-34); Mean Corpuscular Hgb Conc 31.5 g/dL (32-36); Mean Corpuscular Volume 82.9 fL (80-100); Mean Platelet Volume 8.6 fL (7.4-10.4); Monocytes # (auto) 0.69 K/uL (0.11-0.59); Monocytes % (auto) 8.2 %; Neutrophils # (auto) 5.99 K/uL (1.4-6.5); Neutrophils % (auto) 71.6 %; Platelet Count 359 K/uL (130-400); RDW Coefficient of Variation 14.8 % (11.5-14.5); RDW Standard Deviation 44.9 fL (36.4-46.3); Red Blood Count 4.28 M/uL (4.2-5.4); White Blood Count 8.37 K/uL (4.8-10.8)
[2018-09-28 07:09] LABS: BUN Creatinine Ratio 23.6 (10-20); Calcium 8.4 mg/dl (8.5-10.1); Creatinine Clr Calc Pharmacy 50.4 ml/min; Est GFR (African American) 80.8; Est GFR (Non-African American) 69.7
--- NOTE | 2018-09-28 08:10 | Progress Note ---
DATE: 09/28/2018 SUBJECTIVE: An 82-year-old female with multiple medical comorbidities, admitted status post 2 falls with a proximal humerus fracture and some other aches and pains. She was admitted due to her second fall. She is complaining of right arm pain which is reasonably well controlled in the splint. Some mild knee pain as well. No other real complaints. The patient does have a very complex orthopedic history with multiple joint replacements. She has had bilateral knee replacements and revision of both knees to some degree as well as bilateral shoulder hemiarthroplasty for rotator cuff arthropathy. The right shoulder was done back in 2001. She has done okay with these. She has had multiple back surgeries that have not gone so well. I think there has been 3 total. She has got chronic pain syndrome. OBJECTIVE: VITAL SIGNS: Temperature 36.9. Vital signs otherwise relatively stable. GENERAL: Physical examination shows a pleasant, awake, alert, and oriented elderly female. She is lying in bed and just finished an EEG when I saw her this morning. EXTREMITIES: Examination of the right arm reveals the sling to be off. She does have a coaptation splint in place. She can flex her fingers slightly. She has difficulty extending. She has got brisk refill. Examination of both knees reveals some slight bruising of the right knee. There is no significant swelling and both knee incisions are healed nice. She has got a good straight leg raise on both sides. She can bend to over 90 degrees bilaterally. No pain with hip motion. X-RAYS: I reviewed all of her x-rays. X-rays of the right shoulder reveal hemiarthroplasty with a transverse fracture just distal to the stem. Fairly mild displacement. Examination of both knees reveals bilateral knee replacements. All these radiographic changes are all chronic. There is no acute abnormality. She does have a history of a patella fracture and extensor mechanism reconstruction on the right side done in 2004 after several falls. X-rays are unchanged. ASSESSMENT: An 82-year-old female with multiple medical comorbidities with: 1. Right slightly to moderately displaced transverse fracture of her humerus, distal to a hemiarthroplasty with an apparent radial nerve palsy. She does have difficulty extending her fingers, I think she stretched her radial nerve. This is unlikely anything more than a traction injury. 2. Bilateral knee pain after a fall with knee replacements. No signs of new structural extensor mechanism problems. She can do a straight leg raise on both sides and the pain is pretty minimal. PLAN: From the orthopedic standpoint, she is in a coaptation splint. We are going to treat her humerus fracture conservatively. We will leave her in a splint for 2 weeks. She should have a sling on at all times and have the head of the bed elevated as much as possible. I need to see her back in 2 weeks and we will get her into a Hardy brace. With respect to her knees, no intervention is warranted. She can weightbear as tolerated. I do not see any new orthopedic issues. Any concerns, can contact me at [phone]. Once again, we will leave this splint on her right upper extremity in place. She should wear the sling at all times and should have her head of bed elevated 40 or 50 degrees at all times as much as possible.
[2018-09-28] MEDS: INSULIN ASPART 100 UNITS/ML 3 ML PEN SC SCH ×4 (08:36→20:33)
[2018-09-28] MEDS: MULTIVITAMIN TAB PO SCH (08:39)
[2018-09-28] MEDS: CHOLECALCIFEROL (VITAMIN D) 400 UNITS TABLET PO SCH ×2 (08:39→20:31)
[2018-09-28] MEDS: DULOXETINE HCL 60 MG CAP PO SCH (08:39)
[2018-09-28] MEDS: CeleBREX 200 MG CAP PO SCH ×2 (08:39→20:31)
[2018-09-28] MEDS: dilTIAZem HCL 180 MG CAPCR PO SCH ×2 (08:40→20:32)
[2018-09-28] MEDS: PANTOprazole 40 MG TAB PO SCH ×2 (08:40→20:31)
[2018-09-28] MEDS: OXYCODONE HCL IR 5 MG TAB (IMMEDIATE RELEASE) PO PRN ×2 (08:48→14:36)
--- NOTE | 2018-09-28 14:24 | Electroencephalogram ---
EEG Procedure Note Date of Service September 28, 2018 Start / End Times Start Time: 714 End Time: [address] Bryan History Confusion post arm fracture and possible closed head injury Home Medication List Home Medications Medication Instructions Recorded Confirmed Type alendronate [Fosamax] 70 mg PO WK 01/12/18 09/27/18 History celecoxib [Celebrex] 200 mg PO BID 01/12/18 09/27/18 History cholecalciferol (vitamin D3) 400 unit PO BID 01/12/18 09/27/18 History [Vitamin D3] docusate sodium [Colace] 100 mg PO BID PRN 01/12/18 09/27/18 History duloxetine [Cymbalta] 60 mg PO QAM 01/12/18 09/27/18 History levothyroxine 75 mcg PO QAM 01/12/18 09/27/18 History multivitamin with minerals 1 tab PO QAM 01/12/18 09/27/18 History omeprazole 20 mg PO BID 01/12/18 09/27/18 History solifenacin [Vesicare] 10 mg PO HS 01/12/18 09/27/18 History diltiazem HCl [Cardizem CD] 180 mg PO BID 09/26/18 09/27/18 History fluticasone furoate-vilanterol 1 inh INHALATION HS 09/26/18 09/27/18 History [Breo Ellipta] oxycodone 5 mg PO Q6H PRN #12 tab 09/26/18 09/27/18 Rx albuterol sulfate 2 puff INHALATION Q6H PRN 09/27/18 09/27/18 History diclofenac sodium 2 g TOPICAL QID PRN 09/27/18 09/27/18 History Inpatient Medication List Celecoxib (Celebrex) 200 mg PO BID [facility] Stop: 10/27/18 20:59 Last Admin: 09/28/18 08:39 Dose: 200 mg Documented by: [id number] Admin: 09/27/18 22:02 Dose: 200 mg Documented by: [id number] Diltiazem HCl (Cardizem Cd) 180 mg PO BID [facility] Stop: 10/27/18 20:59 Last Admin: 09/28/18 08:40 Dose: Not Given Documented by: [id number] Admin: 09/27/18 22:02 Dose: 180 mg Documented by: [id number] Duloxetine HCl (Cymbalta) 60 mg PO QAM [facility] Stop: 10/28/18 08:59 Last Admin: 09/28/18 08:39 Dose: 60 mg Documented by: [id number] Sodium Chloride (Nss 1000ml) 1,000 mls @ 80 mls/hr IV .[id number] [facility] Stop: 09/28/18 17:39 Last Admin: 09/28/18 05:47 Dose: 80 mls/hr Documented by: [id number] Infusion: 09/28/18 05:42 Dose: 80 mls/hr Documented by: [id number] Admin: 09/27/18 17:12 Dose: 80 mls/hr Documented by: [id number] Insulin Aspart (Novolog Flexpen) 0 units SC ACHS [facility] Stop: 10/27/18 16:59 Last Admin: 09/28/18 13:26 Dose: Not Given Documented by: [id number] Cosigned by: [id number] Admin: 09/28/18 08:36 Dose: Not Given Documented by: [id number] Cosigned by: [id number] Admin: 09/27/18 20:46 Dose: Not Given Documented by: [id number] Cosigned by: [id number] Admin: 09/27/18 18:15 Dose: 1 units Documented by: [id number] Cosigned by: [id number] Levothyroxine Sodium (Synthroid) 75 mcg PO DAILYBB [facility] Stop: 10/28/18 06:29 Last Admin: 09/28/18 05:48 Dose: 75 mcg Documented by: [id number] Miscellaneous (Order Awaiting Action) 1 ea N/A QS [facility] Stop: 10/28/18 00:00 Last Admin: 09/28/18 08:38 Dose: Not Given Documented by: [id number] Admin: 09/27/18 23:25 Dose: Not Given Documented by: [id number] Miscellaneous (Order Awaiting Action) 1 ea N/A QS [facility] Stop: 10/28/18 00:00 Last Admin: 09/28/18 08:37 Dose: Not Given Documented by: [id number] Admin: 09/27/18 23:25 Dose: Not Given Documented by: [id number] Multivitamins ([facility]ivitamin Tab) [facility] [place] Stop: 10/28/18 08:59 Last Admin: 09/28/18 08:39 Dose: 1 tab Documented by: [id number] Oxycodone HCl (Roxicodone Immediate Rel) 5 mg PO Q6H PRN PRN Reason: pain Stop: 10/11/18 16:04 Last Admin: 09/28/18 08:48 Dose: 5 mg Documented by: [id number] Admin: 09/27/18 21:32 Dose: 5 mg Documented by: [id number] Pantoprazole Sodium (Protonix) 40 mg PO BID [facility] Stop: 10/27/18 20:59 Last Admin: 09/28/18 08:40 Dose: 40 mg Documented by: [id number] Admin: 09/27/18 22:02 Dose: 40 mg Documented by: [id number] Vitamin D (Vitamin D3) 400 units PO BID [facility] Stop: 10/27/18 20:59 Last Admin: 09/28/18 08:39 Dose: 400 units Documented by: [id number] Admin: 09/27/18 22:02 Dose: 400 units Documented by: [id number] Discontinued Medications Hydromorphone HCl (Dilaudid) 0.25 mg IV Q15M PRN PRN Reason: Pain Stop: 10/11/18 12:36 Last Admin: 09/27/18 13:19 Dose: 0.25 mg Documented by: [id number] Sodium Chloride (Nss 1000ml) 1,000 mls @ 125 mls/hr IV .Q8H [facility] Stop: 09/27/18 18:29 Last Infusion: 09/27/18 17:45 Dose: 0 mls/hr Documented by: [id number] Admin: 09/27/18 13:19 Dose: 125 mls/hr Documented by: [id number] Ondansetron HCl (Zofran) 4 mg IV NOW STA Stop: 09/27/18 12:38 Last Admin: 09/27/18 13:19 Dose: 4 mg Documented by: [id number] Description This is a 21 electrode EEG with a single channel dedicated to limited EKG. The electrodes were placed in accordance with the International 10-20 system. This EEG was done as a bedside recording is of reasonable technical quality with few or no muscle or movement artifacts. Photic stimulation was performed. Drowsiness and light sleep is not clearly evident. During apparent wakefulness there is evidence for a background theta rhythm of modest voltage which is maximum posterior head regions and is of up to 6 to 7 Hz and of up to 40 V in amplitude Polymorphic low-frequency theta activity of moderate to moderately high amplitude intermixed with them isolated nonrhythmic waveforms in the delta range is seen over the central regions in a symmetrical fashion Beta activity is seen bifrontally Photic stimulation provokes a minimal driving response with no photo myogenic photoparoxysmal component At no point is a clear-cut evidence for ongoing potentially epileptogenic activity Interpretation This is a moderately diffusely abnormal EEG characterized by absence of a normal background alpha rhythm and excessive amounts of theta delta activity and is consistent with a nonspecific encephalopathy of indeterminate causation without associated potentially epileptogenic patterns
[2018-09-28] MEDS: ACETAMINOPHEN 325 MG TAB PO PRN (17:23)
--- NOTE | 2018-09-28 18:10 | Hospitalist Progress Note ---
Date of Service September 28, 2018 Assessment & Plan (1) Fall: Presented with unwitnessed fall She does not recall the event, denies of any dizzy spell lightheadedness on syncope No arrhythmia noted on telemetry, Has been stable Detailed imaging as outlined below: CT HEAD: no acute findings: There is no hemorrhage, mass effect, or evidence of acute territorial ischemia by CT criteria. CT C-SPINE There is no evidence of fracture or subluxation involving the cervical spine. LUMBAR XRAY:postsurgical changes, Degenerative change, Old L1 and T11 compression fractures. 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 No joint effusion. PELVIS XRAY:No acute fracture within the pelvis or hips. EKG shows no evidence of seizure activity Mild elevation of CPK possibly secondary to fall, being on the floor CPK level normalized with IV fluids No arrhythmia noted on telemetry, stable to be transferred to medical floor (2) Humeral fracture: Sustained a fall while walking on 09/26/2017. Seen in ER on 09/26/18 and found to have R Humerus fracture. Splint was applied in ER. Presents to ER after he fell overnight -R Humerus Xray shows: No change in alignment of the acute comminuted displaced angulated periprosthetic diaphyseal right humeral fracture since radiographs of September 26, 2018. -Orthopedic consulted, appreciate input Recommends conservative management with right arm cast/splint Patient should wear arm sling all the time Clinic follow-up with Dr. Reis in 2 weeks for repeat x-ray, assessment of healing (3) Closed fracture nasal bone: CT FACE: Acute nasal bone fractures. No additional facial fractures identified. No septal hematoma noted. +septal perforation which is chronic Denies of any pain or discomfort, no epistaxis -Pt will need outpatient ENT follow up in 7-10 days (4) Left elbow pain: L ELBOW XRAY: No fractures identified. Possible small joint effusion. If symptoms persist, repeat radiography in 7-10 days should be considered She denies of any pain or discomfort (5) Leukocytosis: Possible secondary to stress-induced Leukocytosis resolved, with normal vitals today CXR: no infiltrate (6) DM type 2 (diabetes mellitus, type 2): A1c: 7.0 on 06/12/18. Diet controlled Random glucose: 182 -DM diet, monitor BSGs -Novolog sliding scale per protocol (7) Essential hypertension: -Continue diltiazem (8) Hypothyroidism: TSH: 2.8 -Continue levothyroxine (9) COPD (chronic obstructive pulmonary disease): No wheezing, SOB -Continue Breo, albuterol prn DVT Prophylaxis Moderate to high risk for DVT, given limited mobility Ordered for subcu heparin DNR/DNI as per discussion with pt Follows with Dr Zaman for routine care Disposition: Patient will need rehab on discharge Appreciate input from social service, referral made to [facility] Plan of care updated to patient's daughter over phone Subjective Patient is very pleasant, denies any pain or discomfort, right arm on splint extending up to right shoulder joint No complaint of chest pain no shortness of breath has been afebrile with vitals stable Review of Systems Review of Systems: All systems reviewed & are unremarkable except as noted in HPI & below Physical Exam Constitutional: WD/WN, vitals as above no acute distress Very less than, appears to be comfortable denies of any pain distress Eyes: Periorbital ecchymosis noted on bilateral eyelids right is more than left ENMT: external ear and nose normal, oropharynx normal Neck: trachea midline, no thyromegaly Respiratory: normal respiratory effort, lungs clear to auscultation Cardiovascular: RRR, no murmur, no edema Gastrointestinal (Abdomen): normal bowel sounds, soft, nontender, no hepatosplenomegaly Musculoskeletal: Right arm fracture, on splint and arm sling, ecchymosis noted on right knee Skin: no rashes, warm and dry Trauma: + hematoma (On right knee, without any skin tear or skin lesion); no laceration and no contusion Neurologic: PERRL, EOMI, accommodation nl, no face palsy, no dysarthria Psychiatric: A+Ox3, euthymic affect Results & Data Vital Signs (Past 12 Hours) Vital Signs Temp Pulse Pulse Resp BP Pulse Ox 09/28/18 16:02 91 H 09/28/18 14:58 36.7 C 92 H 20 120/70 92 09/28/18 11:00 36.7 C 100 H 20 129/83 92 09/28/18 07:00 36.9 C 102 H 20 96/49 L 93 (1) Fall Encounter type: initial encounter Qualified Code(s): W19.XXXA - Unspecified fall, initial encounter (2) Humeral fracture Encounter type: initial encounter Fracture alignment: displaced Fracture morphology: comminuted Fracture type: closed Humerus Location: shaft Laterality: right Qualified Code(s): S42.351A - Displaced comminuted fracture of shaft of humerus, right arm, initial encounter for closed fracture (3) Closed fracture nasal bone Encounter type: initial encounter Qualified Code(s): S02.2XXA - Fracture of nasal bones, initial encounter for closed fracture
[2018-09-28 20:32] LABS: Prothrombin Time 10.7 Seconds (9.0-12.0)
[2018-09-28] MEDS: HEPARIN SOD 5,000 UNIT/0.5 ML VIAL SQ SCH (22:30)
[2018-09-29 03:03] LABS: Appearance Urine Clear (Clear); Bacteria Urine Automated Negative (Negative); Bilirubin Urine Negative (Negative); Blood Urine Negative (Negative); Color Urine Dark Yellow; Glucose Urine UA Negative (Negative); Ketones Urine Negative (Negative); Leukocyte Esterase Urine 2+ (Negative); Nitrite Urine Negative (Negative); Protein Urine Negative (Negative); RBC Urine Automated 0-4 /hpf (0-4); Specific Gravity Urine 1.017 (1.000-1.030); Urobilinogen Urine Negative (Negative); WBC Urine Automated >30 /hpf (0-5); pH Urine 6.5 (4.5-7.5)
[2018-09-29] MEDS: LEVOTHYROXINE SODIUM 75 MCG TABLET PO SCH (06:06)
[2018-09-29] MEDS: HEPARIN SOD 5,000 UNIT/0.5 ML VIAL SQ SCH ×3 (06:06→21:17)
[2018-09-29] MEDS: INSULIN ASPART 100 UNITS/ML 3 ML PEN SC SCH ×4 (08:37→17:40)
[2018-09-29] MEDS: CeleBREX 200 MG CAP PO SCH ×2 (08:38→21:15)
[2018-09-29] MEDS: CHOLECALCIFEROL (VITAMIN D) 400 UNITS TABLET PO SCH ×2 (08:38→21:16)
[2018-09-29] MEDS: MULTIVITAMIN TAB PO SCH (08:38)
[2018-09-29] MEDS: PANTOprazole 40 MG TAB PO SCH ×2 (08:38→21:16)
[2018-09-29] MEDS: DULOXETINE HCL 60 MG CAP PO SCH (08:38)
[2018-09-29] MEDS: dilTIAZem HCL 180 MG CAPCR PO SCH ×2 (08:38→21:11)
--- NOTE | 2018-09-29 08:50 | Progress Note ---
DATE: 09/29/2018 SUBJECTIVE: An 82-year-old white female admitted status post a fall with a right humeral diaphyseal fracture around the humeral prosthesis. She seems to be at about baseline. Seems to have a little bit more trouble breathing this morning than yesterday. No new complaints. OBJECTIVE: VITAL SIGNS: Temperature 36.7. Vital signs stable. GENERAL: Physical examination shows a pleasant elderly female. She is sitting up in bed and eating her breakfast. EXTREMITIES: Examination of the right arm reveals the splint to be in place. She continued to have a radial nerve palsy. She cannot dorsiflex her wrist or fingers. She has got brisk refill. ASSESSMENT: An 82-year-old female with multiple medical comorbidities, admitted status post several falls and humeral diaphyseal fracture. From the orthopedic standpoint, she is doing okay. Seems to be having a little bit more trouble breathing in respiratory eric this morning and does have pretty severe chronic obstructive pulmonary disease. PLAN: From the orthopedic standpoint, we are just going to leave the splint on and she should have a sling on at all times. She should have the head of the bed elevated as much as possible all the time to help with this fracture stay aligned. I need to see her back in about 2 weeks and we will change the splint to a Hardy brace. Any orthopedic questions can be directed to me at [phone]. She can otherwise weightbear as tolerated. No other orthopedic intervention warranted at this time.
[2018-09-29] MEDS: OXYCODONE HCL IR 5 MG TAB (IMMEDIATE RELEASE) PO PRN ×2 (10:50→21:08)
[2018-09-29] MEDS ORDERED: PIPERACILL/TAZOBAC CONSULT ACTIVE PRN (14:07)
--- NOTE | 2018-09-29 14:38 | XRay Report ---
XR chest 1V portable CLINICAL HISTORY: hypoxia /aspiration COMPARISON STUDY: Chest CT March 12, 2018. Chest radiograph September 27, 2018. FINDINGS: Thoracolumbar spine fusion hardware and bilateral shoulder arthroplasties are noted. Lung v olumes are diminished. Old right rib fractures are noted. Moderate cardiomegaly is present. The known right humeral fracture is not well visualized on this exam there is no evidence for overt pulmonary edema. Mild left basilar opacity is present. IMPRESSION: 1. Low lung volumes. Left basilar opacity which favors atelectasis. Technically difficult study to in terpret. 2. Cardiomegaly without overt pulmonary edema. Electronically signed by: Cliff Varghese M.D. 09/29/2018 2:37 PM
[2018-09-29] MEDS ORDERED: PIPERACILLIN/TAZOBACTAM 4.5 GM in DEXTROSE 5% 100 ML IV ONE (14:45)
--- NOTE | 2018-09-29 16:10 | Progress Note ---
DATE: 09/29/2018 REFERRED BY: Dr. Bryan. I was asked by Dr. Bryan to consult on this woman because of concerns for possible either aspiration or esophageal food bolus. HISTORY OF PRESENT ILLNESS: The patient is an 82-year-old who has been in the hospital now for several days following a fall. She is supposed to be on a soft diet, but she was eating hamburger today and choked on the hamburger. She states that she does this "all the time." She often has an issue with choking or aspirating on food. She denies any sensation of feeling that the food is stuck in her esophagus and she has been able to drink some water. She does produce a lot of phlegm and has been producing phlegm, but again states that "I do this all the time." She describes having upper endoscopies in the past and was told that everything was always normal. 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 She also has a significant amount of comorbid diseases. I reviewed her medical records and past medical history and she has a past medical history significant for COPD, renal cancer, osteoarthritis, diabetes, esophageal dysmotility, dyslipidemia. It is because of the esophageal dysmotility history that she is supposed to be on a soft diet. OUTPATIENT MEDICATIONS: Include Fosamax, Celebrex, Colace, Cymbalta, levothyroxine, omeprazole, VESIcare, Cardizem, Breo, oxycodone p.r.n., diclofenac p.r.n. ALLERGIES: SHE STATES SHE IS ALLERGIC TO CYCLOBENZAPRINE, ATORVASTATIN, CODEINE, FENTANYL, AND MORPHINE. FAMILY HISTORY: Denies any family history of gastrointestinal disease. SOCIAL HISTORY: Significant for no active smoking or drinking. REVIEW OF SYSTEMS: As above, otherwise she denies any chest pain, change in vision or hearing, dysuria, pruritus or jaundice, joint swelling, heat or cold intolerance, rectal bleeding. She does have chronic shortness of breath from her COPD and is on oxygen. She has recent bruising from her fall, but denies any history of recent bruising. Other than that. She denies any gynecologic issues. PHYSICAL EXAMINATION: GENERAL: Reveals an elderly woman appearing comfortable in bed watching TV. VITAL SIGNS: Her most recent blood pressure is 145/78, pulse is 83, temperature is 36.5, weight is 80 kilograms. She has bruising around her eyes in a racoon fashion from her fall, but her skin is otherwise anicteric. EYES: Show anicteric sclerae. MOUTH: Clear of lesions. NECK: Supple with no adenopathy. CHEST: Diffuse rhonchorous and coarse breath sounds. HEART: Regular. ABDOMEN: Soft with good bowel sounds. There is no organomegaly, masses, rebound tenderness noted. EXTREMITIES: Warm with fair distal pulses. NEUROLOGIC: She is alert and oriented x3. IMPRESSION: An 82-year-old woman who has a history of esophageal dysmotility and recent possible aspiration. It is unclear at this point if she has a food impaction, though it does not appear that she does because she is so comfortable and this seems to be a chronic issue. This may just be related to esophageal dysmotility. At this point, I would make her n.p.o. except for sips of water. She does not want to have an endoscopy at this point and given her comorbid diseases, I do not think currently it is imperative that we do this. She would like to see how she does over the next 24 hours and I will readdress this in the morning with her. Certainly, I would keep a close eye for developing of aspiration pneumonia.
--- NOTE | 2018-09-29 17:36 | Hospitalist Progress Note ---
Date of Service September 29, 2018 Assessment & Plan (1) Aspiration pneumonia due to food (regurgitated): Developed acute cough, leo aspiration when eating a hamburger Patient did not had any episode of coughing or aspiration yesterday, Per patient's daughter, patient has chronic dysphasia, esophageal dysmotility , required intermittent dilatation Patient supposed to be on soft diet Patient gets Coughs reflux choking on dry meat GI consulted for evaluation of food impaction: Patient was having episodes of stridor or hoarseness of voice with choking sensation back of the throat Her symptoms was resolved prior to GI arrival Able to drink sips of water Chest x-ray shows: Possible basilar infiltrate Patient started with empiric antibiotic with IV Zosyn Patient's daughter present at bedside mentions she gets this episode "on and off" History of esophageal dysmotility, required esophageal dilatation in the past Patient supposed to be on soft diet, and avoid dry foods especially meat Her last esophageal dilatation was years ago Ordered for strict n.p.o. Speech evaluation requested (2) Fall: Presented with unwitnessed fall She does not recall the event, denies of any dizzy spell lightheadedness on syncope No arrhythmia noted on telemetry, Has been stable Detailed imaging as outlined below: CT HEAD: no acute findings: There is no hemorrhage, mass effect, or evidence of acute territorial ischemia by CT criteria. CT C-SPINE There is no evidence of fracture or subluxation involving the cervical spine. LUMBAR XRAY:postsurgical changes, Degenerative change, Old L1 and T11 compression fractures. 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 No joint effusion. PELVIS XRAY:No acute fracture within the pelvis or hips. EKG shows no evidence of seizure activity Mild elevation of CPK possibly secondary to fall, being on the floor CPK level normalized with IV fluids Appreciate input from orthopedics, conservative management, outpatient follow-up in clinic in 2 weeks (3) Humeral fracture: Sustained a fall while walking on 09/26/2017. Seen in ER on 09/26/18 and found to have R Humerus fracture. Splint was applied in ER. Presents to ER after he fell overnight -R Humerus Xray shows: No change in alignment of the acute comminuted displaced angulated periprosthetic diaphyseal right humeral fracture since radiographs of September 26, 2018. -Orthopedic consulted, appreciate input Recommends conservative management with right arm cast/splint Patient should wear arm sling all the time Clinic follow-up with Dr. Reis in 2 weeks for repeat x-ray, assessment of healing (4) Closed fracture nasal bone: CT FACE: Acute nasal bone fractures. No additional facial fractures identified. No septal hematoma noted. 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 Possible small joint effusion. If symptoms persist, repeat radiography in 7-10 days should be considered She denies of any pain or discomfort (6) DM type 2 (diabetes mellitus, type 2): A1c: 7.0 on 06/12/18. Diet controlled Random glucose: 182 -DM diet, monitor BSGs -Novolog sliding scale per protocol (7) Essential hypertension: -Continue diltiazem (8) Hypothyroidism: TSH: 2.8 -Continue levothyroxine (9) COPD (chronic obstructive pulmonary disease): No wheezing, SOB -Continue Breo, albuterol prn DVT Prophylaxis Moderate to high risk for DVT, given limited mobility Ordered for subcu heparin DNR/DNI as per discussion with pt Follows with Dr Zaman for routine care Disposition: Patient will need rehab on discharge Appreciate input from social service, referral made to [facility] Plan of care updated to patient's daughter over phone Subjective Developed choking/leo aspiration during lunchtime today Was eating a hamburger, mentions that meat was very dry Started to have violent cough after taking one bite, Became hypoxic, Bringing out white phlegm She is ordered n.p.o. Review of Systems Review of Systems: All systems reviewed & are unremarkable except as noted in HPI & below Physical Exam Constitutional: WD/WN, vitals as above + acute distress (Coughing) Eyes: + anicteric sclerae Periorbital ecchymosis noted, right is more than left ENMT: No food impaction noted on the back of the throat Neck: trachea midline, no thyromegaly Respiratory: + respiratory distress, + uses accessory muscles, + cough, + tachypneic and + stridor Cardiovascular: RRR, no murmur, no edema Gastrointestinal (Abdomen): normal bowel sounds, soft, nontender, no hepatosplenomegaly Skin: no rashes, warm and dry Trauma: + hematoma (On right knee, without any skin tear or skin lesion); no laceration and no contusion Neurologic: PERRL, EOMI, accommodation nl, no face palsy, no dysarthria Psychiatric: Orientation: alert and oriented x 3 Affect: + anxious affect Results & Data Vital Signs (Past 12 Hours) Vital Signs Temp Pulse Pulse Resp BP Pulse Ox Pulse Ox 09/29/18 15:40 100 09/29/18 15:26 81 09/29/18 14:57 36.5 C 83 18 145/78 H 95 09/29/18 11:28 36.9 C 97 H 16 114/71 95 09/29/18 07:07 36.7 C 82 16 148/88 H 96 (1) Fall Encounter type: initial encounter Qualified Code(s): W19.XXXA - Unspecified fall, initial encounter (2) Humeral fracture Encounter type: initial encounter Fracture alignment: displaced Fracture morphology: comminuted Fracture type: closed Humerus Location: shaft Laterality: right Qualified Code(s): S42.351A - Displaced comminuted fracture of shaft of humerus, right arm, initial encounter for closed fracture (3) Closed fracture nasal bone Encounter type: initial encounter Qualified Code(s): S02.2XXA - Fracture of nasal bones, initial encounter for closed fracture (4) Aspiration pneumonia due to food (regurgitated) Laterality: unspecified laterality Lung location: unspecified part of lung Qualified Code(s): J69.0 - Pneumonitis due to inhalation of food and vomit
[2018-09-29] MEDS: PIPERACILLIN/TAZOBACTAM 4.5 GM in DEXTROSE 5% 100 ML IV SCH (21:11)
[2018-09-30] MEDS: INSULIN ASPART 100 UNITS/ML 3 ML PEN SC SCH ×4 (00:23→18:01)
[2018-09-30] MEDS: PIPERACILLIN/TAZOBACTAM 4.5 GM in DEXTROSE 5% 100 ML IV SCH ×3 (04:08→19:51)
[2018-09-30] MEDS: HEPARIN SOD 5,000 UNIT/0.5 ML VIAL SQ SCH ×3 (05:26→21:22)
[2018-09-30] MEDS: LEVOTHYROXINE SODIUM 75 MCG TABLET PO SCH (05:29)
--- NOTE | 2018-09-30 08:31 | Progress Note ---
DATE: 09/30/2018 SUBJECTIVE: An 82-year-old female admitted with a right periprosthetic humerus fracture status post several falls. She seems to be doing better this morning. No new complaints. Pain seems to be improved. OBJECTIVE: VITAL SIGNS: Temperature 36.6. Vital signs stable. GENERAL: Physical examination shows a pleasant elderly female. She is lying in bed, looks much more comfortable this morning. Breathing better. Splints in place. She continues to have radial nerve palsy. Difficulty extending her fingers. She can flex or extend her fingers a bit better. ASSESSMENT: An 82-year-old female admitted status post several falls with a right humeral shaft fracture. Multiple medical comorbidities. Seems to be doing a little better. PLAN: We will continue this coaptation splint for the next week and half. I need to see her back in about a week and half. We will change her bandage then to a Hardy brace. She should have the head of the bed up as much as possible. She can weightbear as tolerated. Any orthopedic questions can be directed to me at [phone].
[2018-09-30] MEDS: CHOLECALCIFEROL (VITAMIN D) 400 UNITS TABLET PO SCH ×2 (08:44→21:16)
[2018-09-30] MEDS: MULTIVITAMIN TAB PO SCH (08:44)
[2018-09-30] MEDS: CeleBREX 200 MG CAP PO SCH ×2 (08:44→21:16)
[2018-09-30] MEDS: dilTIAZem HCL 180 MG CAPCR PO SCH ×2 (08:44→21:16)
[2018-09-30] MEDS: DULOXETINE HCL 60 MG CAP PO SCH (08:44)
[2018-09-30] MEDS: PANTOprazole 40 MG TAB PO SCH ×2 (08:44→21:16)
[2018-09-30] MEDS: OXYCODONE HCL IR 5 MG TAB (IMMEDIATE RELEASE) PO PRN ×3 (08:48→23:21)
--- NOTE | 2018-09-30 14:02 | Progress Note ---
DATE: 09/30/2018 HISTORY OF PRESENT ILLNESS: Ms. Zhong is doing well today. In fact, she is with a friend at the bedside and she is eating ice cream without any issues. She has had no further signs of there is anything that has obstructed her esophagus from the episode yesterday. PHYSICAL EXAMINATION: VITAL SIGNS: Her most recent blood pressure is 137/84, pulse is 86, temperature is 36.4. SKIN: Anicteric. HEENT: Eyes show anicteric sclerae with again racoon and ecchymosis from her fall. Mouth is clear of lesions. LUNGS: There is no evidence of obstruction or stridor. ABDOMEN: Benign. NEUROLOGIC: She is alert and oriented x3. IMPRESSION: An 82-year-old woman, most likely with an aspiration yesterday. I would just make sure that she is compliant with her mechanical soft diet in the future and there is no indication for endoscopy.
--- NOTE | 2018-09-30 14:50 | Hospitalist Progress Note ---
Date of Service September 30, 2018 Assessment & Plan (1) Aspiration pneumonia due to food (regurgitated): Has been remained stable, tolerating full liquid diet, no aspiration noted, no cough Will DC IV Zosyn, changed to p.o. Augmentin Appreciate input from GI, no GI intervention needed Speech pathology consulted, awaiting input 09/29/2018 Developed acute cough, leo aspiration while eating a hamburger Patient did not had any episode of coughing or aspiration yesterday, Per patient's daughter, patient has chronic dysphasia, esophageal dysmotility , required intermittent dilatation Patient supposed to be on soft diet Patient gets Coughs reflux choking on dry meat GI consulted for evaluation of food impaction: Patient was having episodes of stridor or hoarseness of voice with choking sensation back of the throat Her symptoms was resolved prior to GI arrival Able to drink sips of water Chest x-ray shows: Possible basilar infiltrate Patient started with empiric antibiotic with IV Zosyn Patient's daughter present at bedside mentions she gets this episode "on and off" History of esophageal dysmotility, required esophageal dilatation in the past Patient supposed to be on soft diet, and avoid dry foods especially meat Her last esophageal dilatation was years ago Ordered for strict n.p.o. Speech evaluation requested (2) Fall: Presented with unwitnessed fall She does not recall the event, denies of any dizzy spell lightheadedness on syncope No arrhythmia noted on telemetry, Has been stable Detailed imaging as outlined below: CT HEAD: no acute findings: There is no hemorrhage, mass effect, or evidence of acute territorial ischemia by CT criteria. CT C-SPINE There is no evidence of fracture or subluxation involving the cervical spine. LUMBAR XRAY:postsurgical changes, Degenerative change, Old L1 and T11 compression fractures. 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 No joint effusion. PELVIS XRAY:No acute fracture within the pelvis or hips. EKG shows no evidence of seizure activity Mild elevation of CPK possibly secondary to fall, being on the floor CPK level normalized with IV fluids Appreciate input from orthopedics, conservative management, outpatient follow-up in clinic in 2 weeks (3) Humeral fracture: Sustained a fall while walking on 09/26/2017. Seen in ER on 09/26/18 and found to have R Humerus fracture. Splint was applied in ER. Presents to ER after he fell overnight -R Humerus Xray shows: No change in alignment of the acute comminuted displaced angulated periprosthetic diaphyseal right humeral fracture since radiographs of September 26, 2018. -Orthopedic consulted, appreciate input Recommends conservative management with right arm cast/splint Patient should wear arm sling all the time Clinic follow-up with Dr. Reis in 2 weeks for repeat x-ray, assessment of healing (4) Closed fracture nasal bone: CT FACE: Acute nasal bone fractures. No additional facial fractures identified. No septal hematoma noted. 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 Possible small joint effusion. If symptoms persist, repeat radiography in 7-10 days should be considered She denies of any pain or discomfort (6) DM type 2 (diabetes mellitus, type 2): A1c: 7.0 on 06/12/18. Diet controlled Random glucose: 182 -DM diet, monitor BSGs -Novolog sliding scale per protocol (7) Essential hypertension: -Continue diltiazem (8) Hypothyroidism: TSH: 2.8 -Continue levothyroxine (9) COPD (chronic obstructive pulmonary disease): No wheezing, SOB -Continue Breo, albuterol prn DVT Prophylaxis Moderate to high risk for DVT, given limited mobility Ordered for subcu heparin DNR/DNI as per discussion with pt Follows with Dr Zaman for routine care Disposition: Patient will need rehab on discharge Appreciate input from social service, referral made to [facility] and [facility] Plan of care updated to patient's daughter over phone Subjective Tolerating full liquid diet, no choking episode, no cough no fever chills Speech evaluation requested, Denies of any pain or discomfort on right arm Physical Exam Constitutional: WD/WN, vitals as above no acute distress (Coughing) Eyes: + anicteric sclerae ENMT: external ear and nose normal, oropharynx normal Neck: trachea midline, no thyromegaly Respiratory: normal respiratory effort, lungs clear to auscultation no cough Cardiovascular: RRR, no murmur, no edema Gastrointestinal (Abdomen): normal bowel sounds, soft, nontender, no hepatosplenomegaly Skin: no rashes, warm and dry Trauma: + hematoma (On right knee, without any skin tear or skin lesion); no laceration and no contusion Neurologic: PERRL, EOMI, accommodation nl, no face palsy, no dysarthria Psychiatric: A+Ox3, euthymic affect Orientation: alert and oriented x 3 Affect: + anxious affect Results & Data Vital Signs (Past 12 Hours) Vital Signs Temp Pulse Pulse Resp BP Pulse Ox 09/30/18 14:25 95 09/30/18 11:24 36.4 C L 86 16 137/84 95 09/30/18 08:20 65 09/30/18 07:12 36.6 C 75 16 147/82 H 96 09/30/18 03:29 93 H 09/30/18 03:16 36.4 C L 74 18 130/75 96 (1) Closed fracture nasal bone Encounter type: initial encounter Qualified Code(s): S02.2XXA - Fracture of nasal bones, initial encounter for closed fracture (2) Aspiration pneumonia due to food (regurgitated) Laterality: unspecified laterality Lung location: unspecified part of lung Qualified Code(s): J69.0 - Pneumonitis due to inhalation of food and vomit (3) Humeral fracture Encounter type: initial encounter Fracture alignment: displaced Fracture morphology: comminuted Fracture type: closed Humerus Location: shaft Laterality: right Qualified Code(s): S42.351A - Displaced comminuted fracture of shaft of humerus, right arm, initial encounter for closed fracture (4) Fall Encounter type: initial encounter Qualified Code(s): W19.XXXA - Unspecified fall, initial encounter
[2018-09-30] MEDS ORDERED: Nursing to Pharmacy Communication ONE (21:19)
[2018-10-01] MEDS: PIPERACILLIN/TAZOBACTAM 4.5 GM in DEXTROSE 5% 100 ML IV SCH ×2 (04:24→12:31)
[2018-10-01] MEDS: LEVOTHYROXINE SODIUM 75 MCG TABLET PO SCH (06:21)
[2018-10-01] MEDS: HEPARIN SOD 5,000 UNIT/0.5 ML VIAL SQ SCH ×3 (06:21→21:45)
[2018-10-01 07:00] LABS: Creatinine Clr Calc Pharmacy 49.2 ml/min; Est GFR (African American) 78.4; Est GFR (Non-African American) 67.6
[2018-10-01] MEDS: PANTOprazole 40 MG TAB PO SCH ×2 (08:22→21:44)
[2018-10-01] MEDS: DULOXETINE HCL 60 MG CAP PO SCH (08:22)
[2018-10-01] MEDS: dilTIAZem HCL 180 MG CAPCR PO SCH ×2 (08:22→20:25)
[2018-10-01] MEDS: CHOLECALCIFEROL (VITAMIN D) 400 UNITS TABLET PO SCH ×2 (08:22→21:44)
[2018-10-01] MEDS: MULTIVITAMIN TAB PO SCH (08:23)
[2018-10-01] MEDS: CeleBREX 200 MG CAP PO SCH ×2 (08:23→20:26)
[2018-10-01] MEDS: INSULIN ASPART 100 UNITS/ML 3 ML PEN SC SCH ×4 (09:33→20:26)
[2018-10-01] MEDS: OXYCODONE HCL IR 5 MG TAB (IMMEDIATE RELEASE) PO PRN (12:31)
[2018-10-01] MEDS: ACETAMINOPHEN 325 MG TAB PO PRN (17:39)
--- NOTE | 2018-10-01 18:03 | Hospitalist Progress Note ---
Date of Service October 01, 2018 Assessment & Plan (1) Aspiration pneumonia due to food (regurgitated): Appreciate speech evaluation, diet change to moist slippery: With aspiration precaution: Small small bites, small sips, alternate between solid and liquid Patient has been tolerating very well No cough no respiratory distress or hypoxia Antibiotic changed to p.o. Augmentin: Complete total 5 days of course 09/29/2018 Developed acute cough, leo aspiration while eating a hamburger Patient did not had any episode of coughing or aspiration yesterday, Per patient's daughter, patient has chronic dysphasia, esophageal dysmotility , required intermittent dilatation Patient supposed to be on soft diet Patient gets Coughs reflux choking on dry meat GI consulted for evaluation of food impaction: Patient was having episodes of stridor or hoarseness of voice with choking sensation back of the throat Her symptoms was resolved prior to GI arrival Able to drink sips of water Chest x-ray shows: Possible basilar infiltrate Patient started with empiric antibiotic with IV Zosyn Patient's daughter present at bedside mentions she gets this episode "on and off" History of esophageal dysmotility, required esophageal dilatation in the past Patient supposed to be on soft diet, and avoid dry foods especially meat Her last esophageal dilatation was years ago Ordered for strict n.p.o. Speech evaluation requested (2) Fall: Presented with unwitnessed fall She does not recall the event, denies of any dizzy spell lightheadedness on syncope No arrhythmia noted on telemetry, Has been stable Detailed imaging as outlined below: CT HEAD: no acute findings: There is no hemorrhage, mass effect, or evidence of acute territorial ischemia by CT criteria. CT C-SPINE There is no evidence of fracture or subluxation involving the cervical spine. LUMBAR XRAY:postsurgical changes, Degenerative change, Old L1 and T11 compression fractures. 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 No joint effusion. PELVIS XRAY:No acute fracture within the pelvis or hips. EKG shows no evidence of seizure activity Mild elevation of CPK possibly secondary to fall, being on the floor CPK level normalized with IV fluids Appreciate input from orthopedics, conservative management, outpatient follow-up in clinic in 2 weeks (3) Humeral fracture: Sustained a fall while walking on 09/26/2017. Seen in ER on 09/26/18 and found to have R Humerus fracture. Splint was applied in ER. Presents to ER after he fell overnight -R Humerus Xray shows: No change in alignment of the acute comminuted displaced angulated periprosthetic diaphyseal right humeral fracture since radiographs of September 26, 2018. -Orthopedic consulted, appreciate input Recommends conservative management with right arm cast/splint Patient should wear arm sling all the time Will need to rehab: Clinic follow-up with Dr. Reis in 2 weeks for repeat x-ray, assessment of healing (4) Closed fracture nasal bone: CT FACE: Acute nasal bone fractures. No additional facial fractures identified. No septal hematoma noted. 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 Possible small joint effusion. If symptoms persist, repeat radiography in 7-10 days should be considered She denies of any pain or discomfort (6) DM type 2 (diabetes mellitus, type 2): A1c: 7.0 on 06/12/18. Diet controlled Random glucose: 182 -DM diet, monitor BSGs -Novolog sliding scale per protocol (7) Essential hypertension: -Continue diltiazem (8) Hypothyroidism: TSH: 2.8 -Continue levothyroxine (9) COPD (chronic obstructive pulmonary disease): No wheezing, SOB -Continue Breo, albuterol prn DVT Prophylaxis Moderate to high risk for DVT, given limited mobility Ordered for subcu heparin DNR/DNI as per discussion with pt Follows with Dr Zaman for routine care Disposition: Patient will need rehab on discharge Appreciate input from social service, referral made to [facility] and [facility] Awaiting insurance authorization for rehab She needs medically stable to be transferred to rehab once insurance approval is obtained Subjective Diet changed to soft, slippery diet, appreciate input from speech therapy, no evidence of aspiration, cough noted, patient reports of feeling fine tolerating diet okay, no fever or chills, vitals remained stable, and awaiting to be transfer to rehab Review of Systems Review of Systems: All systems reviewed & are unremarkable except as noted in HPI & below Physical Exam Constitutional: WD/WN, vitals as above Comfortable feeling fine Eyes: + anicteric sclerae ENMT: external ear and nose normal, oropharynx normal Neck: trachea midline, no thyromegaly Respiratory: normal respiratory effort, lungs clear to auscultation no cough Cardiovascular: RRR, no murmur, no edema Gastrointestinal (Abdomen): normal bowel sounds, soft, nontender, no hepatosplenomegaly Skin: no rashes, warm and dry Trauma: + periorbital ecchymosis Neurologic: PERRL, EOMI, accommodation nl, no face palsy, no dysarthria Psychiatric: A+Ox3, euthymic affect Orientation: alert and oriented x 3 Results & Data Vital Signs (Past 12 Hours) Vital Signs Temp Pulse Pulse Resp BP Pulse Ox 10/01/18 16:55 81 10/01/18 14:53 37.0 C 76 18 125/88 95 10/01/18 11:47 36.8 C 74 18 113/79 95 10/01/18 07:28 78 10/01/18 07:09 36.5 C 75 18 117/75 93 (1) Closed fracture nasal bone Encounter type: initial encounter Qualified Code(s): S02.2XXA - Fracture of nasal bones, initial encounter for closed fracture (2) Aspiration pneumonia due to food (regurgitated) Laterality: unspecified laterality Lung location: unspecified part of lung Qualified Code(s): J69.0 - Pneumonitis due to inhalation of food and vomit (3) Humeral fracture Encounter type: initial encounter Fracture alignment: displaced Fracture morphology: comminuted Fracture type: closed Humerus Location: shaft Laterality: right Qualified Code(s): S42.351A - Displaced comminuted fracture of shaft of humerus, right arm, initial encounter for closed fracture (4) Fall Encounter type: initial encounter Qualified Code(s): W19.XXXA - Unspecified fall, initial encounter
[2018-10-01] MEDS: AMOXICILLIN/CLAVULANATE 875 MG TAB PO SCH (18:15)
[2018-10-02] MEDS: HEPARIN SOD 5,000 UNIT/0.5 ML VIAL SQ SCH ×3 (05:45→21:05)
[2018-10-02] MEDS: LEVOTHYROXINE SODIUM 75 MCG TABLET PO SCH (06:02)
[2018-10-02 06:59] LABS: Creatinine Clr Calc Pharmacy 64.1 ml/min; Est GFR (African American) 97.3
[2018-10-02] MEDS: AMOXICILLIN/CLAVULANATE 875 MG TAB PO SCH ×2 (08:42→17:42)
[2018-10-02] MEDS: CeleBREX 200 MG CAP PO SCH ×2 (08:44→21:05)
[2018-10-02] MEDS: dilTIAZem HCL 180 MG CAPCR PO SCH ×2 (08:44→21:05)
[2018-10-02] MEDS: OXYCODONE HCL IR 5 MG TAB (IMMEDIATE RELEASE) PO PRN ×2 (08:47→23:37)
[2018-10-02] MEDS: INSULIN ASPART 100 UNITS/ML 3 ML PEN SC SCH ×4 (08:52→21:05)
[2018-10-02] MEDS: DULOXETINE HCL 60 MG CAP PO SCH (09:44)
[2018-10-02] MEDS: MULTIVITAMIN TAB PO SCH (09:45)
[2018-10-02] MEDS: PANTOprazole 40 MG TAB PO SCH ×2 (09:45→21:04)
[2018-10-02] MEDS: CHOLECALCIFEROL (VITAMIN D) 400 UNITS TABLET PO SCH ×2 (09:45→21:04)
--- NOTE | 2018-10-02 15:13 | Progress Note ---
DATE: 10/02/2018 SUBJECTIVE: An 82-year-old female with a humeral diaphyseal fracture around the shoulder hemiarthroplasty. She seems to be doing okay. Seems to be clinically improving. No new complaints today. Her arm is sore. OBJECTIVE: VITAL SIGNS: Temperature 36.7. Vital signs stable. EXTREMITIES: Examination of the right arm reveals the coaptation splint to be in place. She still cannot quite extend her fingers. Swelling seems to be a little bit improved. ASSESSMENT: An 82-year-old female with a midshaft humerus fracture around in a prosthesis with a radial nerve palsy. Splint is in place. Fracture is reasonably well aligned currently. PLAN: At this point, we will keep this coaptation splint on for another week or so and then change it to a Hardy brace. She will need to follow up in our office in about a week. She should have the head of bed elevated as much as possible. Any orthopedic questions can be directed to me at [phone].
--- NOTE | 2018-10-02 18:43 | Hospitalist Progress Note ---
Date of Service October 02, 2018 Assessment & Plan (1) Aspiration pneumonia due to food (regurgitated): Appreciate speech evaluation, diet change to soft and slippery, She has been doing very well, no cough no choking sensation during meals, No respiratory distress Continue with aspiration precaution: Small small bites, small sips, alternate between solid and liquid Antibiotic changed to p.o. Augmentin: Complete total 5 days of course 09/29/2018 Developed acute cough, leo aspiration while eating a hamburger Patient did not had any episode of coughing or aspiration yesterday, Per patient's daughter, patient has chronic dysphasia, esophageal dysmotility , required intermittent dilatation Patient supposed to be on soft diet Patient gets Coughs reflux choking on dry meat GI consulted for evaluation of food impaction: Patient was having episodes of stridor or hoarseness of voice with choking sensation back of the throat Her symptoms was resolved prior to GI arrival Able to drink sips of water Chest x-ray shows: Possible basilar infiltrate Patient started with empiric antibiotic with IV Zosyn Patient's daughter present at bedside mentions she gets this episode "on and off" History of esophageal dysmotility, required esophageal dilatation in the past Patient supposed to be on soft diet, and avoid dry foods especially meat Her last esophageal dilatation was years ago Ordered for strict n.p.o. Speech evaluation requested (2) Fall: Presented with unwitnessed fall She does not recall the event, denies of any dizzy spell lightheadedness on syncope No arrhythmia noted on telemetry, Has been stable Detailed imaging as outlined below: CT HEAD: no acute findings: There is no hemorrhage, mass effect, or evidence of acute territorial ischemia by CT criteria. CT C-SPINE There is no evidence of fracture or subluxation involving the cervical spine. LUMBAR XRAY:postsurgical changes, Degenerative change, Old L1 and T11 compression fractures. 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 No joint effusion. PELVIS XRAY:No acute fracture within the pelvis or hips. EKG shows no evidence of seizure activity Mild elevation of CPK possibly secondary to fall, being on the floor CPK level normalized with IV fluids Appreciate input from orthopedics, conservative management, outpatient follow-up in clinic in 1 weeks She is waiting for acceptance at rehab (3) Humeral fracture: Sustained a fall while walking on 09/26/2017. Seen in ER on 09/26/18 and found to have R Humerus fracture. Splint was applied in ER. Presents to ER after he fell overnight -R Humerus Xray shows: No change in alignment of the acute comminuted displaced angulated periprosthetic diaphyseal right humeral fracture since radiographs of September 26, 2018. -Orthopedic consulted, appreciate input Recommends conservative management with right arm cast/splint Patient should wear arm sling all the time Will need to rehab: Team for insurance authorization for rehab at [facility] Clinic follow-up with Dr. Reis in 1 weeks for repeat x-ray, assessment of healing (4) Closed fracture nasal bone: CT FACE: Acute nasal bone fractures. No additional facial fractures identified. No septal hematoma noted. 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 Possible small joint effusion. If symptoms persist, repeat radiography in 7-10 days should be considered She denies of any pain or discomfort (6) DM type 2 (diabetes mellitus, type 2): A1c: 7.0 on 06/12/18. Diet controlled Random glucose: 182 -DM diet, monitor BSGs -Novolog sliding scale per protocol (7) Essential hypertension: -Continue diltiazem (8) Hypothyroidism: TSH: 2.8 -Continue levothyroxine (9) COPD (chronic obstructive pulmonary disease): No wheezing, SOB -Continue Breo, albuterol prn DVT Prophylaxis Moderate to high risk for DVT, given limited mobility Ordered for subcu heparin DNR/DNI as per discussion with pt Follows with Dr Zaman for routine care Disposition: Patient will need rehab on discharge Appreciate input from social service, referral made to [facility] is denied, Waiting for bed availability at [facility] for rehab Possible bed available on , 10/04/2018 Will need wheelchair van transportation Patient's Sister Madhuri updated over phone Subjective Has been doing well Tolerating diet, Change to soft slippery diet, No cough or sign of aspiration noted Has been doing well, no pain or discomfort on right arm no fever or chills, vitals remained stable, and awaiting to be transfer to rehab Physical Exam Constitutional: WD/WN, vitals as above no acute distress (Coughing) Eyes: + anicteric sclerae ENMT: external ear and nose normal, oropharynx normal Neck: trachea midline, no thyromegaly Respiratory: normal respiratory effort, lungs clear to auscultation no cough Cardiovascular: RRR, no murmur, no edema Gastrointestinal (Abdomen): normal bowel sounds, soft, nontender, no hepatosplenomegaly Skin: no rashes, warm and dry Trauma: + periorbital ecchymosis Neurologic: PERRL, EOMI, accommodation nl, no face palsy, no dysarthria Psychiatric: A+Ox3, euthymic affect Orientation: alert and oriented x 3 Results & Data Vital Signs (Past 12 Hours) Vital Signs Temp Pulse Pulse Resp BP Pulse Ox 10/02/18 15:19 36.7 C 87 20 139/75 91 10/02/18 14:38 95 10/02/18 11:17 36.7 C 90 20 144/88 H 94 10/02/18 07:28 82 10/02/18 07:07 36.6 C 91 H 20 160/92 H 94 (1) Aspiration pneumonia due to food (regurgitated) Laterality: unspecified laterality Lung location: unspecified part of lung Qualified Code(s): J69.0 - Pneumonitis due to inhalation of food and vomit (2) Fall Encounter type: initial encounter Qualified Code(s): W19.XXXA - Unspecified fall, initial encounter (3) Humeral fracture Encounter type: initial encounter Fracture alignment: displaced Fracture morphology: comminuted Fracture type: closed Humerus Location: shaft Laterality: right Qualified Code(s): S42.351A - Displaced comminuted fracture of shaft of humerus, right arm, initial encounter for closed fracture (4) Closed fracture nasal bone Encounter type: initial encounter Qualified Code(s): S02.2XXA - Fracture of nasal bones, initial encounter for closed fracture
[2018-10-03] MEDS: LEVOTHYROXINE SODIUM 75 MCG TABLET PO SCH (06:00)
[2018-10-03] MEDS: HEPARIN SOD 5,000 UNIT/0.5 ML VIAL SQ SCH ×2 (06:00→12:22)
[2018-10-03] MEDS: dilTIAZem HCL 180 MG CAPCR PO SCH ×2 (08:09→20:41)
[2018-10-03] MEDS: AMOXICILLIN/CLAVULANATE 875 MG TAB PO SCH ×2 (08:09→17:22)
[2018-10-03] MEDS: MULTIVITAMIN TAB PO SCH (08:10)
[2018-10-03] MEDS: DULOXETINE HCL 60 MG CAP PO SCH (08:10)
[2018-10-03] MEDS: CeleBREX 200 MG CAP PO SCH ×2 (08:10→20:41)
[2018-10-03] MEDS: CHOLECALCIFEROL (VITAMIN D) 400 UNITS TABLET PO SCH ×2 (08:10→20:40)
[2018-10-03] MEDS: PANTOprazole 40 MG TAB PO SCH ×2 (08:10→20:40)
[2018-10-03] MEDS: INSULIN ASPART 100 UNITS/ML 3 ML PEN SC SCH ×4 (08:26→20:49)
[2018-10-03 08:50] LABS: Creatinine Clr Calc Pharmacy 64.1 ml/min; Est GFR (African American) 97.3
[2018-10-03] MEDS: OXYCODONE HCL IR 5 MG TAB (IMMEDIATE RELEASE) PO PRN (10:04)
--- NOTE | 2018-10-03 14:26 | Hospitalist Progress Note ---
Date of Service October 03, 2018 Assessment & Plan (1) Aspiration pneumonia due to food (regurgitated): No respiratory symptoms today. Handling Augmentin without issue. Has a history of esophageal dysmotility and is doing well with modified diet utilizing soft and slippery foods. She denies any cough or choking sensations during meals. She denies any respiratory distress. Continue with aspiration precautions and Augmentin course. (2) Fall: She is status post unwitnessed fall with possible syncope. She was monitored on telemetry without evidence of arrhythmia. An EEG revealed no evidence of epileptogenic activity. She subsequently improved with respect to mobility. She had multiple injuries including nasal bone fractures and a right periprosthetic humeral fracture. Ecchymosis is present on her face that is yellowish and healing. She reports not feeling well today secondary to the pain but states the codeine is doing a good job of controlling her pain. She also has knee pain but with good range of motion and no clear fracture on imaging, orthopedics did not feel further treatment in this area was necessary. She is to continue with the current splint and will have to follow-up within 1 week from [facility] (receiving senior living facility) to exchange this for another splint. She verbalizes understanding of these instructions. Continue supportive care with pain medication, including celebrex. Continue PT/OT per orthopedic recommendations. She will need to follow-up with ENT as outpatient for the nasal bone fractures. Of note, this is not interfering with her breathing at this time. (3) Humeral fracture: splint per Ortho, cont pain control (4) Closed fracture nasal bone: Denies of any pain or discomfort, no epistaxis. Noted chronic septal perforation -Pt will need outpatient ENT follow up in 7-10 days (5) Left elbow pain: resolved. (6) DM type 2 (diabetes mellitus, type 2): controlled, cont insulin as inpatient (7) Essential hypertension: -Continue diltiazem. BP slightly elevated 2/2 pain/discomfort. (8) Hypothyroidism: stable, cont home Synthroid (9) COPD (chronic obstructive pulmonary disease): Chronic, stable. Uses Breo which is nonformulary and she is deferring use of this until she gets discharged. (10) DVT prophylaxis: Heparin DNR/DNI Dispo-to [facility] tomorrow. Radha Cho DO [facility] Hospitalist Review of Systems Review of Systems: All systems reviewed & are unremarkable except as noted in HPI & below Physical Exam Physical Exam: CONSTITUTIONAL: WNWD, vitals as above, generally well- appearing EYES: normal conjunctivae, no scleral icterus, periorbital ecchymosis that is healing well, yellowish in color. RESPIRATORY: clear to auscultation bilaterally, no crackles, rales or wheezes, normal respiratory effort CARDIOVASCULAR: regular rate and rhythm, S1 and 2 heard without murmurs, gallops or rubs, no JVD, no peripheral edema GASTROINTESTINAL: normal bowel sounds, soft, nontender, nondistended MUSCULOSKELETAL: R shoulder in sling, difficulty moving her fingers, sensation intact when touching her fingers. Otherwise moves other extremities with ease. Head is normocephalic with trauma to her face as evidenced by yellowish bruising that is healing well. No open lacerations seen. SKIN: warm and dry NEUROLOGIC: No facial palsy, no dysarthria. CN 2-12 grossly intact, normal cognition, normal speech, no tremor, no gross focal deficits. Results & Data Vital Signs (Past 12 Hours) Vital Signs Temp Pulse Resp BP Pulse Ox 10/03/18 11:06 96 10/03/18 07:07 36.9 C 85 20 156/80 H 97 10/03/18 04:00 157/90 H Laboratory Results BMP 10/03/18 07:39 Creatinine 0.62 Diagnostic Findings XR chest 1V portable CLINICAL HISTORY: hypoxia /aspiration COMPARISON STUDY: Chest CT March 12, 2018. Chest radiograph September 27, 2018. FINDINGS: Thoracolumbar spine fusion hardware and bilateral shoulder ar throplasties are noted. Lung volumes are diminished. Old right rib fractures are noted. Moderate cardiomegaly is present. The known right humeral fracture is not well visualized on this exam there is no evidence for overt pulmonary edema. Mild left basilar opacity is present. IMPRESSION: 1. Low lung volumes. Left basilar opacity which favors atelectasis. Technically difficult study to interpret. 2. Cardiomegaly without overt pulmonary edema. Medications Administered Current Inpatient Medications Acetaminophen (Tylenol) 650 mg PO Q4H PRN PRN Reason: Pain or Fever Stop: 10/27/18 16:04 Last Admin: 10/01/18 17:39 Dose: 650 mg Documented by: Albuterol (Ventolin Hfa) 2 puffs INH Q6H PRN PRN Reason: Shortness Of Breath Or Wheezin Stop: 10/27/18 16:04 Last Admin: 09/29/18 13:08 Dose: 2 puffs Documented by: Amoxicillin/Clavulanate Potassium (Augmentin 875mg) 1 tab PO BIDM [facility] Stop: 10/06/18 16:59 Last Admin: 10/03/18 08:09 Dose: 1 tab Documented by: Celecoxib (Celebrex) 200 mg PO BID [facility] Stop: 10/27/18 20:59 Last Admin: 10/03/18 08:10 Dose: 200 mg Documented by: Dextrose (Dextrose 50%) 25 - 50 ml IV UD PRN; Protocol PRN Reason: Hypoglycemia Protocol Stop: 10/27/18 16:04 Diclofenac Sodium (Voltaren 1% Top) 1 appln EXT QID PRN PRN Reason: Pain Stop: 10/27/18 16:04 Diltiazem HCl (Cardizem Cd) 180 mg PO BID [facility] Stop: 10/27/18 20:59 Last Admin: 10/03/18 08:09 Dose: 180 mg Documented by: Docusate Sodium (Colace) 100 mg PO BID PRN PRN Reason: Constipation Stop: 10/27/18 16:04 Duloxetine HCl (Cymbalta) 60 mg PO QAM [facility] Stop: 10/28/18 08:59 Last Admin: 10/03/18 08:10 Dose: 60 mg Documented by: Glucagon (Glucagen) 1 mg SQ UD PRN; Protocol PRN Reason: Hypoglycemia Protocol Stop: 10/27/18 16:04 Glucose (Glucose 40%) 15 - 30 gm PO UD PRN; Protocol PRN Reason: Hypoglycemia Protocol Stop: 10/27/18 16:04 Glucose (Dex4 Glucose) 4 - 8 tabs PO UD PRN; Protocol PRN Reason: Hypoglycemia Protocol Stop: 10/27/18 16:04 Heparin Sodium (Porcine) (Heparin Sodium (Porcine)) 5,000 units SQ Q8 [facility] Stop: 10/28/18 21:59 Last Admin: 10/03/18 12:22 Dose: 5,000 units Documented by: Insulin Aspart (Novolog Flexpen) 0 units SC ACHS [facility] Stop: 10/30/18 00:00 Last Admin: 10/03/18 12:23 Dose: 1 units Documented by: Levothyroxine Sodium (Synthroid) 75 mcg PO DAILYBB [facility] Stop: 10/28/18 06:29 Last Admin: 10/03/18 06:00 Dose: 75 mcg Documented by: Miscellaneous (Carbohydrates For Hypoglycemia) 15 - 30 gm PO UD PRN PRN Reason: Hypoglycemia Treatment Stop: 10/27/18 16:04 Multivitamins (Multivitamin Tab) 1 tab PO QAM [facility] Stop: 10/28/18 08:59 Last Admin: 10/03/18 08:10 Dose: 1 tab Documented by: Ondansetron HCl (Zofran) 4 mg IV Q6H PRN PRN Reason: Nausea Stop: 10/27/18 16:04 Oxycodone HCl (Roxicodone Immediate Rel) 5 mg PO Q6H PRN PRN Reason: pain Stop: 10/11/18 16:04 Last Admin: 10/03/18 10:04 Dose: 5 mg Documented by: Pantoprazole Sodium (Protonix) 40 mg PO BID [facility] Stop: 10/27/18 20:59 Last Admin: 10/03/18 08:10 Dose: 40 mg Documented by: Vitamin D (Vitamin D3) 400 units PO BID [place] Stop: 10/27/18 20:59 Last Admin: 10/03/18 08:10 Dose: 400 units Documented by: (1) Aspiration pneumonia due to food (regurgitated) Laterality: unspecified laterality Lung location: unspecified part of lung Qualified Code(s): J69.0 - Pneumonitis due to inhalation of food and vomit (2) Fall Encounter type: initial encounter Qualified Code(s): W19.XXXA - Unspecified fall, initial encounter (3) Humeral fracture Encounter type: initial encounter Fracture alignment: displaced Fracture morphology: comminuted Fracture type: closed Humerus Location: shaft Laterality: right Qualified Code(s): S42.351A - Displaced comminuted fracture of shaft of humerus, right arm, initial encounter for closed fracture (4) Closed fracture nasal bone Encounter type: initial encounter Qualified Code(s): S02.2XXA - Fracture of nasal bones, initial encounter for closed fracture
[2018-10-04] MEDS: OXYCODONE HCL IR 5 MG TAB (IMMEDIATE RELEASE) PO PRN (01:32)
[2018-10-04] MEDS: LEVOTHYROXINE SODIUM 75 MCG TABLET PO SCH (05:41)
[2018-10-04] MEDS: PANTOprazole 40 MG TAB PO SCH (08:01)
[2018-10-04] MEDS: AMOXICILLIN/CLAVULANATE 875 MG TAB PO SCH (08:01)
[2018-10-04] MEDS: CHOLECALCIFEROL (VITAMIN D) 400 UNITS TABLET PO SCH (08:01)
[2018-10-04] MEDS: DULOXETINE HCL 60 MG CAP PO SCH (08:02)
[2018-10-04] MEDS: MULTIVITAMIN TAB PO SCH (08:02)
[2018-10-04] MEDS: CeleBREX 200 MG CAP PO SCH (08:03)
[2018-10-04] MEDS: dilTIAZem HCL 180 MG CAPCR PO SCH (08:06)
[2018-10-04] MEDS ORDERED: ENOXAPARIN INJ 40 MG/0.4 ML SYR SQ SCH (09:00)
[2018-10-04] MEDS: INSULIN ASPART 100 UNITS/ML 3 ML PEN SC SCH ×2 (09:07→12:35)
--- NOTE | 2018-10-04 12:02 | Discharge Summary ---
Date of Service October 04, 2018 Admission HPI Per Admitting Provider Pt is 82 y/o F with PMH COPD, DM II, HTN, dyslipidemia, hypothyroidism, h/o kidney cancer, obesity, memory loss presented to ER with c/o fall. Pt lives alone at [facility] apartment and reports has pet caretaker from 9a-9p. Today around 9am pt was found by aide lying face down on bathroom floor with blood on face and floor. Pt was unable to get up on own. Pt reports she does not remember fall and is unaware when or how she fell. No reported urine or stool loss. No anticoagulant use. No current epistaxis in ER, pt c/o nasal pain. Pt was seen in ER yesterday 09/26/18 for reported fall when walking and was found to have Acute comminuted, displaced and angulated fracture of the proximal to mid diaphyseal humerus. Today pt C/O RUE pain and feels it is worse than yesterday. Denies paresthesias. Also c/o left wrist and left elbow pain with edema to left wrist and pain with movement. Pt c/o bilateral knee pain, h/o knee replacement in past. Pt states has walker to use as needed. Prior to yesterday pt denies any f alls for past year. Prior she reports that she was falling frequently, especially when she was on fentanyl. Pt with history memory problems and per daughter pt is at her baseline. Pt denies any GALVEZ, dizziness, vision changes, photophobia, neck pain, orbital pain, facial pain, jaw pain, left shoulder pain, hip pain, back pain, abdominal pain, N/V/D/C, CP, SOB, fever/chills, diaphoresis, orthopnea, palpitations, cough, sore throat, choking, otalgia, rhinorrhea, paresthesias, other extremity edema, rashes, urinary symptoms. Admission Exam Per Admitting Provider General: no acute distress, obese Head: normocephalic Eyes: PERRL, EOM's intact, bilateral periorbital region with ecchymosis ad edema, Eye conjunctiva non-injected and no subconjunctival hemorrhage, anicteric Face: no orbital tenderness to palpation, no maxillary or mandibular tenderness to palpation, able to open and close jaw without difficulty, Nose: mild edema bridge of nose, +septal perforation (chronic), +dried blood right naris, no epistaxis currently, ENT: normal inspection external ears, nose as above, mucous membranes moist Neck: supple, trachea midline, non-tender Lungs: clear, no respiratory distress, no wheezing/rhonchi/rales CV: RRR, no murmur, no pretibial edema Abd: normal BS, soft, non-tender Ext: RUE: Splint in place from right upper arm to right hand, +ecchymosis anterior shoulder, pt able to move fingers and sensation to light touch of fingers intact, LUE: shoulder with surgical scar without edema or erythema or ecchymosis and non-tender to palpation, Left elbow without ecchymosis/significant edema/erythema, +tenderness to palpation posterior elbow, able to extend and flex and supinate and pronate. Left wrist +edema, +tenderness to palpation greatest over distal radius, limited flexion and extension of wrist, hand non- tender, fingers non-tender and ROM intact, distal pulses intact, brisk capillary refill, sensation to light touch intact +straight leg raise on right side LLE: Left knee with tenderness to palpation anterior knee with limited flexion, no ankle or foot tenderness, pedal pushes and pulls intact, distal pulses intact, sensation to light touch intact RLE: Right knee with ecchymosis and tenderness to palpation of anterior knee with limited flexion,no ankle or foot tenderness, pedal pushes and pulls intact, distal pulses intact, sensation to light touch intact No pelvic tenderness to palpation, pt reports pain with attempted flexion of bilateral legs no calf tenderness Neuro: Alert, oriented to self, does not know , knows hospital and reports call "[place]", unsure of date, year or season, no focal deficits noted, pt irritable Skin: warm, dry Principal Diagnosis mechanical fall with subsequent R humeral periprosthetic fracture and nasal bone fracture Discharge Data Allergies Allergy/AdvReac Type Severity Reaction Status Date / Time cyclobenzaprine Allergy Severe CONFUSION Verified 09/27/18 10:44 atorvastatin AdvReac Intermediate MYALGIA Verified 09/27/18 10:44 codeine AdvReac Intermediate N/V Verified 09/27/18 10:44 fentanyl AdvReac Intermediate SEE COMMENT Verified 09/27/18 10:44 morphine AdvReac Intermediate N/V Verified 09/27/18 10:44 Consultations 09/27/18 12:43 ED Decision to Admit Stat 09/27/18 16:05 Consult Case Management - Discharge Planning Routine Consult Orthopedic Surgery Routine 09/29/18 14:01 Consult Gastroenterology Routine Ordered Studies 09/27/18 10:18 CT cervical spine wo con Stat CT facial bones wo con Stat CT head/brain wo con Stat Hospital Course (1) Aspiration pneumonia due to food (regurgitated): (2) Fall: (3) Humeral fracture: (4) Closed fracture nasal bone: (5) Left elbow pain: (6) DM type 2 (diabetes mellitus, type 2): (7) Essential hypertension: (8) Hypothyroidism: (9) COPD (chronic obstructive pulmonary disease): 82-year-old female who presents to the emergency room room with an unwitnessed fall that occurred during the night. The patient did not remember the fall and believes she fell out of bed while asleep. She was found lying face down by a caregiver. She had been seen in the ER the day prior and had been treated for a right humeral fracture from another fall. She was treated with pain medication and antiemetics in the ER and was admitted to the Hospitalist service for further treatment and evaluation. Imaging studies revealed a nasal bone fracture. She had no issues with breathing or respiratory distress, and an outpatient ENT visit was recommended. White blood cell count was [address] K [address] admission[address] A [address] scan of the cervical spine revealed no evidence of fracture or dislocation involving the cervical spine. A CT scan of the brain without IV contrast revealed no evidence of hemorrhage, mass-effect or evidence of territorial ischemia by CT criteria. An EKG revealed no acute ischemic change. Multiple other x-rays were performed including a lumbar x-ray, left wrist x-ray, right knee x-ray, left knee x-ray, pelvic x-ray with no evidence of fracture or joint effusion. Syncope versus seizure was questioned and an EEG was ordered revealing no evidence of epileptic foci. No underlying infectious etiology was found. Her CK was mildly elevated and improved after IV fluid administration. Orthopedics was consulted for her known history of right humeral fracture and recommended continuing the Coaptation splint for two weeks. She should have a sling on at all times and have the head of the bed elevated as much as possible. She will be seen in orthopedic follow-up to get her into a Hardy brace. Her knees did demonstrate some bruising and were also evaluated by orthopedics. Weightbearing as tolerated was recommended with no intervention warranted. While hospitalized she did have an overt aspiration event while eating a hamburger. She reported doing this "all the time" and has a known history of esophageal dysmotility. GI was consulted out of concern for food impaction, however, she appeared comfortable and no intervention was performed. She was on bowel rest for 24 hours with improvement. She was placed on antibiotics. Speech therapy evaluated her and recommended a slippery, minced and moist diet with strict aspiration precautions. Alternating solids and liquids were recommended in addition to oral hygiene and taking single bites and small sips at a slow rate. PT and OT were consulted and a [facility] with rehab was recommended as a transition to home. She continued her hospitalization with ongoing supportive care while awaiting authorization. At time of discharge she was hemodynamically stable and afebrile and tolerating p.o. without issue. Pain was managed with oral medications. Aside from right upper extremity and her splint, physical exam revealed well-healing ecchymosis on her face and knees, with normal range of motion of all extremities. Heart and lung exam were normal and she was in no acute distress. Abdomen was soft and nontender. She [facility] with close primary care follow-up recommended within 1 week of discharge. Additionally she will need to follow-up with orthopedics in the clinic within 1 week for fracture follow-up and new brace placement, and establish care with an ENT physician for her nasal bone fracture within the next week. She verbalized understanding of these instructions at discharge. Total Time Total Time Spent Total Time Spent (In Minutes): 60 Total Time Includes: Examination of the Patient, Discharge Planning, Medication Reconciliation and Communication With Other Providers Discharge Plan Discharge Items Patient Disposition: Transfer Nursing Home [facility] Reason For Visit: FALL Discharge Diagnosis: Right Humerus Fracture Discharge Goals: Therapeutic intervention Activity: As commented below Activity Comment: Keep splint and sling on until Orthopedic follow-up visit Weightbearing: Right non-weightbearing Weightbearing Comment: Nonweightbearing of right upper extremity for at least 2 weeks Non-emergency contact: Primary Care Provider Call non-emergency contact if: you have any medication questions Follow-up/Referrals: Harjeet Zaman MD [Primary Care Provider] - Dominic Reis MD [Physician] - (Orthopedic Follow-up 2 weeks from injury date.) Diet: Heart Healthy Diet Texture: Dental soft (bite-sized) Addtl Provider Instructions: Please take all medications as instructed on discharge list below. Keep splint and sling on until Orthopedic follow-up visit which is in one week. Prescriptions: Continued celecoxib [Celebrex] 200 mg Capsule 200 mg PO BID RF: 0 alendronate [Fosamax] 70 mg Tablet 70 mg PO WK RF: 0 docusate sodium [Colace] 100 mg Capsule 100 mg PO BID PRN (Reason: Constipation) RF: 0 cholecalciferol (vitamin D3) [Vitamin D3] 400 unit Tablet 400 unit PO BID RF: 0 duloxetine [Cymbalta] 60 mg Capsule,Delayed Release(Dr/Ec) 60 mg PO QAM RF: 0 levothyroxine 75 mcg Tablet 75 mcg PO QAM RF: 0 multivitamin with minerals Tablet 1 tab PO QAM RF: 0 solifenacin [Vesicare] 10 mg Tablet 10 mg PO HS RF: 0 omeprazole 20 mg Tablet,Disintegrat, Delay Rel 20 mg PO BID RF: 0 Breo Ellipta 100-25 mcg/dose Blister With Device 1 inh INHALATION HS RF: 0 diltiazem HCl [Cardizem CD] 180 mg Capsule,Extended Release 24hr 180 mg PO BID RF: 0 oxycodone 5 mg tablet 5 mg PO Q6H PRN (Reason: pain) Qty: 12 RF: 0 albuterol sulfate 90 mcg/actuation Hfa Aerosol Inhaler 2 puff INHALATION Q6H PRN (Reason: Shortness Of Breath Or Wheezing) RF: 0 diclofenac sodium 1 % Gel 2 g TOPICAL QID PRN (Reason: Pain) RF: 0 Stand-Alone Forms: My [facility] Skilled Items Patient informed of condition?: Yes DNR: Yes Discharge Level of Care: Skilled Communicable Disease: No Discharge Prognosis: Stable Admission Data Admit Date/Time: 09/27/18 14:18 Attending Provider: Radha Cho Admit Provider: Colin Richards Primary Care Provider: Harjeet Zaman Other Providers: Colin Richards ; Dominic Reis ; Elizabeth Mast ; Daily Nye ; Laura John ; Julito Macias ; Maral Clements ; Ebonie Pal ; Liz Nguyen ; Óscar Myles ; Adrian Joe ; Pati Michael ; Jyotsna Wiggins ; Shiloh Castro ; Katherine Jolly ; Cayetano Gonsales ; [place] Service: Medical
== END 2018-10-04 14:30 | DRG 562 ==
LOC: ED 09:53 → SUATTDRO 14:18 → 2W 14:18

== ENCOUNTER 2019-02-25 02:57 | Inpatient (IN) ==
[2019-02-25] MEDS ORDERED: ALBUT/IPRATROP 3MG/0.5MG NEB 3 ML VIAL ONE (03:04)
[2019-02-25] MEDS ORDERED: ALBUT/IPRATROP 3MG/0.5MG NEB 3 ML VIAL NEB ONE (03:09)
[2019-02-25 03:42] LABS: Basophils # (auto) 0.01 K/uL (0-0.2); Basophils % (auto) 0.1 %; Eosinophils # (auto) 0.07 K/uL (0-0.5); Eosinophils % (auto) 0.7 %; Hematocrit (blood only) 43.3 % (37-47); Hemoglobin 14.1 g/dL (12.0-16.0); Immature Granulocytes # (auto) 0.08 K/uL (0.00-0.02); Immature Granulocytes % (auto) 0.8 %; Lymphocytes # (auto) 1.63 K/uL (1.2-3.4); Mean Corpuscular Hemoglobin 28.5 pg (25-34); Mean Corpuscular Hgb Conc 32.6 g/dL (32-36); Mean Corpuscular Volume 87.7 fL (80-100); Mean Platelet Volume 9.1 fL (7.4-10.4); Monocytes # (auto) 1.01 K/uL (0.11-0.59); Monocytes % (auto) 10.5 %; Neutrophils % (auto) 70.9 %; Platelet Count 286 K/uL (130-400); RDW Coefficient of Variation 15.3 % (11.5-14.5); RDW Standard Deviation 49.2 fL (36.4-46.3); Red Blood Count 4.94 M/uL (4.2-5.4)
[2019-02-25 03:52] LABS: Partial Thromboplastin Time 26.8 Seconds (21.0-31.0); Prothrombin Time 10.5 Seconds (9.0-12.0)
[2019-02-25 03:59] LABS: Albumin Level 3.3 gm/dl (3.4-5.0); BUN Creatinine Ratio 34.5 (10-20); Calcium 8.9 mg/dl (8.5-10.1); Creatinine Clr Calc Pharmacy 49.3 ml/min; Est GFR (African American) 81.5; Est GFR (Non-African American) 70.3; Magnesium 2.1 mg/dl (1.8-2.4); Potassium 4.8 mmol/L (3.5-5.1)
[2019-02-25 04:04] LABS: Albumin Globulin Ratio 0.9 (0.9-2); Bilirubin,Total 0.4 mg/dl (0.2-1); Globulin 3.5 gm/dl (2.5-4.0); Total Protein 6.8 gm/dl (6.4-8.2); Troponin I 0.029 ng/ml (0-0.045)
[2019-02-25] MEDS ORDERED: FUROSEMIDE 40 MG/4 ML VIAL IV STA (04:11)
[2019-02-25 04:36] LABS: Appearance Urine Clear (Clear); Bacteria Urine Automated Negative (Negative); Bilirubin Urine Negative (Negative); Blood Urine Negative (Negative); Color Urine Yellow; Epithelial Cell Urine Auto 20-30 /lpf (0-5); Glucose Urine UA Negative (Negative); Ketones Urine Negative (Negative); Leukocyte Esterase Urine 1+ (Negative); Nitrite Urine Negative (Negative); Protein Urine Negative (Negative); RBC Urine Automated 0-4 /hpf (0-4); Specific Gravity Urine 1.015 (1.000-1.030); Urobilinogen Urine Negative (Negative); pH Urine 6.5 (4.5-7.5)
[2019-02-25] MEDS ORDERED: AMPICILLIN/SULBACTAM SOD 3,000 MG in 0.9 % SODIUM CHLORIDE 100 ML IV STA (04:50)
--- NOTE | 2019-02-25 04:50 | Emergency Department Note ---
ED Visit Note Physician Evaluation Note: I have personally evaluated and examined this patient. I agree with assessment and plan of Dominic Thomas PA-C. Worsening shortness of breath since she aspirated a ham sandwich a few days ago. Mild hypoxia on RA which is new and she has increased respirations. Feeling a bit better after neb but given aspiration, worsening breathing and hypoxia will need to come in for further management. Adair Nguyen MD : CHF (congestive heart failure) Qualifiers: Heart failure type: unspecified Heart failure chronicity: unspecified Qualified Code(s): I50.9 - Heart failure, unspecified
--- NOTE | 2019-02-25 05:42 | History & Physical Report ---
Date of Service February 25, 2019 Assessment & Plan (1) Acute hypoxemic respiratory failure: Secondary to COPD exacerbation, viral bronchitis No sepsis Rule out CHF given fluid retention complaints as per patient hypertension slightly elevated DM2, diet controlled Reasonable control as of recent outpatient hemoglobin A1c of 7.12 March 2018 right humeral fracture with nonunion. Patient not interested in surgery. R numerous bracing recommended on recent outpatient Ortho follow-up Past tobacco abuse PCU Supplemental O2 Baseline ABG Solu-Medrol, nebs, mucolytic; hold off on antibiotics for now Pulmonary consult if without improvement with above intervention TTE RE fluid retention rule out CHF Basal insulin, ISS BG goal 140-180, update hemoglobin A1c PT OT eval DVT prophylaxis. Lovenox subcu DNR History of Present Illness Chief Complaint: Shortness of breath Primary Care Provider: Harjeet Zaman MD History obtained from patient and records. Medical history significant for COPD, hypertension, hyperlipidemia, DM2, diet controlled, past tobacco abuse, ambulatory dysfunction, hx traumatic nasal septal perforation, right humeral fracture with nonunion. Recent confinement September 2018 for right humeral fracture, right nasal bone fracture secondary to mechanical fall. Patient discharged on right upper extremity splint later transition to brace which patient did not comply with. Aspiration event noted during confinement. Patient seen at the ER last week for choking on a ham sandwich. No pneumonia on x-ray. Patient discharged home after being given breathing treatments at the ER. Few days history of dry cough symptoms with worsening shortness of breath without chest pain. No fever, no chills. Poor appetite. No known sick contacts. No new aspiration events except from last ER visit as per patient. Worsening shortness of breath last night. Possible fluid retention as per patient. At the ER, patient received Unasyn and Lasix for possible aspiration pneumonitis and CHF respectively. 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 Allergies Allergy/AdvReac Type Severity Reaction Status Date / Time cyclobenzaprine Allergy Severe CONFUSION Verified 02/25/19 03:55 atorvastatin AdvReac Intermediate MYALGIA Verified 02/25/19 03:55 codeine AdvReac Intermediate N/V Verified 02/25/19 03:55 fentanyl AdvReac Intermediate SEE COMMENT Verified 02/25/19 03:55 morphine AdvReac Intermediate N/V Verified 02/25/19 03:55 Home Medications Home Medications Medication Instructions Recorded Confirmed Type alendronate [Fosamax] 70 mg PO WK 01/12/18 02/25/19 History celecoxib [Celebrex] 200 mg PO BID 01/12/18 02/25/19 History cholecalciferol (vitamin D3) 400 unit PO BID 01/12/18 02/25/19 History [Vitamin D3] docusate sodium [Colace] 100 mg PO BID PRN 01/12/18 02/25/19 History duloxetine [Cymbalta] 60 mg PO QAM 01/12/18 02/25/19 History levothyroxine 75 mcg PO QAM 01/12/18 02/25/19 History multivitamin with minerals 1 tab PO QAM 01/12/18 02/25/19 History omeprazole 20 mg PO BID 01/12/18 02/25/19 History solifenacin [Vesicare] 10 mg PO HS 01/12/18 02/25/19 History Breo Ellipta 1 inh INHALATION HS 09/26/18 02/25/19 History diltiazem HCl [Cardizem CD] 180 mg PO BID 09/26/18 02/25/19 History albuterol sulfate 2 puff INHALATION Q6H PRN 09/27/18 02/25/19 History diclofenac sodium 2 g TOPICAL QID PRN 09/27/18 02/25/19 History oxycodone 5 mg PO Q6H PRN #10 tab 10/04/18 02/25/19 Rx Past Med/Surg History Medical History Chronic pain of right hip (Chronic) COPD (chronic obstructive pulmonary disease) (Chronic) DM type 2 (diabetes mellitus, type 2) (Chronic) Dyslipidemia (Chronic) Esophageal dysmotility (Chronic) Mass of lung (Chronic) "noted 11/18" Osteoarthritis (Chronic) 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) Social History Preferred Language: [place] Communication Ability: Effective Rotary Filter Operator Required: No Beliefs That Will Affect Care: None marital status: Current Living Situation: Alone Current Living Situation Comment: APARTMENT Other Information That Helps Us Care for You: No Feels Safe at Home: Yes Safety Concerns: Feels Safe At This Time Smoking Status: Former smoker Second Hand Exposure: No ; Hx Alcohol Use: No Hx Substance Use: No Review of Systems Review of Systems: As per HPI, all 10 systems reviewed, all other ROS negative Physical Exam Physical Exam: GENERAL: Slightly uncomfortable, minimal respiratory distress SKIN: Normal color, warm HEENT: [place] palpebral conjunctivae, no ptosis, moist buccal mucosa, nasal cannula in place NECK : Supple, no tenderness CHEST : Decreased breath sounds, expiratory wheezes, no tenderness HEART : Tachycardic , no obvious murmurs ABDOMEN: Some distention, nontender EXTREMITIES : Minimal LE swelling, no LE tenderness, RUE deformity, no other conspicuous deformities noted NEUROLOGIC : Coherent, no facial asymmetry, no other gross focality Results & Data Vital Signs (Past 12 Hours) Vital Signs Temp Pulse Pulse Resp BP BP Pulse Ox 02/25/19 05:15 109 H 32 H 142/95 H 100 02/25/19 04:11 92 H 17 96 02/25/19 03:15 95 02/25/19 03:09 97 02/25/19 02:46 36.7 C 90 34 H 135/84 94 Laboratory Results Laboratory Results WBC 9.60 K/uL (4.8-10.8) 02/25/19 03:32 RBC 4.94 M/uL (4.2-5.4) 02/25/19 03:32 Hgb 14.1 g/dL (12.0-16.0) 02/25/19 03:32 Hct 43.3 % (37-47) 02/25/19 03:32 MCV 87.7 fL (80-100) 02/25/19 03:32 MCH 28.5 pg (25-34) 02/25/19 03:32 MCHC 32.6 g/dL (32-36) 02/25/19 03:32 RDW Std Deviation 49.2 fL (36.4-46.3) H 02/25/19 03:32 RDW Coeff of [place] 15.3 % (11.5-14.5) H 02/25/19 03:32 Plt Count 286 K/uL (130-400) 02/25/19 03:32 MPV 9.1 fL (7.4-10.4) 02/25/19 03:32 Immature Gran % (Auto) 0.8 % 02/25/19 03:32 Neut % (Auto) 70.9 % 02/25/19 03:32 Lymph % (Auto) 17.0 % 02/25/19 03:32 [place] % (Auto) 10.5 % 02/25/19 03:32 Eos % (Auto) 0.7 % 02/25/19 03:32 Baso % (Auto) 0.1 % 02/25/19 03:32 Immature Gran # (Auto) 0.08 K/uL (0.00-0.02) H 02/25/19 03:32 Neut # (Auto) 6.80 K/uL (1.4-6.5) H 02/25/19 03:32 Lymph # (Auto) 1.63 K/uL (1.2-3.4) 02/25/19 03:32 [place] # (Auto) 1.01 K/uL (0.11-0.59) H 02/25/19 03:32 Eos # (Auto) 0.07 K/uL (0-0.5) 02/25/19 03:32 Baso # (Auto) 0.01 K/uL (0-0.2) 02/25/19 03:32 PT 10.5 Seconds (9.0-12.0) 02/25/19 03:32 INR 1.0 (0.9-1.1) 02/25/19 03:32 APTT 26.8 Seconds (21.0-31.0) 02/25/19 03:32 PTT Ratio 1.0 02/25/19 03:32 Sodium 132 mmol/L (136-145) L 02/25/19 03:32 Potassium 4.8 mmol/L (3.5-5.1) 02/25/19 03:32 Chloride 100 mmol/L (98-107) 02/25/19 03:32 Carbon Dioxide 26 mmol/L (21-32) 02/25/19 03:32 Anion Gap 6.0 (3-11) 02/25/19 03:32 BUN 27 mg/dl (7-18) H 02/25/19 03:32 Creatinine 0.78 mg/dl (0.6-1.2) 02/25/19 03:32 Est Cr Clr Drug Dosing 49.3 ml/min 02/25/19 03:32 Est GFR ( Amer) 81.5 02/25/19 03:32 Est GFR (Non-Af Amer) 70.3 02/25/19 03:32 BUN/Creatinine Ratio 34.5 (10-20) H 02/25/19 03:32 Glucose 118 mg/dl (70-99) H 02/25/19 03:32 Lactate 1.2 mmol/L (0.4-2.0) 02/25/19 03:32 Calcium 8.9 mg/dl (8.5-10.1) 02/25/19 03:32 Magnesium 2.1 mg/dl (1.8-2.4) 02/25/19 03:32 Total Bilirubin 0.4 mg/dl (0.2-1) 02/25/19 03:32 AST 71 U/L (15-37) H 02/25/19 03:32 ALT 83 U/L (12-78) H 02/25/19 03:32 Alkaline Phosphatase 122 U/L (45-117) H 02/25/19 03:32 Troponin I 0.029 ng/ml (0-0.045) 02/25/19 03:32 NT-Pro-B Natriuret Pep 6579 pg/ml (0-1800) H 02/25/19 03:32 Total Protein 6.8 gm/dl (6.4-8.2) 02/25/19 03:32 Albumin 3.3 gm/dl (3.4-5.0) L 02/25/19 03:32 Globulin 3.5 gm/dl (2.5-4.0) 02/25/19 03:32 Albumin/Globulin Ratio 0.9 (0.9-2) 02/25/19 03:32 Urine Color Yellow 02/25/19 04:25 Urine Appearance Clear (Clear) 02/25/19 04:25 Urine pH 6.5 (4.5-7.5) 02/25/19 04:25 Ur Specific [place] 1.015 (1.000-1.030) 02/25/19 04:25 Urine Protein Negative (Negative) 02/25/19 04:25 Urine Glucose (UA) Negative (Negative) 02/25/19 04:25 Urine Ketones Negative (Negative) 02/25/19 04:25 Urine Blood Negative (Negative) 02/25/19 04:25 Urine Nitrite Negative (Negative) 02/25/19 04:25 Urine Bilirubin Negative (Negative) 02/25/19 04:25 Urine Urobilinogen Negative (Negative) 02/25/19 04:25 Ur Leukocyte Esterase 1+ (Negative) H 02/25/19 04:25 Urine WBC (Auto) 1-5 /hpf (0-5) 02/25/19 04:25 Urine RBC (Auto) 0-4 /hpf (0-4) 02/25/19 04:25 U Hyaline Cast (Auto) 1-5 /lpf (0-5) 02/25/19 04:25 U Epithel Cells (Auto) 20-30 /lpf (0-5) H 02/25/19 04:25 Urine Bacteria (Auto) Negative (Negative) 02/25/19 04:25 Influenza Type A Ag Neg for Influ A (Neg) 02/25/19 03:50 Influenza Type B Ag Neg for Influ B (Neg) 02/25/19 03:[address] chest initial read multiple old bilateral rib fractures. Multiple compression deformities thoracic and lumbar spine. Mild bronchiectasis in the bilateral lower lobes. Mild peribronchial wall thickening in the bilateral lower lobes could represent bronchitis. No focal consolidation. No pleural effusion or pneumothorax. Cardiomegaly. Mild coronary artery calcifications/aortic atherosclerosis. EKG as per my interpretation rate 95, NSR, normal axis, LAE, septal infarct
--- NOTE | 2019-02-25 05:44 | Emergency Department Note ---
History of Present Illness General Chief complaint: Shortness of Breath/Dyspnea Stated complaint: Shortness of Breath Time Seen by Provider: 02/25/19 03:03 History of Present Illness Maximum Pain Intensity: 4 This is an 83-year-old female presenting to the emergency department via EMS for shortness of breath. The patient does have a history of COPD and hypoxia, but does not use oxygen on a regular basis. Earlier this week she was seen at this facility following a choking/aspiration event. At that time she was eating a ham sandwich, and ultimately vomited ham sandwich in the ambulance on the way to the hospital. She was evaluated here in the ER and did feel well after treatment here in the department, and wanted to go home. The patient states that since this time she has had slowly worsening breathing. She feels like she is breathing faster than normal. She does not have distinct chest pain and does not report fever. She does not have any new medications and rates her discomfort a 4/10. She did have a DuoNeb prehospital which did not significantly improve her symptoms. Home Medications Home Medications Medication Instructions Recorded Confirmed Type alendronate [Fosamax] 70 mg PO WK 01/12/18 02/25/19 History celecoxib [Celebrex] 200 mg PO BID 01/12/18 02/25/19 History cholecalciferol (vitamin D3) 400 unit PO BID 01/12/18 02/25/19 History [Vitamin D3] docusate sodium [Colace] 100 mg PO BID PRN 01/12/18 02/25/19 History duloxetine [Cymbalta] 60 mg PO QAM 01/12/18 02/25/19 History levothyroxine 75 mcg PO QAM 01/12/18 02/25/19 History multivitamin with minerals 1 tab PO QAM 01/12/18 02/25/19 History omeprazole 20 mg PO BID 01/12/18 02/25/19 History solifenacin [Vesicare] 10 mg PO HS 01/12/18 02/25/19 History Breo Ellipta 1 inh INHALATION HS 09/26/18 02/25/19 History diltiazem HCl [Cardizem CD] 180 mg PO BID 09/26/18 02/25/19 History albuterol sulfate 2 puff INHALATION Q6H PRN 09/27/18 02/25/19 History diclofenac sodium 2 g TOPICAL QID PRN 09/27/18 02/25/19 History oxycodone 5 mg PO Q6H PRN #10 tab 10/04/18 02/25/19 Rx Allergies Allergy/AdvReac Type Severity Reaction Status Date / Time cyclobenzaprine Allergy Severe CONFUSION Verified 02/25/19 03:55 atorvastatin AdvReac Intermediate MYALGIA Verified 02/25/19 03:55 codeine AdvReac Intermediate N/V Verified 02/25/19 03:55 fentanyl AdvReac Intermediate SEE COMMENT Verified 02/25/19 03:55 morphine AdvReac Intermediate N/V Verified 02/25/19 03:55 Past Med/Surg History Medical History Chronic pain of right hip (Chronic) COPD (chronic obstructive pulmonary disease) (Chronic) DM type 2 (diabetes mellitus, type 2) (Chronic) Dyslipidemia (Chronic) Esophageal dysmotility (Chronic) Mass of lung (Chronic) "noted 11/18" Osteoarthritis (Chronic) 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) Social History Preferred Language: [place] Communication Ability: Effective Director Dental Services Required: No Beliefs That Will Affect Care: None marital status: Current Living Situation: [facility] Current Living Situation Comment: Alone with daily caregiver visits Feels Safe at Home: Yes Smoking Status: Former smoker Second Hand Exposure: No ; Hx Alcohol Use: No Hx Substance Use: No Review of Systems A total of 10 systems reviewed and were otherwise negative Physical Exam Vital Signs Vital Signs - 24 hr 02/25/19 02:46 02/25/19 03:09 02/25/19 03:15 Temperature 36.7 C Temperature Source Oral Pulse Rate 90 Pulse Rate [Right Finger] Pulse Rate from SpO2 Sensor Pulse Rhythm Regular Pulse Strength Normal Respiratory Rate 34 H Respiratory Effort / Characteristics Short of Breath Spontaneous Labored Short of Breath Respiratory Depth Shallow Respiratory Pattern Tachypnea Tachypnea Blood Pressure 135/84 Blood Pressure [Left Arm] Blood Pressure Mean 101 Blood Pressure Mean [Left Arm] Blood Pressure Position Lying Blood Pressure Position [Left Arm] Pulse Oximetry 94 97 95 Oxygen Delivery Method Room Air Nasal Cannula Nasal Cannula Oxygen Flow Rate 2 2 Sepsis Recent Fever Within 48 Hours No Sepsis Action Taken by Nursing No Action Required 02/25/19 03:17 02/25/19 03:30 02/25/19 04:00 Temperature Temperature Source Pulse Rate 92 H 91 H 90 Pulse Rate [Right Finger] Pulse Rate from SpO2 Sensor 91 H Pulse Rhythm Pulse Strength Respiratory Rate 22 29 H 15 Respiratory Effort / Characteristics Respiratory Depth Respiratory Pattern Blood Pressure Blood Pressure [Left Arm] Blood Pressure Mean Blood Pressure Mean [Left Arm] Blood Pressure Position Blood Pressure Position [Left Arm] Pulse Oximetry 96 Oxygen Delivery Method Oxygen Flow Rate Sepsis Recent Fever Within 48 Hours Sepsis Action Taken by Nursing 02/25/19 04:09 02/25/19 04:11 02/25/19 04:30 Temperature Temperature Source Pulse Rate 95 H 102 H Pulse Rate [Right Finger] 92 H Pulse Rate from SpO2 Sensor 96 H 103 H Pulse Rhythm Pulse Strength Respiratory Rate 19 17 33 H Respiratory Effort / Characteristics Non-Labored Respiratory Depth Respiratory Pattern Blood Pressure 135/84 Blood Pressure [Left Arm] Blood Pressure Mean 90 Blood Pressure Mean [Left Arm] Blood Pressure Position Blood Pressure Position [Left Arm] Pulse Oximetry 95 96 98 Oxygen Delivery Method Nasal Cannula Oxygen Flow Rate 2 Sepsis Recent Fever Within 48 Hours Sepsis Action Taken by Nursing 02/25/19 05:00 02/25/19 05:15 02/25/19 05:28 Temperature Temperature Source Pulse Rate 100 H 110 H Pulse Rate [Right Finger] 109 H Pulse Rate from SpO2 Sensor 100 H 111 H Pulse Rhythm Pulse Strength Respiratory Rate 24 32 H 23 Respiratory Effort / Characteristics Short of Breath Respiratory Depth Respiratory Pattern Tachypnea Blood Pressure 142/95 H Blood Pressure [Left Arm] 142/95 H Blood Pressure Mean 116 Blood Pressure Mean [Left Arm] 110 Blood Pressure Position Blood Pressure Position [Left Arm] Sitting Pulse Oximetry 94 100 95 Oxygen Delivery Method Nebulizer Oxygen Flow Rate 8 Sepsis Recent Fever Within 48 Hours Sepsis Action Taken by Nursing 02/25/19 05:30 Temperature Temperature Source Pulse Rate 102 H Pulse Rate [Right Finger] Pulse Rate from SpO2 Sensor 102 H Pulse Rhythm Pulse Strength Respiratory Rate 23 Respiratory Effort / Characteristics Respiratory Depth Respiratory Pattern Blood Pressure Blood Pressure [Left Arm] Blood Pressure Mean Blood Pressure Mean [Left Arm] Blood Pressure Position Blood Pressure Position [Left Arm] Pulse Oximetry 95 Oxygen Delivery Method Oxygen Flow Rate Sepsis Recent Fever Within 48 Hours Sepsis Action Taken by Nursing VITALS: Vitals are noted on the nurse's note and reviewed by myself. Vital signs with tachypnea and intermittent tachycardia.. GENERAL: Elderly appearing white female who is with tachypnea. She does appear short of breath but is able to speak in almost full sentences. She is cooperative with the exam. HEAD: Normocephalic atraumatic. EYES: Pupils equal round and reactive to light and accommodation. Conjunctivae without injection, sclerae without icterus. Extraocular movements intact. NECK: Supple without nuchal rigidity. No lymphadenopathy. No thyromegaly. Cervical spine is nontender. HEART: Regular rate and rhythm without murmurs gallops or rubs. LUNGS: Scattered rhonchi throughout, worse on the left when compared to the right. ABDOMEN: Positive normal bowel sounds x 4. Soft, nontender, without masses or organomegaly. MUSCULOSKELETAL: No muscle atrophy, erythema, or edema noted. NEURO: Patient was alert and oriented to person place and time. CN II through XII grossly intact. SKIN: The skin was without rashes, erythema, edema, or bruising. Capillary refill less than 2 seconds. Course Administered Medications Discontinued Medications Albuterol (Duoneb) 12 ml NEB ONE ONE Stop: 02/25/19 03:10 Last Admin: 02/25/19 04:10 Dose: 12 ml Documented by: [id number] Furosemide (Lasix) 40 mg IV NOW STA Stop: 02/25/19 04:12 Last Admin: 02/25/19 04:38 Dose: 40 mg Documented by: [id number] Ampicillin Sodium/Sulbactam Sodium 3,000 mg/ Sodium Chloride 108 mls @ 200 mls/hr IV NOW STA; Protocol Stop: 02/25/19 05:22 Last Admin: 02/25/19 05:22 Dose: 200 mls/hr Documented by: [id number] Methylprednisolone (Solumedrol) 20 mg IV NOW STA Stop: 02/25/19 05:14 Last Admin: 02/25/19 05:24 Dose: 20 mg Documented by: [id number] Medical Decision Making Differential Diagnosis Differential diagnosis includes, but is not limited to: Aspiration pneumonia, CHF, myocardial infarction, dysrhythmia, pericarditis, pneumothorax, aortic aneurysm/dissection, DVT/PE, anxiety, GERD, PUD, electrolyte imbalance, thyroid disorder, pneumonia, bronchitis, pancreatitis, and others Laboratory Data Result diagrams: 02/25/19 03:32 02/25/19 03:32 Lab Results 02/25/19 02/25/19 02/25/19 Range/Units 03:32 03:32 03:32 WBC 9.60 (4.8-10.8) K/uL RBC 4.94 (4.2-5.4) M/uL Hgb 14.1 (12.0-16.0) g/dL Hct 43.3 (37-47) % MCV 87.7 (80-100) fL MCH 28.5 (25-34) pg MCHC 32.6 (32-36) g/dL RDW Std Deviation 49.2 H (36.4-46.3) fL RDW Coeff of [place]iti 15.3 H (11.5-14.5) % Plt Count 286 (130-400) K/uL MPV 9.1 (7.4-10.4) fL Immature Gran % (Auto) 0.8 % Neut % (Auto) 70.9 % Lymph % (Auto) 17.0 % [place] % (Auto) 10.5 % Eos % (Auto) 0.7 % Baso % (Auto) 0.1 % Immature Gran # (Auto) 0.08 H (0.00-0.02) K/uL Neut # (Auto) 6.80 H (1.4-6.5) K/uL Lymph # (Auto) 1.63 (1.2-3.4) K/uL [place] # (Auto) 1.01 H (0.11-0.59) K/uL Eos # (Auto) 0.07 (0-0.5) K/uL Baso # (Auto) 0.01 (0-0.2) K/uL PT 10.5 (9.0-12.0) Seconds INR 1.0 (0.9-1.1) APTT 26.8 (21.0-31.0) Seconds PTT Ratio 1.0 ABG pH (7.35-7.45) ABG pCO2 (35-46) mmHg ABG pO2 (80-95) mmHg ABG HCO3 (19-24) mmol/L ABG O2 Saturation (90-95) % ABG Base Excess (-9-1.8) mEq/L Ayaz Test (Pos) Barometric Pressure mm/Hg Oxygen Given Sodium (136-145) mmol/L Potassium (3.5-5.1) mmol/L Chloride (98-107) mmol/L Carbon Dioxide (21-32) mmol/L Anion Gap (3-11) BUN (7-18) mg/dl Creatinine (0.6-1.2) mg/dl Est Cr Clr Drug Dosing ml/min Est GFR ( Amer) Est GFR (Non-Af Amer) BUN/Creatinine Ratio (10-20) Glucose (70-99) mg/dl Lactate 1.2 (0.4-2.0) mmol/L Calcium (8.5-10.1) mg/dl Magnesium (1.8-2.4) mg/dl Total Bilirubin (0.2-1) mg/dl AST (15-37) U/L ALT (12-78) U/L Alkaline Phosphatase (45-117) U/L Troponin I (0-0.045) ng/ml NT-Pro-B Natriuret Pep (0-1800) pg/ml Total Protein (6.4-8.2) gm/dl Albumin (3.4-5.0) gm/dl Globulin (2.5-4.0) gm/dl Albumin/Globulin Ratio (0.9-2) Urine Color Urine Appearance (Clear) Urine pH (4.5-7.5) Ur Specific [place] (1.000-1.030) Urine Protein (Negative) Urine Glucose (UA) (Negative) Urine Ketones (Negative) Urine Blood (Negative) Urine Nitrite (Negative) Urine Bilirubin (Negative) Urine Urobilinogen (Negative) Ur Leukocyte Esterase (Negative) Urine WBC (Auto) (0-5) /hpf Urine RBC (Auto) (0-4) /hpf U Hyaline Cast (Auto) (0-5) /lpf U Epithel Cells (Auto) (0-5) /lpf Urine Bacteria (Auto) (Negative) Influenza Type A Ag (Neg) Influenza Type A (PCR) (Neg) Influenza Type B Ag (Neg) Influenza Type B (PCR) (Neg) 02/25/19 02/25/19 02/25/19 Range/Units 03:32 03:50 03:50 WBC (4.8-10.8) K/uL RBC (4.2-5.4) M/uL Hgb (12.0-16.0) g/dL Hct (37-47) % MCV (80-100) fL MCH (25-34) pg MCHC (32-36) g/dL RDW Std Deviation (36.4-46.3) fL RDW Coeff of Titi (11.5-14.5) % Plt Count (130-400) K/uL MPV (7.4-10.4) fL Immature Gran % (Auto) % Neut % (Auto) % Lymph % (Auto) % [place] % (Auto) % Eos % (Auto) % Baso % (Auto) % Immature Gran # (Auto) (0.00-0.02) K/uL Neut # (Auto) (1.4-6.5) K/uL Lymph # (Auto) (1.2-3.4) K/uL [place] # (Auto) (0.11-0.59) K/uL Eos # (Auto) (0-0.5) K/uL Baso # (Auto) (0-0.2) K/uL PT (9.0-12.0) Seconds INR (0.9-1.1) APTT (21.0-31.0) Seconds PTT Ratio ABG pH (7.35-7.45) ABG pCO2 (35-46) mmHg ABG pO2 (80-95) mmHg ABG HCO3 (19-24) mmol/L ABG O2 Saturation (90-95) % ABG Base Excess (-9-1.8) mEq/L Ayaz Test (Pos) Barometric Pressure mm/Hg Oxygen Given Sodium 132 L (136-145) mmol/L Potassium 4.8 (3.5-5.1) mmol/L Chloride 100 (98-107) mmol/L Carbon Dioxide 26 (21-32) mmol/L Anion Gap 6.0 (3-11) BUN 27 H (7-18) mg/dl Creatinine 0.78 (0.6-1.2) mg/dl Est Cr Clr Drug Dosing 49.3 ml/min Est GFR ( Amer) 81.5 Est GFR (Non-Af Amer) 70.3 BUN/Creatinine Ratio 34.5 H (10-20) Glucose 118 H (70-99) mg/dl Lactate (0.4-2.0) mmol/L Calcium 8.9 (8.5-10.1) mg/dl Magnesium 2.1 (1.8-2.4) mg/dl Total Bilirubin 0.4 (0.2-1) mg/dl AST 71 H (15-37) U/L ALT 83 H (12-78) U/L Alkaline Phosphatase 122 H (45-117) U/L Troponin I 0.029 (0-0.045) ng/ml NT-Pro-B Natriuret Pep 6579 H (0-1800) pg/ml Total Protein 6.8 (6.4-8.2) gm/dl Albumin 3.3 L (3.4-5.0) gm/dl Globulin 3.5 (2.5-4.0) gm/dl Albumin/Globulin Ratio 0.9 (0.9-2) Urine Color Urine Appearance (Clear) Urine pH (4.5-7.5) Ur Specific [place] (1.000-1.030) Urine Protein (Negative) Urine Glucose (UA) (Negative) Urine Ketones (Negative) Urine Blood (Negative) Urine Nitrite (Negative) Urine Bilirubin (Negative) Urine Urobilinogen (Negative) Ur Leukocyte Esterase (Negative) Urine WBC (Auto) (0-5) /hpf Urine RBC (Auto) (0-4) /hpf U Hyaline Cast (Auto) (0-5) /lpf U Epithel Cells (Auto) (0-5) /lpf Urine Bacteria (Auto) (Negative) Influenza Type A Ag Neg for Influ A (Neg) Influenza Type A (PCR) Neg for Influ A (Neg) Influenza Type B Ag Neg for Influ B (Neg) Influenza Type B (PCR) Neg for Influ B (Neg) 02/25/19 02/25/19 Range/Units 04:25 05:52 WBC (4.8-10.8) K/uL RBC (4.2-5.4) M/uL Hgb (12.0-16.0) g/dL Hct (37-47) % MCV (80-100) fL MCH (25-34) pg MCHC (32-36) g/dL RDW Std Deviation (36.4-46.3) fL RDW Coeff of [place]iti (11.5-14.5) % Plt Count (130-400) K/uL MPV (7.4-10.4) fL Immature Gran % (Auto) % Neut % (Auto) % Lymph % (Auto) % [place] % (Auto) % Eos % (Auto) % Baso % (Auto) % Immature Gran # (Auto) (0.00-0.02) K/uL Neut # (Auto) (1.4-6.5) K/uL Lymph # (Auto) (1.2-3.4) K/uL [place] # (Auto) (0.11-0.59) K/uL Eos # (Auto) (0-0.5) K/uL Baso # (Auto) (0-0.2) K/uL PT (9.0-12.0) Seconds INR (0.9-1.1) APTT (21.0-31.0) Seconds PTT Ratio ABG pH 7.47 H (7.35-7.45) ABG pCO2 37 (35-46) mmHg ABG pO2 79 L (80-95) mmHg ABG HCO3 26 H (19-24) mmol/L ABG O2 Saturation 96.3 H (90-95) % ABG Base Excess 2.7 H (-9-1.8) mEq/L Ayaz Test Pos (Pos) Barometric Pressure 738.0 mm/Hg Oxygen Given 2 L Sodium (136-145) mmol/L Potassium (3.5-5.1) mmol/L Chloride (98-107) mmol/L Carbon Dioxide (21-32) mmol/L Anion Gap (3-11) BUN (7-18) mg/dl Creatinine (0.6-1.2) mg/dl Est Cr Clr Drug Dosing ml/min Est GFR ( Amer) Est GFR (Non-Af Amer) BUN/Creatinine Ratio (10-20) Glucose (70-99) mg/dl Lactate (0.4-2.0) mmol/L Calcium (8.5-10.1) mg/dl Magnesium (1.8-2.4) mg/dl Total Bilirubin (0.2-1) mg/dl AST (15-37) U/L ALT (12-78) U/L Alkaline Phosphatase (45-117) U/L Troponin I (0-0.045) ng/ml NT-Pro-B Natriuret Pep (0-1800) pg/ml Total Protein (6.4-8.2) gm/dl Albumin (3.4-5.0) gm/dl Globulin (2.5-4.0) gm/dl Albumin/Globulin Ratio (0.9-2) Urine Color Yellow Urine Appearance Clear (Clear) Urine pH 6.5 (4.5-7.5) Ur Specific [place] 1.015 (1.000-1.030) Urine Protein Negative (Negative) Urine Glucose (UA) Negative (Negative) Urine Ketones Negative (Negative) Urine Blood Negative (Negative) Urine Nitrite Negative (Negative) Urine Bilirubin Negative (Negative) Urine Urobilinogen Negative (Negative) Ur Leukocyte Esterase 1+ H (Negative) Urine WBC (Auto) 1-5 (0-5) /hpf Urine RBC (Auto) 0-4 (0-4) /hpf U Hyaline Cast (Auto) 1-5 (0-5) /lpf U Epithel Cells (Auto) 20-30 H (0-5) /lpf Urine Bacteria (Auto) Negative (Negative) Influenza Type A Ag (Neg) Influenza Type A (PCR) (Neg) Influenza Type B Ag (Neg) Influenza Type B (PCR) (Neg) Imaging Data Radiologist's Impression: Preliminary Findings Only See Final Report For Complete Findings CT CHEST Without Contrast: Multiple old bilateral rib fractures. Multiple old compression deformities in the thoracic and lumbar spine. Anterolisthesis at C7-T1 is unchanged. Partial visualization of thoracolumbar fusion hardware. Mild bronchiectasis in the bilateral lower lobes. Mild peribronchial wall thickening in the bilateral lower lobes could represent bronchitis. No focal consolidations. No pleural effusion or pneumothorax. Mild cardiomegaly. Scattered coronary artery calcifications. Mild aortic atherosclerosis. ECG Data Additional Comments: Normal sinus rhythm @93 bpm Possible Left atrial enlargement Borderline ECG When compared with ECG of 19-FEB-2019 04:03, No significant change was found MDM Narrative Physical exam and history were performed. Nursing notes, EMR, and Medication List were personally reviewed. Patient appears to have shortness of breath symptoms bringing her to the ER today. On examination she is tachypneic and did have a DuoNeb prehospital which did not improve her symptoms. IV access was established and labs were obtained. The patient has a concerning recent history for recent food bolus that she jerod red spontaneously. I have strong concern for aspiration pneumonia. The patient was given a 1 hour DuoNeb here in the ER. CT scan of the chest was performed and influenza swab was gathered. Blood cultures and lactate were obtained. The patient's blood work is as above and was reviewed. She does not have a significantly elevated white blood cell count or gross anemia. Her transaminases are just minimally elevated, however this does seem to be somewhat chronic in nature for her. BNP is elevated over 6500 and she was given IV Lasix. Urine is without gross infection. Influenza swab is negative. Lactic acid is negative. Blood cultures are pending. Troponin, while not elevated, is also not zero at 0.029 reviewing her labs over the past year reveals that she has never had a detectable troponin, and I suspect this may be strain from her pulmonary symptoms. CT scan was performed and reviewed as above. CT is with bronchiectasis and findings concerning for bronchitis. No gross consolidation is identified. The case was discussed with my attending physician, Dr. Nguyen, who also independently evaluated the patient. The patient continues to have significant work of breathing and has been on oxygen while here in the ER. Her presentation is concerning as she does have a minimally elevated troponin, elevated BNP, and high risk for aspiration pneumonia. Because of this I did start her on Unasyn. The case was discussed with the on-call [facility] hospitalist, who agreed to evaluate the patient here in the ER. Please see their dictation for further patient course, plan, and disposition. The chart was completed utilizing [employer] Speech Voice Recognition Software. Gra mmatical errors, random word insertions, pronoun errors, and incomplete sentences are an occasional consequence of this system due to software limitations, ambient noise, and hardware issues. Any formal questions or concerns about the content, text, or information contained within the body of this dictation should be directly addressed to the provider for clarification. . Impression & Plan Shortness of breath, CHF (congestive heart failure), Tachypnea Discharge Plan Visit Data Chief Complaint: Shortness of Breath/Dyspnea Stated Complaint: Shortness of Breath ED Provider: Adair Nguyen ED Midlevel Provider: Dominic Thomas Discharge Problem: Shortness of breath, CHF (congestive heart failure), Tachypnea Forms Stand Alone Forms: [facility] Prescriptions Prescriptions: No Action celecoxib [Celebrex] 200 mg Capsule 200 mg PO BID RF: 0 alendronate [Fosamax] 70 mg Tablet 70 mg PO WK RF: 0 docusate sodium [Colace] 100 mg Capsule 100 mg PO BID PRN (Reason: Constipation) RF: 0 cholecalciferol (vitamin D3) [Vitamin D3] 400 unit Tablet 400 unit PO BID RF: 0 duloxetine [Cymbalta] 60 mg Capsule,Delayed Release(Dr/Ec) 60 mg PO QAM RF: 0 levothyroxine 75 mcg Tablet 75 mcg PO QAM RF: 0 multivitamin with minerals Tablet 1 tab PO QAM RF: 0 solifenacin [Vesicare] 10 mg Tablet 10 mg PO HS RF: 0 omeprazole 20 mg Tablet,Disintegrat, Delay Rel 20 mg PO BID RF: 0 Breo Ellipta 100-25 mcg/dose Blister With Device 1 inh INHALATION HS RF: 0 diltiazem HCl [Cardizem CD] 180 mg Capsule,Extended Release 24hr 180 mg PO BID RF: 0 albuterol sulfate 90 mcg/actuation Hfa Aerosol Inhaler 2 puff INHALATION Q6H PRN (Reason: Shortness Of Breath Or Wheezing) RF: 0 diclofenac sodium 1 % Gel 2 g TOPICAL QID PRN (Reason: Pain) RF: 0 oxycodone 5 mg tablet 5 mg PO Q6H PRN (Reason: pain) Qty: 10 RF: 0 Referrals Referrals: Harjeet Zaman MD [Primary Care Provider] - Discharge Problem: CHF (congestive heart failure) Qualifiers: Heart failure type: unspecified Heart failure chronicity: unspecified Qualified Code(s): I50.9 - Heart failure, unspecified
[2019-02-25 06:14] LABS: Influenza A virus by PCR Neg for Influ A (Neg); Influenza B virus by PCR Neg for Influ B (Neg)
[2019-02-25 06:15] LABS: Allen Test Pos (Pos); Base Excess ABG 2.7 mEq/L (-9-1.8); HCO3 ABG 26 mmol/L (19-24); Oxygen Saturation ABG 96.3 % (90-95); PCO2 ABG 37 mmHg (35-46); PO2 ABG 79 mmHg (80-95); pH ABG 7.47 (7.35-7.45)
--- NOTE | 2019-02-25 06:46 | CT Scan Report ---
CT OF THE CHEST WITHOUT IV CONTRAST CLINICAL HISTORY: Cough. COMPARISON STUDY: Chest CT March 12, 2018. Chest radiograph February 19, 2019. CT DOSE: 713.37 mGy.cm TECHNIQUE: Axial images of the chest were obtained without IV contrast. Images were reviewed in the axial, sagittal, and coronal planes. IV contrast was not administered for this examination. Automat ed exposure control was utilized for the study. A dose lowering technique was utilized adhering to t he principles of ALARA. FINDINGS: No enlarged axillary, mediastinal or hilar lymph nodes are present. There are bilateral sh oulder arthroplasties. Thoracolumbar spine fusion is partially imaged. Multiple thoracic and lumbar s pine fractures are noted. These are similar to CT of March 12, 2018. Numerous old bilateral rib fra ctures are noted. The heart is mildly enlarged. There is no pericardial effusion. There is no pneumot horax or pleural effusion. Mild bronchial wall thickening is noted. There are ill-defined tree-in-bud nodules within the left lower lobe. Central airways are patent. Exam is mildly compromised by motion artifact. Imaged portions of the upper abdomen demonstrate water attenuation bilateral renal lesions . These are suboptimally assessed on this unenhanced exam but may reflect cysts. IMPRESSION: 1. Minimal tree-in-bud nodules within the left lower lobe which favors mild bronchiolitis. No consoli dation. 2. No thoracic lymphadenopathy. 3. Mild bronchial wall thickening. ACT 112: Negative or not required by law. Electronically signed by: Cliff Varghese M.D. 02/25/2019 6:45 AM
[2019-02-25 07:12] LABS: Estimated Average Glucose 137 mg/dl; Hemoglobin A1C 6.4 % (4.5-5.6)
[2019-02-25] MEDS ORDERED: DEXTROSE 50% 50 ML SYRINGE IV PRN (07:28)
[2019-02-25] MEDS ORDERED: GLUCOSE 40% GEL 15 GM TUBE PO PRN (07:28)
[2019-02-25] MEDS ORDERED: ACETAMINOPHEN 325 MG TAB PO PRN (07:28)
[2019-02-25] MEDS ORDERED: LEVALBUTEROL 1.25MG/0.5ML NEB INH SCH (07:28)
[2019-02-25] MEDS ORDERED: OXYCODONE HCL IR 5 MG TAB (IMMEDIATE RELEASE) PO PRN (07:28)
[2019-02-25] MEDS ORDERED: CARBOHYDRATES FOR HYPOGLYCEMIA PO PRN (07:28)
[2019-02-25] MEDS ORDERED: NITROGLYCERIN SL 0.4 MG/TAB TAB SL PRN (07:28)
[2019-02-25] MEDS ORDERED: IPRATROPIUM BROMIDE NEB SOLN 0.02% 2.5 ML VIAL INH SCH (07:28)
[2019-02-25] MEDS ORDERED: GLUCOSE 10 TABS/TUBE PO PRN (07:28)
[2019-02-25] MEDS ORDERED: DOCUSATE SODIUM 100 MG CAP PO PRN (07:28)
[2019-02-25] MEDS ORDERED: XOPENEX/ATROVENT 1.25mg/0.5MG NEB COMBO NEB SCH (07:28)
[2019-02-25] MEDS ORDERED: GLUCAGON FOR INJ 1 MG VIAL SQ PRN (07:28)
[2019-02-25] MEDS ORDERED: INSULIN GLARGINE SOLOSTAR 100 UNITS/ML 3 ML PEN SC STA (07:28)
[2019-02-25] MEDS ORDERED: MAGNESIUM SULFATE / D5W 1 GM/100 ML BAG IV ONE (08:15)
[2019-02-25] MEDS ORDERED: methylPREDNISolone 20 MG in SYRINGE 0 ML IV ONE (08:15)
[2019-02-25] MEDS: ENOXAPARIN INJ 30 MG/0.3 ML SYR SQ SCH (08:26)
[2019-02-25] MEDS: DULOXETINE HCL 60 MG CAP PO SCH (08:27)
[2019-02-25] MEDS: guaiFENesin 600 MG TABCR PO SCH ×2 (08:27→20:52)
[2019-02-25] MEDS: CEROVITE ADV FORMULA TAB PO SCH (08:27)
[2019-02-25] MEDS: LEVOTHYROXINE SODIUM 75 MCG TABLET PO SCH (08:27)
[2019-02-25] MEDS: PANTOprazole 40 MG TAB PO SCH ×2 (08:27→20:50)
[2019-02-25] MEDS: INSULIN ASPART 100 UNITS/ML 3 ML PEN SC SCH ×4 (08:28→20:53)
[2019-02-25] MEDS: dilTIAZem HCL 180 MG CAPCR PO SCH ×2 (08:29→20:51)
[2019-02-25] MEDS ORDERED: Nursing to Pharmacy Communication ONE (09:48)
--- NOTE | 2019-02-25 10:59 | Hospitalist Progress Note ---
Date of Service February 25, 2019 Assessment & Plan (1) Acute hypoxemic respiratory failure: Secondary to COPD exacerbation, viral bronchitis No sepsis Rule out CHF given fluid retention complaints as per patient Supplemental O2 Baseline ABG Solu-Medrol, nebs, mucolytic; hold off on antibiotics for now Pulmonary consult if without improvement with above intervention TTE RE fluid retention rule out CHF- echo obtained, shows severe hypokinesis of mid anterior/inf. septum and entire apex c/w Takotsubo [employer] ? Chest imaging not c/w with fluid overload - Cont, treatment above for COPD exacerbation Hypertension slightly elevated - cont. to monitor Tachycardia - sinus - will add beta lewis, cont. to monitor DM2, diet controlled Reasonable control as of recent outpatient hemoglobin A1c of 7.12 March 2018 Basal insulin, ISS BG goal 140-180, update hemoglobin A1c Right humeral fracture with nonunion. Patient not interested in surgery. R numerous bracing recommended on recent outpatient Ortho follow-up Past tobacco abuse PT/OT eval DVT prophylaxis. Lovenox subcu Code status: DNR Subjective Elderly female sitting up in the chair in no acute distress. On suppl. O2 via NC. Denies any fever, chills, chest pain, shortness of breath, abd. pain, nausea or vomiting. Says she feels much better already. Review of Systems Review of Systems: All systems reviewed & are unremarkable except as noted in HPI & below Constitutional: no fever and no chills Respiratory: + dyspnea; no cough Cardiovascular: no chest pain and no palpitations Gastrointestinal: no abdominal pain, no nausea and no vomiting Physical Exam Physical Exam: GENERAL: Elderly female, sitting up in the hair, on NC, in NAD HEENT: NC/AT, EOMI, PERRL, moist buccal mucosa NECK : Supple, no tenderness CHEST : Decreased breath sounds, expiratory wheezes, no tenderness HEART : mildly tachycardic , no obvious murmurs ABDOMEN: +BS, soft,nontender to palpation EXTREMITIES : Minimal LE swelling, no LE tenderness, RUE deformity, no other conspicuous deformities noted SKIN:warm, dry, well perfused NEUROLOGIC : alert and oriented x3, no facial asymmetry, speech fluent, moves extremities spontaneously Results & Data Vital Signs (Past 12 Hours) Vital Signs Temp Pulse Pulse Resp BP BP Pulse Ox 02/25/19 07:28 36.4 C L 110 H 24 153/93 H 94 02/25/19 06:44 118 H 28 H 111/80 94 02/25/19 05:30 102 H 23 95 02/25/19 05:28 110 H 23 142/95 H 95 02/25/19 05:15 109 H 32 H 142/95 H 100 02/25/19 05:00 100 H 24 94 02/25/19 04:30 102 H 33 H 98 02/25/19 04:11 92 H 17 96 02/25/19 04:09 95 H 19 135/84 95 02/25/19 04:00 90 15 96 02/25/19 03:30 91 H 29 H 02/25/19 03:17 92 H 22 02/25/19 03:15 95 02/25/19 03:09 97 02/25/19 02:46 36.7 C 90 34 H 135/84 94 Pulse Ox 02/25/19 07:28 94 02/25/19 06:44 02/25/19 05:30 02/25/19 05:28 02/25/19 05:15 02/25/19 05:00 02/25/19 04:30 02/25/19 04:11 02/25/19 04:09 02/25/19 04:00 02/25/19 03:30 02/25/19 03:17 02/25/19 03:15 02/25/19 03:09 02/25/19 02:46 Laboratory Results 02/25/19 02/25/19 02/25/19 Range/Units 08:22 05:52 04:25 WBC (4.8-10.8) K/uL RBC (4.2-5.4) M/uL Hgb (12.0-16.0) g/dL Hct (37-47) % MCV (80-100) fL MCH (25-34) pg MCHC (32-36) g/dL RDW Std Deviation (36.4-46.3) fL RDW Coeff of Titi (11.5-14.5) % Plt Count (130-400) K/uL MPV (7.4-10.4) fL Immature Gran % (Auto) % Neut % (Auto) % Lymph % (Auto) % Ward % (Auto) % Eos % (Auto) % Baso % (Auto) % Immature Gran # (Auto) (0.00-0.02) K/uL Neut # (Auto) (1.4-6.5) K/uL Lymph # (Auto) (1.2-3.4) K/uL Ward # (Auto) (0.11-0.59) K/uL Eos # (Auto) (0-0.5) K/uL Baso # (Auto) (0-0.2) K/uL PT (9.0-12.0) Seconds INR (0.9-1.1) APTT (21.0-31.0) Seconds PTT Ratio ABG pH 7.47 H (7.35-7.45) ABG pCO2 37 (35-46) mmHg ABG pO2 79 L (80-95) mmHg ABG HCO3 26 H (19-24) mmol/L ABG O2 Saturation 96.3 H (90-95) % ABG Base Excess 2.7 H (-9-1.8) mEq/L Ayaz Test Pos (Pos) Barometric Pressure 738.0 mm/Hg Oxygen Given 2 L Sodium (136-145) mmol/L Potassium (3.5-5.1) mmol/L Chloride (98-107) mmol/L Carbon Dioxide (21-32) mmol/L Anion Gap (3-11) BUN (7-18) mg/dl Creatinine (0.6-1.2) mg/dl Est Cr Clr Drug Dosing ml/min Est GFR ( Amer) Est GFR (Non-Af Amer) BUN/Creatinine Ratio (10-20) Glucose (70-99) mg/dl POC Glucose 240 H (70-99) mg/dl Estimat Average Glucose mg/dl Hemoglobin A1c (4.5-5.6) % Lactate (0.4-2.0) mmol/L Calcium (8.5-10.1) mg/dl Magnesium (1.8-2.4) mg/dl Total Bilirubin (0.2-1) mg/dl AST (15-37) U/L ALT (12-78) U/L Alkaline Phosphatase (45-117) U/L Troponin I (0-0.045) ng/ml NT-Pro-B Natriuret Pep (0-1800) pg/ml Total Protein (6.4-8.2) gm/dl Albumin (3.4-5.0) gm/dl Globulin (2.5-4.0) gm/dl Albumin/Globulin Ratio (0.9-2) Urine Color Yellow Urine Appearance Clear (Clear) Urine pH 6.5 (4.5-7.5) Ur Specific Renick 1.015 (1.000-1.030) Urine Protein Negative (Negative) Urine Glucose (UA) Negative (Negative) Urine Ketones Negative (Negative) Urine Blood Negative (Negative) Urine Nitrite Negative (Negative) Urine Bilirubin Negative (Negative) Urine Urobilinogen Negative (Negative) Ur Leukocyte Esterase 1+ H (Negative) Urine WBC (Auto) 1-5 (0-5) /hpf Urine RBC (Auto) 0-4 (0-4) /hpf U Hyaline Cast (Auto) 1-5 (0-5) /lpf U Epithel Cells (Auto) 20-30 H (0-5) /lpf Urine Bacteria (Auto) Negative (Negative) Influenza Type A Ag (Neg) Influenza Type A (PCR) (Neg) Influenza Type B Ag (Neg) Influenza Type B (PCR) (Neg) 02/25/19 02/25/19 02/25/19 Range/Units 03:50 03:50 03:32 WBC (4.8-10.8) K/uL RBC (4.2-5.4) M/uL Hgb (12.0-16.0) g/dL Hct (37-47) % MCV (80-100) fL MCH (25-34) pg MCHC (32-36) g/dL RDW Std Deviation (36.4-46.3) fL RDW Coeff of Titi (11.5-14.5) % Plt Count (130-400) K/uL MPV (7.4-10.4) fL Immature Gran % (Auto) % Neut % (Auto) % Lymph % (Auto) % Ward % (Auto) % Eos % (Auto) % Baso % (Auto) % Immature Gran # (Auto) (0.00-0.02) K/uL Neut # (Auto) (1.4-6.5) K/uL Lymph # (Auto) (1.2-3.4) K/uL Ward # (Auto) (0.11-0.59) K/uL Eos # (Auto) (0-0.5) K/uL Baso # (Auto) (0-0.2) K/uL PT (9.0-12.0) Seconds INR (0.9-1.1) APTT (21.0-31.0) Seconds PTT Ratio ABG pH (7.35-7.45) ABG pCO2 (35-46) mmHg ABG pO2 (80-95) mmHg ABG HCO3 (19-24) mmol/L ABG O2 Saturation (90-95) % ABG Base Excess (-9-1.8) mEq/L Ayaz Test (Pos) Barometric Pressure mm/Hg Oxygen Given Sodium (136-145) mmol/L Potassium (3.5-5.1) mmol/L Chloride (98-107) mmol/L Carbon Dioxide (21-32) mmol/L Anion Gap (3-11) BUN (7-18) mg/dl Creatinine (0.6-1.2) mg/dl Est Cr Clr Drug Dosing ml/min Est GFR ( Amer) Est GFR (Non-Af Amer) BUN/Creatinine Ratio (10-20) Glucose (70-99) mg/dl POC Glucose (70-99) mg/dl Estimat Average Glucose 137 mg/dl Hemoglobin A1c 6.4 H (4.5-5.6) % Lactate (0.4-2.0) mmol/L Calcium (8.5-10.1) mg/dl Magnesium (1.8-2.4) mg/dl Total Bilirubin (0.2-1) mg/dl AST (15-37) U/L ALT (12-78) U/L Alkaline Phosphatase (45-117) U/L Troponin I (0-0.045) ng/ml NT-Pro-B Natriuret Pep (0-1800) pg/ml Total Protein (6.4-8.2) gm/dl Albumin (3.4-5.0) gm/dl Globulin (2.5-4.0) gm/dl Albumin/Globulin Ratio (0.9-2) Urine Color Urine Appearance (Clear) Urine pH (4.5-7.5) Ur Specific [place] (1.000-1.030) Urine Protein (Negative) Urine Glucose (UA) (Negative) Urine Ketones (Negative) Urine Blood (Negative) Urine Nitrite (Negative) Urine Bilirubin (Negative) Urine Urobilinogen (Negative) Ur Leukocyte Esterase (Negative) Urine WBC (Auto) (0-5) /hpf Urine RBC (Auto) (0-4) /hpf U Hyaline Cast (Auto) (0-5) /lpf U Epithel Cells (Auto) (0-5) /lpf Urine Bacteria (Auto) (Negative) Influenza Type A Ag Neg for Influ A (Neg) Influenza Type A (PCR) Neg for Influ A (Neg) Influenza Type B Ag Neg for Influ B (Neg) Influenza Type B (PCR) Neg for Influ B (Neg) 02/25/19 02/25/19 02/25/19 Range/Units 03:32 03:32 03:32 WBC 9.60 (4.8-10.8) K/uL RBC 4.94 (4.2-5.4) M/uL Hgb 14.1 (12.0-16.0) g/dL Hct 43.3 (37-47) % MCV 87.7 (80-100) fL MCH 28.5 (25-34) pg MCHC 32.6 (32-36) g/dL RDW Std Deviation 49.2 H (36.4-46.3) fL RDW Coeff of Titi 15.3 H (11.5-14.5) % Plt Count 286 (130-400) K/uL MPV 9.1 (7.4-10.4) fL Immature Gran % (Auto) 0.8 % Neut % (Auto) 70.9 % Lymph % (Auto) 17.0 % Ward % (Auto) 10.5 % Eos % (Auto) 0.7 % Baso % (Auto) 0.1 % Immature Gran # (Auto) 0.08 H (0.00-0.02) K/uL Neut # (Auto) 6.80 H (1.4-6.5) K/uL Lymph # (Auto) 1.63 (1.2-3.4) K/uL Ward # (Auto) 1.01 H (0.11-0.59) K/uL Eos # (Auto) 0.07 (0-0.5) K/uL Baso # (Auto) 0.01 (0-0.2) K/uL PT 10.5 (9.0-12.0) Seconds INR 1.0 (0.9-1.1) APTT 26.8 (21.0-31.0) Seconds PTT Ratio 1.0 ABG pH (7.35-7.45) ABG pCO2 (35-46) mmHg ABG pO2 (80-95) mmHg ABG HCO3 (19-24) mmol/L ABG O2 Saturation (90-95) % ABG Base Excess (-9-1.8) mEq/L Ayaz Test (Pos) Barometric Pressure mm/Hg Oxygen Given Sodium 132 L (136-145) mmol/L Potassium 4.8 (3.5-5.1) mmol/L Chloride 100 (98-107) mmol/L Carbon Dioxide 26 (21-32) mmol/L Anion Gap 6.0 (3-11) BUN 27 H (7-18) mg/dl Creatinine 0.78 (0.6-1.2) mg/dl Est Cr Clr Drug Dosing 49.3 ml/min Est GFR ( Amer) 81.5 Est GFR (Non-Af Amer) 70.3 BUN/Creatinine Ratio 34.5 H (10-20) Glucose 118 H (70-99) mg/dl POC Glucose (70-99) mg/dl Estimat Average Glucose mg/dl Hemoglobin A1c (4.5-5.6) % Lactate (0.4-2.0) mmol/L Calcium 8.9 (8.5-10.1) mg/dl Magnesium 2.1 (1.8-2.4) mg/dl Total Bilirubin 0.4 (0.2-1) mg/dl AST 71 H (15-37) U/L ALT 83 H (12-78) U/L Alkaline Phosphatase 122 H (45-117) U/L Troponin I 0.029 (0-0.045) ng/ml NT-Pro-B Natriuret Pep 6579 H (0-1800) pg/ml Total Protein 6.8 (6.4-8.2) gm/dl Albumin 3.3 L (3.4-5.0) gm/dl Globulin 3.5 (2.5-4.0) gm/dl Albumin/Globulin Ratio 0.9 (0.9-2) Urine Color Urine Appearance (Clear) Urine pH (4.5-7.5) Ur Specific Ren[place] (1.000-1.030) Urine Protein (Negative) Urine Glucose (UA) (Negative) Urine Ketones (Negative) Urine Blood (Negative) Urine Nitrite (Negative) Urine Bilirubin (Negative) Urine Urobilinogen (Negative) Ur Leukocyte Esterase (Negative) Urine WBC (Auto) (0-5) /hpf Urine RBC (Auto) (0-4) /hpf U Hyaline Cast (Auto) (0-5) /lpf U Epithel Cells (Auto) (0-5) /lpf Urine Bacteria (Auto) (Negative) Influenza Type A Ag (Neg) Influenza Type A (PCR) (Neg) Influenza Type B Ag (Neg) Influenza Type B (PCR) (Neg) 02/25/19 Range/Units 03:32 WBC (4.8-10.8) K/uL RBC (4.2-5.4) M/uL Hgb (12.0-16.0) g/dL Hct (37-47) % MCV (80-100) fL MCH (25-34) pg MCHC (32-36) g/dL RDW Std Deviation (36.4-46.3) fL RDW Coeff of Titi (11.5-14.5) % Plt Count (130-400) K/uL MPV (7.4-10.4) fL Immature Gran % (Auto) % Neut % (Auto) % Lymph % (Auto) % Ward % (Auto) % Eos % (Auto) % Baso % (Auto) % Immature Gran # (Auto) (0.00-0.02) K/uL Neut # (Auto) (1.4-6.5) K/uL Lymph # (Auto) (1.2-3.4) K/uL Ward # (Auto) (0.11-0.59) K/uL Eos # (Auto) (0-0.5) K/uL Baso # (Auto) (0-0.2) K/uL PT (9.0-12.0) Seconds INR (0.9-1.1) APTT (21.0-31.0) Seconds PTT Ratio ABG pH (7.35-7.45) ABG pCO2 (35-46) mmHg ABG pO2 (80-95) mmHg ABG HCO3 (19-24) mmol/L ABG O2 Saturation (90-95) % ABG Base Excess (-9-1.8) mEq/L Ayaz Test (Pos) Barometric Pressure mm/Hg Oxygen Given Sodium (136-145) mmol/L Potassium (3.5-5.1) mmol/L Chloride (98-107) mmol/L Carbon Dioxide (21-32) mmol/L Anion Gap (3-11) BUN (7-18) mg/dl Creatinine (0.6-1.2) mg/dl Est Cr Clr Drug Dosing ml/min Est GFR ( Amer) Est GFR (Non-Af Amer) BUN/Creatinine Ratio (10-20) Glucose (70-99) mg/dl POC Glucose (70-99) mg/dl Estimat Average Glucose mg/dl Hemoglobin A1c (4.5-5.6) % Lactate 1.2 (0.4-2.0) mmol/L Calcium (8.5-10.1) mg/dl Magnesium (1.8-2.4) mg/dl Total Bilirubin (0.2-1) mg/dl AST (15-37) U/L ALT (12-78) U/L Alkaline Phosphatase (45-117) U/L Troponin I (0-0.045) ng/ml NT-Pro-B Natriuret Pep (0-1800) pg/ml Total Protein (6.4-8.2) gm/dl Albumin (3.4-5.0) gm/dl Globulin (2.5-4.0) gm/dl Albumin/Globulin Ratio (0.9-2) Urine Color Urine Appearance (Clear) Urine pH (4.5-7.5) Ur Specific Renick (1.000-1.030) Urine Protein (Negative) Urine Glucose (UA) (Negative) Urine Ketones (Negative) Urine Blood (Negative) Urine Nitrite (Negative) Urine Bilirubin (Negative) Urine Urobilinogen (Negative) Ur Leukocyte Esterase (Negative) Urine WBC (Auto) (0-5) /hpf Urine RBC (Auto) (0-4) /hpf U Hyaline Cast (Auto) (0-5) /lpf U Epithel Cells (Auto) (0-5) /lpf Urine Bacteria (Auto) (Negative) Influenza Type A Ag (Neg) Influenza Type A (PCR) (Neg) Influenza Type B Ag (Neg) Influenza Type B (PCR) (Neg) Medications Administered Current Inpatient Medications Acetaminophen (Tylenol) 650 mg PO Q4H PRN PRN Reason: Pain or Fever Stop: 03/27/19 07:27 Dextrose (Dextrose 50%) 25 - 50 ml IV UD PRN; Protocol PRN Reason: Hypoglycemia Protocol Stop: 03/27/19 07:27 Diltiazem HCl (Cardizem Cd) 180 mg PO BID [facility] Stop: 03/27/19 07:27 Last Admin: 02/25/19 08:29 Dose: 180 mg Documented by: Docusate Sodium (Colace) 100 mg PO BID PRN PRN Reason: Constipation Stop: 03/27/19 07:27 Duloxetine HCl (Cymbalta) 60 mg PO QAM [facility] Stop: 03/27/19 08:59 Last Admin: 02/25/19 08:27 Dose: 60 mg Documented by: Enoxaparin Sodium (Lovenox) 30 mg SQ QAM [facility] Stop: 03/27/19 08:59 Last Admin: 02/25/19 08:26 Dose: 30 mg Documented by: Fluticasone/Vilanterol (Breo Ellipta 100/25 Mcg Inh) 1 puffs INH HS [facility] Stop: 03/27/19 20:59 Glucagon (Glucagen) 1 mg SQ UD PRN; Protocol PRN Reason: Hypoglycemia Protocol Stop: 03/27/19 07:27 Glucose (Dex4 Glucose) 4 - 8 tabs PO UD PRN; Protocol PRN Reason: Hypoglycemia Protocol Stop: 03/27/19 07:27 Glucose (Glucose 40%) 15 - 30 gm PO UD PRN; Protocol PRN Reason: Hypoglycemia Protocol Stop: 03/27/19 07:27 Guaifenesin (Mucinex) 1,200 mg PO BID [facility] Stop: 03/27/19 07:27 Last Admin: 02/25/19 08:27 Dose: 1,200 mg Documented by: Insulin Aspart (Novolog Flexpen) 0 units SC ACHS [facility] Stop: 03/27/19 07:27 Last Admin: 02/25/19 08:28 Dose: 4 units Documented by: Insulin Glargine (Lantus Solostar Pen) 5 units SQ DAILY [facility] Stop: 03/28/19 08:59 Ipratropium [place] (Atrovent 0.02% 0.5mg/2.5ml) 0.5 mg INH Q6R [facility] Stop: 03/27/19 07:27 Last Admin: 02/25/19 09:16 Dose: Not Given Documented by: Levalbuterol HCl (Xopenex 1.25mg/0.5ml Neb) 1.25 mg INH Q6R [facility] Stop: 03/27/19 07:27 Last Admin: 02/25/19 09:16 Dose: Not Given Documented by: Levothyroxine Sodium (Synthroid) 75 mcg PO DAILYBB [facility] Stop: 03/27/19 08:59 Last Admin: 02/25/19 08:27 Dose: 75 mcg Documented by: Miscellaneous (Carbohydrates For Hypoglycemia) 15 - 30 gm PO UD PRN PRN Reason: Hypoglycemia Protocol Stop: 03/27/19 07:27 Multivitamins/Minerals (Multivitamin W/ Minerals Tab) 1 tab PO QAM [facility] Stop: 03/27/19 08:59 Last Admin: 02/25/19 08:27 Dose: 1 tab Documented by: Nitroglycerin (Nitrostat) 0.4 mg SL UD PRN PRN Reason: Chest Pain Stop: 03/27/19 07:27 Oxycodone HCl (Roxicodone Immediate Rel) 5 mg PO Q6H PRN PRN Reason: pain Stop: 03/11/19 07:27 Pantoprazole Sodium (Protonix) 40 mg PO BID [facility]; Protocol Stop: 03/27/19 08:59 Last Admin: 02/25/19 08:27 Dose: 40 mg Documented by: Prednisone (Prednisone) 40 mg PO DAILY [facility] Stop: 03/02/19 08:59
[2019-02-25] MEDS ORDERED: METOPROLOL TARTRATE 25 MG TAB PO ONE (12:00)
[2019-02-25] MEDS ORDERED: BUDESONIDE 90 MCG INH INH SCH (12:00)
[2019-02-25] MEDS: IPRATROPIUM BROMIDE NEB SOLN 0.02% 2.5 ML VIAL INH SCH ×5 (12:06→23:19)
[2019-02-25] MEDS: LEVALBUTEROL 1.25MG/0.5ML NEB INH SCH ×5 (12:06→23:19)
[2019-02-25] MEDS ORDERED: FLUTICASONE/VILANTEROL 100/25MCG 14 PUFFS/INHALER INH SCH (21:00)
[2019-02-25] MEDS ORDERED: FLUTICASONE/VILANTEROL 100/25MCG 14 PUFFS/INHALER INH ONE (21:00)
[2019-02-25] MEDS ORDERED: NON-FORMULARY MEDICATION (Solifenacin [Vesicare] 10 MG) PO SCH (21:00)
--- NOTE | 2019-02-25 22:25 | Electrocardiogram Report ---
Test Reason : Blood Pressure : / mmHG Vent. Rate : 093 BPM Atrial Rate : 093 BPM P-R Int : 188 ms QRS Dur : 072 ms QT Int : 370 ms P-R-T Axes : 057 034 023 degrees QTc Int : 460 ms Normal sinus rhythm Possible Left atrial enlargement Possible Septal infarct When compared with ECG of 19-FEB-2019 04:03, No significant change was found Confirmed by Abimael Clay ([id number]) on 02/25/2019 10:25:00 PM Referred By: REFERRED SELF Confirmed By:Abimael Clay
[2019-02-26] MEDS: IPRATROPIUM BROMIDE NEB SOLN 0.02% 2.5 ML VIAL INH SCH ×5 (02:01→13:38)
[2019-02-26] MEDS: LEVALBUTEROL 1.25MG/0.5ML NEB INH SCH ×5 (02:02→13:38)
[2019-02-26] MEDS: LEVOTHYROXINE SODIUM 75 MCG TABLET PO SCH (05:54)
--- NOTE | 2019-02-26 06:01 | Electrocardiogram Report ---
Test Reason : Blood Pressure : / mmHG Vent. Rate : 091 BPM Atrial Rate : 091 BPM P-R Int : 208 ms QRS Dur : 072 ms QT Int : 376 ms P-R-T Axes : 055 037 032 degrees QTc Int : 462 ms Normal sinus rhythm Normal ECG When compared with ECG of 25-FEB-2019 04:03, No significant change was found Confirmed by Abimael Clay ([id number]) on 02/26/2019 6:01:23 AM Referred By: REFERRED SELF Confirmed By:Abimael Clay
[2019-02-26 06:41] LABS: Basophils # (auto) 0.02 K/uL (0-0.2); Basophils % (auto) 0.2 %; Eosinophils # (auto) 0.01 K/uL (0-0.5); Eosinophils % (auto) 0.1 %; Hematocrit (blood only) 42.4 % (37-47); Hemoglobin 13.6 g/dL (12.0-16.0); Immature Granulocytes # (auto) 0.08 K/uL (0.00-0.02); Immature Granulocytes % (auto) 0.6 %; Lymphocytes # (auto) 1.47 K/uL (1.2-3.4); Lymphocytes % (auto) 11.3 %; Mean Corpuscular Hgb Conc 32.1 g/dL (32-36); Mean Corpuscular Volume 87.4 fL (80-100); Mean Platelet Volume 9.2 fL (7.4-10.4); Monocytes # (auto) 0.91 K/uL (0.11-0.59); Neutrophils # (auto) 10.53 K/uL (1.4-6.5); Neutrophils % (auto) 80.8 %; Platelet Count 311 K/uL (130-400); RDW Coefficient of Variation 15.3 % (11.5-14.5); RDW Standard Deviation 48.8 fL (36.4-46.3); Red Blood Count 4.85 M/uL (4.2-5.4); White Blood Count 13.02 K/uL (4.8-10.8)
[2019-02-26 07:08] LABS: BUN Creatinine Ratio 36.7 (10-20); Calcium 9.3 mg/dl (8.5-10.1); Creatinine Clr Calc Pharmacy 48.2 ml/min; Est GFR (African American) 84.1; Est GFR (Non-African American) 72.5; Magnesium 2.4 mg/dl (1.8-2.4); Potassium 4.5 mmol/L (3.5-5.1)
[2019-02-26] MEDS: INSULIN ASPART 100 UNITS/ML 3 ML PEN SC SCH ×3 (08:10→17:00)
[2019-02-26] MEDS: ENOXAPARIN INJ 30 MG/0.3 ML SYR SQ SCH (08:15)
[2019-02-26] MEDS: DULOXETINE HCL 60 MG CAP PO SCH (08:15)
[2019-02-26] MEDS: dilTIAZem HCL 180 MG CAPCR PO SCH (08:15)
[2019-02-26] MEDS: PANTOprazole 40 MG TAB PO SCH (08:16)
[2019-02-26] MEDS: CEROVITE ADV FORMULA TAB PO SCH (08:16)
[2019-02-26] MEDS: guaiFENesin 600 MG TABCR PO SCH (08:16)
[2019-02-26] MEDS ORDERED: INSULIN GLARGINE SOLOSTAR 100 UNITS/ML 3 ML PEN SQ SCH (09:00)
[2019-02-26] MEDS ORDERED: predniSONE 20 MG TAB PO SCH (09:00)
--- NOTE | 2019-02-26 14:54 | Discharge Summary ---
Date of Service February 26, 2019 Admission HPI Per Admitting Provider History obtained from patient and records. Medical history significant for COPD, hypertension, hyperlipidemia, DM2, diet controlled, past tobacco abuse, ambulatory dysfunction, hx traumatic nasal septal perforation, right humeral fracture with nonunion. Recent confinement September 2018 for right humeral fracture, right nasal bone fracture secondary to mechanical fall. Patient discharged on right upper extremity splint later transition to brace which patient did not comply with. Aspiration event noted during confinement. Patient seen at the ER last week for choking on a ham sandwich. No pneumonia on x-ray. Patient discharged home after being given breathing treatments at the ER. Few days history of dry cough symptoms with worsening shortness of breath without chest pain. No fever, no chills. Poor appetite. No known sick contacts. No new aspiration events except from last ER visit as per patient. Worsening shortness of breath last night. Possible fluid retention as per patient. At the ER, patient received Unasyn and Lasix for possible aspiration pneumonitis and CHF respectively. 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 Admission Exam Per Admitting Provider GENERAL: Slightly uncomfortable, minimal respiratory distress SKIN: Normal color, warm HEENT: [place] palpebral conjunctivae, no ptosis, moist buccal mucosa, nasal cannula in place NECK : Supple, no tenderness CHEST : Decreased breath sounds, expiratory wheezes, no tenderness HEART : Tachycardic , no obvious murmurs ABDOMEN: Some distention, nontender EXTREMITIES : Minimal LE swelling, no LE tenderness, RUE deformity, no other conspicuous deformities noted NEUROLOGIC : Coherent, no facial asymmetry, no other gross focality Principal Diagnosis Acute hypoxemic respiratory failure secondary to COPD exacerbation/viral bronchitis Discharge Exam GENERAL: Elderly female, sitting up in the hair, in NAD, on room air HEENT: NC/AT, EOMI, PERRL, moist buccal mucosa NECK : Supple, no tenderness CHEST : Decreased breath sounds, expiratory wheezes, no tenderness HEART : mildly tachycardic , no obvious murmurs ABDOMEN: +BS, soft,nontender to palpation EXTREMITIES : Minimal LE swelling, no LE tenderness, RUE deformity, no other conspicuous deformities noted SKIN:warm, dry, well perfused NEUROLOGIC : alert and oriented x3, no facial asymmetry, speech fluent, moves extremities spontaneously Discharge Data Allergies Allergy/AdvReac Type Severity Reaction Status Date / Time cyclobenzaprine Allergy Severe CONFUSION Verified 02/25/19 03:55 atorvastatin AdvReac Intermediate MYALGIA Verified 02/25/19 03:55 codeine AdvReac Intermediate N/V Verified 02/25/19 03:55 fentanyl AdvReac Intermediate SEE COMMENT Verified 02/25/19 03:55 morphine AdvReac Intermediate N/V Verified 02/25/19 03:55 Consultations 02/25/19 05:00 ED Decision to Admit Stat 02/25/19 07:28 Consult Case Management - Discharge Planning Routine Ordered Studies 02/25/19 03:20 CT chest wo con Urgent IMPRESSION: 1. Minimal tree-in-bud nodules within the left lower lobe which favors mild bronchiolitis. No consolidation. 2. No thoracic lymphadenopathy. 3. Mild bronchial wall thickening. Hospital Course (1) Acute hypoxemic respiratory failure: Secondary to COPD exacerbation, viral bronchitis No sepsis Rule out CHF given fluid retention complaints as per patient Chest imaging not c/w with fluid overload Hx of Past tobacco abuse Supplemental O2 Solu-Medrol, nebs, mucolytic; hold off on antibiotics for now TTE RE fluid retention rule out CHF- echo obtained, shows severe hypokinesis of mid anterior/inf. septum and entire apex c/w Takotsubo [employer]OLDING [employer] ? - will send results of Echo to pt's PCP, recommend cardiology follow as outpt Chest imaging not c/w with fluid overload - Cont. treatment above for COPD exacerbation - pt clinically much improved, breathing on room air since last evening - she is inquiring about going home, says she has a lot of help at home, will discuss w/ CM and will set up home health for her - will d/c on prednisone taper Hypertension slightly elevated - cont. to monitor Tachycardia - sinus - now resolved DM2, diet controlled Reasonable control as of recent outpatient hemoglobin A1c of 7.12 March 2018 Basal insulin, ISS BG goal 140-180, update hemoglobin A1c Right humeral fracture with nonunion. Patient not interested in surgery. R numerous bracing recommended on recent outpatient Ortho follow-up Total Time Total Time Spent Total Time Spent (In Minutes): 40 Total Time Includes: Examination of the Patient, Discharge Planning and Medication Reconciliation Discharge Plan Discharge Items Patient Disposition: Home - Home Health Services Reason For Visit: RESP FAILURE Discharge Diagnosis: Acute hypoxemic respiratory failure secondary to COPD exacerbation/viral bronchitis Activity: Resume your previous activity Activity Comment: as tolerated, pace yourself, ask for help as needed Non-emergency contact: Primary Care Provider and Behavioral Health Care Coordinator Call non-emergency contact if: you have any medication questions and your symptoms worsen Follow-up/Referrals: Harjeet Zaman MD [Primary Care Provider] - 03/01/19 12:25 pm Diet: Carb Consistent or DM2 Fluids: 2000ml (8 cups) Addtl Attending Provider Instructions: Make sure to follow-up with primary care provider on March 01. Your primary care doctor was faxed results of your echocardiogram, it is recommended that you follow-up with a deck engineer. Make sure to take prednisone, 40 mg for 3 days, then 30 mg for 3 days, then 20 mg for 3 days and then 10 mg for 3 days. Check your blood pressure and heart rate at home at least once a day, and keep a log of these values. Make sure to bring this log to your primary care doctor and/or your deck engineer. Home health was set up for you. Pending Studies at Discharge: No Stand-Alone Forms: My [facility] REQQI, Smoking Cessation Medications and DC Order Prescriptions: New guaifenesin [Mucinex] 600 mg Tablet Extended Release 12hr 1,200 mg PO BID 5 Days Qty: 20 RF: 0 prednisone 10 mg tablet 10 mg PO DAILY Qty: 30 RF: 0 Continued celecoxib [Celebrex] 200 mg Capsule 200 mg PO BID RF: 0 alendronate [Fosamax] 70 mg Tablet 70 mg PO WK RF: 0 docusate sodium [Colace] 100 mg Capsule 100 mg PO BID PRN (Reason: Constipation) RF: 0 cholecalciferol (vitamin D3) [Vitamin D3] 400 unit Tablet 400 unit PO BID RF: 0 duloxetine [Cymbalta] 60 mg Capsule,Delayed Release(Dr/Ec) 60 mg PO QAM RF: 0 levothyroxine 75 mcg Tablet 75 mcg PO QAM RF: 0 multivitamin with minerals Tablet 1 tab PO QAM RF: 0 solifenacin [Vesicare] 10 mg Tablet 10 mg PO HS RF: 0 omeprazole 20 mg Tablet,Disintegrat, Delay Rel 20 mg PO BID RF: 0 Breo Ellipta 100-25 mcg/dose Blister With Device 1 inh INHALATION HS RF: 0 diltiazem HCl [Cardizem CD] 180 mg Capsule,Extended Release 24hr 180 mg PO BID RF: 0 albuterol sulfate 90 mcg/actuation Hfa Aerosol Inhaler 2 puff INHALATION Q6H PRN (Reason: Shortness Of Breath Or Wheezing) RF: 0 diclofenac sodium 1 % Gel 2 g TOPICAL QID PRN (Reason: Pain) RF: 0 oxycodone 5 mg tablet 5 mg PO Q6H PRN (Reason: pain) Qty: 10 RF: 0 Discharge Orders: Discharge Order (Routine); Ordered 02/26/19 Ordered By: Mil Loza/Other Patient Handouts: Heart Failure, Guaifenesin Oral tablet extended- release, Prednisone Oral tablet, A1C Admission Data Admit Date/Time: 02/25/19 05:46 Attending Provider: Mil Grullon Admit Provider: [facility] Primary Care Provider: Harjeet Zamna Other Providers: [facility],Home Healthcare ; [facility] Other Interventions: Discharge Summary Assessment (RN) Last Done: 02/26/19 17:08 DC Date/Time DO NOT enter until pt leaves facility: 02/26/19 18:01
== END 2019-02-26 18:01 | disposition home health service (06) | DRG 190 ==
LOC: ED 02:57 → 2E 05:46

== ENCOUNTER 2019-03-28 23:24 | Inpatient (IN) ==
[2019-03-28] MEDS ORDERED: methylPREDNISolone 125 MG/2 ML VIAL IV STA (23:38)
[2019-03-28 23:49] LABS: Hematocrit (blood only) 45.7 % (37-47); Hemoglobin 14.4 g/dL (12.0-16.0); Mean Corpuscular Hemoglobin 28.9 pg (25-34); Mean Corpuscular Hgb Conc 31.5 g/dL (32-36); Mean Corpuscular Volume 91.6 fL (80-100); Mean Platelet Volume 9.3 fL (7.4-10.4); Platelet Count 367 K/uL (130-400); RDW Coefficient of Variation 15.7 % (11.5-14.5); RDW Standard Deviation 52.9 fL (36.4-46.3); Red Blood Count 4.99 M/uL (4.2-5.4); White Blood Count 17.52 K/uL (4.8-10.8)
[2019-03-29 00:03] LABS: Partial Thromboplastin Ratio 0.9; Partial Thromboplastin Time 24.1 Seconds (21.0-31.0); Prothrombin Time 10.4 Seconds (9.0-12.0)
[2019-03-29 00:14] LABS: Alanine Aminotransferase 91 U/L (12-78); Albumin Level 3.5 gm/dl (3.4-5.0); Aspartate Aminotransferase 45 U/L (15-37); BUN Creatinine Ratio 15.3 (10-20); Blood Urea Nitrogen 19 mg/dl (7-18); Calcium 8.9 mg/dl (8.5-10.1); Carbon Dioxide 26 mmol/L (21-32); Chloride 103 mmol/L (98-107); Creatinine Clr Calc Pharmacy 40.3 ml/min; Est GFR (African American) 47.9; Est GFR (Non-African American) 41.3; Glucose 275 mg/dl (70-99); Potassium 4.4 mmol/L (3.5-5.1); Sodium 136 mmol/L (136-145)
[2019-03-29 00:16] LABS: Appearance Urine Clear (Clear); Bacteria Urine Automated Negative (Negative); Bilirubin Urine Negative (Negative); Blood Urine Negative (Negative); Color Urine Yellow; Glucose Urine UA Negative (Negative); Ketones Urine Negative (Negative); Leukocyte Esterase Urine Negative (Negative); Nitrite Urine Negative (Negative); Protein Urine 2+ (Negative); RBC Urine Automated 0-4 /hpf (0-4); Specific Gravity Urine 1.015 (1.000-1.030); Urobilinogen Urine Negative (Negative); WBC Urine Automated 0 /hpf (0-5); pH Urine 5.5 (4.5-7.5)
[2019-03-29 00:19] LABS: Alkaline Phosphatase 117 U/L (45-117); Bilirubin,Total 0.3 mg/dl (0.2-1); Globulin 3.6 gm/dl (2.5-4.0); NT Pro B Type Natriuretic Pept 336 pg/ml (0-1800); Total Protein 7.1 gm/dl (6.4-8.2); Troponin I < 0.015 ng/ml (0-0.045)
[2019-03-29 00:40] LABS: RBC Morphology Unremarkable
[2019-03-29 00:43] LABS: ANC (manual) 8.37 K/uL (1.4-6.5); Blast # (manual) 0.16 K/uL (0-0); Blast Cells % (manual) 0.9 %; Large Granular Lymph % (manual) 17.1 %; Lymphocytes # (manual) 4.42 K/uL (1.2-3.4); Lymphocytes % (manual) 25.2 %; Metamyelocytes # (manual) 0.32 K/uL (0-0); Metamyelocytes % (manual) 1.8 %; Monocytes # (manual) 0.63 K/uL (0.11-0.59); Monocytes % (manual) 3.6 %; Myelocytes # (manual) 0.47 K/uL (0-0); Myelocytes % (manual) 2.7 %; Neutrophils # (manual) 8.37 K/uL (1.4-6.5); Neutrophils % (manual) 47.8 %; Promyelocytes # (manual) 0.16 K/uL (0-0); Promyelocytes % (manual) 0.9 %
[2019-03-29] MEDS ORDERED: PIPERACILLIN/TAZOBACTAM 4.5 GM/120 ML BAG IV ONE (01:59)
[2019-03-29] MEDS ORDERED: PIPERACILL/TAZOBAC CONSULT ACTIVE PRN (01:59)
[2019-03-29] MEDS ORDERED: FUROSEMIDE 40 MG/4 ML VIAL IV STA (02:24)
[2019-03-29] MEDS ORDERED: IPRATROPIUM BROMIDE NEB SOLN 0.02% 2.5 ML VIAL INH PRN (04:27)
[2019-03-29] MEDS ORDERED: LEVALBUTEROL 1.25MG/0.5ML NEB INH PRN (04:27)
[2019-03-29] MEDS ORDERED: NITROGLYCERIN SL 0.4 MG/TAB TAB SL PRN (04:27)
[2019-03-29] MEDS ORDERED: ONDANSETRON INJ 2 MG/ML 2 ML VIAL IV PRN (04:27)
[2019-03-29] MEDS ORDERED: XOPENEX/ATROVENT 1.25mg/0.5MG NEB COMBO NEB PRN (04:27)
[2019-03-29] MEDS ORDERED: ALBUTEROL HFA 8 GM INHALER INH PRN (04:27)
--- NOTE | 2019-03-29 04:30 | History and Physical Report ---
DATE OF ADMISSION: 03/29/2019 CHIEF COMPLAINT: Respiratory distress. HISTORY OF PRESENT ILLNESS: This is an 83-year-old female with past medical history significant for type 2 diabetes, diet controlled; hypothyroidism; hyperlipidemia; COPD; chronic systolic congestive heart failure, ejection fraction of 35% to 40%; hypertension; esophageal dysmotility; history of renal mass; urge incontinence; generalized osteoarthritis; chronic pain syndrome; anemia of chronic kidney disease; history of fall, who lives in a personal care assisted living with 24-hour care. She apparently was eating turkey sandwich, when she complained of shortness of breath. Question of choking and EMS was called and her oxygen saturations were low and she was placed on BiPAP. En route, she declined, but when she came to the ER, she was placed on nasal cannula and she improved. Now she is back on BiPAP and she is saturating fine. She is somewhat sleepy, but able to tell her name, knows that she is in the hospital, thinks this is February, says that she was eating sandwich and suddenly felt short of breath. Denies any chest pain. She is feeling better now. Denies any cough. Denies any nausea, vomiting. Denies any abdominal pain. Currently hemodynamically stable, but requiring BiPAP, but could not get complete history from the patient as she is somewhat sleepy and on BiPAP. She had a similar episode in 03/22/2019 , she was eating turkey sandwich. At that time, she improved in the ER and got discharged. She was here in the hospital in 03/05/2019 with chronic obstructive pulmonary disease exacerbation. 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 Question of the patient taking the medication, it is not in the medication list right now currently, and also there is a plan for repeat echo and based on that, plan for ischemic workup with stress test versus cardiac catheterization. On chest x-ray, it looks like congestive failure, though there is no significant lower extremity edema. The patient denies any fever or chills. ALLERGIES: CYCLOBENZAPRINE, ATORVASTATIN, CODEINE, FENTANYL, MORPHINE. PAST MEDICAL HISTORY: As mentioned above. PAST SURGICAL HISTORY: Bilateral total knee arthroplasty, never redone, colonoscopy, EGDs with biopsies, exploratory laparotomy, lumbosacral injection, lumbar surgery, radiofrequency ablation of L5 nerve branches, right greater trochanter bursitis injection, reconstruction of right shoulder surgery, spinal fusion T9-L1. MEDICATIONS: The patient is currently on VESIcare 10 mg p.o. at bedtime, Omeprazole 20 mEq p.o. b.i.d., Toprol-XL 25 mg p.o. daily, azithromycin and prednisone rescue pack, albuterol 2 puffs every 4 hours p.r.n., guaifenesin ER 200 mg p.o. b.i.d., albuterol nebulization every 4 hours p.r.n., Celebrex 200 mg p.o. b.i.d., Tylenol 650 mg p.o. q. 6 hours p.r.n., Fosamax 70 mg p.o. once a week, nystatin p.r.n., diltiazem CD 180 mg one capsule b.i.d., Cymbalta 60 mg p.o. daily, Breo Ellipta 100/25 mcg inhalation 1 puff daily, levothyroxine 75 mcg daily, biotin 5000 mcg daily, Dulcolax 5 mg p.o. daily p.r.n., calcium carbonate 600 plus D 1 tablet daily, Sheldon-3 fish oils 1 tablet daily, Colace 100 mg p.o. b.i.d., multivitamins with minerals 1 tablet daily. FAMILY HISTORY: Significant for daughter has alcoholism, mother has leukemia, father had lung disorder. SOCIAL HISTORY: Currently lives in assisted living with 24-hour care. Former smoker. Quit in 2006, smoked for 50 years. No alcohol use, no drug use. REVIEW OF SYSTEMS: As per HPI. Rest of the review of systems negative. PHYSICAL EXAMINATION: GENERAL: The patient is somewhat drowsy, but oriented to name and place. VITAL SIGNS: Temperature 36.7, pulse 95, respiratory rate 24, blood pressure 150/96, oxygen 96% on BiPAP. HEENT: No pallor, no icterus. Pupils equal, round, reactive to light. NECK: No JVD, no masses, no carotid bruits. CARDIOVASCULAR: S1, S2 heard, regular rate and rhythm, no murmur, no gallop. RESPIRATORY SYSTEM: Normal AP diameter. No accessory muscle use. Mild crackles heard. ABDOMEN: Soft, bowel sounds present, nontender. No distention. CENTRAL NERVOUS SYSTEM: Drowsy, but oriented to name and place, obeys simple commands. Moves extremities. EXTREMITIES: No pedal edema present, no erythema seen. LABORATORY DATA: WBC 17.5, hemoglobin 14.4, hematocrit 45.7, platelets 367. PT 10.4, INR 1, APTT 24.1. Sodium 136, potassium 4.4, chloride 103, bicarbonate 26, BUN 19, creatinine 1.2, serum glucose 275. Lactate pending. Calcium 8.9, total bilirubin 0.3, AST 45, ALT 91, alkaline phosphatase 117. Troponin I less than 0.015. BNP 336. Urinalysis negative. IMAGING DATA: Chest x-ray, possible congestive heart failure. EKG: Normal sinus rhythm with sinus arrhythmia, rate of 84, no acute ST changes seen. ASSESSMENT AND PLAN: This is an 83-year-old female who presents with acute respiratory distress. 1. Acute respiratory distress requiring BiPAP after eating a turkey sandwich, possible aspiration. She had similar presentation on 03/22/2019, but improved in the ER and was discharged. Question of esophageal dysmotility history. We will admit to tele floor, continue BiPAP and speech evaluation in a.m. We will keep n.p.o. for now. Empirically given steroid in the ER .Started on Zosyn, which will be continued and follow the cultures. Also we will follow the CAT scan of the chest. 2. Mhbad-ag-iqemqym systolic congestive heart failure. Chest x-ray also shows a congestive heart failure picture, though there is no obvious volume overload on exam, mild crackles on lung exam. Recent echo showed 35% to 40% EF on Toprol-XL, which will continue. We will give a dose of IV Lasix and further diuretics as per the response and per the cardiology in the a.m. There is plan for repeat echo which we will do while she is in the hospital and further workup as per cardiology and further optimizing of medications per cardiology. 3. Diet-controlled diabetes, currently n.p.o. We will follow hemoglobin A1c levels, follow the blood sugars. We may place on insulin sliding scale. 4. Hypertension, on Toprol-XL and Cardizem, which she will continue for now and monitor the blood pressure. 5. History of chronic obstructive pulmonary disease, does not seem to be in exacerbation. Continue her home inhalers and nebs. Received steroid in the ER. 6. Left renal mass. Follows with urology. May need repeat imaging study. 7. Urge incontinence, on VESIcare. 8. Gastroesophageal reflux disease, on PPI. 9. Chronic pain syndrome, on Celebrex. 10. Depression, on Cymbalta. 11. Hypothyroidism, on Synthroid. 12. Acute kidney injury on chronic kidney disease stage III, baseline creatinine 0.7, currently creatinine 1.2. Follow the labs in a.m. with patient getting diuretics. 13. Question of lung mass. Could not find records. We will follow the CAT scan of the chest. 14. Deep venous thrombosis prophylaxis, sequential compression devices for now. 15. Disposition: Closely monitor in the tele floor. DNR/DNI as per chart and as per my discussion with the family. WEI
[2019-03-29] MEDS ORDERED: bisacodyL 5 MG TABEC PO PRN (04:32)
--- NOTE | 2019-03-29 05:12 | Emergency Department Note ---
Entered by Jairo Garcia acting as a scribe for Zeynep Pryor DO History of Present Illness General Chief complaint: Respiratory Distress Stated complaint: RESPIRATORY DISTRESS Time Seen by Provider: 03/28/19 23:26 Source: patient and EMS Limitations: other (clinical condition) History of Present Illness Onset (ago): day(s) (tonight) Location: chest Pain Consistency: + constant Quality: + other (SOB) Associated symptoms: + other (Positive for coughing. Negative for pain.) The patient is an 83 year old female who presents to the emergency department with constant SOB beginning tonight. Per EMS, the patient is from home. He states that one of the patients caregivers noticed that the patient started coughing tonight after eating a sandwich. He notes that it appeared as though the patient was choking. He reports that the patient then became SOB. He states that the patient was placed on CPAP, but he notes that her respiratory rate dropped en route to the emergency department. He reports that the patient comes to the emergency department at least once a week for respiratory issues, and he states that she was brought to the emergency department a week ago for a choking episode. He notes that the patient also has a history of COPD. The patient denies any pain. Per EMS, the patient is DNR. HPI limited secondary to clinical condition. Home Medications Home Medications Medication Instructions Recorded Confirmed Type alendronate [Fosamax] 70 mg PO WK 01/12/18 03/29/19 History celecoxib [Celebrex] 200 mg PO BID 01/12/18 03/29/19 History docusate sodium [Colace] 100 mg PO BID PRN 01/12/18 03/29/19 History duloxetine [Cymbalta] 60 mg PO QAM 01/12/18 03/29/19 History levothyroxine 75 mcg PO QAM 01/12/18 03/29/19 History multivitamin with minerals 1 tab PO QAM 01/12/18 03/29/19 History omeprazole 20 mg PO BID 01/12/18 03/29/19 History solifenacin [Vesicare] 10 mg PO HS 01/12/18 03/29/19 History Breo Ellipta 1 inh INHALATION HS 09/26/18 03/29/19 History diltiazem HCl [Cardizem CD] 180 mg PO BID 09/26/18 03/29/19 History albuterol sulfate 2 puff INHALATION Q6H PRN 09/27/18 03/29/19 History diclofenac sodium 2 g TOPICAL QID PRN 09/27/18 03/29/19 History biotin 5,000 mcg SUBLINGUAL DAILY 03/22/19 03/29/19 History bisacodyl 5 mg PO DAILY PRN 03/22/19 03/29/19 History calcium carbonate-vitamin D3 1 tab PO DAILY 03/22/19 03/29/19 History [Calcium 600 + D(3)] fluticasone furoate-vilanterol 1 inh INHALATION DAILY 03/22/19 03/29/19 History prednisone 20 mg PO DAILY PRN 03/22/19 03/29/19 History Toprol XL 25 mg PO DAILY 03/29/19 03/29/19 History Allergies Allergy/AdvReac Type Severity Reaction Status Date / Time cyclobenzaprine Allergy Severe CONFUSION Verified 03/29/19 00:31 atorvastatin AdvReac Intermediate MYALGIA Verified 03/29/19 00:31 codeine AdvReac Intermediate N/V Verified 03/29/19 00:31 fentanyl AdvReac Intermediate SEE COMMENT Verified 03/29/19 00:31 morphine AdvReac Intermediate N/V Verified 03/29/19 00:31 Past Med/Surg History Social History Preferred Language: [place] Communication Ability: Effective Incident Response Coordinator Required: No Beliefs That Will Affect Care: None marital status: Current Living Situation: Alone Current Living Situation Comment: APARTMENT Other Information That Helps Us Care for You: No Feels Safe at Home: Yes Safety Concerns: Feels Safe At This Time Smoking Status: Former smoker Second Hand Exposure: No ; Hx Alcohol Use: No Hx Substance Use: No Review of Systems ROS limited secondary to clinical condition. Physical Exam Vital Signs Vital Signs - 24 hr 03/28/19 23:27 03/28/19 23:35 03/28/19 23:42 Temperature 36.7 C Temperature Source Rectal Pulse Rate 105 H 95 H Pulse Rate [Finger] Respiratory Rate 28 H 22 Respiratory Effort / Characteristics Labored Non-Labored Spontaneous Respiratory Depth Normal Respiratory Pattern Regular Blood Pressure 156/97 H Blood Pressure [Left Arm] Blood Pressure Mean 116 Blood Pressure Mean [Left Arm] Pulse Oximetry 92 98 Oxygen Delivery Method Nasal Cannula BiPAP Oxygen Flow Rate 6 Fraction of Inspired Oxygen 50 Sepsis Action Taken by Nursing No Action Required 03/28/19 23:52 03/28/19 23:54 03/29/19 00:30 Temperature Temperature Source Pulse Rate Pulse Rate [Finger] 82 78 Respiratory Rate 24 22 Respiratory Effort / Characteristics Respiratory Depth Respiratory Pattern Blood Pressure Blood Pressure [Left Arm] 148/96 H 120/49 L Blood Pressure Mean Blood Pressure Mean [Left Arm] 113 72 Pulse Oximetry 95 95 94 Oxygen Delivery Method BiPAP BiPAP BiPAP Oxygen Flow Rate Fraction of Inspired Oxygen Sepsis Action Taken by Nursing 03/29/19 01:00 03/29/19 01:30 03/29/19 02:00 Temperature Temperature Source Pulse Rate Pulse Rate [Finger] 76 85 89 Respiratory Rate 22 24 22 Respiratory Effort / Characteristics Respiratory Depth Respiratory Pattern Blood Pressure Blood Pressure [Left Arm] 116/60 149/75 H 133/86 Blood Pressure Mean Blood Pressure Mean [Left Arm] 78 99 101 Pulse Oximetry 95 95 96 Oxygen Delivery Method BiPAP BiPAP BiPAP Oxygen Flow Rate Fraction of Inspired Oxygen Sepsis Action Taken by Nursing 03/29/19 02:37 03/29/19 03:02 03/29/19 03:07 Temperature Temperature Source Pulse Rate 92 H Pulse Rate [Finger] 95 H 87 Respiratory Rate 24 27 H 24 Respiratory Effort / Characteristics Non-Labored Spontaneous Respiratory Depth Normal Respiratory Pattern Regular Blood Pressure Blood Pressure [Left Arm] 150/96 H 144/87 H Blood Pressure Mean Blood Pressure Mean [Left Arm] 114 106 Pulse Oximetry 98 95 98 Oxygen Delivery Method BiPAP BiPAP Oxygen Flow Rate Fraction of Inspired Oxygen 50 Sepsis Action Taken by Nursing 03/29/19 03:57 Temperature Temperature Source Pulse Rate Pulse Rate [Finger] 90 Respiratory Rate 22 Respiratory Effort / Characteristics Respiratory Depth Respiratory Pattern Blood Pressure Blood Pressure [Left Arm] 144/85 H Blood Pressure Mean Blood Pressure Mean [Left Arm] 104 Pulse Oximetry 95 Oxygen Delivery Method BiPAP Oxygen Flow Rate Fraction of Inspired Oxygen Sepsis Action Taken by Nursing General: Semi-responsive, in respiratory distress. HEENT: Head - normocephalic and atraumatic Pupils are equal, round, and reactive to light. Extraocular eye muscles are intact, and sclera are anicteric. Nose - moist nasal mucosa without discharge. Mouth - moist buccal mucosa. Oropharynx is nonerythematous and there is no tonsillar exudate or edema noted. Neck: Supple; no obvious JVD. Heart: Regular rate and rhythm. There is a normal S1 and S2 with no murmurs, clicks, or gallops appreciated. Lungs: Clear to auscultation bilaterally with no wheezes, rales, or rhonchi. Lung sounds diminished in the left lung base. Abdomen: Soft, completely nontender, nondistended, with good bowel sounds. There are no palpable pulsatile masses or hepatosplenomegaly. There is no guarding, rigidity, or rebound noted. Extremities: No evidence of cyanosis or clubbing. There are easily palpable peripheral pulses. Trace pedal edema. Skin: warm and dry with good turgor and no rashes. Course Course 2324: The patient was evaluated in room B1. A complete history and physical ex amination were performed. Nursing notes and previous electronic medical records were reviewed. IV lock was established and labs were drawn as above. An order was placed for continuous cardiac monitoring. The patient remained in a normal sinus rhythm at a rate of 84. Patient was placed back on BiPAP and tolerated it well. A twelve-lead EKG was obtained. 2347: Portable chest x-ray was obtained. Methylprednisolone-125 mg IV. 0025: The patient is hemodynamically stable. She is tolerating the BiPAP well. 0110: I rechecked the patient. She is tolerating BiPAP well. Her vitals are stable. 0119: Upon reevaluation, the patient is stable. I discussed the findings and the treatment plan with the patient. She expresses agreement and understanding. I spoke with Dr. Hicks of the [facility]. The patient will be evaluated for further management. 0157: I rechecked the patient. I ordered Pipracillen/tazobactam since it seems the patient may have aspirated. Consultations Consultation #1: I [facility] the [facility] He will evaluate the patient for further management. Time: 01:19 Administered Medications Discontinued Medications Furosemide (Lasix) 40 mg IV NOW STA Stop: 03/29/19 02:25 Last Admin: 03/29/19 02:28 Dose: 40 mg Documented by: [id number] Piperacillin Sod/Tazobactam Sod (Zosyn) 4.5 gm in 120 mls @ 240 mls/hr IV NOW ONE Stop: 03/29/19 02:28 Last Infusion: 03/29/19 02:59 Dose: 0 mls/hr Documented by: [id number] Admin: 03/29/19 02:29 Dose: 240 mls/hr Documented by: [id number] Methylprednisolone (Solumedrol) 125 mg IV NOW STA Stop: 03/28/19 23:39 Last Admin: 03/28/19 23:47 Dose: 125 mg Documented by: [id number] Critical Care Time Critical Care Time: Yes Total Critical Care Time: 30 I have personally spent 30 minutes of critical care time in the direct management of this patient. This includes bedside care, interpretation of diagnostic studies, and testing, discussion with consultants, patient, and family members, and other required patient management activities. This 30 minutes is in excess of all separately billable procedures. Medical Decision Making Differential Diagnosis Differential diagnoses include: CHF, COPD exacerbation, choking episode, aspiration pneumonia, and pneumonia. Medical Records Attestation: I reviewed the patient's medical records. Home Medications Current Medication List: was personally reviewed by me Laboratory Data Attestation: I reviewed the patient's lab results. Result diagrams: 03/28/19 23:35 03/28/19 23:35 Lab Results 03/28/19 03/28/19 03/28/19 Range/Units 23:35 23:35 23:35 WBC 17.52 H (4.8-10.8) K/uL RBC 4.99 (4.2-5.4) M/uL Hgb 14.4 (12.0-16.0) g/dL Hct 45.7 (37-47) % MCV 91.6 (80-100) fL MCH 28.9 (25-34) pg MCHC 31.5 L (32-36) g/dL RDW Std Deviation 52.9 H (36.4-46.3) fL RDW Coeff of Titi 15.7 H (11.5-14.5) % Plt Count 367 (130-400) K/uL MPV 9.3 (7.4-10.4) fL Neutrophils % (Manual) 47.8 % Lymphocytes % (Manual) 25.2 % Monocytes % (Manual) 3.6 % Metamyelocytes % (Man) 1.8 % Myelocytes % (Man) 2.7 % Promyelocytes % (Man) 0.9 % Blast Cells % (Manual) 0.9 % Neutrophils # (Manual) 8.37 H (1.4-6.5) K/uL Total Absolute Neuts 8.37 H (1.4-6.5) K/uL Lymphocytes # (Manual) 4.42 H (1.2-3.4) K/uL Monocytes # (Manual) 0.63 H (0.11-0.59) K/uL Metamyelocytes # (Man) 0.32 H (0-0) K/uL Myelocytes # (Manual) 0.47 H (0-0) K/uL Promyelocytes # (Man) 0.16 H (0-0) K/uL Blast Cells # (Man) 0.16 H (0-0) K/uL Large Granular Lymphs 17.1 % # Lrg Granular Lymphs 3.00 K/uL RBC Morphology Unremarkable PT 10.4 (9.0-12.0) Seconds INR 1.0 (0.9-1.1) APTT 24.1 (21.0-31.0) Seconds PTT Ratio 0.9 Sodium 136 (136-145) mmol/L Potassium 4.4 (3.5-5.1) mmol/L Chloride 103 (98-107) mmol/L Carbon Dioxide 26 (21-32) mmol/L Anion Gap 7.0 (3-11) BUN 19 H (7-18) mg/dl Creatinine 1.21 H (0.6-1.2) mg/dl Est Cr Clr Drug Dosing 40.3 ml/min Est GFR ( Amer) 47.9 Est GFR (Non-Af Amer) 41.3 BUN/Creatinine Ratio 15.3 (10-20) Glucose 275 H (70-99) mg/dl Lactate (0.4-2.0) mmol/L Calcium 8.9 (8.5-10.1) mg/dl Total Bilirubin 0.3 (0.2-1) mg/dl AST 45 H (15-37) U/L ALT 91 H (12-78) U/L Alkaline Phosphatase 117 (45-117) U/L Troponin I < 0.015 (0-0.045) ng/ml NT-Pro-B Natriuret Pep 336 (0-1800) pg/ml Total Protein 7.1 (6.4-8.2) gm/dl Albumin 3.5 (3.4-5.0) gm/dl Globulin 3.6 (2.5-4.0) gm/dl Albumin/Globulin Ratio 1.0 (0.9-2) Urine Color Urine Appearance (Clear) Urine pH (4.5-7.5) Ur Specific [place] (1.000-1.030) Urine Protein (Negative) Urine Glucose (UA) (Negative) Urine Ketones (Negative) Urine Blood (Negative) Urine Nitrite (Negative) Urine Bilirubin (Negative) Urine Urobilinogen (Negative) Ur Leukocyte Esterase (Negative) Urine WBC (Auto) (0-5) /hpf Urine RBC (Auto) (0-4) /hpf U Hyaline Cast (Auto) (0-5) /lpf U Epithel Cells (Auto) (0-5) /lpf Urine Bacteria (Auto) (Negative) 03/28/19 03/29/19 Range/Units 23:50 02:27 WBC (4.8-10.8) K/uL RBC (4.2-5.4) M/uL Hgb (12.0-16.0) g/dL Hct (37-47) % MCV (80-100) fL MCH (25-34) pg MCHC (32-36) g/dL RDW Std Deviation (36.4-46.3) fL RDW Coeff of Titi (11.5-14.5) % Plt Count (130-400) K/uL MPV (7.4-10.4) fL Neutrophils % (Manual) % Lymphocytes % (Manual) % Monocytes % (Manual) % Metamyelocytes % (Man) % Myelocytes % (Man) % Promyelocytes % (Man) % Blast Cells % (Manual) % Neutrophils # (Manual) (1.4-6.5) K/uL Total Absolute Neuts (1.4-6.5) K/uL Lymphocytes # (Manual) (1.2-3.4) K/uL Monocytes # (Manual) (0.11-0.59) K/uL Metamyelocytes # (Man) (0-0) K/uL Myelocytes # (Manual) (0-0) K/uL Promyelocytes # (Man) (0-0) K/uL Blast Cells # (Man) (0-0) K/uL Large Granular Lymphs % # Lrg Granular Lymphs K/uL RBC Morphology PT (9.0-12.0) Seconds INR (0.9-1.1) APTT (21.0-31.0) Seconds PTT Ratio Sodium (136-145) mmol/L Potassium (3.5-5.1) mmol/L Chloride (98-107) mmol/L Carbon Dioxide (21-32) mmol/L Anion Gap (3-11) BUN (7-18) mg/dl Creatinine (0.6-1.2) mg/dl Est Cr Clr Drug Dosing ml/min Est GFR ( Amer) Est GFR (Non-Af Amer) BUN/Creatinine Ratio (10-20) Glucose (70-99) mg/dl Lactate 2.2 H* (0.4-2.0) mmol/L Calcium (8.5-10.1) mg/dl Total Bilirubin (0.2-1) mg/dl AST (15-37) U/L ALT (12-78) U/L Alkaline Phosphatase (45-117) U/L Troponin I (0-0.045) ng/ml NT-Pro-B Natriuret Pep (0-1800) pg/ml Total Protein (6.4-8.2) gm/dl Albumin (3.4-5.0) gm/dl Globulin (2.5-4.0) gm/dl Albumin/Globulin Ratio (0.9-2) Urine Color Yellow Urine Appearance Clear (Clear) Urine pH 5.5 (4.5-7.5) Ur Specific [place] 1.015 (1.000-1.030) Urine Protein 2+ H (Negative) Urine Glucose (UA) Negative (Negative) Urine Ketones Negative (Negative) Urine Blood Negative (Negative) Urine Nitrite Negative (Negative) Urine Bilirubin Negative (Negative) Urine Urobilinogen Negative (Negative) Ur Leukocyte Esterase Negative (Negative) Urine WBC (Auto) 0 (0-5) /hpf Urine RBC (Auto) 0-4 (0-4) /hpf U Hyaline Cast (Auto) 1-5 (0-5) /lpf U Epithel Cells (Auto) 10-20 H (0-5) /lpf Urine Bacteria (Auto) Negative (Negative) Imaging Data Radiologist's Impression: CHEST X-RAY: CHF. Cardiomegaly. Bilateral shoulder arthroplasties. Elevated left hemidiaphragm. ECG Data Attestation: I personally reviewed and interpreted this ECG as follows: Indication: + SOB/dyspnea Rate (beats per minute): 84 Rhythm: + normal sinus ECG ST segments: no ST depression and no ST elevation ECG Findings: no PACs and no PVCs Blood Pressure Blood Pressure Findings: Elevated blood pressure Blood Pressure Disposition: further management by hospitalist MDM Narrative The patient is an 83 year old female who presents to the emergency department with constant SOB beginning tonight. Caretakers explained that the patient was eating a sandwich when she began to choke. She then had significant respiratory distress. In reviewing the patient's medical records, it seems that she has a history of doing this. She runs a risk of significant aspiration. Patient suffered from respiratory failure tonight and required BiPAP. She was prophylaxed with IV antibiotics. Patient seemed to tolerate the BiPAP and will be evaluated by the [facility] hospitalist group. Impression & Plan Hypoxia, Respiratory failure, Choking Discharge Plan Visit Data *Final* Discharge Date/Time: 03/29/19 03:58 Chief Complaint: Respiratory Distress Stated Complaint: RESPIRATORY DISTRESS ED Provider: Zeynep Pryor Discharge Problem: Hypoxia, Respiratory failure, Choking Patient Disposition: Admitted As Inpatient Discharge Instructions Interventions: ED Discharge Assessment Last Done: 03/29/19 03:58 Discharge Problem: Respiratory failure Qualifiers: Chronicity: acute Respiratory failure complication: hypoxia and hypercapnia Qualified Code(s): J96.01 - Acute respiratory failure with hypoxia Choking Qualifiers: Encounter type: subsequent encounter Qualified Code(s): T17.308D - Unspecified foreign body in larynx causing other injury, subsequent encounter The scribe's documentation has been prepared under my direction and personally reviewed by me in its entirety. I confirm that the note above accurately reflects all work, treatment, procedures, and medical decision making performed by me.
[2019-03-29] MEDS: LEVOTHYROXINE SODIUM 75 MCG TABLET PO SCH (05:54)
[2019-03-29] MEDS ORDERED: LEVOTHYROXINE SODIUM 75 MCG TABLET PO SCH (06:30)
--- NOTE | 2019-03-29 06:43 | XRay Report ---
XR chest 1V portable CLINICAL HISTORY: Dyspnea COMPARISON STUDY: 03/22/2019 FINDINGS: The cardiac and mediastinal contours remain stable. There is radiographic evidence of mild congestive failure/fluid overload. There are low lung volumes with basilar hypoventilatory changes st atistically atelectatic. There are bilateral shoulder arthroplasties. There is a united fracture of t he right humerus the junction of proximal and middle one third. Postsurgical changes are present with in the thoracolumbar spine[ IMPRESSION: 1. Radiographic evidence of mild congestive failure/fluid overload. 2. Low lung volumes with hypoventilatory changes at the lung bases ACT 112: Negative or not required by law. Electronically signed by: Kostas Coughlin M.D. 03/29/2019 6:42 AM
--- NOTE | 2019-03-29 07:00 | CT Scan Report ---
CT chest wo con CLINICAL HISTORY: Lung mass. Congestive failure. Possible aspiration. COMPARISON STUDY: 02/25/2019 CT DOSE: 634.90 mGy.cm TECHNIQUE: CT of the thorax was performed from the thoracic inlet to the lung bases. Images are revi ewed in the axial, sagittal, and coronal planes. IV contrast was not administered for this examinatio n. A dose lowering technique was utilized adhering to the principles of ALARA. FINDINGS: Thyroid: Imaged portions of the thyroid gland are normal in appearance. Thoracic aorta: The thoracic aorta is normal in course and caliber, noting standard 3 vessel arch yordan anita. Heart: The heart is normal in size and configuration, without pericardial effusion. Lungs and pleural spaces: There are no significant pleural effusions. There are low lung volumes with bibasilar opacity statistically atelectatic. There is moderate respiratory motion artifact. There ar e a few scattered clustered nodular opacity statistically infectious/inflammatory. These are located within the right upper lobe and right lower lobe. Mediastinum: There is a mildly distended debris filled esophagus. There is no pathologic mediastinal lymphadenopathy. Adela: There is no evidence of pathologic hilar adenopathy given the limitations of a noncontrast stud y Axilla: There is no evidence of pathologic axillary lymphadenopathy. There are bilateral shoulder art hroplasties resulting in significant artifact Upper abdomen: There are multiple left renal masses likely representing cysts Skeletal structures: There are postsurgical changes present within the cervical spine. There is an ol d ununited right humeral fracture. There are multiple thoracic compression fractures. IMPRESSION: 1. Low lung volumes with dependent airspace opacity statistically atelectatic 2. Lower lobe mucus plugging 3. Scattered clustered nodules within the right upper lobe and right lower lobe statistically infecti ous/inflammatory 4. Distended debris filled esophagus. Clinical correlation regards to an esophageal stricture/mass is recommended. 5. Motion degraded study ACT 112: Negative or not required by law. Electronically signed by: Kostas Coughlin M.D. 03/29/2019 6:59 AM
[2019-03-29 07:06] LABS: Basophils # (auto) 0.02 K/uL (0-0.2); Basophils % (auto) 0.2 %; Eosinophils # (auto) 0.01 K/uL (0-0.5); Eosinophils % (auto) 0.1 %; Hematocrit (blood only) 44.6 % (37-47); Hemoglobin 14.2 g/dL (12.0-16.0); Immature Granulocytes # (auto) 0.16 K/uL (0.00-0.02); Immature Granulocytes % (auto) 1.4 %; Mean Corpuscular Hemoglobin 28.5 pg (25-34); Mean Corpuscular Hgb Conc 31.8 g/dL (32-36); Mean Corpuscular Volume 89.6 fL (80-100); Mean Platelet Volume 9.2 fL (7.4-10.4); Monocytes # (auto) 0.19 K/uL (0.11-0.59); Monocytes % (auto) 1.7 %; Neutrophils # (auto) 9.93 K/uL (1.4-6.5); Neutrophils % (auto) 88.6 %; Platelet Count 216 K/uL (130-400); RDW Coefficient of Variation 15.5 % (11.5-14.5); RDW Standard Deviation 50.4 fL (36.4-46.3); Red Blood Count 4.98 M/uL (4.2-5.4); White Blood Count 11.21 K/uL (4.8-10.8)
[2019-03-29] MEDS: VESICARE~ORDER AWAITING ACTION SCH ×2 (07:24→16:40)
--- NOTE | 2019-03-29 07:39 | XRay Report ---
XR chest 1V portable CLINICAL HISTORY: Congestive failure COMPARISON STUDY: 03/28/2019 FINDINGS: The cardiac and mediastinal contours remain stable. There are low lung volumes. There are p ostsurgical changes within the thoracolumbar spine. There postsurgical changes of bilateral shoulder arthroplasties. There is an ununited proximal right humeral fracture. There is no focal pulmonary con solidation. There is minor left basilar atelectasis. There is decreased vascular and interstitial pro minence.[ IMPRESSION: 1. Resolving pulmonary vascular congestion 2. Low lung volumes with basilar atelectasis ACT 112: Negative or not required by law. Electronically signed by: Kostas Coughlin M.D. 03/29/2019 7:38 AM
[2019-03-29 07:44] LABS: BUN Creatinine Ratio 17.8 (10-20); Calcium 9.5 mg/dl (8.5-10.1); Creatinine Clr Calc Pharmacy 33.1 ml/min; Est GFR (African American) 52.6; Est GFR (Non-African American) 45.4; Magnesium 1.6 mg/dl (1.8-2.4); Troponin I 0.017 ng/ml (0-0.045)
[2019-03-29 07:58] LABS: Base Excess ABG 3.5 mEq/L (-9-1.8); HCO3 ABG 27 mmol/L (19-24); Oxygen Saturation ABG 94.8 % (90-95); PCO2 ABG 38 mmHg (35-46); PO2 ABG 67 mmHg (80-95); pH ABG 7.47 (7.35-7.45)
[2019-03-29 07:59] LABS: Allen Test Pos (Pos)
[2019-03-29 08:08] LABS: Estimated Average Glucose 160 mg/dl; Hemoglobin A1C 7.2 % (4.5-5.6)
[2019-03-29] MEDS: CeleBREX 200 MG CAP PO SCH ×2 (08:46→20:27)
[2019-03-29] MEDS: CEROVITE ADV FORMULA TAB PO SCH (08:46)
[2019-03-29] MEDS: DULOXETINE HCL 60 MG CAP PO SCH (08:46)
[2019-03-29] MEDS: dilTIAZem HCL 180 MG CAPCR PO SCH ×2 (08:47→20:27)
[2019-03-29] MEDS: PANTOprazole 40 MG TAB PO SCH ×2 (08:47→20:28)
[2019-03-29] MEDS: PIPERACILLIN/TAZOBACTAM 3.375 GM in DEXTROSE 5% 100 ML IV SCH ×3 (08:49→23:15)
[2019-03-29] MEDS ORDERED: FLUTICASONE/VILANTEROL 100/25MCG 14 PUFFS/INHALER INH SCH (09:00)
[2019-03-29] MEDS ORDERED: METOPROLOL SUCC 25MG EXT REL TAB PO SCH (09:00)
--- NOTE | 2019-03-29 11:24 | Cardiology Consultation ---
Date of Consultation March 29, 2019 Assessment & Plan (1) Choking episode: (2) Respiratory failure: Clinical history and presentation consistent with probable aspiration. (3) Aspiration pneumonia due to food (regurgitated): (4) Takotsubo syndrome: Past hospitalization with acute respiratory distress with noted findings consistent with stress mediated cardiomyopathy. Patient recommended to begin beta-lewis but has just begun Echocardiogram today demonstrates hyperdynamic LV function with resolve wall motion abnormalities consistent with above history. Would recommend titrating beta-lewis higher, order placed for Toprol 25 mg twice per day. May ultimately titrate further with possible discontinuation of diltiazem given esophageal dysmotility Treat underlying pulmonary issues History of Present Illness Reason for Consultation: Acute respiratory distress Requesting Physician: Dr Hicks Attending Physician: Eloisa Parmar MD History of Present Illness Patient is an 83-year-old female with complex history and past hospitalizations predominantly for pulmonary induced issues with documented aspiration and esophageal dysmotility. Last hospitalization however patient was found to have diminished LV systolic function a pattern consistent with stress mediated cardiomyopathy. And patient has been following with cardiology as an outpatient. She presents this admission having choked on a turkey sandwich last evening with associated acute respiratory distress. Patient responded to BiPAP therapies Currently is comfortable. Denies chest pains dizziness lightness syncope or near syncope notes no tachypalpitations notes no orthopnea worsening peripheral edema. Does experience occasional falls at home with ecchymosis on right knee. Patient is referred for further cardiac evaluation. EKG without ischemic changes with normal tracing. Telemetry with sinus and sinus tachycardia. Echocardiogram this morning demonstrates resolve wall motion normalities previously present with hyperdynamic LV function EF greater than 70% Allergies Allergy/AdvReac Type Severity Reaction Status Date / Time cyclobenzaprine Allergy Severe CONFUSION Verified 03/29/19 00:31 atorvastatin AdvReac Intermediate MYALGIA Verified 03/29/19 00:31 codeine AdvReac Intermediate N/V Verified 03/29/19 00:31 fentanyl AdvReac Intermediate SEE COMMENT Verified 03/29/19 00:31 morphine AdvReac Intermediate N/V Verified 03/29/19 00:31 Home Medications Home Medications Medication Instructions Recorded Confirmed Type alendronate [Fosamax] 70 mg PO WK 01/12/18 03/29/19 History celecoxib [Celebrex] 200 mg PO BID 01/12/18 03/29/19 History docusate sodium [Colace] 100 mg PO BID PRN 01/12/18 03/29/19 History duloxetine [Cymbalta] 60 mg PO QAM 01/12/18 03/29/19 History levothyroxine 75 mcg PO QAM 01/12/18 03/29/19 History multivitamin with minerals 1 tab PO QAM 01/12/18 03/29/19 History omeprazole 20 mg PO BID 01/12/18 03/29/19 History solifenacin [Vesicare] 10 mg PO HS 01/12/18 03/29/19 History Breo Ellipta 1 inh INHALATION HS 09/26/18 03/29/19 History diltiazem HCl [Cardizem CD] 180 mg PO BID 09/26/18 03/29/19 History albuterol sulfate 2 puff INHALATION Q6H PRN 09/27/18 03/29/19 History diclofenac sodium 2 g TOPICAL QID PRN 09/27/18 03/29/19 History biotin 5,000 mcg SUBLINGUAL DAILY 03/22/19 03/29/19 History bisacodyl 5 mg PO DAILY PRN 03/22/19 03/29/19 History calcium carbonate-vitamin D3 1 tab PO DAILY 03/22/19 03/29/19 History [Calcium 600 + D(3)] fluticasone furoate-vilanterol 1 inh INHALATION DAILY 03/22/19 03/29/19 History prednisone 20 mg PO DAILY PRN 03/22/19 03/29/19 History Toprol XL 25 mg PO DAILY 03/29/19 03/29/19 History Patient History Medical History Chronic pain of right hip (Chronic) COPD (chronic obstructive pulmonary disease) (Chronic) DM type 2 (diabetes mellitus, type 2) (Chronic) Dyslipidemia (Chronic) Esophageal dysmotility (Chronic) Mass of lung (Chronic) "noted 11/18" Osteoarthritis (Chronic) 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) Family History Other Cancer Diabetes Social History Preferred Language: Korean Communication Ability: Effective Body Man Required: No Beliefs That Will Affect Care: None marital status: Current Living Situation: Alone Current Living Situation Comment: APARTMENT Other Information That Helps Us Care for You: No Feels Safe at Home: Yes Safety Concerns: Feels Safe At This Time Smoking Status: Former smoker Second Hand Exposure: No ; Hx Alcohol Use: No Hx Substance Use: No Review of Systems Review of Systems: All systems reviewed & are unremarkable except as noted in HPI & below Physical Exam Constitutional: WD/WN, vitals as above + obese Eyes: PERRL, conjunctivae normal, anicteric sclerae ENMT: external ear and nose normal, oropharynx normal Neck: trachea midline, no thyromegaly Respiratory: Auscultation: + diminished lung sounds and + bronchovesicular breath sounds (Right base) Cardiovascular: Rate/Rhythm: regular rate and regular rhythm Heart Sounds: normal S1 and normal S2; no gallop and no murmur Palpation: normal PMI Vessels: normal carotid upstroke and radial pulses present; no JVD and no carotid bruit Extremities: no edema Gastrointestinal (Abdomen): normal bowel sounds, soft, nontender, no hepatosplenomegaly Musculoskeletal: no cyanosis or clubbing, extremities motor strength 5/5 Skin: no rashes, warm and dry Neurologic: PERRL, EOMI, accommodation nl, no face palsy, no dysarthria Psychiatric: A+Ox3, euthymic affect Results & Data ([facility]) Vital Signs (Past 12 Hours) Vital Signs Temp Pulse Pulse Resp BP BP Pulse Ox 03/29/19 10:59 37.0 C 103 H 25 H 131/84 96 03/29/19 08:00 96 H 03/29/19 07:51 36.8 C 97 H 28 H 131/80 93 03/29/19 04:44 87 29 H 97 03/29/19 04:23 36.5 C 91 H 26 H 112/90 94 03/29/19 03:57 90 22 144/85 H 95 03/29/19 03:07 87 24 144/87 H 98 03/29/19 03:02 92 H 27 H 95 03/29/19 02:37 95 H 24 150/96 H 98 03/29/19 02:00 89 22 133/86 96 03/29/19 01:30 85 24 149/75 H 95 03/29/19 01:00 76 22 116/60 95 03/29/19 00:30 78 22 120/49 L 94 03/28/19 23:54 82 24 148/96 H 95 03/28/19 23:52 95 03/28/19 23:42 95 H 22 98 03/28/19 23:27 36.7 C 105 H 28 H 156/97 H 92 Laboratory Results Laboratory Results - last 24 hr 03/28/19 03/28/19 03/28/19 23:35 23:35 23:35 WBC 17.52 H RBC 4.99 Hgb 14.4 Hct 45.7 MCV 91.6 MCH 28.9 MCHC 31.5 L RDW Std Deviation 52.9 H RDW Coeff of Titi 15.7 H Plt Count 367 MPV 9.3 Immature Gran % (Auto) Neut % (Auto) Lymph % (Auto) Knott % (Auto) Eos % (Auto) Baso % (Auto) Immature Gran # (Auto) Neut # (Auto) Lymph # (Auto) Knott # (Auto) Eos # (Auto) Baso # (Auto) Neutrophils % (Manual) 47.8 Lymphocytes % (Manual) 25.2 Monocytes % (Manual) 3.6 Metamyelocytes % (Man) 1.8 Myelocytes % (Man) 2.7 Promyelocytes % (Man) 0.9 Blast Cells % (Manual) 0.9 Neutrophils # (Manual) 8.37 H Total Absolute Neuts 8.37 H Lymphocytes # (Manual) 4.42 H Monocytes # (Manual) 0.63 H Metamyelocytes # (Man) 0.32 H Myelocytes # (Manual) 0.47 H Promyelocytes # (Man) 0.16 H Blast Cells # (Man) 0.16 H Large Granular Lymphs 17.1 # Lrg Granular Lymphs 3.00 Blood Smear Review Pending RBC Morphology Unremarkable PT 10.4 INR 1.0 APTT 24.1 PTT Ratio 0.9 ABG pH ABG pCO2 ABG pO2 ABG HCO3 ABG O2 Saturation ABG Base Excess Ayaz Test Barometric Pressure Oxygen Given Sodium 136 Potassium 4.4 Chloride 103 Carbon Dioxide 26 Anion Gap 7.0 BUN 19 H Creatinine 1.21 H Est Cr Clr Drug Dosing 40.3 Est GFR ( Amer) 47.9 Est GFR (Non-Af Amer) 41.3 BUN/Creatinine Ratio 15.3 Glucose 275 H Estimat Average Glucose Hemoglobin A1c Lactate Calcium 8.9 Magnesium Total Bilirubin 0.3 AST 45 H ALT 91 H Alkaline Phosphatase 117 Troponin I < 0.015 NT-Pro-B Natriuret Pep 336 Total Protein 7.1 Albumin 3.5 Globulin 3.6 Albumin/Globulin Ratio 1.0 Urine Color Urine Appearance Urine pH Ur Specific [place] Urine Protein Urine Glucose (UA) Urine Ketones Urine Blood Urine Nitrite Urine Bilirubin Urine Urobilinogen Ur Leukocyte Esterase Urine WBC (Auto) Urine RBC (Auto) U Hyaline Cast (Auto) U Epithel Cells (Auto) Urine Bacteria (Auto) 03/28/19 03/29/19 03/29/19 23:50 02:27 04:49 WBC RBC Hgb Hct MCV MCH MCHC RDW Std Deviation RDW Coeff of Titi Plt Count MPV Immature Gran % (Auto) Neut % (Auto) Lymph % (Auto) Knott % (Auto) Eos % (Auto) Baso % (Auto) Immature Gran # (Auto) Neut # (Auto) Lymph # (Auto) Knott # (Auto) Eos # (Auto) Baso # (Auto) Neutrophils % (Manual) Lymphocytes % (Manual) Monocytes % (Manual) Metamyelocytes % (Man) Myelocytes % (Man) Promyelocytes % (Man) Blast Cells % (Manual) Neutrophils # (Manual) Total Absolute Neuts Lymphocytes # (Manual) Monocytes # (Manual) Metamyelocytes # (Man) Myelocytes # (Manual) Promyelocytes # (Man) Blast Cells # (Man) Large Granular Lymphs # Lrg Granular Lymphs Blood Smear Review RBC Morphology PT INR APTT PTT Ratio ABG pH ABG pCO2 ABG pO2 ABG HCO3 ABG O2 Saturation ABG Base Excess Ayaz Test Barometric Pressure Oxygen Given Sodium Potassium Chloride Carbon Dioxide Anion Gap BUN Creatinine Est Cr Clr Drug Dosing Est GFR ( Amer) Est GFR (Non-Af Amer) BUN/Creatinine Ratio Glucose Estimat Average Glucose Hemoglobin A1c Lactate 2.2 H* 3.1 H* Calcium Magnesium Total Bilirubin AST ALT Alkaline Phosphatase Troponin I NT-Pro-B Natriuret Pep Total Protein Albumin Globulin Albumin/Globulin Ratio Urine Color Yellow Urine Appearance Clear Urine pH 5.5 Ur Specific [place] 1.015 Urine Protein 2+ H Urine Glucose (UA) Negative Urine Ketones Negative Urine Blood Negative Urine Nitrite Negative Urine Bilirubin Negative Urine Urobilinogen Negative Ur Leukocyte Esterase Negative Urine WBC (Auto) 0 Urine RBC (Auto) 0-4 U Hyaline Cast (Auto) 1-5 U Epithel Cells (Auto) 10-20 H Urine Bacteria (Auto) Negative 03/29/19 03/29/19 03/29/19 06:51 06:51 06:51 WBC 11.21 H RBC 4.98 Hgb 14.2 Hct 44.6 MCV 89.6 MCH 28.5 MCHC 31.8 L RDW Std Deviation 50.4 H RDW Coeff of Titi 15.5 H Plt Count 216 MPV 9.2 Immature Gran % (Auto) 1.4 Neut % (Auto) 88.6 Lymph % (Auto) 8.0 Knott % (Auto) 1.7 Eos % (Auto) 0.1 Baso % (Auto) 0.2 Immature Gran # (Auto) 0.16 H Neut # (Auto) 9.93 H Lymph # (Auto) 0.90 L Knott # (Auto) 0.19 Eos # (Auto) 0.01 Baso # (Auto) 0.02 Neutrophils % (Manual) Lymphocytes % (Manual) Monocytes % (Manual) Metamyelocytes % (Man) Myelocytes % (Man) Promyelocytes % (Man) Blast Cells % (Manual) Neutrophils # (Manual) Total Absolute Neuts Lymphocytes # (Manual) Monocytes # (Manual) Metamyelocytes # (Man) Myelocytes # (Manual) Promyelocytes # (Man) Blast Cells # (Man) Large Granular Lymphs # Lrg Granular Lymphs Blood Smear Review RBC Morphology PT INR APTT PTT Ratio ABG pH ABG pCO2 ABG pO2 ABG HCO3 ABG O2 Saturation ABG Base Excess Ayaz Test Barometric Pressure Oxygen Given Sodium 136 Potassium 4.0 Chloride 101 Carbon Dioxide 27 Anion Gap 8.0 BUN 20 H Creatinine 1.12 Est Cr Clr Drug Dosing 33.1 Est GFR ( Amer) 52.6 Est GFR (Non-Af Amer) 45.4 BUN/Creatinine Ratio 17.8 Glucose 246 H Estimat Average Glucose 160 Hemoglobin A1c 7.2 H Lactate Calcium 9.5 Magnesium 1.6 L Total Bilirubin AST ALT Alkaline Phosphatase Troponin I 0.017 NT-Pro-B Natriuret Pep Total Protein Albumin Globulin Albumin/Globulin Ratio Urine Color Urine Appearance Urine pH Ur Specific [place] Urine Protein Urine Glucose (UA) Urine Ketones Urine Blood Urine Nitrite Urine Bilirubin Urine Urobilinogen Ur Leukocyte Esterase Urine WBC (Auto) Urine RBC (Auto) U Hyaline Cast (Auto) U Epithel Cells (Auto) Urine Bacteria (Auto) 03/29/19 07:42 WBC RBC Hgb Hct MCV MCH MCHC RDW Std Deviation RDW Coeff of Titi Plt Count MPV Immature Gran % (Auto) Neut % (Auto) Lymph % (Auto) Knott % (Auto) Eos % (Auto) Baso % (Auto) Immature Gran # (Auto) Neut # (Auto) Lymph # (Auto) K[place]t # (Auto) Eos # (Auto) Baso # (Auto) Neutrophils % (Manual) Lymphocytes % (Manual) Monocytes % (Manual) Metamyelocytes % (Man) Myelocytes % (Man) Promyelocytes % (Man) Blast Cells % (Manual) Neutrophils # (Manual) Total Absolute Neuts Lymphocytes # (Manual) Monocytes # (Manual) Metamyelocytes # (Man) Myelocytes # (Manual) Promyelocytes # (Man) Blast Cells # (Man) Large Granular Lymphs # Lrg Granular Lymphs Blood Smear Review RBC Morphology PT INR APTT PTT Ratio ABG pH 7.47 H ABG pCO2 38 ABG pO2 67 L ABG HCO3 27 H ABG O2 Saturation 94.8 ABG Base Excess 3.5 H Ayaz Test Pos Barometric Pressure 744.2 Oxygen Given 40% FiO2 Sodium Potassium Chloride Carbon Dioxide Anion Gap BUN Creatinine Est Cr Clr Drug Dosing Est GFR ( Amer) Est GFR (Non-Af Amer) BUN/Creatinine Ratio Glucose Estimat Average Glucose Hemoglobin A1c Lactate Calcium Magnesium Total Bilirubin AST ALT Alkaline Phosphatase Troponin I NT-Pro-B Natriuret Pep Total Protein Albumin Globulin Albumin/Globulin Ratio Urine Color Urine Appearance Urine pH Ur Specific [place] Urine Protein Urine Glucose (UA) Urine Ketones Urine Blood Urine Nitrite Urine Bilirubin Urine Urobilinogen Ur Leukocyte Esterase Urine WBC (Auto) Urine RBC (Auto) U Hyaline Cast (Auto) U Epithel Cells (Auto) Urine Bacteria (Auto) (1) Respiratory failure Chronicity: acute Respiratory failure complication: hypoxia and hypercapnia Qualified Code(s): J96.01 - Acute respiratory failure with hypoxia; J96.02 - Acute respiratory failure with hypercapnia (2) Aspiration pneumonia due to food (regurgitated) Laterality: unspecified laterality Lung location: unspecified part of lung Qualified Code(s): J69.0 - Pneumonitis due to inhalation of food and vomit
--- NOTE | 2019-03-29 12:39 | Hospitalist Progress Note ---
Date of Service March 29, 2019 Assessment & Plan (1) Choking episode: (2) Acute hypoxemic respiratory failure: Hypoxic respiratory failure likely secondary to aspiration in the background of esophageal dysmotility. CT chest findings noted. Had leukocytosis of 17,000 now 11,000. We will continue Zosyn for now Wean off oxygen as tolerated Patient counseled extensively on need to stick to dietary recommendations to avoid recurrence of choking episodes Elevated lactate could be related to hypoxia vs aspiration pneumonitis (3) Takotsubo syndrome: Recent hospitalization for Takotsubo syndrome Doubt this hypoxic episode is related to heart failure exacerbation. Continue toprol XL (4) Hypothyroidism: Continue levothyroxine (5) Essential hypertension: Controlled. Monitor blood pressure (6) MAXIMO (acute kidney injury): Creatinine was 1.2 on presentation from 0.76 a month ago MAXIMO resolving. Creatinine is 1.1 this morning (7) DVT prophylaxis: SCD Admission and Anticipated Discharge Date Admission Date: March 29, 2019 Subjective Seen and examined. Still reports nausea and dry heaves. Denies any chest pain, cough, shortness of breath Denies any fevers, chills Physical Exam Constitutional: + well hydrated; no acute distress and not ill appearing Eyes: PERRL, conjunctivae normal, anicteric sclerae ENMT: external ear and nose normal, oropharynx normal Respiratory: normal respiratory effort; no respiratory distress and does not use accessory muscles Auscultation: + diminished lung sounds (Lung bases); no crackles and no rales Cardiovascular: RRR, no murmur, no edema Extremities: no edema Gastrointestinal (Abdomen): normal bowel sounds, soft, nontender, no hepatosplenomegaly Musculoskeletal: no cyanosis or clubbing, extremities motor strength 5/5 Neurologic: PERRL, EOMI, accommodation nl, no face palsy, no dysarthria Psychiatric: A+Ox3, euthymic affect Results & Data ([facility]) Vital Signs (Past 12 Hours) Vital Signs Temp Pulse Pulse Resp BP Pulse Ox 03/29/19 10:59 37.0 C 103 H 25 H 131/84 96 03/29/19 08:00 96 H 03/29/19 07:51 36.8 C 97 H 28 H 131/80 93 03/29/19 04:44 87 29 H 97 03/29/19 04:23 36.5 C 91 H 26 H 112/90 94 03/29/19 03:57 90 22 144/85 H 95 03/29/19 03:07 87 24 144/87 H 98 03/29/19 03:02 92 H 27 H 95 03/29/19 02:37 95 H 24 150/96 H 98 03/29/19 02:00 89 22 133/86 96 03/29/19 01:30 85 24 149/75 H 95 03/29/19 01:00 76 22 116/60 95 Laboratory Results Abnormal lab results 03/28/19 03/28/19 03/28/19 Range/Units 23:35 23:35 23:50 WBC 17.52 H (4.8-10.8) K/uL MCHC 31.5 L (32-36) g/dL RDW Std Deviation 52.9 H (36.4-46.3) fL RDW Coeff of Titi 15.7 H (11.5-14.5) % Immature Gran # (Auto) (0.00-0.02) K/uL Neut # (Auto) (1.4-6.5) K/uL Lymph # (Auto) (1.2-3.4) K/uL Neutrophils # (Manual) 8.37 H (1.4-6.5) K/uL Total Absolute Neuts 8.37 H (1.4-6.5) K/uL Lymphocytes # (Manual) 4.42 H (1.2-3.4) K/uL Monocytes # (Manual) 0.63 H (0.11-0.59) K/uL Metamyelocytes # (Man) 0.32 H (0-0) K/uL Myelocytes # (Manual) 0.47 H (0-0) K/uL Promyelocytes # (Man) 0.16 H (0-0) K/uL Blast Cells # (Man) 0.16 H (0-0) K/uL ABG pH (7.35-7.45) ABG pO2 (80-95) mmHg ABG HCO3 (19-24) mmol/L ABG Base Excess (-9-1.8) mEq/L BUN 19 H (7-18) mg/dl Creatinine 1.21 H (0.6-1.2) mg/dl Glucose 275 H (70-99) mg/dl POC Glucose (70-99) mg/dl Hemoglobin A1c (4.5-5.6) % Lactate (0.4-2.0) mmol/L Magnesium (1.8-2.4) mg/dl AST 45 H (15-37) U/L ALT 91 H (12-78) U/L Urine Protein 2+ H (Negative) U Epithel Cells (Auto) 10-20 H (0-5) /lpf 03/29/19 03/29/19 03/29/19 Range/Units 02:27 04:49 06:51 WBC 11.21 H (4.8-10.8) K/uL MCHC 31.8 L (32-36) g/dL RDW Std Deviation 50.4 H (36.4-46.3) fL RDW Coeff of Titi 15.5 H (11.5-14.5) % Immature Gran # (Auto) 0.16 H (0.00-0.02) K/uL Neut # (Auto) 9.93 H (1.4-6.5) K/uL Lymph # (Auto) 0.90 L (1.2-3.4) K/uL Neutrophils # (Manual) (1.4-6.5) K/uL Total Absolute Neuts (1.4-6.5) K/uL Lymphocytes # (Manual) (1.2-3.4) K/uL Monocytes # (Manual) (0.11-0.59) K/uL Metamyelocytes # (Man) (0-0) K/uL Myelocytes # (Manual) (0-0) K/uL Promyelocytes # (Man) (0-0) K/uL Blast Cells # (Man) (0-0) K/uL ABG pH (7.35-7.45) ABG pO2 (80-95) mmHg ABG HCO3 (19-24) mmol/L ABG Base Excess (-9-1.8) mEq/L BUN (7-18) mg/dl Creatinine (0.6-1.2) mg/dl Glucose (70-99) mg/dl POC Glucose (70-99) mg/dl Hemoglobin A1c (4.5-5.6) % Lactate 2.2 H* 3.1 H* (0.4-2.0) mmol/L Magnesium (1.8-2.4) mg/dl AST (15-37) U/L ALT (12-78) U/L Urine Protein (Negative) U Epithel Cells (Auto) (0-5) /lpf 03/29/19 03/29/19 03/29/19 Range/Units 06:51 06:51 07:42 WBC (4.8-10.8) K/uL MCHC (32-36) g/dL RDW Std Deviation (36.4-46.3) fL RDW Coeff of Titi (11.5-14.5) % Immature Gran # (Auto) (0.00-0.02) K/uL Neut # (Auto) (1.4-6.5) K/uL Lymph # (Auto) (1.2-3.4) K/uL Neutrophils # (Manual) (1.4-6.5) K/uL Total Absolute Neuts (1.4-6.5) K/uL Lymphocytes # (Manual) (1.2-3.4) K/uL Monocytes # (Manual) (0.11-0.59) K/uL Metamyelocytes # (Man) (0-0) K/uL Myelocytes # (Manual) (0-0) K/uL Promyelocytes # (Man) (0-0) K/uL Blast Cells # (Man) (0-0) K/uL ABG pH 7.47 H (7.35-7.45) ABG pO2 67 L (80-95) mmHg ABG HCO3 27 H (19-24) mmol/L ABG Base Excess 3.5 H (-9-1.8) mEq/L BUN 20 H (7-18) mg/dl Creatinine (0.6-1.2) mg/dl Glucose 246 H (70-99) mg/dl POC Glucose (70-99) mg/dl Hemoglobin A1c 7.2 H (4.5-5.6) % Lactate (0.4-2.0) mmol/L Magnesium 1.6 L (1.8-2.4) mg/dl AST (15-37) U/L ALT (12-78) U/L Urine Protein (Negative) U Epithel Cells (Auto) (0-5) /lpf 03/29/19 Range/Units 16:19 WBC (4.8-10.8) K/uL MCHC (32-36) g/dL RDW Std Deviation (36.4-46.3) fL RDW Coeff of Titi (11.5-14.5) % Immature Gran # (Auto) (0.00-0.02) K/uL Neut # (Auto) (1.4-6.5) K/uL Lymph # (Auto) (1.2-3.4) K/uL Neutrophils # (Manual) (1.4-6.5) K/uL Total Absolute Neuts (1.4-6.5) K/uL Lymphocytes # (Manual) (1.2-3.4) K/uL Monocytes # (Manual) (0.11-0.59) K/uL Metamyelocytes # (Man) (0-0) K/uL Myelocytes # (Manual) (0-0) K/uL Promyelocytes # (Man) (0-0) K/uL Blast Cells # (Man) (0-0) K/uL ABG pH (7.35-7.45) ABG pO2 (80-95) mmHg ABG HCO3 (19-24) mmol/L ABG Base Excess (-9-1.8) mEq/L BUN (7-18) mg/dl Creatinine (0.6-1.2) mg/dl Glucose (70-99) mg/dl POC Glucose 176 H (70-99) mg/dl Hemoglobin A1c (4.5-5.6) % Lactate (0.4-2.0) mmol/L Magnesium (1.8-2.4) mg/dl AST (15-37) U/L ALT (12-78) U/L Urine Protein (Negative) U Epithel Cells (Auto) (0-5) /lpf
[2019-03-29] MEDS ORDERED: GLUCOSE 40% GEL 15 GM TUBE PO PRN (15:00)
[2019-03-29] MEDS ORDERED: DEXTROSE 50% 50 ML SYRINGE IV PRN (15:00)
[2019-03-29] MEDS ORDERED: GLUCOSE 10 TABS/TUBE PO PRN (15:00)
[2019-03-29] MEDS ORDERED: CARBOHYDRATES FOR HYPOGLYCEMIA PO PRN (15:00)
[2019-03-29] MEDS ORDERED: GLUCAGON FOR INJ 1 MG VIAL IM PRN (15:00)
[2019-03-29] MEDS: METOPROLOL SUCC 25MG EXT REL TAB PO SCH (16:52)
[2019-03-29] MEDS: INSULIN ASPART 100 UNITS/ML 3 ML PEN SC SCH ×2 (16:58→20:28)
[2019-03-29] MEDS: FLUTICASONE/VILANTEROL 100/25MCG 14 PUFFS/INHALER INH SCH (20:26)
--- NOTE | 2019-03-29 21:22 | Electrocardiogram Report ---
Test Reason : Blood Pressure : / mmHG Vent. Rate : 084 BPM Atrial Rate : 084 BPM P-R Int : 198 ms QRS Dur : 078 ms QT Int : 392 ms P-R-T Axes : 052 037 075 degrees QTc Int : 463 ms Poor data quality, interpretation may be adversely affected Normal sinus rhythm with sinus arrhythmia Normal ECG When compared with ECG of 22-MAR-2019 22:53, Premature atrial complexes are no longer Present Criteria for Inferior infarct are no longer Present T wave inversion no longer evident in Lateral leads T wave inversion no longer evident in Anteroseptal leads Confirmed by Abimael Clay ([id number]) on 03/29/2019 9:21:46 PM Referred By: REFERRED SELF Confirmed By:Abimael Clay
[2019-03-29] MEDS: SODIUM CHLORIDE 0.9% 1000ML 1,000 ML IV SCH (21:37)
[2019-03-29] MEDS: MAGNESIUM SULFATE / D5W 1 GM/100 ML BAG IV SCH ×2 (21:41→22:36)
[2019-03-29] MEDS: ACETAMINOPHEN 325 MG TAB PO PRN (23:14)
[2019-03-30] MEDS: LEVOTHYROXINE SODIUM 75 MCG TABLET PO SCH (05:06)
[2019-03-30 06:36] LABS: Hematocrit (blood only) 41.8 % (37-47); Hemoglobin 13.4 g/dL (12.0-16.0); Mean Corpuscular Hemoglobin 28.7 pg (25-34); Mean Corpuscular Hgb Conc 32.1 g/dL (32-36); Mean Corpuscular Volume 89.5 fL (80-100); Mean Platelet Volume 9.2 fL (7.4-10.4); Nucleated RBC # (auto) 0.02 K/uL (0-0); Nucleated RBC % (auto) 0.1 %; Platelet Count 235 K/uL (130-400); RDW Coefficient of Variation 15.6 % (11.5-14.5); RDW Standard Deviation 50.4 fL (36.4-46.3); Red Blood Count 4.67 M/uL (4.2-5.4); White Blood Count 17.06 K/uL (4.8-10.8)
[2019-03-30 07:12] LABS: BUN Creatinine Ratio 23.3 (10-20); Calcium 9.2 mg/dl (8.5-10.1); Creatinine Clr Calc Pharmacy 44.5 ml/min; Est GFR (African American) 75.6; Est GFR (Non-African American) 65.2
[2019-03-30] MEDS: VESICARE~ORDER AWAITING ACTION SCH ×4 (07:36→23:38)
[2019-03-30] MEDS: PIPERACILLIN/TAZOBACTAM 3.375 GM in DEXTROSE 5% 100 ML IV SCH ×3 (07:40→23:38)
[2019-03-30] MEDS: CEROVITE ADV FORMULA TAB PO SCH (07:44)
[2019-03-30] MEDS: PANTOprazole 40 MG TAB PO SCH ×2 (07:44→20:04)
[2019-03-30] MEDS: DULOXETINE HCL 60 MG CAP PO SCH (07:46)
[2019-03-30] MEDS: dilTIAZem HCL 180 MG CAPCR PO SCH ×2 (07:47→20:05)
[2019-03-30] MEDS: METOPROLOL SUCC 25MG EXT REL TAB PO SCH ×2 (07:47→16:48)
[2019-03-30] MEDS: CeleBREX 200 MG CAP PO SCH ×2 (07:48→20:05)
[2019-03-30] MEDS: INSULIN ASPART 100 UNITS/ML 3 ML PEN SC SCH ×4 (07:48→20:34)
--- NOTE | 2019-03-30 10:56 | XRay Report ---
XR chest 1V portable HISTORY: Hypoxia, reassess previous pulm findings COMPARISON: Chest 03/29/2019. FINDINGS: No pneumothorax. No pleural effusions. Low lung volumes. Old, healed right-sided rib fractu res. Bilateral total shoulder arthroplasties. There is a displaced fracture within the proximal humer al shaft, unchanged. Thoracolumbar spinal fusion hardware is again noted. No new focal lung consolida tions to suggest pneumonia. No evidence for pulmonary edema. A few bibasilar linear densities favor s ubsegmental atelectasis. IMPRESSION: 1. No significant change. 2. No evidence for pulmonary edema. 3. Low lung volumes and bibasilar densities favor subsegmental atelectasis. 4. Displaced right humeral fracture is again noted. ACT 112: Negative or not required by law. Electronically signed by: Rachid Cardoso M.D. 03/30/2019 10:55 AM
[2019-03-30] MEDS: SODIUM CHLORIDE 0.9% 1000ML 1,000 ML IV SCH (11:04)
[2019-03-30] MEDS ORDERED: Nursing to Pharmacy Communication ONE (14:24)
--- NOTE | 2019-03-30 15:33 | Hospitalist Progress Note ---
Date of Service March 30, 2019 Assessment & Plan (1) Choking episode: (2) Acute hypoxemic respiratory failure: Hypoxic respiratory failure likely secondary to aspiration/choking in the background of esophageal dysmotility. CT chest findings noted. Had leukocytosis of 17,000 on admission, went down to 11,000 yesterday and back up to 17,000 this morning. Repeat chest x-ray this morning reported lower lung opacities likely atelectasis. Patient denied coughing or any respiratory symptoms at this time. Will discontinue antibiotics at this time and monitor Continue incentive spirometry Oxygen was taken off with pulse ox in low 90s We will continue to monitor patient for today Elevated lactate on admission which could be related to hypoxia versus aspiration pneumonitis resolved (3) Takotsubo syndrome: Recent hospitalization for Takotsubo syndrome Doubt this hypoxic episode is related to heart failure exacerbation. Continue toprol XL (4) Hypothyroidism: Continue levothyroxine (5) Essential hypertension: Controlled. Monitor blood pressure (6) MAXIMO (acute kidney injury): Creatinine was 1.2 on presentation from 0.76 a month ago MAXIMO resolved. Creatinine 0.83 this morning (7) DVT prophylaxis: SCD and ambulate Discontinue Christine Admission and Anticipated Discharge Date Admission Date: March 29, 2019 Subjective Patient seen and examined. Nausea and vomiting with dry heaves is resolved. Tolerating diet well. Denies any fevers, chills Denies any chest pain, shortness of breath Tolerated breakfast well this morning Physical Exam Constitutional: + well hydrated; no acute distress Eyes: PERRL, conjunctivae normal, anicteric sclerae ENMT: external ear and nose normal, oropharynx normal Respiratory: normal respiratory effort, lungs clear to auscultation Cardiovascular: RRR, no murmur, no edema Gastrointestinal (Abdomen): normal bowel sounds, soft, nontender, no hepatospl enomegaly Neurologic: PERRL, EOMI, accommodation nl, no face palsy, no dysarthria Psychiatric: A+Ox3, euthymic affect Results & Data ([facility]) Vital Signs (Past 12 Hours) Vital Signs Temp Pulse Resp BP Pulse Ox 03/30/19 13:47 93 03/30/19 11:00 36.7 C 78 20 129/91 95 03/30/19 07:50 87 154/87 H 03/30/19 07:24 36.9 C 86 26 H 93/80 L 93 Laboratory Results Abnormal lab results 03/29/19 03/29/19 03/29/19 Range/Units 16:19 17:10 19:07 WBC (4.8-10.8) K/uL RDW Std Deviation (36.4-46.3) fL RDW Coeff of Titi (11.5-14.5) % Absolute Nucleated RBC (0-0) K/uL BUN (7-18) mg/dl BUN/Creatinine Ratio (10-20) Glucose (70-99) mg/dl POC Glucose 176 H (70-99) mg/dl Lactate 3.5 H* 3.4 H* (0.4-2.0) mmol/L 03/29/19 03/30/19 03/30/19 Range/Units 20:24 06:20 06:20 WBC 17.06 H (4.8-10.8) K/uL RDW Std Deviation 50.4 H (36.4-46.3) fL RDW Coeff of Titi 15.6 H (11.5-14.5) % Absolute Nucleated RBC 0.02 H (0-0) K/uL BUN 19 H (7-18) mg/dl BUN/Creatinine Ratio 23.3 H (10-20) Glucose 143 H (70-99) mg/dl POC Glucose 136 H (70-99) mg/dl Lactate (0.4-2.0) mmol/L 03/30/19 03/30/19 03/30/19 Range/Units 07:23 08:32 11:20 WBC (4.8-10.8) K/uL RDW Std Deviation (36.4-46.3) fL RDW Coeff of Titi (11.5-14.5) % Absolute Nucleated RBC (0-0) K/uL BUN (7-18) mg/dl BUN/Creatinine Ratio (10-20) Glucose (70-99) mg/dl POC Glucose 128 H 122 H (70-99) mg/dl Lactate 3.1 H* (0.4-2.0) mmol/L
[2019-03-30] MEDS: ACETAMINOPHEN 325 MG TAB PO PRN (19:30)
[2019-03-30] MEDS: FLUTICASONE/VILANTEROL 100/25MCG 14 PUFFS/INHALER INH SCH (20:05)
[2019-03-31] MEDS: LEVOTHYROXINE SODIUM 75 MCG TABLET PO SCH (05:46)
[2019-03-31] MEDS: ACETAMINOPHEN 325 MG TAB PO PRN (06:58)
[2019-03-31 07:11] LABS: Est GFR (African American) 74.5; Est GFR (Non-African American) 64.3
[2019-03-31] MEDS: VESICARE~ORDER AWAITING ACTION SCH (07:21)
[2019-03-31] MEDS: INSULIN ASPART 100 UNITS/ML 3 ML PEN SC SCH (07:28)
[2019-03-31] MEDS: PIPERACILLIN/TAZOBACTAM 3.375 GM in DEXTROSE 5% 100 ML IV SCH (07:28)
[2019-03-31] MEDS: DULOXETINE HCL 60 MG CAP PO SCH (07:40)
[2019-03-31] MEDS: CEROVITE ADV FORMULA TAB PO SCH (07:41)
[2019-03-31] MEDS: dilTIAZem HCL 180 MG CAPCR PO SCH (07:41)
[2019-03-31] MEDS: CeleBREX 200 MG CAP PO SCH (07:41)
[2019-03-31] MEDS: PANTOprazole 40 MG TAB PO SCH (07:42)
[2019-03-31] MEDS: METOPROLOL SUCC 25MG EXT REL TAB PO SCH (07:42)
--- NOTE | 2019-03-31 11:07 | Discharge Summary ---
Date of Service March 31, 2019 Admission HPI Per Admitting Provider 83-year-old female with past medical history significant for type 2 diabetes, diet controlled; hypothyroidism; hyperlipidemia; COPD; chronic systolic congestive heart failure, ejection fraction of 35% to 40%; hypertension; esophageal dysmotility; history of renal mass; urge incontinence; generalized osteoarthritis; chronic pain syndrome; anemia of chronic kidney disease; history of fall, who lives in a personal care assisted living with 24-hour care. She apparently was eating turkey sandwich, when she complained of shortness of breath. Question of choking and EMS was called and her oxygen saturations were low and she was placed on BiPAP. En route, she declined, but when she came to the ER, she was placed on nasal cannula and she improved. Now she is back on BiPAP and she is saturating fine. She is somewhat sleepy, but able to tell her name, knows that she is in the hospital, thinks this is February, says that she was eating sandwich and suddenly felt short of breath. Denies any chest pain. She is feeling better now. Denies any cough. Denies any nausea, vomiting. Denies any abdominal pain. Currently hemodynamically stable, but requiring BiPAP, but could not get complete history from the patient as she is somewhat sleepy and on BiPAP. She had a similar episode in 03/22/2019 , she was eating turkey sandwich. At that time, she improved in the ER and got discharged. She was here in the hospital in 03/05/2019 with chronic obstructive pulmonary disease exacerbation. 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 Question of the patient taking the medication, it is not in the medication list right now currently, and also there is a plan for repeat echo and based on that, plan for ischemic workup with stress test versus cardiac catheterization. On chest x-ray, it looks like congestive failure, though there is no significant lower extremity edema. The patient denies any fever or chills. Admission Exam Per Admitting Provider GENERAL: The patient is somewhat drowsy, but oriented to name and place. VITAL SIGNS: Temperature 36.7, pulse 95, respiratory rate 24, blood pressure 150/96, oxygen 96% on BiPAP. HEENT: No pallor, no icterus. Pupils equal, round, reactive to light. NECK: No JVD, no masses, no carotid bruits. CARDIOVASCULAR: S1, S2 heard, regular rate and rhythm, no murmur, no gallop. RESPIRATORY SYSTEM: Normal AP diameter. No accessory muscle use. Mild crackles heard. ABDOMEN: Soft, bowel sounds present, nontender. No distention. CENTRAL NERVOUS SYSTEM: Drowsy, but oriented to name and place, obeys simple commands. Moves extremities. EXTREMITIES: No pedal edema present, no erythema seen. Principal Diagnosis Acute hypoxic respiratory failure secondary to aspiration Acute kidney injury Discharge Exam Constitutional well nourished and + well hydrated; no acute distress Eyes PERRL, conjunctivae normal, anicteric sclerae ENMT external ear and nose normal, oropharynx normal Respiratory normal respiratory effort, lungs clear to auscultation Cardiovascular RRR, no murmur, no edema Gastrointestinal (Abdomen) normal bowel sounds, soft, nontender, no hepatosplenomegaly Neurologic PERRL, EOMI, accommodation nl, no face palsy, no dysarthria Psychiatric A+Ox3, euthymic affect Discharge Data Allergies Allergy/AdvReac Type Severity Reaction Status Date / Time cyclobenzaprine Allergy Severe CONFUSION Verified 03/29/19 00:31 atorvastatin AdvReac Intermediate MYALGIA Verified 03/29/19 00:31 codeine AdvReac Intermediate N/V Verified 03/29/19 00:31 fentanyl AdvReac Intermediate SEE COMMENT Verified 03/29/19 00:31 morphine AdvReac Intermediate N/V Verified 03/29/19 00:31 Consultations 03/29/19 01:11 ED Decision to Admit Stat 03/29/19 04:27 Consult Case Management - Discharge Planning Routine 03/29/19 08:00 Consult Cardiology Routine Ordered Studies 03/29/19 02:29 CT chest wo con Urgent 1. Low lung volumes with dependent airspace opacity statistically atelectatic 2. Lower lobe mucus plugging 3. Scattered clustered nodules within the right upper lobe and right lower lobe statistically infectious/inflammatory 4. Distended debris filled esophagus. Clinical correlation regards to an esophageal stricture/mass is recommended. 5. Motion degraded study Hospital Course (1) Choking episode: (2) Acute hypoxemic respiratory failure: Hypoxic respiratory failure secondary to aspiration/choking in the background of esophageal dysmotility. Patient has not been compliant with prior recommendations about dietary consistency. This was reinforced several times by me as well as speech therapist as patient has known esophageal dysmotility and at risk of aspiration or choking. CT chest findings noted. Had leukocytosis of 17,000 on admission. Likely reactive due to aspiration. Had no fevers. Cough has resolved as well as nausea and vomiting. Repeat chest x-ray from yesterday reported no new focal consolidations to suggest pneumonia, had bibasilar densities that reported to be subsegmental atelectasis. Antibiotics discontinued. Patient has been successfully weaned off oxygen yesterday morning. Patient had episodes of oxygen desaturation to mid 80s when sleeping. This may likely be due to atelectasis versus undiagnosed nocturnal hypoxia/sleep-related breathing Discussed this with patient today. Patient stated she does not want to stay for overnight pulse oximetry. She stated she would follow-up with her PCP for possible outpatient evaluation and management. Continue incentive spirometry at home. Follow-up with PCP Had elevated lactate which could be due to hypoxia on admission which is resolved (3) Takotsubo syndrome: Recent hospitalization for Takotsubo syndrome Patient's home dose of Toprol-XL was increased from 25 mg daily to twice daily per anesthesiology physician recommendation. Prescription for this was called into patient's preferred pharmacy and patient informed (4) Hypothyroidism: Continue levothyroxine (5) Essential hypertension: Controlled. Monitor blood pressure (6) MAXIMO (acute kidney injury): Creatinine was 1.2 on presentation from 0.76 a month ago MAXIMO resolved. Creatinine 0.84 this morning Total Time Total Time Spent Total Time Spent (In Minutes): 35 Total Time Includes: Examination of the Patient, Discharge Planning and Medication Reconciliation Discharge Plan Discharge Items Patient Disposition: Home - Self-Care Reason For Visit: RESPIRATORY DISTRESS Discharge Diagnosis: Acute hypoxic respiratory failure secondary to aspiration Activity: Resume your previous activity Non-emergency contact: Primary Care Provider Call non-emergency contact if: you have any medication questions Follow-up/Referrals: Harjeet Zaman MD [Primary Care Provider] - 04/05/19 2:00 pm (IF YOU CAN NOT MAKE THIS APT, PLEASE CALL THE OFFICE AND RESCHEDULE) Diet: Regular Diet Comment: Soft, slippery diet Addtl Attending Provider Instructions: Ms Zhong. You came to the hospital in respiratory distress after choking of food. You were evaluated and managed in the hospital You initially required oxygen which was weaned off. You were noted to have oxygen level drop when you are sleeping. You did not want to have the nocturnal pulse oximetry done to assess if you need oxygen at bedtime. You stated you want to go home and follow up with your Primary Doctor about that. Please adhere to the dietary recommendations to avoid future choking episodes due to your esophageal problem. It was a pleasure taking care of you. Pending Studies at Discharge: No Stand-Alone Forms: My [facility], Smoking Cessation Medications and DC Order Prescriptions: Continued celecoxib [Celebrex] 200 mg Capsule 200 mg PO BID RF: 0 alendronate [Fosamax] 70 mg Tablet 70 mg PO WK RF: 0 docusate sodium [Colace] 100 mg Capsule 100 mg PO BID PRN (Reason: Constipation) RF: 0 duloxetine [Cymbalta] 60 mg Capsule,Delayed Release(Dr/Ec) 60 mg PO QAM RF: 0 levothyroxine 75 mcg Tablet 75 mcg PO QAM RF: 0 multivitamin with minerals Tablet 1 tab PO QAM RF: 0 solifenacin [Vesicare] 10 mg Tablet 10 mg PO HS RF: 0 omeprazole 20 mg Tablet,Disintegrat, Delay Rel 20 mg PO BID RF: 0 Breo Ellipta 100-25 mcg/dose Blister With Device 1 inh INHALATION HS RF: 0 diltiazem HCl [Cardizem CD] 180 mg Capsule,Extended Release 24hr 180 mg PO BID RF: 0 albuterol sulfate 90 mcg/actuation Hfa Aerosol Inhaler 2 puff INHALATION Q6H PRN (Reason: Shortness Of Breath Or Wheezing) RF: 0 diclofenac sodium 1 % Gel 2 g TOPICAL QID PRN (Reason: Pain) RF: 0 biotin 5,000 mcg Tablet, Sublingual 5,000 mcg SUBLINGUAL DAILY RF: 0 bisacodyl 5 mg Tablet 5 mg PO DAILY PRN (Reason: Constipation) RF: 0 calcium carbonate-vitamin D3 [Calcium 600 + D(3)] 600 mg(1,500mg) -200 unit Ta blet 1 tab PO DAILY RF: 0 fluticasone furoate-vilanterol 100-25 mcg/dose Blister With Device 1 inh INHALATION DAILY RF: 0 prednisone 10 mg tablet 20 mg PO DAILY PRN (Reason: rescue kit copd) RF: 0 Changed Toprol XL 25 mg 25 mg PO BID Qty: 0 RF: 0 Discharge Orders: Discharge Order (Routine); Ordered 03/31/19 Ordered By: Eloisa Parmar Admission Data Admit Date/Time: 03/29/19 02:22 Attending Provider: Eloisa Parmar I. Admit Provider: Ozzy Hicks Primary Care Provider: Harjeet Zaman Other Providers: Ozzy Hicks ; Moshe Fulton Other Interventions: Discharge Summary Assessment (RN) Last Done: 03/31/19 11:13 DC Date/Time DO NOT enter until pt leaves facility: 03/31/19 11:45
== END 2019-03-31 11:45 | disposition home or self-care (01) | DRG 189 ==
LOC: ED 23:24 → 2E 03-29 03:58